=== PATIENT | male | born 1950 | race Caucasian/White ===

== ENCOUNTER → 2018-01-13 10:46 | Outpatient (CLI) | payer MEDICARE, OTHER, SELFPAY ==
[2018-01-13 11:34] LABS: Amphetamine Urine VISTA NEGATIVE (<1000 ng/mL); Barbiturate Urine VISTA NEGATIVE (< 200 ng/mL); Benzodiazepine Urine VISTA NEGATIVE (< 200 ng/mL); Cocaine Urine VISTA NEGATIVE (< 300 ng/mL); Ecstacy Urine VISTA NEGATIVE (< 500 ng/mL); Methadone Urine VISTA NEGATIVE (< 300 ng/mL); PCP Urine VISTA NEGATIVE (< 25 ng/mL); THC Urine VISTA NEGATIVE (< 50 ng/mL); Vista UDS pH Range 5
== END ==
PROVIDERS: Family Provider Family Medicine; PCP Family Medicine; Visit Provider Anesthesiology Pain Medicine
DX: F11.20 Opioid dependence, uncomplicated (principal)
CPT/HCPCS: 80307

== ENCOUNTER → 2018-02-03 09:39 | Outpatient (CLI) | payer MEDICARE, OTHER, SELFPAY ==
[2018-02-03 11:33] LABS: Anion Gap 5 (5-15); BUN 20 mg/dL (7-18); BUN/Creat Ratio 19.6 RATIO (10-20); Calcium,Total 9.2 mg/dL (8.5-10.1); Chloride 104 mmol/L (98-107); Cholesterol 168 mg/dL (200); Creatinine, Serum 1.02 mg/dL (0.70-1.30); EST Glomerular Filtration Rate 78 mL/min (>60); Est Glom Filt Rate - Afr Amer 94 mL/min (>60); Glucose 108 mg/dL (74-106); High Density Lipoprotein 40 mg/dL; PSA,Total - Annual Screen 2.53 ng/mL (0.00-4.00); Sodium Level 141 mmol/L (136-145); Triglycerides 126 mg/dL; Very Low Density Lipoprotein 25 mg/dL (5-40)
== END ==
PROVIDERS: Family Provider Family Medicine; PCP Family Medicine; Visit Provider Family Medicine
DX: Z00.00 Encounter for general adult medical examination without abnormal findings (principal); Z12.5 Encounter for screening for malignant neoplasm of prostate; I10 Essential (primary) hypertension
CPT/HCPCS: 36415; 80048; 80061; 84153; G0103

== ENCOUNTER → 2018-02-10 10:58 | Outpatient (CLI) | payer MEDICARE, OTHER, SELFPAY ==
[2018-02-10 11:32] LABS: Amphetamine Urine VISTA NEGATIVE (<1000 ng/mL); Barbiturate Urine VISTA NEGATIVE (< 200 ng/mL); Benzodiazepine Urine VISTA NEGATIVE (< 200 ng/mL); Cocaine Urine VISTA NEGATIVE (< 300 ng/mL); Ecstacy Urine VISTA NEGATIVE (< 500 ng/mL); Methadone Urine VISTA NEGATIVE (< 300 ng/mL); PCP Urine VISTA NEGATIVE (< 25 ng/mL); THC Urine VISTA NEGATIVE (< 50 ng/mL); Vista UDS pH Range 5
== END ==
PROVIDERS: Family Provider Family Medicine; PCP Family Medicine; Visit Provider Anesthesiology Pain Medicine
DX: F11.20 Opioid dependence, uncomplicated (principal)
CPT/HCPCS: 80307

== ENCOUNTER → 2018-07-30 10:36 | Outpatient (CLI) | payer MEDICARE, OTHER, SELFPAY ==
[2018-07-30 11:50] LABS: Amphetamine Urine VISTA NEGATIVE (<1000 ng/mL); Barbiturate Urine VISTA NEGATIVE (< 200 ng/mL); Benzodiazepine Urine VISTA NEGATIVE (< 200 ng/mL); Cocaine Urine VISTA NEGATIVE (< 300 ng/mL); Ecstacy Urine VISTA NEGATIVE (< 500 ng/mL); Methadone Urine VISTA NEGATIVE (< 300 ng/mL); PCP Urine VISTA NEGATIVE (< 25 ng/mL); THC Urine VISTA NEGATIVE (< 50 ng/mL); Vista UDS pH Range 6
== END ==
PROVIDERS: Family Provider Family Medicine; PCP Family Medicine; Visit Provider Anesthesiology Pain Medicine
DX: F11.20 Opioid dependence, uncomplicated (principal)
CPT/HCPCS: 80307

== ENCOUNTER → 2018-09-30 14:57 | Outpatient (CLI) | payer MEDICARE, OTHER, SELFPAY ==
[2018-09-30 16:06] LABS: Anion Gap 6 (5-15); BUN 26 mg/dL (7-18); BUN/Creat Ratio 21.1 RATIO (10-20); Calcium,Total 8.8 mg/dL (8.5-10.1); Chloride 100 mmol/L (98-107); Creatinine, Serum 1.23 mg/dL (0.70-1.30); EST Glomerular Filtration Rate 62 mL/min (>60); Est Glom Filt Rate - Afr Amer 75 mL/min (>60); Glucose 114 mg/dL (74-106); Sodium Level 138 mmol/L (136-145)
== END ==
PROVIDERS: Family Provider Family Medicine; PCP Family Medicine; Visit Provider Family Medicine
DX: I10 Essential (primary) hypertension (principal)
CPT/HCPCS: 36415; 80048

== ENCOUNTER → 2019-04-01 | Outpatient (CLI) | payer MEDICARE, OTHER, SELFPAY ==
[2019-04-01 16:12] LABS: Anion Gap 9 (5-15); BUN 19 mg/dL (7-18); BUN/Creat Ratio 18.3 RATIO (10-20); Calcium,Total 8.9 mg/dL (8.5-10.1); Chloride 101 mmol/L (98-107); Cholesterol 174 mg/dL (200); Creatinine, Serum 1.04 mg/dL (0.70-1.30); EST Glomerular Filtration Rate 76 mL/min (>60); Est Glom Filt Rate - Afr Amer 91 mL/min (>60); Glucose 95 mg/dL (74-106); High Density Lipoprotein 40 mg/dL; Potassium 3.6 mmol/L (3.5-5.1); Sodium Level 142 mmol/L (136-145); Triglycerides 139 mg/dL; Very Low Density Lipoprotein 28 mg/dL (5-40)
== END | disposition home or self-care (01) ==
LOC: MFPLAB 13:46
PROVIDERS: Family Provider Family Medicine; PCP Family Medicine; Referring Provider Family Medicine; Visit Provider Family Medicine
DX: E78.5 Hyperlipidemia, unspecified (principal); I10 Essential (primary) hypertension
CPT/HCPCS: 36415; 80048; 80061

== ENCOUNTER → 2019-08-03 12:35 | Outpatient (CLI) | payer MEDICARE, OTHER, SELFPAY ==
--- NOTE | 2019-08-03 12:46 | BD_ITS ---
STUDY: DUAL ENERGY X-RAY ABSORPTIOMETRY / DXA REASON FOR EXAM: Male, 69 years old. Loss of height. TECHNIQUE: Bone Mineral Density (BMD) measurements of lumbar spine and bilateral hips were obtained. COMPARISON: Comparison is made with prior study dated April 02, 2017. FINDINGS: Lumbar Spine (L1-L4): g/cm2 (1.514) / T-score (2.4) / Z-score (2.9) Findings are suggestive of normal bone density with a low fracture risk. Increased kyphosis. Left Femur Total: g/cm2 (0.713) / T-score (-2.7) / Z-score (-2.0) Left Femoral Neck: g/cm2 (0.613) / T-score (-3.5) / Z-score (-2.3) Right Femur Total: g/cm2 (0.756) / T-score (-2.4) / Z-score (-1.7) Right Femoral Neck: g/cm2 (0.673) / T-score (-3.1) / Z-score (-1.9) The T-Scores on the most recent prior examination were: Lumbar Spine (L1-L4): There has been improvement of bone density since the previous examination. Left Femur Total: which represents a worsening of 5.6%. Right Femur Total: which represents an improvement of 5.6%. BD/Dexa Bone Density Study IMPRESSION: The patient is considered osteoporotic as outlined below according to World Saud Organization (WHO) criteria with a high fracture risk. There has been improvement of bone density since the previous examination. Reference Information: The T-score is the number of standard deviations above or below the standard which is normal for young adults at their peak bone mineral density. The World Health Organization (WHO) interprets the T-scores as follows: Above -1 Normal bone density Between -1 and -2.5 Osteopenia Equal to / or below -2.5 Osteoporosis As a practical clinical guideline, osteopenia may be graded as follows: Mild -1 through -1.5 Moderate -1.6 through -2.0 Severe -2.1 through -2.4 The Z-score is the number of standard deviations above or below age-matched controls. A Z-score of less than -1.5 would be considered abnormal. References: 1. NIH Osteoporosis and Related Bone Diseases http://www.osteo.org 2. International Society for Clinical Densitometry http://www.iscd.org 3. National Osteoporosis Foundation http://www.nof.org Electronically Signed: Ariel Sahu, at 13:41 EDT , Service support ,
== END ==
PROVIDERS: Family Provider Family Medicine; PCP Family Medicine; Referring Provider Family Medicine; Visit Provider Family Medicine
DX: M81.0 Age-related osteoporosis without current pathological fracture (principal)
CPT/HCPCS: 77080

== ENCOUNTER → 2019-09-30 14:06 | Outpatient (CLI) | payer MEDICARE, OTHER, SELFPAY ==
[2019-09-30 15:54] LABS: Anion Gap 6 (5-15); BUN 19 mg/dL (7-18); BUN/Creat Ratio 20.3 RATIO (10-20); Calcium,Total 9.4 mg/dL (8.5-10.1); Chloride 103 mmol/L (98-107); Creatinine, Serum 0.94 mg/dL (0.70-1.30); EST Glomerular Filtration Rate 85 mL/min (>60); Est Glom Filt Rate - Afr Amer 103 mL/min (>60); Glucose 107 mg/dL (74-106); Potassium 3.7 mmol/L (3.5-5.1); Sodium Level 140 mmol/L (136-145)
== END ==
PROVIDERS: Family Provider Family Medicine; PCP Family Medicine; Referring Provider Family Medicine; Visit Provider Family Medicine
DX: I10 Essential (primary) hypertension (principal)
CPT/HCPCS: 36415; 80048

== ENCOUNTER → 2019-12-30 09:43 | Outpatient (CLI) | payer MEDICARE, OTHER, SELFPAY ==
[2019-12-30 11:02] LABS: Amphetamine Urine VISTA NEGATIVE (<1000 ng/mL); Barbiturate Urine VISTA NEGATIVE (< 200 ng/mL); Benzodiazepine Urine VISTA NEGATIVE (< 200 ng/mL); Cocaine Urine VISTA NEGATIVE (< 300 ng/mL); Ecstacy Urine VISTA NEGATIVE (< 500 ng/mL); Methadone Urine VISTA NEGATIVE (< 300 ng/mL); PCP Urine VISTA NEGATIVE (< 25 ng/mL); THC Urine VISTA NEGATIVE (< 50 ng/mL); Vista UDS pH Range 6
== END ==
PROVIDERS: PCP Family Medicine; Referring Provider Anesthesiology Pain Medicine; Visit Provider Anesthesiology Pain Medicine
DX: F11.20 Opioid dependence, uncomplicated (principal)
CPT/HCPCS: 80307

== ENCOUNTER → 2020-03-30 10:40 | Outpatient (CLI) | payer MEDICARE, OTHER, SELFPAY ==
[2020-03-30 12:12] LABS: Absolute Lymphocyte Count 1.51 X10^3/uL (0.83-4.51); Absolute Neutrophil Count 6.6 X10^3/uL (2.0-7.7); Basophil# 0.08 X10^3/uL; Basophil% 0.8 % (0-1); Eosinophil# 0.32 X10^3/uL; Eosinophils% 3.3 % (0-5); Hematocrit 39.9 % (40-54); Hemoglobin 12.3 g/dL (13.0-16.5); Lymphocyte # 1.51 X10^3/ul (4.0); Lymphocyte % 15.7 % (19-41); Mean Corp Hgb Conc 30.8 g/dL (32-36); Mean Corpuscular Hgb 30.1 pg (27.0-32.0); Mean Corpuscular Volume 97.8 fL (80-94); Mean Platelet Vol. 9.1 fl (6.2-12.0); Monocyte# 1.08 X10^3/uL; Monocyte% 11.3 % (0-10); NRBC Flagged by Analyzer 0 % (0-5); Neutrophil # 6.57 X10^3/uL (2.7-7.7); Neutrophil % 68.6 % (47-70); Platelet Count 367 K/mm3 (150-450); RBC Distribution Width CV 14.9 % (11.6-14.6); RBC Distribution Width SD 53.6 fl (35.1-43.9); Red Blood Count 4.08 M/mm3 (4.6-6.2); White Blood Count 9.6 K/mm3 (4.4-11.0)
[2020-03-30 12:24] LABS: Anion Gap 4 (5-15); BUN 19 mg/dL (7-18); BUN/Creat Ratio 20.5 RATIO (10-20); Calcium,Total 8.7 mg/dL (8.5-10.1); Chloride 100 mmol/L (98-107); Cholesterol 153 mg/dL (200); Creatinine, Serum 0.93 mg/dL (0.70-1.30); EST Glomerular Filtration Rate 86 mL/min (>60); Est Glom Filt Rate - Afr Amer 104 mL/min (>60); Glucose 135 mg/dL (74-106); High Density Lipoprotein 33 mg/dL; Potassium 3.4 mmol/L (3.5-5.1); Sodium Level 138 mmol/L (136-145); Triglycerides 144 mg/dL; Very Low Density Lipoprotein 29 mg/dL (5-40)
== END ==
PROVIDERS: PCP Family Medicine; Visit Provider Family Medicine
DX: I10 Essential (primary) hypertension (principal); R09.02 Hypoxemia
CPT/HCPCS: 36415; 80048; 80061; 85025

== ENCOUNTER → 2020-07-03 08:38 | Outpatient (CLI) | payer MEDICARE, OTHER, SELFPAY ==
[2020-07-03 13:13] LABS: Anion Gap 4 (5-15); BUN 14 mg/dL (7-18); Calcium,Total 8.6 mg/dL (8.5-10.1); Chloride 101 mmol/L (98-107); Cholesterol 141 mg/dL (200); EST Glomerular Filtration Rate 79 mL/min (>60); Est Glom Filt Rate - Afr Amer 95 mL/min (>60); Glucose 111 mg/dL (74-106); High Density Lipoprotein 36 mg/dL; Potassium 3.4 mmol/L (3.5-5.1); Sodium Level 140 mmol/L (136-145); Triglycerides 114 mg/dL; Very Low Density Lipoprotein 23 mg/dL (5-40)
== END ==
PROVIDERS: PCP Family Medicine; Visit Provider Family Medicine
DX: I10 Essential (primary) hypertension (principal)
CPT/HCPCS: 36415; 80048; 80061

== ENCOUNTER → 2020-08-08 12:12 | Outpatient (CLI) | payer MEDICARE, OTHER, SELFPAY ==
[2020-08-08 15:55] LABS: Anion Gap 6 (5-15); BUN 21 mg/dL (7-18); BUN/Creat Ratio 19.6 RATIO (10-20); Calcium,Total 9.7 mg/dL (8.5-10.1); Chloride 100 mmol/L (98-107); Creatinine, Serum 1.07 mg/dL (0.70-1.30); EST Glomerular Filtration Rate 73 mL/min (>60); Est Glom Filt Rate - Afr Amer 88 mL/min (>60); Glucose 107 mg/dL (74-106); Potassium 3.2 mmol/L (3.5-5.1); Sodium Level 142 mmol/L (136-145)
== END ==
PROVIDERS: PCP Family Medicine; Referring Provider Family Medicine; Visit Provider Family Medicine
DX: E87.6 Hypokalemia (principal)
CPT/HCPCS: 36415; 80048

== ENCOUNTER → 2020-08-10 12:07 | Outpatient (CLI) | payer MEDICARE, OTHER, SELFPAY ==
[2020-08-10 13:25] LABS: Amphetamine Urine VISTA NEGATIVE (<1000 ng/mL); Barbiturate Urine VISTA NEGATIVE (< 200 ng/mL); Benzodiazepine Urine VISTA NEGATIVE (< 200 ng/mL); Cocaine Urine VISTA NEGATIVE (< 300 ng/mL); Ecstacy Urine VISTA NEGATIVE (< 500 ng/mL); Methadone Urine VISTA NEGATIVE (< 300 ng/mL); PCP Urine VISTA NEGATIVE (< 25 ng/mL); THC Urine VISTA NEGATIVE (< 50 ng/mL); Vista UDS pH Range 6
== END ==
PROVIDERS: PCP Family Medicine; Referring Provider Anesthesiology Pain Medicine; Visit Provider Anesthesiology Pain Medicine
DX: F11.20 Opioid dependence, uncomplicated (principal)
CPT/HCPCS: 80307

== ENCOUNTER → 2020-09-05 10:34 | Outpatient (CLI) | payer MEDICARE, OTHER, SELFPAY ==
[2020-09-05 13:10] LABS: Anion Gap 5 (5-15); BUN 17 mg/dL (7-18); BUN/Creat Ratio 13.4 RATIO (10-20); Calcium,Total 9.1 mg/dL (8.5-10.1); Chloride 105 mmol/L (98-107); Creatinine, Serum 1.27 mg/dL (0.70-1.30); EST Glomerular Filtration Rate 60 mL/min (>60); Est Glom Filt Rate - Afr Amer 72 mL/min (>60); Glucose 131 mg/dL (74-106); Potassium 3.5 mmol/L (3.5-5.1); Sodium Level 141 mmol/L (136-145)
== END ==
PROVIDERS: PCP Family Medicine; Referring Provider Family Medicine; Visit Provider Family Medicine
DX: E87.6 Hypokalemia (principal)
CPT/HCPCS: 36415; 80048

== ENCOUNTER → 2020-10-30 13:56 | Outpatient (CLI) | payer MEDICARE, OTHER, SELFPAY ==
[2020-10-18 10:37] VITALS: BMI 38.9
== END ==
PROVIDERS: PCP Family Medicine; Referring Provider Internal Medicine Cardiovascular Disease; Visit Provider Internal Medicine Cardiovascular Disease
DX: I49.9 Cardiac arrhythmia, unspecified (principal)
CPT/HCPCS: 93225; 93226

== ENCOUNTER → 2020-11-01 06:44 | Outpatient (CLI) | payer MEDICARE, OTHER, SELFPAY ==
[2020-10-18 10:37] VITALS: BMI 38.9
--- NOTE | 2020-11-01 06:46 | ECHOCS_ITS ---
Reason For Study: ATRIAL FIB-FLUTTER Procedure This was a 2D Doppler, Color Flow transthoracic echocardiogram. The study was technically difficult. Exam performed in department. Left Ventricle Normal LV size. Left ventricular systolic function is normal. The estimated ejection fraction is 53 %. Stage 1 diastolic dysfunction. No regional wall motion abnormalities noted. Right Ventricle Normal RV size. Normal systolic function. Atria Normal left atrium. Normal right atrium. Mitral Valve Normal mitral valve. Tricuspid Valve The tricuspid valve is not well visualized. Mild to moderate (1-2+) tricuspid valve insufficiency. Pulmonary artery systolic pressure is 48 mmHg. Mild pulmonary hypertension. Aortic Valve The aortic valve is not well visualized. Pulmonic Valve Normal pulmonic valve. Great Vessels Normal aortic root. The pulmonary artery is normal size. Normal inferior vena cava. Pericardium/Pleural No pericardial effusion. Medication Diluted definity 3ml given slow IV push to enhance endocardial definition. MMode/2D Measurements & Calculations LVIDd: 4.1 cm IVSd: 1.0 cm Ao root diam: 3.2 cm LVIDs: 2.8 cm LVPWd: 0.97 cm RVDd: 3.4 cm FS: 30.9 % LAV(MOD-bp): 24.6 ml LVAd ap4: 24.7 cm2 SV(MOD-sp4): 45.8 ml LAV(MOD-bp) Indexed: 13.5 ml/m2 EDV(MOD-sp4): 72.9 ml LAV(MOD-sp2): 30.1 ml EDV(sp4-el): 77.0 ml LAV(MOD-sp4): 19.7 ml LVAs ap4: 13.5 cm2 ESV(MOD-sp4): 27.1 ml ESV(sp4-el): 28.4 ml EF(MOD-sp4): 62.8 % EF(sp4-el): 63.1 % SV(sp4-el): 48.5 ml LA A4 area: 11.1 cm2 LA dimension(2D): 3.7 cm RA A4 area: 10.6 cm2 Time Measurements MV dec time: 0.29 sec Doppler Measurements & Calculations MV E max keshawn: 54.8 cm/sec Lat Peak E' Keshawn: 9.5 cm/sec Med Peak E' Keshawn: 7.5 cm/sec MV A max keshawn: 74.4 cm/sec E/E' lat: 5.8 E/E' med: 7.3 MV E/A: 0.74 Ao V2 max: 134.4 cm/sec LV V1 max: 93.5 cm/sec PA V2 max: 104.5 cm/sec Ao max P.2 mmHg LV V1 max P.5 mmHg TR max keshawn: 331.8 cm/sec TR max P.0 mmHg Interpretation Summary Normal LV size. Left ventricular systolic function is normal. The estimated ejection fraction is 53 %. Pulmonary artery systolic pressure is 48 mmHg. Mild pulmonary hypertension. Stage 1 diastolic dysfunction. Contrast injection was performed. Ordering Physician: Zafar Fish Referring Physician: GUERRERO DELEON Performed By: Marianela Michelle RDCS
== END ==
PROVIDERS: PCP Family Medicine; Referring Provider Internal Medicine Cardiovascular Disease; Visit Provider Internal Medicine Cardiovascular Disease
DX: R07.9 Chest pain, unspecified (principal)
CPT/HCPCS: 93306; Q9957; A4216; C8929

== ENCOUNTER → 2020-12-08 10:30 | Outpatient (CLI) | payer MEDICARE, OTHER, SELFPAY ==
[2020-11-15 09:22] VITALS: BMI 38.7
[2020-12-08 12:55] LABS: Anion Gap 7 (5-15); BUN 29 mg/dL (7-18); BUN/Creat Ratio 17.7 RATIO (10-20); Calcium,Total 9.5 mg/dL (8.5-10.1); Chloride 105 mmol/L (98-107); Cholesterol 163 mg/dL (200); Creatinine, Serum 1.64 mg/dL (0.70-1.30); EST Glomerular Filtration Rate 44 mL/min (>60); Est Glom Filt Rate - Afr Amer 54 mL/min (>60); Glucose 110 mg/dL (74-106); High Density Lipoprotein 35 mg/dL; Potassium 3.4 mmol/L (3.5-5.1); Sodium Level 142 mmol/L (136-145); Triglycerides 167 mg/dL; Very Low Density Lipoprotein 33 mg/dL (5-40)
== END ==
PROVIDERS: PCP Family Medicine; Referring Provider Family Medicine; Visit Provider Family Medicine
DX: I10 Essential (primary) hypertension (principal)
CPT/HCPCS: 36415; 80048; 80061

== ENCOUNTER → 2021-02-20 09:59 | Outpatient (CLI) | payer MEDICARE, OTHER, SELFPAY ==
[2020-11-15 09:22] VITALS: BMI 38.7
[2021-02-20 10:56] LABS: Amphetamine Urine VISTA NEGATIVE (<1000 ng/mL); Barbiturate Urine VISTA NEGATIVE (< 200 ng/mL); Benzodiazepine Urine VISTA NEGATIVE (< 200 ng/mL); Cocaine Urine VISTA NEGATIVE (< 300 ng/mL); Ecstacy Urine VISTA NEGATIVE (< 500 ng/mL); Methadone Urine VISTA NEGATIVE (< 300 ng/mL); PCP Urine VISTA NEGATIVE (< 25 ng/mL); THC Urine VISTA NEGATIVE (< 50 ng/mL); Vista UDS pH Range 6
== END ==
PROVIDERS: PCP Family Medicine; Referring Provider Anesthesiology Pain Medicine; Visit Provider Anesthesiology Pain Medicine
DX: F11.20 Opioid dependence, uncomplicated (principal)
CPT/HCPCS: 80307

== ENCOUNTER → 2021-03-29 09:57 | Outpatient (CLI) | payer MEDICARE, OTHER, SELFPAY ==
[2020-11-15 09:22] VITALS: BMI 38.7
[2021-03-29 12:43] LABS: Anion Gap 4 (5-15); BUN 29 mg/dL (7-18); BUN/Creat Ratio 32.6 RATIO (10-20); Calcium,Total 9.1 mg/dL (8.5-10.1); Chloride 101 mmol/L (98-107); Creatinine, Serum 0.89 mg/dL (0.70-1.30); EST Glomerular Filtration Rate 90 mL/min (>60); Est Glom Filt Rate - Afr Amer 109 mL/min (>60); Glucose 108 mg/dL (74-106); Sodium Level 138 mmol/L (136-145)
[2021-03-29 12:49] LABS: Hemoglobin A1c 6.1 % (3.8-5.6)
[2021-03-29 12:57] LABS: Microalbumin,Random Urine 52.7 mg/L (NO RANGE EST.)
== END ==
PROVIDERS: PCP Family Medicine; Referring Provider Family Medicine; Visit Provider Family Medicine
DX: I10 Essential (primary) hypertension (principal); R73.01 Impaired fasting glucose
CPT/HCPCS: 36415; 80048; 82043; 83036

== ENCOUNTER → 2021-06-07 09:30 | Outpatient (CLI) | payer MEDICARE, OTHER, SELFPAY ==
[2020-11-15 09:22] VITALS: BMI 38.7
--- NOTE | 2021-06-07 09:34 | RAD_ITS ---
STUDY: X-RAY - PELVIS AND BILATERAL HIPS REASON FOR EXAM: Male, 71 years old. PELVIC PAIN TECHNIQUE: AP view of the pelvis.? 2 views of the right hip, and 2 views of the left hip were obtained. COMPARISON: None. FINDINGS: There is a non-specific bowel gas pattern. Normal visualized soft tissue structures. Normal bilateral iliac wings, sacroiliac joints and visualized sacrum. Normal bilateral superior and inferior pubic rami. Normal pubic symphysis. Normal bilateral ischial tuberosities. Normal visualized right femoral head. Normal right acetabulum. Normal right hip joint. Normal visualized left femoral head. Normal left acetabulum. Normal left hip joint. RAD/Hips B/L min 2 views w/ Pelvis IMPRESSION: Normal x-ray examination of the pelvis and bilateral hips. Electronically Signed: Adriel Logan MD at 9:27 EDT Tel , Service support ,
== END ==
PROVIDERS: PCP Family Medicine; Referring Provider Family Medicine; Visit Provider Family Medicine
DX: R10.2 Pelvic and perineal pain (principal)
CPT/HCPCS: 73521

== ENCOUNTER → 2021-09-27 09:28 | Outpatient (CLI) | payer MEDICARE, OTHER, SELFPAY ==
[2021-09-27 12:49] LABS: Anion Gap 6 (5-15); BUN 21 mg/dL (7-18); BUN/Creat Ratio 23.3 RATIO (10-20); Calcium,Total 8.8 mg/dL (8.5-10.1); Chloride 102 mmol/L (98-107); Cholesterol 150 mg/dL (200); EST Glomerular Filtration Rate 88 mL/min (>60); Est Glom Filt Rate - Afr Amer 107 mL/min (>60); Glucose 109 mg/dL (74-106); High Density Lipoprotein 50 mg/dL; Potassium 3.8 mmol/L (3.5-5.1); Sodium Level 138 mmol/L (136-145); Triglycerides 60 mg/dL; Very Low Density Lipoprotein 12 mg/dL (5-40)
== END ==
PROVIDERS: PCP Family Medicine; Referring Provider Family Medicine; Visit Provider Family Medicine
DX: I10 Essential (primary) hypertension (principal)
CPT/HCPCS: 36415; 80048; 80061

== ENCOUNTER → 2021-10-02 10:24 | Outpatient (CLI) | payer MEDICARE, OTHER, SELFPAY ==
[2021-10-02 11:23] LABS: Amphetamine Urine VISTA NEGATIVE (<1000 ng/mL); Barbiturate Urine VISTA NEGATIVE (< 200 ng/mL); Benzodiazepine Urine VISTA NEGATIVE (< 200 ng/mL); Cocaine Urine VISTA NEGATIVE (< 300 ng/mL); Ecstacy Urine VISTA NEGATIVE (< 500 ng/mL); Methadone Urine VISTA NEGATIVE (< 300 ng/mL); PCP Urine VISTA NEGATIVE (< 25 ng/mL); THC Urine VISTA NEGATIVE (< 50 ng/mL); Vista UDS pH Range 6
== END ==
PROVIDERS: PCP Family Medicine; Referring Provider Anesthesiology Pain Medicine; Visit Provider Anesthesiology Pain Medicine
DX: F11.20 Opioid dependence, uncomplicated (principal)
CPT/HCPCS: 80307

== ENCOUNTER → 2022-04-16 | Outpatient (CLI) | payer MEDICARE, OTHER, SELFPAY ==
[2022-04-16 13:12] LABS: Amphetamine Urine VISTA NEGATIVE (<1000 ng/mL); Barbiturate Urine VISTA NEGATIVE (< 200 ng/mL); Benzodiazepine Urine VISTA NEGATIVE (< 200 ng/mL); Cocaine Urine VISTA NEGATIVE (< 300 ng/mL); Ecstacy Urine VISTA NEGATIVE (< 500 ng/mL); Methadone Urine VISTA NEGATIVE (< 300 ng/mL); PCP Urine VISTA NEGATIVE (< 25 ng/mL); THC Urine VISTA NEGATIVE (< 50 ng/mL); Vista UDS pH Range 6
== END | disposition home or self-care (01) ==
LOC: LAB 11:22
PROVIDERS: PCP Family Medicine; Referring Provider Anesthesiology Pain Medicine; Visit Provider Anesthesiology Pain Medicine
DX: F11.20 Opioid dependence, uncomplicated (principal)
CPT/HCPCS: 80307

== ENCOUNTER → 2022-10-01 | Outpatient (CLI) | payer MEDICARE, OTHER, SELFPAY ==
[2022-10-01 10:33] LABS: Amphetamine Urine VISTA NEGATIVE (<1000 ng/mL); Barbiturate Urine VISTA NEGATIVE (< 200 ng/mL); Benzodiazepine Urine VISTA NEGATIVE (< 200 ng/mL); Cocaine Urine VISTA NEGATIVE (< 300 ng/mL); Ecstacy Urine VISTA NEGATIVE (< 500 ng/mL); Methadone Urine VISTA NEGATIVE (< 300 ng/mL); PCP Urine VISTA NEGATIVE (< 25 ng/mL); THC Urine VISTA NEGATIVE (< 50 ng/mL); Vista UDS pH Range 5
== END | disposition home or self-care (01) ==
LOC: LAB 09:50
PROVIDERS: PCP Family Medicine; Visit Provider Anesthesiology Pain Medicine
DX: F11.20 Opioid dependence, uncomplicated (principal)
CPT/HCPCS: 80307

== ENCOUNTER → 2022-10-02 | Outpatient (CLI) | payer MEDICARE, OTHER, SELFPAY ==
[2022-10-02 11:12] LABS: ALB/GLOB Ratio 0.8 RATIO (0.9-2.4); AST(SGOT) 18 U/L (15-37); Alanine Aminotransfer ALT/SGPT 22 U/L (16-61); Albumin, Serum 3.5 g/dL (3.2-5.0); Alkaline Phosphatase 109 U/L (45-117); Anion Gap 6 (5-15); BUN 19 mg/dL (7-18); BUN/Creat Ratio 21.9 RATIO (10-20); Calcium,Total 9.4 mg/dL (8.5-10.1); Chloride 105 mmol/L (98-107); Cholesterol 165 mg/dL (200); Creatinine, Serum 0.87 mg/dL (0.70-1.30); EST Glomerular Filtration Rate 92 mL/min (>60); Est Glom Filt Rate - Afr Amer 111 mL/min (>60); Globulin 4.3 g/dL (2.2-4.2); Glucose 124 mg/dL (74-106); High Density Lipoprotein 44 mg/dL; Potassium 3.4 mmol/L (3.5-5.1); Protein, Total 7.8 g/dL (6.4-8.2); Sodium Level 141 mmol/L (136-145); Triglycerides 108 mg/dL; Very Low Density Lipoprotein 22 mg/dL (5-40)
== END | disposition home or self-care (01) ==
LOC: MFPLAB 09:28
PROVIDERS: PCP Family Medicine; Referring Provider Family Medicine; Visit Provider Family Medicine
DX: R73.01 Impaired fasting glucose (principal); I10 Essential (primary) hypertension
CPT/HCPCS: 36415; 80053; 80061

== ENCOUNTER → 2023-04-04 | Outpatient (CLI) | payer MEDICARE, OTHER, SELFPAY ==
[2023-04-04 18:04] LABS: Anion Gap 5 (5-15); BUN 18 mg/dL (7-18); BUN/Creat Ratio 20.8 RATIO (10-20); Chloride 108 mmol/L (98-107); Creatinine, Serum 0.87 mg/dL (0.70-1.30); EST Glomerular Filtration Rate 92 mL/min (>60); Est Glom Filt Rate - Afr Amer 112 mL/min (>60); Glucose 106 mg/dL (74-106); Potassium 4.3 mmol/L (3.5-5.1); Sodium Level 141 mmol/L (136-145)
== END | disposition home or self-care (01) ==
LOC: MFPLAB 14:10
PROVIDERS: PCP Family Medicine; Visit Provider Family Medicine
DX: I10 Essential (primary) hypertension (principal)
CPT/HCPCS: 36415; 80048

== ENCOUNTER → 2023-06-10 | Outpatient (CLI) | payer MEDICARE, OTHER, SELFPAY ==
[2023-06-10 16:06] LABS: Amphetamine Urine VISTA NEGATIVE (<1000 ng/mL); Barbiturate Urine VISTA NEGATIVE (< 200 ng/mL); Benzodiazepine Urine VISTA NEGATIVE (< 200 ng/mL); Cocaine Urine VISTA NEGATIVE (< 300 ng/mL); Ecstacy Urine VISTA NEGATIVE (< 500 ng/mL); Methadone Urine VISTA NEGATIVE (< 300 ng/mL); PCP Urine VISTA NEGATIVE (< 25 ng/mL); THC Urine VISTA NEGATIVE (< 50 ng/mL); Vista UDS pH Range 6
== END | disposition home or self-care (01) ==
LOC: LAB 15:16
PROVIDERS: PCP Family Medicine; Referring Provider Anesthesiology Pain Medicine; Visit Provider Anesthesiology Pain Medicine
DX: F11.20 Opioid dependence, uncomplicated (principal)
CPT/HCPCS: 80307

== ENCOUNTER → 2023-10-23 | Outpatient (CLI) | payer MEDICARE, OTHER, SELFPAY ==
[2023-10-23 12:31] LABS: Anion Gap 5 (5-15); BUN 16 mg/dL (7-18); Calcium,Total 9.1 mg/dL (8.5-10.1); Chloride 107 mmol/L (98-107); Cholesterol 142 mg/dL (200); EST Glomerular Filtration Rate 78 mL/min (>60); Est Glom Filt Rate - Afr Amer 94 mL/min (>60); Glucose 103 mg/dL (74-106); High Density Lipoprotein 48 mg/dL; Potassium 3.8 mmol/L (3.5-5.1); Sodium Level 141 mmol/L (136-145); Triglycerides 68 mg/dL; Very Low Density Lipoprotein 14 mg/dL (5-40)
== END | disposition home or self-care (01) ==
LOC: MFPLAB 10:06
PROVIDERS: PCP Family Medicine; Visit Provider Family Medicine
DX: I10 Essential (primary) hypertension (principal); R73.01 Impaired fasting glucose
CPT/HCPCS: 36415; 80048; 80061; 82043; 82570; 83036

== ENCOUNTER → 2024-01-22 | Outpatient (CLI) | payer MEDICARE, OTHER, SELFPAY ==
--- NOTE | 2024-01-22 10:45 | RAD_ITS ---
EXAM: XR CHEST, 2 VIEWS CLINICAL INDICATION: COUGH TECHNIQUE: Frontal and lateral views of the chest. COMPARISON: 09/15/2017 FINDINGS: LUNGS AND PLEURAL SPACES: No significant abnormality. No consolidation or edema. No pneumothorax. No effusion. HEART: No significant abnormality. Cardiac silhouette not enlarged. MEDIASTINUM: Central airways and mediastinal contour are unremarkable. BONES/JOINTS: Degenerative changes in the spine and shoulders. No acute fracture. SOFT TISSUES: No significant abnormality. VASCULATURE: Atherosclerosis. RAD/Chest PA and Lateral IMPRESSION: No acute findings in the chest. Electronically Signed: Hoang Rutherford DO at 22:51 EST ,
[2024-01-22 12:27] LABS: Absolute Neutrophil Count 9.9 X10^3/uL (2.0-7.7); Basophil% 0.7 % (0-1); Eosinophil# 0.15 X10^3/uL; Eosinophils% 1.1 % (0-5); Hematocrit 48.9 % (40-54); Hemoglobin 15.3 g/dL (13.0-16.5); Lymphocyte % 15.8 % (19-41); Mean Corp Hgb Conc 31.3 g/dL (32-36); Mean Corpuscular Hgb 30.1 pg (27.0-32.0); Mean Corpuscular Volume 96.3 fL (80-94); Mean Platelet Vol. 9.2 fl (6.2-12.0); Monocyte# 1.53 X10^3/uL; NRBC Flagged by Analyzer 0 % (0-5); Neutrophil # 9.89 X10^3/uL (2.7-7.7); POSITIVE DIFFERENTIAL YES; Platelet Count 345 K/mm3 (150-450); RBC Distribution Width CV 14.1 % (11.6-14.6); RBC Distribution Width SD 50.3 fl (35.1-43.9); Red Blood Count 5.08 M/mm3 (4.6-6.2); White Blood Count 13.9 K/mm3 (4.4-11.0)
[2024-01-22 12:28] LABS: Differential Indicated SCAN CRITERIA MET
[2024-01-22 12:37] LABS: D-Dimer Quantitative (DVT/PE) 0.42 FEU/ug/m (0.27-0.49)
[2024-01-22 13:11] LABS: Differential Comment SCANNED
[2024-01-22 13:15] LABS: ALB/GLOB Ratio 0.9 RATIO (0.9-2.4); AST(SGOT) 25 U/L (15-37); Alanine Aminotransfer ALT/SGPT 23 U/L (16-61); Albumin, Serum 3.7 g/dL (3.2-5.0); Alkaline Phosphatase 115 U/L (45-117); Anion Gap 3 (5-15); BUN 15 mg/dL (7-18); BUN/Creat Ratio 15.2 RATIO (10-20); Calcium,Total 10.3 mg/dL (8.5-10.1); Chloride 107 mmol/L (98-107); Creatinine, Serum 0.99 mg/dL (0.70-1.30); EST Glomerular Filtration Rate 79 mL/min (>60); Est Glom Filt Rate - Afr Amer 95 mL/min (>60); Globulin 4.1 g/dL (2.2-4.2); Glucose 110 mg/dL (74-106); Protein, Total 7.8 g/dL (6.4-8.2); Sodium Level 140 mmol/L (136-145)
[2024-01-23 14:33] LABS: Pathologist Review Reviewed
== END | disposition home or self-care (01) ==
PROVIDERS: PCP Family Medicine; Referring Provider Family Medicine; Visit Provider Family Medicine
DX: R05.9 Cough, unspecified (principal); R63.0 Anorexia
CPT/HCPCS: 36415; 71046; 80053; 85025; 85379

== ENCOUNTER → 2024-04-22 | Outpatient (CLI) | payer MEDICARE, OTHER, SELFPAY ==
[2024-04-22 10:39] LABS: Anion Gap 5 (5-15); BUN 22 mg/dL (7-18); BUN/Creat Ratio 16.3 RATIO (10-20); Calcium,Total 8.8 mg/dL (8.5-10.1); Chloride 102 mmol/L (98-107); Cholesterol 117 mg/dL (200); Creatinine, Serum 1.35 mg/dL (0.70-1.30); EST Glomerular Filtration Rate 55 mL/min (>60); Est Glom Filt Rate - Afr Amer 67 mL/min (>60); Glucose 101 mg/dL (74-106); High Density Lipoprotein 39 mg/dL; Potassium 3.8 mmol/L (3.5-5.1); Sodium Level 137 mmol/L (136-145); Triglycerides 76 mg/dL; Very Low Density Lipoprotein 15 mg/dL (5-40)
[2024-04-22 11:10] LABS: Hemoglobin A1c 5.8 % (3.8-5.6)
== END | disposition home or self-care (01) ==
LOC: MFPLAB 09:23
PROVIDERS: PCP Family Medicine; Visit Provider Family Medicine
DX: R73.01 Impaired fasting glucose (principal); I10 Essential (primary) hypertension
CPT/HCPCS: 36415; 80048; 80061; 83036

== ENCOUNTER 2024-07-27 11:27 | Inpatient (IN) | payer MEDICARE, OTHER, SELFPAY ==
[2024-07-27] VITALS (16 sets, daily range): BP systolic 106–149; BP diastolic 62–101; PULSE 73–100; RESP 18–24; TEMP 36.2–36.9; O2SAT 55–96; BMI 38.9
--- NOTE | 2024-07-27 11:37 | EKG12_ITS ---
Test Reason : SOB Blood Pressure : / mmHG Vent. Rate : 095 BPM Atrial Rate : 095 BPM P-R Int : 160 ms QRS Dur : 082 ms QT Int : 376 ms P-R-T Axes : 035 -11 047 degrees QTc Int : 472 ms Sinus rhythm with Premature supraventricular complexes Low voltage QRS Borderline ECG Confirmed by SUE CROCKER, ZEHRA ([id number]), design editor PARMJIT JOHN ([id number]) on 07/29/2024 1:42:28 PM Referred By: Confirmed By:ZEHRA ROGERS MD
[2024-07-27 12:43] LABS: Absolute Neutrophil Count 10.9 X10^3/uL (2.0-7.7); Basophil# 0.09 X10^3/uL; Basophil% 0.6 % (0-1); Eosinophil# 0.22 X10^3/uL; Eosinophils% 1.5 % (0-5); Hemoglobin 11.8 g/dL (13.0-16.5); Lymphocyte % 10.5 % (19-41); Mean Corp Hgb Conc 28.8 g/dL (32-36); Mean Corpuscular Hgb 26.2 pg (27.0-32.0); Mean Corpuscular Volume 90.9 fL (80-94); Mean Platelet Vol. 8.9 fl (6.2-12.0); Monocyte# 1.53 X10^3/uL; Monocyte% 10.7 % (0-10); NRBC Flagged by Analyzer 0.3 % (0-5); Neutrophil # 10.86 X10^3/uL (2.7-7.7); Neutrophil % 76.3 % (47-70); POSITIVE DIFFERENTIAL YES; Platelet Count 339 K/mm3 (150-450); RBC Distribution Width CV 15.9 % (11.6-14.6); RBC Distribution Width SD 52.6 fl (35.1-43.9); Red Blood Count 4.51 M/mm3 (4.6-6.2); White Blood Count 14.3 K/mm3 (4.4-11.0)
[2024-07-27 12:51] LABS: Anion Gap 5 (5-15); BUN 18 mg/dL (7-18); BUN/Creat Ratio 18.1 RATIO (10-20); Calcium,Total 8.7 mg/dL (8.5-10.1); Chloride 102 mmol/L (98-107); Creatinine, Serum 0.99 mg/dL (0.70-1.30); EST Glomerular Filtration Rate 78 mL/min (>60); Est Glom Filt Rate - Afr Amer 95 mL/min (>60); Glucose 117 mg/dL (74-106); Potassium 3.5 mmol/L (3.5-5.1); Sodium Level 139 mmol/L (136-145)
[2024-07-27 13:01] LABS: Differential Indicated SCAN CRITERIA MET
--- NOTE | 2024-07-27 13:05 | RAD_ITS ---
STUDY: X-RAY CHEST REASON FOR EXAM: Male, 74 years old. Shortness of breath. TECHNIQUE: Single frontal view of the chest. COMPARISON: January 22, 2024 FINDINGS: Low volume inspiration with stable mild diffuse interstitial pattern most marked at the bases. There is no demonstrated pleural abnormality. Stable cardiomegaly. Normal mediastinum and christina. Normal visualized pulmonary arteries. Aortic tortuosity unchanged. No abnormality of the visualized soft tissue structures of the upper abdomen. RAD/Chest 1 View (Portable) IMPRESSION: Stable chest with no acute finding. Electronically Signed: Alvarado Tian MD at 13:21 EDT ,
[2024-07-27 13:14] LABS: Differential Comment SCANNED
[2024-07-27 13:52] LABS: Troponin-I HS 49 pg/mL (3.0-78.0)
[2024-07-27 14:05] LABS: BNP,B-Type NATRIURETIC PEPTIDE 154.5 pg/mL (0-100)
[2024-07-27] MEDS: Ipratropium/Albuterol Sulfate 3 ML AMPUL.NEB INHALATION (14:29)
[2024-07-27 14:38] LABS: D-Dimer Quantitative (DVT/PE) 0.29 FEU/ug/m (0.27-0.49)
--- NOTE | 2024-07-27 15:05 | EDS_ITS ---
HPI History of Present Illness Chief Complaint: Shortness of Breath Informant: patient Narrative Narrative: Patient is a 74-year-old male with history of hypertension, documented history of secondary pulmonary atrial hypertension) and, diabetes mellitus, rheumatoid arthritis, hyperlipidemia and prior atrial fibrillation presenting from home for worsening shortness of breath. Patient has been having chest congestion for the past few days. He has had significantly increased shortness of breath and fatigue with minimal activity. Was trying to wait to see his primary care doctor today however he was on the office today so he came to the emergency room. Has had a cough has been productive of some sputum. Denies any significant colors. Denies any fever or chills. Denies any wheezing. Denies any history of sleep apnea. Denies any home oxygen use. Is not on any blood thinners. Upon arrival to the emergency patient's O2 saturation was 55% on room air and he was immediately placed on supplemental oxygen. [facility] Medical History Secondary pulmonary arterial hypertension Chronic back pain New onset atrial fibrillation (10/11/20) Obesity Hypokalemia Type 2 diabetes mellitus Hyperlipidemia Rheumatoid arthritis Benign essential hypertension Ankylosing spondylitis Home Medications ?Medication ?Instructions ?Recorded ?Last Taken ?Type cholecalciferol (vitamin D3) 50 2,000 unit PO DAILY 09/15/17 07/27/24 History mcg (2,000 unit) chewable tablet atorvastatin 20 mg tablet 20 mg PO QHS 10/16/20 07/24/24 History metformin 500 mg tablet 500 mg PO DAILY 10/16/20 07/24/24 History calcium carbonate (Calcium 600) 600 mg PO DAILY 10/18/20 07/27/24 History diltiazem HCl 240 mg capsule,24 240 mg PO DAILY 10/18/20 07/27/24 History hr,extended release (Tiadylt ER) lisinopril 20 mg tablet 20 mg PO DAILY 10/18/20 07/24/24 History aspirin 81 mg tablet,delayed 81 mg PO QDAY #60 tabs 12/13/20 07/27/24 Rx release (Adult Low Dose Aspirin) hydrocodone-acetaminophen 5-325mg 1 tab PO 4X/DAY 05/16/22 07/27/24 History 5mg-325mg Allergy/AdvReac Type Severity Reaction Status Date / Time alendronate sodium AdvReac dizziness Verified 07/27/24 11:32 ibandronate sodium AdvReac dizziness Verified 07/27/24 11:32 Family History Mother Heart disease CHF Surgical History History of tonsillectomy Social History Smoking Status: Former smoker how long ago did patient quit smokin years ago alcohol intake: current alcohol intake frequency: holidays/special occasions only substance use type: does not use caffeine: Yes (Occasionally) ROS ROS ED Constitutional Constitutional ED: Denies chills or fever(s) Cardiovascular Cardiovascular: Denies chest pain, orthopnea or paroxysmal nocturnal dyspnea Respiratory/Chest Respiratory/Chest: Reports cough, dyspnea, dyspnea on exertion and sputum; Denies orthopnea or paroxysmal nocturnal dyspnea Gastrointestinal Gastrointestinal: Denies abdominal pain, nausea or vomiting Musculoskeletal Musculoskeletal: Denies arthralgias or myalgias Integumentary Denies rash Neurologic Neurologic: Denies headache(s) or weakness Hematologic/Lymphatic Hematologic/Lymphatic: Denies easy bleeding or easy bruising EXAM Physical Exam Const Vital Signs: 07/27/24 11:29 07/27/24 11:29 07/27/24 11:40 Temperature 97.2 F L Temperature Source Temporal Pulse Rate 100 Respiratory Rate 22 H Respiratory Effort Short of Breath Respiratory Pattern Blood Pressure 119/62 Blood Pressure Mean 81 Pulse Ox 55 94 Oxygen Delivery Method Room Air Nasal Cannula Oxygen Flow Rate (L/min) 6 07/27/24 12:27 07/27/24 12:27 07/27/24 12:27 Temperature Temperature Source Pulse Rate 88 Respiratory Rate 24 H 22 H Respiratory Effort Respiratory Pattern Blood Pressure 132/101 H Blood Pressure Mean 111 Pulse Ox 95 95 Oxygen Delivery Method Nasal Cannula Nasal Cannula Nasal Cannula Oxygen Flow Rate (L/min) 6 6 6 07/27/24 12:35 07/27/24 12:57 07/27/24 14:00 Temperature Temperature Source Pulse Rate 88 73 Respiratory Rate 18 Respiratory Effort Respiratory Pattern Blood Pressure 124/76 H 149/73 H Blood Pressure Mean 92 93 Pulse Ox 95 96 95 Oxygen Delivery Method Nasal Cannula Nasal Cannula Oxygen Flow Rate (L/min) 5 5 07/27/24 14:29 07/27/24 14:29 07/27/24 15:00 Temperature Temperature Source Pulse Rate 80 88 Respiratory Rate 18 24 H Respiratory Effort Respiratory Pattern Normal Blood Pressure 148/80 H Blood Pressure Mean 102 Pulse Ox 93 95 Oxygen Delivery Method Nasal Cannula Nasal Cannula Oxygen Flow Rate (L/min) 2 4 07/27/24 15:04 07/27/24 16:00 Temperature 98 F Temperature Source Pulse Rate 88 81 Respiratory Rate 22 H 19 H Respiratory Effort Respiratory Pattern Blood Pressure 148/80 H 139/74 H Blood Pressure Mean 102 95 Pulse Ox 95 95 Oxygen Delivery Method Nasal Cannula Oxygen Flow Rate (L/min) 4 Positive well nourished and well developed General Appearance ED: well developed HEENT Reports moist mucous membranes Neck supple and no JVD Resp Resp Narrative: Mild tachypnea. No wheezing appreciated with decreased air movement at the bases. Decreased breath sounds on the right side compared to the left. Auscultation: Negative for rales or rhonchi Cardio regular rate, regular rhythm and no murmurs GI non-tender and non-distended Extremity normal to inspection General Extremety ED: Negative for edema or tenderness General Extremity: Negative for edema Neuro oriented x3 Sensorium / Orientation: alert Motor Exam: general weakness Psych mental status grossly normal Skin no wounds and skin turgor normal MDM MDM MDM Narrative Medical decision making narrative: Patient is evaluated for worsening shortness of breath over the past few days and chest congestion. Patient is profoundly hypoxic upon arrival and placed on 6 L of oxygen. He responds nicely to this however. He is given a DuoNeb with some improvement of his breath sounds. Was started on Solu-Medrol. Differential includes but not limited to COVID-19 infection, pneumonia, pulmonary emboli, viral infection, pneumothorax, pleural effusion and symptomat ic anemia. Patient does have a leukocytosis with white blood cell count of 14.3. Chest x- ray viewed by myself as well as radiology does not show any acute infiltrate. COVID/flu/RSV is negative. Patient is very mild anemia with a hemoglobin 11.8 I do not think this is the cause of his hypoxia. High since he troponin is normal at 49 and I do not suspect a primary cardiac process. He does not clinically appear fluid overloaded. His BNP is mildly elevated at 154 however do not think he requires diuresis at this time. D-dimer is normal and he has a largely normal BMP. Patient is empirically treated for pneumonia given his short course of worsening respiratory symptoms and chest congestion as well as leukocytosis and hypoxia. Started on Rocephin and azithromycin. He does not have any risk factors for healthcare associated pneumonia. Overall he is well-appearing and hemodynamically stable. Will be admitted for further treatments of his hypoxia and suspected respiratory infection. Case discussed immunization, Dr. Roger. Patient is taken off of his oxygen after breathing treatment but quickly drops down to 87% without any movement and is placed back on his supplemental oxygen. Lab Data Attestation: I reviewed the patient's lab results. Labs: Laboratory Results - last 24 hr 07/27/24 11:40 WBC 14.3 H RBC 4.51 L Hgb 11.8 L Hct 41.0 MCV 90.9 MCH 26.2 L MCHC 28.8 L RDW Std Deviation 52.6 H RDW Coeff of Erik 15.9 H Plt Count 339 MPV 8.9 Immature Gran % (Auto) 0.400 Neut % (Auto) 76.3 H Lymph % (Auto) 10.5 L Mcdonald % (Auto) 10.7 H Eos % (Auto) 1.5 Baso % (Auto) 0.6 Absolute Neuts (auto) 10.9 H Absolute Lymphs (auto) 1.50 Nucleated RBC % 0.3 Differential Comment SCANNED Diff Path Review May foll D-Dimer Quant (PE/DVT) 0.29 Sodium 139 Potassium 3.5 Chloride 102 Carbon Dioxide 32.0 Anion Gap 5 BUN 18 Creatinine 0.99 Est GFR (MDRD) Af Amer 95 Est GFR (MDRD) Non-Af 78 BUN/Creatinine Ratio 18.1 Glucose 117 H Calcium 8.7 Troponin I High Sens 49 B-Natriuretic Peptide 154.5 H Radiography Diagnostic Testing: Clinical Impression(s) from Imaging Studies Chest X-Ray 07/27/24 13:05 IMPRESSION: Stable chest with no acute finding. Electronically Signed: Alvarado Tian MD at 13:21 EDT , Rhythm Strip Rhythm Strip: Sinus Rhythm Rate: 95 Ectopy: None EKG Initial EKG: Attestation: I personally reviewed and interpreted this EKG as follows: Interpretation: Sinus Rhythm Comments: Normal sinus rhythm at rate 95 bpm Normal axis Low voltage QRS Normal ST segments Compared to prior EKG patient has lower voltage and is no longer tachycardic Differential Diagnosis Chest pain/SOB: pulmonary embolism Reason(s) PE less likely: Positive for Well's <3, D-Dimer negative and not tachycardic, ACS ACS: Positive for no evidence of ACS based on cardiac biomarkers, EKG without ischemia and history not suggestive of ischemia pain, pneumothorax Reason(s) pneumothorax less likely: Positive for bilateral breath sounds and WIRE DRAWER withhout PTX and CHF Reason(s) CHF less likely: Positive for no significant peripheral edema, no orthopnea and no evidence of fluid overload on CXR Discharge Plan Dx/Rx/DC Orders Clinical Impression: Hypoxia, Pneumonia, Leukocytosis Disposition Disposition: Acute Care [facility]
[2024-07-27] MEDS: MethylPREDNISolone 125 MG/2 ML Vial IV (15:15)
[2024-07-27] MEDS: Ceftriaxone 1 GM/50 ML BAG IV (15:18)
[2024-07-27] MEDS: Azithromycin 500 MG in Dextrose 5%-Water (250mL Bag) 250 ML 250 MG IV (15:34)
--- NOTE | 2024-07-27 15:45 | HP.PCM.HOS_ITS ---
HPI - General General Date of Admission: 07/27/24 Date of Service: 07/27/24 Chief Complaint: shortness of breath HPI Narrative RUBÉN LEWIS, is a 74 M with a PMH a outlined who presents via the ED on 07/27/2024 with a complaint of shortness of breath. Patient said shortness of breath worsened with exertion and was relieved at rest. He had been going on for several days. He has never had such symptoms before. He denied any chest pain, palpitations, dizziness, nausea or vomiting. He did admit to some wheezing and also said he had had some chest congestion for the past few days. Symptoms always worsen with exertion and that had an occasional cough. Review of symptoms otherwise negative. On admission in the ED he was saturating at 55% on room air and subsequently required oxygen by nasal cannula. Vitals in the ED at time of review were blood pressure 106/96, pulse rate of 88, respiratory rate of 24 and oxygen saturation of 93% on 4 L of oxygen. CBC showed hemoglobin of 11.8, WBC of 14.3 and platelets of 339. D-dimer was 0.29. Chemistry showed sodium of 139, potassium of 3.5 and bicarb of 32. Creatinine was 0.99. Initial troponin was 49. BNP however was mildly elevated at 154.5. Respiratory panel was negative for influenza, RSV and COVID. Chest x-ray showed no acute cardiopulmonary process and showed low volume inspiration with stable mild diffuse interstitial pattern most marked at the base. He has been admitted to be managed for hypoxia of unclear etiology low concern for infectious pathology. [facility] Medical History (Updated 07/27/24 @ 19:25 by Kady Matos) Former smoker Hypertension Secondary pulmonary arterial hypertension Chronic back pain New onset atrial fibrillation (10/11/20) Obesity Hypokalemia Type 2 diabetes mellitus Hyperlipidemia Rheumatoid arthritis Benign essential hypertension Ankylosing spondylitis Home Medications ?Medication ?Instructions ?Recorded ?Last Taken ?Type cholecalciferol (vitamin D3) 50 2,000 unit PO DAILY 09/15/17 07/27/24 History mcg (2,000 unit) chewable tablet atorvastatin 20 mg tablet 20 mg PO QHS 10/16/20 07/24/24 History metformin 500 mg tablet 500 mg PO DAILY 10/16/20 07/24/24 History calcium carbonate (Calcium 600) 600 mg PO DAILY 10/18/20 07/27/24 History diltiazem HCl 240 mg capsule,24 240 mg PO DAILY 10/18/20 07/27/24 History hr,extended release (Tiadylt ER) lisinopril 20 mg tablet 20 mg PO DAILY 10/18/20 07/24/24 History aspirin 81 mg tablet,delayed 81 mg PO QDAY #60 tabs 12/13/20 07/27/24 Rx release (Adult Low Dose Aspirin) hydrocodone-acetaminophen 5-325mg 1 tab PO 4X/DAY 05/16/22 07/27/24 History 5mg-325mg Allergy/AdvReac Type Severity Reaction Status Date / Time alendronate sodium AdvReac dizziness Verified 07/27/24 11:32 ibandronate sodium AdvReac dizziness Verified 07/27/24 11:32 Family History Mother Heart disease CHF Surgical History History of tonsillectomy Social History Smoking Status: Former smoker how long ago did patient quit smokin years ago alcohol intake: current alcohol intake frequency: holidays/special occasions only substance use type: does not use caffeine: Yes (Occasionally) ROS Constitutional Constitutional: Denies anorexia, chills, fatigue, fever(s), malaise or weakness Eyes Eyes: Denies change in vision ENT HEENT: Denies dysphagia, headache(s), nasal congestion, nasal discharge or sore throat Cardiovascular Cardiovascular: Reports dyspnea on exertion; Denies chest pain, edema, lightheadedness, orthopnea, palpitations, paroxysmal nocturnal dyspnea, rapid heart rate or syncope Respiratory/Chest Respiratory/Chest: Reports cough, dyspnea and shortness of breath with exertion; Denies excessive phlegm production, hemoptysis, productive cough or shortness of breath at rest Gastrointestinal Gastrointestinal: Denies abdominal pain, constipation, diarrhea, dyspepsia, nausea or vomiting Genitourinary Genitourinary: Denies burning urination or dysuria Musculoskeletal Musculoskeletal: Denies arthralgias Neurologic Neurologic: Denies confusion, dizziness, focal weakness, headache(s) or syncope Psychiatric Psychiatric: Denies anxiety or depression Endocrine Endocrinology: Denies change in body appearance Vital Signs Vital Signs Vital Signs: 07/27/24 11:29 07/27/24 11:29 07/27/24 11:40 Temperature 97.2 F L Temperature Source Temporal Pulse Rate 100 Respiratory Rate 22 H Respiratory Effort Short of Breath Respiratory Pattern Blood Pressure 119/62 Blood Pressure Mean 81 Pulse Ox 55 94 Oxygen Delivery Method Room Air Nasal Cannula Oxygen Flow Rate (L/min) 6 07/27/24 12:27 07/27/24 12:27 07/27/24 12:27 Temperature Temperature Source Pulse Rate 88 Respiratory Rate 24 H 22 H Respiratory Effort Respiratory Pattern Blood Pressure 132/101 H Blood Pressure Mean 111 Pulse Ox 95 95 Oxygen Delivery Method Nasal Cannula Nasal Cannula Nasal Cannula Oxygen Flow Rate (L/min) 6 6 6 07/27/24 12:35 07/27/24 12:57 07/27/24 14:00 Temperature Temperature Source Pulse Rate 88 73 Respiratory Rate 18 Respiratory Effort Respiratory Pattern Blood Pressure 124/76 H 149/73 H Blood Pressure Mean 92 93 Pulse Ox 95 96 95 Oxygen Delivery Method Nasal Cannula Nasal Cannula Oxygen Flow Rate (L/min) 5 5 07/27/24 14:29 07/27/24 14:29 07/27/24 15:00 Temperature Temperature Source Pulse Rate 80 88 Respiratory Rate 18 24 H Respiratory Effort Respiratory Pattern Normal Blood Pressure 148/80 H Blood Pressure Mean 102 Pulse Ox 93 95 Oxygen Delivery Method Nasal Cannula Nasal Cannula Oxygen Flow Rate (L/min) 2 4 07/27/24 15:04 Temperature 98 F Temperature Source Pulse Rate 88 Respiratory Rate 22 H Respiratory Effort Respiratory Pattern Blood Pressure 148/80 H Blood Pressure Mean 102 Pulse Ox 95 Oxygen Delivery Method Oxygen Flow Rate (L/min) Physical Exam Const alert, oriented x3 and no apparent distress General Appearance: cooperative HEENT normocephalic, head/scalp atraumatic, hearing grossly normal bilaterally, moist oral mucous membranes and oropharynx normal HEENT Narrative: Patient has a very thick short neck Mouth: oral and palatal mucosa normal Eyes PERRL, EOMs intact bilaterally and conjunctivae normal Neck no lymphadenopathy and supple Resp Resp Narrative: Mildly diminished breath sounds bibasilarly. No wheezes or crackles. On 2 L of oxygen by nasal cannula. Cardio regular rate, regular rhythm, S1 normal heart sound, S2 normal heart sound and no murmurs GI normal to inspection, nondistended, normoactive bowel sounds, soft to palpation, non-tender and non-distended Extremity normal to inspection, full ROM and no clubbing, cyanosis or edema Neuro oriented x3, CN's II-XII intact bilaterally, moves all extremities and no focal motor deficits Sensorium / Orientation: awake and alert Motor Exam: strength 5/5 throughout Psych affect normal Results Lab / Micro Data 07/27/24 11:40 07/27/24 11:40 Labs: Laboratory Results - last 24 hr 07/27/24 11:40: WBC 14.3 H, RBC 4.51 L, Hgb 11.8 L, Hct 41.0, MCV 90.9, MCH 26.2 L, MCHC 28.8 L, RDW Std Deviation 52.6 H, RDW Coeff of Erik 15.9 H, Plt Count 339, MPV 8.9, Immature Gran % (Auto) 0.400, Neut % (Auto) 76.3 H, Lymph % (Auto) 10.5 L, Dickson % (Auto) 10.7 H, Eos % (Auto) 1.5, Baso % (Auto) 0.6, Absolute Neuts (auto) 10.9 H, Absolute Lymphs (auto) 1.50, Nucleated RBC % 0.3, Differential Comment SCANNED, Diff Path Review March foll, D-Dimer Quant (PE/DVT) 0.29, Sodium 139, Potassium 3.5, Chloride 102, Carbon Dioxide 32.0, Anion Gap 5, BUN 18, Creatinine 0.99, Est GFR (MDRD) Af Amer 95, Est GFR (MDRD) Non-Af 78, BUN/Creatinine Ratio 18.1, Glucose 117 H, Calcium 8.7, Troponin I High Sens 49, B-Natriuretic Peptide 154.5 H Micro: Microbiology 07/27/24 13:00 Mucosa - Nasopharyngeal SARS-CoV-2, Influenza & RSV (PCR) - Final Rhythm Strip Rhythm Strip: Sinus Rhythm Rate: 95 Ectopy: None Imaging Radiology Impression Chest X-Ray 07/27/24 13:05 IMPRESSION: Stable chest with no acute finding. Electronically Signed: Alvarado Tian MD at 13:21 EDT Reading Location ID and State: [address] [place] [address] , Service support , Assessment & Plan Assessment/Plan (1) Hypoxia: (2) Pneumonia: (3) Leukocytosis: PLAN: Plan #Hypoxia * etiology is unclear. Differentials include worsening pulmonary hypertension versus pneumonia. He does not look fluid overloaded to heart failure is lower on my list of differentials, though BNP is mildly elevated. says he has been having exertional shortness of breath with some wheezing. * Denies any chest pain. BNP is mildly elevated at 154.5. Chest x-ray showed no acute cardiopulmonary pathology. * WBC is elevated at 14 and is mainly neutrophilic predominant * RSV, covid and influenza screen negative. * cycle troponins * get 2D echo * Patient denies any history of snoring and also states she is not aware the patient snores. Due to his very short thick neck, I am concerned the patient may also have an element of sleep apnea. He will benefit from follow- up with pulmonology on outpatient basis for evaluation for sleep apnea. * Titrate oxygen to maintain saturation above 90%. * IV Solu-Medrol 40 mg every 8. IV ceftriaxone and azithromycin for now due to elevated neutrophils, though he doesnt really have any clinical features of pneumonia * Breathing treatments with bronchodilators * Patient does have secondary pulmonary hypertension listed in his problem list. He had 2D echo from 11/01/2020 which showed EF of 53% with stage I diastolic dysfunction and no regional wall motion abnormalities noted with pulmonary artery systolic pressure 48 mmHg and stage I diastolic dysfunction. * I suspect patient may have had a worsening of his pulmonary hypertension. Will diurese with IV Lasix and await repeat echo. * #Benign essential hypertension * On lisinopril and Cardizem. IV hydralazine as needed #A-fib: On Cardizem. Not on blood thinners. Unclear why. #Type 2 diabetes mellitus: On metformin. Insulin sliding scale. Accu-Cheks ACHS. # Hyperlipidemia: On statin #Secondary pulmonary hypertension: echo findings as above. 2D echo ordered to evaluate RVSP. DVT prophylaxis: on lovenox Code status: full code * Patient counseled extensively about different types of CODE STATUS including full code, DNR CCA and DNR CCA. * Patient elects to be full code. * Total [id number] time 17 minutes. Charges/Coding Visit Charges Inpatient E&M: 88829 Init Hosp L2 Procedures Hospitalists Procedures: 12640 Advncd Care Plan 30 Min
[2024-07-27] MEDS: HYDROcodone Bitartrate/Apap 5/325 Tablet PO ×2 (16:57→21:34)
--- NOTE | 2024-07-27 20:14 | ECHOCS_ITS ---
Reason For Study: DYSPNEA/SOB Procedure This was a 2D Doppler, Color Flow transthoracic echocardiogram. The study was technically difficult. Due to obesity. Contrast injection was performed. Exam performed portable in patient room. Left Ventricle Normal LV size. Left ventricular systolic function is normal. The left ventricular ejection fraction is 55 %. Stage 1 diastolic dysfunction. No regional wall motion abnormalities noted. Right Ventricle Normal RV size. Normal systolic function. Atria Normal left atrium. Normal right atrium. Mitral Valve Normal mitral valve. Tricuspid Valve Normal tricuspid valve. Mild (1+) tricuspid valve insufficiency. Pulmonary artery systolic pressure is 32 mmHg. Aortic Valve The aortic valve is not well visualized. Pulmonic Valve Normal pulmonic valve. Great Vessels Normal aortic root. The pulmonary artery is normal size. Normal inferior vena cava. Pericardium/Pleural No pericardial effusion. Medication Diluted definity 3.0ml given slow IV push to enhance endocardial definition. MMode/2D Measurements & Calculations LVIDd: 4.8 cm IVSd: 1.1 cm LAV(MOD-bp): 54.6 ml LVIDs: 2.8 cm LVPWd: 0.94 cm RVDd: 3.5 cm FS: 42.2 % LAV(MOD-bp) Indexed: 29.3 ml/m2 LAV(MOD-sp2): 67.4 ml LAV(MOD-sp4): 38.5 ml SV(MOD-sp4): 45.5 ml LVAd ap4: 28.8 cm2 LVAd ap2: 25.3 cm2 LVLd ap4: 7.9 cm LVLd ap2: 7.5 cm EDV(MOD-sp4): 86.6 ml EDV(MOD-sp2): 71.2 ml EDV(sp4-el): 89.4 ml EDV(sp2-el): 72.5 ml LVAs ap4: 17.7 cm2 LVAs ap2: 14.3 cm2 LVLs ap4: 6.5 cm LVLs ap2: 6.2 cm ESV(MOD-sp4): 41.2 ml ESV(MOD-sp2): 28.8 ml ESV(sp4-el): 41.1 ml ESV(sp2-el): 28.0 ml EF(MOD-sp4): 52.5 % EF(MOD-sp2): 59.6 % EF(sp4-el): 54.0 % SV(MOD-sp2): 42.5 ml SV(sp4-el): 48.3 ml LA A4 area: 17.6 cm2 LA dimension(2D): 4.6 cm TAPSE: 2.1 cm Time Measurements MV dec time: 0.13 sec Doppler Measurements & Calculations MV E max keshawn: 69.2 cm/sec Lat Peak E' Keshawn: 12.0 cm/sec Med Peak E' Keshawn: 8.5 cm/sec MV A max keshawn: 84.8 cm/sec E/E' lat: 5.8 E/E' med: 8.1 MV E/A: 0.82 MV V2 max: 80.3 cm/sec MV P1/2t max keshawn: 68.9 cm/sec Ao V2 max: 170.9 cm/sec MV max P.6 mmHg MV P1/2t: 55.0 msec Ao max P.7 mmHg MV V2 mean: 51.3 cm/sec MV dec slope: 366.8 cm/sec2 Ao V2 mean: 116.1 cm/sec MV mean P.2 mmHg MVA(P1/2t): 4.0 cm2 Ao mean P.1 mmHg MV V2 VTI: 14.2 cm Ao V2 VTI: 29.5 cm AV (velocity ratio): 0.64 LV V1 max: 111.0 cm/sec PA V2 max: 88.9 cm/sec TR max keshawn: 266.3 cm/sec LV V1 max P.9 mmHg PA V2 mean: 67.2 cm/sec TR max P.4 mmHg LV V1 mean P.5 mmHg LV V1 mean: 74.9 cm/sec LV V1 VTI: 19.0 cm ECHO/Echo Complete W/ Contrast Interpretation Summary Normal LV size. Left ventricular systolic function is normal. The left ventricular ejection fraction is 55 %. Stage 1 diastolic dysfunction. Contrast injection was performed. Ordering Physician: Anh Roger Referring Physician: GUERRERO DELEON Performed By: Cara Juarez RDCS, RVT
[2024-07-27] MEDS: Furosemide 40 MG/4 ML Vial IV (20:35)
[2024-07-27 21:02] LABS: Troponin-I HS 34 pg/mL (3.0-78.0)
[2024-07-27] MEDS: Atorvastatin Calcium 20 MG Tablet PO (21:34)
[2024-07-27] MEDS: Insulin Lispro 100 UNIT/ML INSULN.PEN SC (21:51)
[2024-07-27 21:59] LABS: Bedside Glucose 199 mg/dL (74-106)
[2024-07-27 23:12] LABS: Troponin-I HS 32 pg/mL (3.0-78.0)
[2024-07-28] VITALS (9 sets, daily range): BP systolic 140–171; BP diastolic 69–80; PULSE 69–108; RESP 16–20; TEMP 36.6–37.3; O2SAT 90–98; BMI 39.1
[2024-07-28] MEDS: Ipratropium/Albuterol Sulfate 3 ML AMPUL.NEB INHALATION ×4 (01:37→19:44)
[2024-07-28] MEDS: Ondansetron 4 MG/2 ML Vial IV (02:56)
[2024-07-28 03:20] LABS: Troponin-I HS 27 pg/mL (3.0-78.0)
[2024-07-28] MEDS: oxyCODONE 5 MG Tablet PO (03:24)
[2024-07-28] MEDS: Acetaminophen 325 MG Tablet 650 MG PO ×2 (03:24→10:28)
--- NOTE | 2024-07-28 03:35 | NURSING ---
pt vomitting, brown emesis, states it feels like his stomach is burning.
--- NOTE | 2024-07-28 03:44 | PCM.HOSP.N ---
Hospitalist Note Patient with a couple bouts of emesis, brown in appearance following which he reports burning sensation in his abdomen. Current VS increased to 8L NC. Will obtain repeat CXR this AM, start IV protonix until N/V abates, adding 2nd line N/V agent.
[2024-07-28] MEDS: Pantoprazole Sodium 40 MG in 0.9% Normal Saline (100mL MB+) 100 ML 330 MG IV ×3 (03:45→21:43)
[2024-07-28] MEDS: 0.9% Saline Lock 10 ML Syringe IV ×3 (05:13→16:05)
[2024-07-28] MEDS: proCHLORPERazine 10 MG/2 ML Vial IV (05:38)
--- NOTE | 2024-07-28 05:55 | RAD_ITS ---
STUDY: X-RAY CHEST REASON FOR EXAM: Male, 74 years old. Dyspnea TECHNIQUE: Frontal view of the chest COMPARISON: 07/27/2024 FINDINGS: There are mild congestive changes. There are small bilateral pleural effusions. There are no focal infiltrates. The heart is stable in size. The visualized osseous structures are within normal limits. RAD/Chest 1 View (Portable) IMPRESSION: Mild pulmonary vascular congestion with small bilateral pleural effusions. Electronically Signed: Dimitrios Tucker MD at 7:20 EDT ,
[2024-07-28 05:56] LABS: Absolute Lymphocyte Count 0.51 X10^3/uL (0.83-4.51); Absolute Neutrophil Count 10.5 X10^3/uL (2.0-7.7); Basophil# 0.01 X10^3/uL; Basophil% 0.1 % (0-1); Hematocrit 40.6 % (40-54); Hemoglobin 11.8 g/dL (13.0-16.5); Lymphocyte # 0.51 X10^3/ul (0.83-4.51); Lymphocyte % 4.5 % (19-41); Mean Corp Hgb Conc 29.1 g/dL (32-36); Mean Corpuscular Hgb 25.9 pg (27.0-32.0); Mean Platelet Vol. 8.8 fl (6.2-12.0); Monocyte# 0.16 X10^3/uL; Monocyte% 1.4 % (0-10); NRBC Flagged by Analyzer 0.4 % (0-5); Neutrophil # 10.52 X10^3/uL (2.7-7.7); Neutrophil % 93.2 % (47-70); POSITIVE DIFFERENTIAL YES; Platelet Count 324 K/mm3 (150-450); RBC Distribution Width CV 15.7 % (11.6-14.6); Red Blood Count 4.56 M/mm3 (4.6-6.2); White Blood Count 11.3 K/mm3 (4.4-11.0)
[2024-07-28] MEDS: Insulin Lispro 100 UNIT/ML INSULN.PEN SC ×3 (06:50→21:41)
[2024-07-28 07:06] LABS: Anion Gap 6 (5-15); BUN 21 mg/dL (7-18); Calcium,Total 8.7 mg/dL (8.5-10.1); Chloride 99 mmol/L (98-107); Creatinine, Serum 1.05 mg/dL (0.70-1.30); EST Glomerular Filtration Rate 74 mL/min (>60); Est Glom Filt Rate - Afr Amer 89 mL/min (>60); Estimated Creatinine Clearance 58.67 ml/min; Glucose 185 mg/dL (74-106); Potassium 3.6 mmol/L (3.5-5.1); Sodium Level 137 mmol/L (136-145)
[2024-07-28 07:11] LABS: Bedside Glucose 178 mg/dL (74-106)
--- NOTE | 2024-07-28 08:11 | CT_ITS ---
STUDY: CT CHEST WITHOUT CONTRAST REASON FOR EXAM: Male, 74 years old. Hypoxia RADIATION DOSAGE (If Supplied By Facility): CTDIvol = ( 18.92 ) mGy, DLP = ( 709.01 ) mGycm TECHNIQUE: Transaxial imaging was performed without the administration of intravenous contrast material. Multiplanar coronal and sagittal images were reformatted. Individualized dose optimization techniques were used for this CT. COMPARISON: Comparison is made with prior chest radiograph done earlier today. FINDINGS: CHEST There are small bilateral pleural effusions right greater than left with the dependent bibasilar atelectasis. Atelectasis in the peripheral lateral aspect of the lingular segment of the left upper lobe. There are calcifications of the coronary arteries. Normal mediastinum. Normal hilar regions. Normal unenhanced pulmonary arteries. There is atherosclerotic calcification of the aortic arch with tortuosity and elongation of the aortic arch and descending thoracic aorta. Patient has a history of ankylosing spondylitis. There is evidence of a marked degree of disc degeneration with loss of height of the T11 vertebrae. Questionable tiny layering gallstones along the dependent portion of the gallbladder. There is a 2.7 cm cyst in the anterior aspect of the right kidney. There is also evidence of a 5 mm calculus in the midpole calyx of the right kidney. CT/Chest without Contrast IMPRESSION: Small bilateral pleural effusions right greater than left with dependent bibasilar atelectasis. Coronary artery calcification. Findings suggest a small layering gallstones in the right renal cyst. Electronically Signed: Ariel Sahu MD at 9:29 EDT ,
--- NOTE | 2024-07-28 08:16 | PCM.PN.HOSP ---
Reason for Visit Reason for Visit: Shortness of breath Subjective Subjective Mr. Fox is a 74-year-old white male who presented to the emergency department at [facility] on 07/27/2024 with a chief complaint of shortness of breath. Patient complained of chest congestion that had been going on for the past few days prior to presentation with progressively worsening shortness of breath and fatigue during minimal activity. He was trying to wait to get to his appointment for his primary care doctor however when he saw his primary care doctor today in the office they asked him to come the emergency department for evaluation. He has had a cough with some sputum production but denied any fever or chills. He denied any wheezing. He does have a history of sleep apnea and has known diastolic dysfunction with secondary pulmonary artery hypertension. He is a previous smoker but quit 20 years ago. Vital signs on presentation showed temperature of 97.2, heart rate 100, respiratory was 22, blood pressure was 118/62 and pulse ox of 55% on room air. He was placed on 6 L nasal cannula with improvement to his oxygenation saturations to 94%. CBC showed a leukocytosis with a white count of 14.3, mild anemia with a hemoglobin of 11.8 and a left shift showing a 76.3% neutrophilia. A D-dimer was obtained and found to be normal at 0.29. His chemistry panel is also normal without any significant abnormal allergies other than an elevated BNP at 154.5. Cardiac enzymes were cycled and were unremarkable. His last echocardiogram in our system was from 2019 at which time he had an EF of 53%, pulmonary systolic pressure of 48 mmHg, stage I diastolic dysfunction and normal valvular function. COVID/flu/RSV were unremarkable. Chest x-ray was stable in comparison with previous however my review of chest x-ray done today shows some vascular congestion and pleural effusions bilaterally right seems greater than left. Patient states he definitely is feeling better today than yesterday. He is getting nauseated with the albuterol. He indicated this is not happened previously. They have been able to wean his oxygen from 9 L to 6 L since this morning. The patient denies any overt shortness of breath at this time. Denies any abdominal pain and reports he is passing flatus without any difficulty. Objective Data Objective Data Vital Signs: Vital Signs Temp Pulse Resp BP Pulse Ox O2 Del Method O2 Flow Rate 98.3 F 82 18 171/73 H 97 High Flow 8 07/28/24 03:00 07/28/24 06:55 07/28/24 06:55 07/28/24 03:00 07/28/24 06:55 07/28/24 06:55 07/28/24 06:55 Oxygen Flow Rate (L/min) 8 Oxygen Delivery Method High Flow Weight: 90.5 kg Body Mass Index (BMI) 38.9 Intake & Output: Intake and Output for Last 24 Hours 07/26/24 07/27/24 07/28/24 23:59 23:59 23:59 Intake Total 305 / 305 110 / 110 Output Total 650 / 650 Balance 305 / -95 -540 / -540 Lab / Micro Data 07/28/24 05:31 07/28/24 05:31 Labs: Laboratory Results - last 24 hr 07/27/24 11:40: WBC 14.3 H, RBC 4.51 L, Hgb 11.8 L, Hct 41.0, MCV 90.9, MCH 26.2 L, MCHC 28.8 L, RDW Std Deviation 52.6 H, RDW Coeff of Erik 15.9 H, Plt Count 339, MPV 8.9, Immature Gran % (Auto) 0.400, Neut % (Auto) 76.3 H, Lymph % (Auto) 10.5 L, [place] % (Auto) 10.7 H, Eos % (Auto) 1.5, Baso % (Auto) 0.6, Absolute Neuts (auto) 10.9 H, Absolute Lymphs (auto) 1.50, Nucleated RBC % 0.3, Differential Comment SCANNED, Diff Path Review March, D-Dimer Quant (PE/DVT) 0.29, Sodium 139, Potassium 3.5, Chloride 102, Carbon Dioxide 32.0, Anion Gap 5, BUN 18, Creatinine 0.99, Est GFR (MDRD) Af Amer 95, Est GFR (MDRD) Non-Af 78, BUN/Creatinine Ratio 18.1, Glucose 117 H, Calcium 8.7, Troponin I High Sens 49, B-Natriuretic Peptide 154.5 H 07/27/24 20:32: Troponin I High Sens 34 07/27/24 21:41: POC Glucose 199 H 07/27/24 22:40: Troponin I High Sens 32 07/28/24 02:35: Troponin I High Sens 27 07/28/24 05:31: WBC 11.3 H, RBC 4.56 L, Hgb 11.8 L, Hct 40.6, MCV 89.0, MCH 25.9 L, MCHC 29.1 L, RDW Std Deviation 51.0 H, RDW Coeff of Erik 15.7 H, Plt Count 324, MPV 8.8, Immature Gran % (Auto) 0.800, Neut % (Auto) 93.2 H, Lymph % (Auto) 4.5 L, Rowan % (Auto) 1.4, Eos % (Auto) 0.0, Baso % (Auto) 0.1, Absolute Neuts (auto) 10.5 H, Absolute Lymphs (auto) 0.51 L, Nucleated RBC % 0.4, Sodium 137, Potassium 3.6, Chloride 99, Carbon Dioxide 32.0, Anion Gap 6, BUN 21 H, Creatinine 1.05, Estim Creat Clear Calc 58.67, Est GFR (MDRD) Af Amer 89, Est GFR (MDRD) Non-Af 74, BUN/Creatinine Ratio 20.0, Glucose 185 H, Calcium 8.7 07/28/24 06:48: POC Glucose 178 H Micro: Microbiology 07/27/24 13:00 Mucosa - Nasopharyngeal SARS-CoV-2, Influenza & RSV (PCR) - Final Radiography Diagnostic Testing: Radiology Impression Chest X-Ray 07/27/24 13:05 IMPRESSION: Stable chest with no acute finding. Electronically Signed: Alvarado Tian MD at 13:21 EDT , Chest X-Ray 07/28/24 05:55 IMPRESSION: Mild pulmonary vascular congestion with small bilateral pleural effusions. Electronically Signed: Dimitrios Tucker MD at 7:20 EDT , Rhythm Strip Rhythm Strip: Sinus Rhythm Rate: 95 Ectopy: None Physical Exam Const alert, oriented x3, no apparent distress and well nourished; Negative for average body habitus or healthy appearing Constitutional Narrative: Obese, older, white male, sitting up in bed, respiratory therapy and family at bedside, patient currently appears comfortable on 6 L nasal cannula, does not appear toxic HEENT head/scalp atraumatic and moist oral mucous membranes HEENT Narrative: Dentition is poor, Mallampati is 3, no thrush Head and Scalp: normocephalic Resp normal respiratory effort, no retractions and no use of accessory muscles Resp Narrative: Diffusely diminished with rhonchi in the right lower lobe, intermittent coughing due to bronchospasm with deep breathing Auscultation: rhonchi Cardio regular rate, regular rhythm, S1 normal heart sound, S2 normal heart sound, no murmurs, no rub, no gallops and no clicks GI normal to inspection, nondistended, normoactive bowel sounds, soft to palpation and non-tender GI Narrative: Large protuberant abdomen with rectus diastasis hernia noted Extremity Extremity Narrative: Trace bilateral lower extremity edema, no cyanosis or clubbing, radial and pedal pulses are 2+ Neuro oriented x3, moves all extremities and no focal motor deficits Psych affect normal Psych Narrative: Very pleasant, eye contact is good, patient interacts appropriately Assessment & Plan Assessment/Plan (1) Leukocytosis: (2) Acute hypoxic respiratory failure: PLAN: Plan Acute hypoxic respiratory failure-suspect multifactorial -Patient is not oxygen dependent at baseline and oxygen saturations on presentation were 55% on room air -Currently on 6 L heated high flow nasal cannula -Wean oxygen as able -Will need ambulatory pulse ox prior to discharge -Continue Lasix IV but increase to 3 times daily as above BNP was elevated and given his obesity is likely more significant -Check respiratory viral panel -COVID/flu/influenza were negative -Check sputum culture if patient able to produce -Add Mucinex 1200 p.o. twice daily -Add incentive spirometer -Add Acapella 10 times every 2 hours while awake -Continue scheduled DuoNebs -Continue Solu-Medrol 40 every 8 -Check noncontrasted CT of the chest -Echocardiogram is pending -Check strep pneumo and Legionella antigens -Will continue ceftriaxone and azithromycin for now -If patient is compliant with CPAP will order home unit Leukocytosis -White count has trended down with treatment since yesterday -Continue antibiotics as ordered -Continue to monitor with repeat lab in a.m. Essential HTN/HPL -Continue home lisinopril -Continue home Cardizem -Continue home atorvastatin Secondary pulmonary hypertension -Diuresis as noted above -Outpatient follow-up with pulmonary medicine after discharge DM-2 -Hold home metformin -SSI as ordered -Cardiac/carb controlled diet Atrial fibrillation -This was documented on previous note however patient has had 24-hour Holter monitor and further workup by cardiology and has had no atrial fibrillation Obesity -BMI is 39 -Recommend weight loss -Complicates treatment, prognosis, outcomes SASHA -Will assess if patient is compliant with CPAP and order if wears at home DVT prophylaxis -Continue subcu Lovenox twice daily CODE STATUS -Full code as verified at the time of admission Charges/Coding Visit Charges Inpatient E&M: 03496 Subs Hosp L2
--- NOTE | 2024-07-28 09:50 | CASEMGMT ---
ROSA ELENA HERNANDEZ Face to Face with patient for initial transition planning/care coordination assessment. RN CM introduced self and role at [facility]. Patient lying in bed, alert and oriented. Patient willing to participate in assessment and is able to answer all questions appropriately. Care providers, pharmacy, and demographics verified. Strata: 2 PCP: Renee Specialists: Jusi, pain Preferred Pharmacy: [facility] Insurance: MCR, [employer] Prescription Benefit: yes Living Will/HPOA: yes, Radha LNOK: Living Arrangements: Patient lives with in a single story home with 2 steps and railing to enter the home. Patient states he is independent at home. Transportation: self, DME/HHC: Patient has shower chair, raised toilet, cane, grab bars, walker, and wheelchair at home. Will monitor for home oxygen, prefers [employer]. No previous HHC or SNF. Patient wishes to discharge home, denies need for home health at this time. Patient states he has no further needs or concerns at this time. CM to follow for discharge planning needs that may arise. Disposition Plan: Patient to discharge home with family support and follow-up plans in place. Will monitor for home oxygen at discharge. Danii DOSHI, RN, CM
[2024-07-28] MEDS: Lisinopril 20 MG Tablet PO (10:19)
[2024-07-28] MEDS: Aspirin E.C. 81 MG Tablet PO (10:19)
[2024-07-28] MEDS: dilTIAZem CD 240 MG Capsule PO (10:19)
[2024-07-28] MEDS: Calcium (Elemental) 500 MG Tablet PO (10:19)
[2024-07-28] MEDS: Cholecalciferol (VIT D3) 25 MCG TABLET (1,000 UNITS) 50 MCG PO (10:19)
[2024-07-28] MEDS: Enoxaparin 40 MG/0.4 ML Syringe SC ×2 (10:19→21:42)
[2024-07-28] MEDS: Furosemide 40 MG/4 ML Vial IV ×3 (10:20→21:47)
[2024-07-28] MEDS: HYDROcodone Bitartrate/Apap 5/325 Tablet PO ×4 (10:28→21:47)
[2024-07-28] MEDS: guaiFENesin 1,200 MG Tablet 1200 MG PO ×2 (10:28→22:34)
[2024-07-28] MEDS: Ceftriaxone 1 GM/50 mL Premix Q24 IV (11:22)
[2024-07-28] MEDS: Azithromycin 500 MG in Dextrose 5%-Water (250mL Bag) 250 ML 250 MG IV (12:06)
[2024-07-28 12:26] LABS: Bedside Glucose 179 mg/dL (74-106)
[2024-07-28 16:23] LABS: Bedside Glucose 138 mg/dL (74-106)
[2024-07-28] MEDS: Atorvastatin Calcium 20 MG Tablet PO (21:47)
[2024-07-28 22:22] LABS: Bedside Glucose 164 mg/dL (74-106)
[2024-07-29] VITALS (23 sets, daily range): BP systolic 114–155; BP diastolic 55–97; PULSE 60–114; RESP 16–20; TEMP 36.3–37.7; O2SAT 86–98
[2024-07-29 06:01] LABS: Absolute Lymphocyte Count 0.67 X10^3/uL (0.83-4.51); Absolute Neutrophil Count 25.1 X10^3/uL (2.0-7.7); Basophil# 0.03 X10^3/uL; Basophil% 0.1 % (0-1); Hematocrit 40.4 % (40-54); Lymphocyte # 0.67 X10^3/ul (0.83-4.51); Lymphocyte % 2.4 % (19-41); Mean Corp Hgb Conc 29.7 g/dL (32-36); Mean Corpuscular Hgb 25.9 pg (27.0-32.0); Mean Corpuscular Volume 87.1 fL (80-94); Mean Platelet Vol. 9.3 fl (6.2-12.0); Monocyte# 1.63 X10^3/uL; Monocyte% 5.9 % (0-10); NRBC Flagged by Analyzer 0.2 % (0-5); Neutrophil # 25.14 X10^3/uL (2.7-7.7); Neutrophil % 90.8 % (47-70); POSITIVE DIFFERENTIAL YES; Platelet Count 340 K/mm3 (150-450); RBC Distribution Width CV 15.9 % (11.6-14.6); RBC Distribution Width SD 49.8 fl (35.1-43.9); Red Blood Count 4.64 M/mm3 (4.6-6.2); White Blood Count 27.7 K/mm3 (4.4-11.0)
[2024-07-29 06:05] LABS: Differential Indicated SCAN CRITERIA MET
[2024-07-29] MEDS: Furosemide 40 MG/4 ML Vial IV ×3 (06:18→22:51)
[2024-07-29 06:25] LABS: ALB/GLOB Ratio 0.8 RATIO (0.9-2.4); AST(SGOT) 29 U/L (15-37); Alanine Aminotransfer ALT/SGPT 16 U/L (16-61); Albumin, Serum 3.2 g/dL (3.2-5.0); Alkaline Phosphatase 103 U/L (45-117); Anion Gap 6 (5-15); BUN 26 mg/dL (7-18); Calcium,Total 8.4 mg/dL (8.5-10.1); Chloride 96 mmol/L (98-107); Creatinine, Serum 0.93 mg/dL (0.70-1.30); EST Glomerular Filtration Rate 85 mL/min (>60); Est Glom Filt Rate - Afr Amer 103 mL/min (>60); Estimated Creatinine Clearance 66.17 ml/min; Globulin 4.1 g/dL (2.2-4.2); Glucose 148 mg/dL (74-106); Magnesium 1.8 mg/dL (1.6-2.6); Protein, Total 7.3 g/dL (6.4-8.2); Sodium Level 139 mmol/L (136-145)
[2024-07-29 06:39] LABS: Differential Comment SCANNED
[2024-07-29] MEDS: Ipratropium/Albuterol Sulfate 3 ML AMPUL.NEB INHALATION ×3 (07:05→19:26)
[2024-07-29 07:21] LABS: Bedside Glucose 140 mg/dL (74-106)
[2024-07-29 08:51] LABS: Pathologist Review Reviewed
[2024-07-29] MEDS: Aspirin E.C. 81 MG Tablet PO (09:28)
[2024-07-29] MEDS: Enoxaparin 40 MG/0.4 ML Syringe SC ×2 (09:28→21:33)
[2024-07-29] MEDS: Calcium (Elemental) 500 MG Tablet PO (09:28)
[2024-07-29] MEDS: Cholecalciferol (VIT D3) 25 MCG TABLET (1,000 UNITS) 50 MCG PO (09:29)
[2024-07-29] MEDS: Lisinopril 20 MG Tablet PO (09:29)
[2024-07-29] MEDS: dilTIAZem CD 240 MG Capsule PO (09:29)
[2024-07-29] MEDS: Potassium Chloride Oral Tablet 20 MEQ 60 MEQ PO (09:29)
[2024-07-29] MEDS: guaiFENesin 1,200 MG Tablet 1200 MG PO ×2 (09:29→21:33)
[2024-07-29] MEDS: HYDROcodone Bitartrate/Apap 5/325 Tablet PO ×4 (09:29→21:33)
[2024-07-29] MEDS: Ondansetron 4 MG/2 ML Vial IV (09:37)
[2024-07-29] MEDS: Acetaminophen 325 MG Tablet 650 MG PO (09:37)
[2024-07-29] MEDS: 0.9% Saline Lock 10 ML Syringe IV ×5 (09:39→22:59)
[2024-07-29] MEDS: Pantoprazole Sodium 40 MG in 0.9% Normal Saline (100mL MB+) 100 ML 330 MG IV ×2 (09:45→21:32)
[2024-07-29] MEDS: Sodium Chloride 0.65% 1 SPRAY SPRAY.BTL 2 SPRAY NASAL ×2 (09:51→15:14)
[2024-07-29 10:16] LABS: Pathologist Review Reviewed
[2024-07-29] MEDS: Ceftriaxone 1 GM/50 mL Premix Q24 IV (10:57)
[2024-07-29 12:44] LABS: Bedside Glucose 135 mg/dL (74-106)
--- NOTE | 2024-07-29 16:03 | PCM.PN.HOSP ---
Reason for Visit Reason for Visit: Shortness of breath Subjective Subjective Patient states overall he is feeling better. States that shortness of breath and coughing is improved. Denies any respiratory distress or issues overnight. No vomiting overnight. Objective Data Objective Data Vital Signs: Vital Signs Temp Pulse Resp BP Pulse Ox O2 Del Method O2 Flow Rate 98.6 F 92 18 130/97 H 92 Nasal Cannula 4 07/29/24 15:06 07/29/24 15:06 07/29/24 15:06 07/29/24 15:06 07/29/24 15:18 07/29/24 15:18 07/29/24 15:18 Oxygen Flow Rate (L/min) 4 Oxygen Delivery Method Nasal Cannula Weight: 90.322 kg Body Mass Index (BMI) 39.1 Intake & Output: Intake and Output for Last 24 Hours 07/27/24 07/28/24 07/29/24 23:59 23:59 23:59 Intake Total 305 / 305 1475 / 1475 580 / 580 Output Total 2800 / 3000 2700 / 2700 Balance 305 / -95 -1325 / -1525 -2120 / -2120 Lab / Micro Data 07/29/24 05:16 07/29/24 05:16 Labs: Laboratory Results - last 24 hr 07/27/24 11:40: Diff Path Review Reviewed 07/28/24 15:44: POC Glucose 138 H 07/28/24 21:40: POC Glucose 164 H 07/29/24 05:16: WBC 27.7 H, RBC 4.64, Hgb 12.0 L, Hct 40.4, MCV 87.1, MCH 25.9 L, MCHC 29.7 L, RDW Std Deviation 49.8 H, RDW Coeff of Erik 15.9 H, Plt Count 340, MPV 9.3, Immature Gran % (Auto) 0.800, Neut % (Auto) 90.8 H, Lymph % (Auto) 2.4 L, [place] % (Auto) 5.9, Eos % (Auto) 0.0, Baso % (Auto) 0.1, Absolute Neuts (auto) 25.1 H, Absolute Lymphs (auto) 0.67 L, Nucleated RBC % 0.2, Differential Comment SCANNED, Diff Path Review Reviewed, Sodium 139, Potassium 3.0 L, Chloride 96 L, Carbon Dioxide 37.0 H, Anion Gap 6, BUN 26 H, Creatinine 0.93, Estim Creat Clear Calc 66.17, Est GFR (MDRD) Af Amer 103, Est GFR (MDRD) Non-Af 85, BUN/Creatinine Ratio 28.0 H, Glucose 148 H, Calcium 8.4 L, Phosphorus 3.0, Magnesium 1.8, Total Bilirubin 0.60, AST 29, ALT 16, Alkaline Phosphatase 103, Total Protein 7.3, Albumin 3.2, Globulin 4.1, Albumin/Globulin Ratio 0.8 L 07/29/24 06:22: POC Glucose 140 H 07/29/24 11:57: POC Glucose 135 H Micro: Microbiology 07/28/24 09:49 Mucosa - Nasopharyngeal Respiratory Panel (PCR) - Final 07/28/24 11:32 Urine, Random Legionella Antigen - Final 07/28/24 11:32 Urine, Random Streptococcus pneumoniae Antigen (M - Final 07/27/24 13:00 Mucosa - Nasopharyngeal SARS-CoV-2, Influenza & RSV (PCR) - Final Rhythm Strip Rhythm Strip: Sinus Rhythm Rate: 95 Ectopy: None Physical Exam Const alert, oriented x3, no apparent distress and well nourished; Negative for average body habitus or healthy appearing Constitutional Narrative: Obese, older, white male, sitting up on the edge of the bed, watching television, patient currently appears comfortable on 6 L nasal cannula, does not appear toxic General Appearance: cooperative HEENT normocephalic, head/scalp atraumatic, hearing grossly normal bilaterally and moist oral mucous membranes HEENT Narrative: Mallampati 3-4, no thrush Resp normal respiratory effort, no retractions and no use of accessory muscles Resp Narrative: Diffusely diminished today but clear Auscultation: Negative for crackles, rhonchi or wheezes Cardio regular rate, regular rhythm, S1 normal heart sound, S2 normal heart sound, no murmurs, no rub, no gallops and no clicks GI normal to inspection, nondistended, normoactive bowel sounds, soft to palpation and non-tender GI Narrative: Large protuberant abdomen with rectus diastasis hernia noted Extremity no clubbing, cyanosis or edema Extremity Narrative: no cyanosis or clubbing, radial and pedal pulses are 2+ Neuro oriented x3, moves all extremities and no focal motor deficits Speech: speech normal Psych affect normal Psych Narrative: Very pleasant, eye contact is good, patient interacts appropriately Assessment & Plan Assessment/Plan (1) Leukocytosis: (2) Acute hypoxic respiratory failure: PLAN: Plan Acute hypoxic respiratory failure-suspect multifactorial -Patient is not oxygen dependent at baseline and oxygen saturations on presentation were 55% on room air -Weaned down to 4 L today -Wean oxygen as able -Will need ambulatory pulse ox prior to discharge -Continue Lasix IV 40 3 times daily -Patient is down 3.1 L for the stay -Repeat renal function in a.m. to ensure stability -Will likely discharge with at least 40 mg of Lasix daily as he is currently on no medication -Respiratory viral panel was negative -COVID/flu/influenza were negative -Patient produce sputum but it was not sent to the lab and and dried up so not testable -Continue Mucinex 1200 p.o. twice daily -Continue incentive spirometer -Continue Acapella 10 times every 2 hours while awake -Continue scheduled DuoNebs -Discontinue Solu-Medrol as patient has no appreciable wheezing on exam and this is markedly driving up his blood sugars -Echocardiogram shows an EF of 55% with stage I diastolic dysfunction and pulmonary systolic pressures of 32 mmHg -CT the chest showed bilateral pleural effusions -Strep pneumo and Legionella antigens are negative -Continue ceftriaxone but stop azithromycin Hypokalemia -Potassium replaced -Recheck in a.m. -Check a.m. magnesium level Leukocytosis -But patient is on steroids steroids have been discontinued so we will monitor over the next 24 hours -Likely demargination at this point -Continue antibiotics as ordered -Continue to monitor with repeat lab in a.m. Essential HTN/HPL -Continue home lisinopril -Continue home Cardizem -Continue home atorvastatin Secondary pulmonary hypertension -Diuresis as noted above -Outpatient follow-up with pulmonary medicine after discharge DM-2 -Hold home metformin -SSI as ordered -Cardiac/carb controlled diet Obesity -BMI is 38.9 -Recommend weight loss -Complicates treatment, prognosis, outcomes SASHA -Will assess if patient is compliant with CPAP and order if wears at home DVT prophylaxis -Continue subcu Lovenox twice daily CODE STATUS -Full code as verified at the time of admission Charges/Coding Visit Charges Inpatient E&M: 59422 Subs Hosp L2
[2024-07-29] MEDS: Insulin Lispro 100 UNIT/ML INSULN.PEN SC (17:14)
[2024-07-29 17:46] LABS: Bedside Glucose 188 mg/dL (74-106)
[2024-07-29] MEDS: Atorvastatin Calcium 20 MG Tablet PO (21:33)
[2024-07-29 22:09] LABS: Bedside Glucose 143 mg/dL (74-106)
[2024-07-30] VITALS (15 sets, daily range): BP systolic 111–133; BP diastolic 54–88; PULSE 60–86; RESP 12–20; TEMP 36.2–36.8; O2SAT 88–99
[2024-07-30] MEDS: Ipratropium/Albuterol Sulfate 3 ML AMPUL.NEB INHALATION ×4 (01:00→19:37)
--- NOTE | 2024-07-30 04:06 | RAD_ITS ---
INDICATION: Dyspnea EXAMINATION/TECHNIQUE: X-RAY - XR Chest 1 View AP portable. 4:23 AM COMPARISON: 07/28/2024 FINDINGS: LINES/DEVICES: None. LUNGS: Opacities at the lung bases not significantly changed. Small bilateral pleural effusions decreased compared to prior. No consolidation. No pneumothorax. MEDIASTINUM: Unremarkable. CARDIAC SILHOUETTE: Not enlarged. BONES AND SOFT TISSUES: No acute abnormalities. RAD/Chest 1 View (Portable) IMPRESSION: No change bibasilar atelectasis or infiltrates. Decreased pleural effusions. Electronically Signed: Cheryl Harper MD at 5:01 EDT ,
--- NOTE | 2024-07-30 04:06 | PCM.HOSP.N ---
Hospitalist Note Staff reporting confusion and increased oxygen requirements. Will obtain ABG and CXR.
[2024-07-30 04:28] LABS: Allen Test Positive; Base Excess 15 mmol/L (-2 to +2); Bicarbonate 39.8 mmol/L (22-26); Blood Gas Specimen Type ART; Mode Not entered; O2 Delivery Device Cannula; PO2 59 mmHG (75-100); SITE L Radial; SO2 88 % (95-99); Total Carbon Dioxide 42 mmol/L; pCO2 67.5 mmHg (35-45); pH 7.38 (7.35-7.45)
--- NOTE | 2024-07-30 04:48 | CPS ---
Critical CO2 value, Dr. Hunt aware.
[2024-07-30] MEDS: oxyCODONE 5 MG Tablet PO (05:10)
[2024-07-30 06:15] LABS: Absolute Lymphocyte Count 0.67 X10^3/uL (0.83-4.51); Absolute Neutrophil Count 24.7 X10^3/uL (2.0-7.7); Basophil# 0.05 X10^3/uL; Basophil% 0.2 % (0-1); Hematocrit 41.1 % (40-54); Hemoglobin 12.2 g/dL (13.0-16.5); Lymphocyte # 0.67 X10^3/ul (0.83-4.51); Lymphocyte % 2.4 % (19-41); Mean Corp Hgb Conc 29.7 g/dL (32-36); Mean Corpuscular Hgb 26.3 pg (27.0-32.0); Mean Corpuscular Volume 88.6 fL (80-94); Mean Platelet Vol. 9.3 fl (6.2-12.0); Monocyte% 6.2 % (0-10); NRBC Flagged by Analyzer 0.3 % (0-5); Neutrophil # 24.72 X10^3/uL (2.7-7.7); Neutrophil % 90.4 % (47-70); POSITIVE DIFFERENTIAL YES; Platelet Count 357 K/mm3 (150-450); RBC Distribution Width CV 15.8 % (11.6-14.6); RBC Distribution Width SD 51.2 fl (35.1-43.9); Red Blood Count 4.64 M/mm3 (4.6-6.2); White Blood Count 27.4 K/mm3 (4.4-11.0)
[2024-07-30 06:18] LABS: Differential Indicated SCAN CRITERIA MET
[2024-07-30 06:34] LABS: Bedside Glucose 139 mg/dL (74-106)
[2024-07-30] MEDS: Furosemide 40 MG/4 ML Vial IV ×2 (07:08→14:13)
[2024-07-30] MEDS: 0.9% Saline Lock 10 ML Syringe IV ×4 (07:08→16:06)
[2024-07-30] MEDS: Calcium (Elemental) 500 MG Tablet PO (08:54)
[2024-07-30] MEDS: guaiFENesin 1,200 MG Tablet 1200 MG PO ×2 (08:54→21:00)
[2024-07-30] MEDS: Aspirin E.C. 81 MG Tablet PO (08:54)
[2024-07-30] MEDS: Cholecalciferol (VIT D3) 25 MCG TABLET (1,000 UNITS) 50 MCG PO (08:54)
[2024-07-30] MEDS: Pantoprazole Sodium 40 MG in 0.9% Normal Saline (100mL MB+) 100 ML 330 MG IV ×2 (08:57→21:01)
[2024-07-30] MEDS: Ceftriaxone 1 GM/50 mL Premix Q24 IV (09:29)
[2024-07-30 09:36] LABS: Differential Comment SCANNED
[2024-07-30 10:21] LABS: Anion Gap 7 (5-15); BUN 47 mg/dL (7-18); BUN/Creat Ratio 25.8 RATIO (10-20); Calcium,Total 9.1 mg/dL (8.5-10.1); Chloride 96 mmol/L (98-107); Creatinine, Serum 1.82 mg/dL (0.70-1.30); EST Glomerular Filtration Rate 39 mL/min (>60); Est Glom Filt Rate - Afr Amer 47 mL/min (>60); Estimated Creatinine Clearance 33.81 ml/min; Glucose 158 mg/dL (74-106); Potassium 4.1 mmol/L (3.5-5.1); Sodium Level 137 mmol/L (136-145)
[2024-07-30] MEDS: Enoxaparin 40 MG/0.4 ML Syringe SC ×2 (10:24→21:00)
[2024-07-30] MEDS: dilTIAZem CD 240 MG Capsule PO (10:24)
[2024-07-30] MEDS: Lisinopril 20 MG Tablet PO (10:24)
[2024-07-30] MEDS: HYDROcodone Bitartrate/Apap 5/325 Tablet PO ×4 (10:24→21:00)
[2024-07-30 11:51] LABS: Bedside Glucose 127 mg/dL (74-106)
--- NOTE | 2024-07-30 12:16 | CASEMGMT ---
Discharge Planning A list of HH providers including quality and resource use data and consistent with the patient's preferred geographic region, medical needs, and insurance network was created in [facility] Guide.? This list was provided to the RN DAVID. Alpa Roberts, Discharge Planning Asst.
--- NOTE | 2024-07-30 14:45 | CON.PCM.CC_ITS ---
HPI Consult Data Date of Consult: 07/30/24 HPI Narrative HPI Narrative: RUBÉN LEWIS, is a 74yo M w/ obesity, HTN, Afib, RA, DM, h/o tobacco use, chronic pain who was admitted with dyspnea. he reports having worsening dyspnea over past few days before admit. He states he has had this at times in past too when his back pain is worse and prevents him from taking deep breaths, but then improves after spinal steroid injection. He denies fevers/chill, chest pain, vomiting. Has mild cough but nonproductive. On arrival here he was hypoxic requiring 4L NC and noted to have infiltrate on CXR and leukocytosis concerning for PNA. He was started on empiric abx, and subsequently IV lasix as well for possible volume overload. He has had fluctuating O2 requirements since admit as high as 8L NC, but now back down to 5L. He feels clinically his breathing is much improved to admit despite ongoing hypoxia. Denies chronic lung disease, home O2 use, SASHA. No prior cardiac disease, swelling. He quit smoking abt 25 yrs ago, reports smoking total 15 yrs. Denies EtOH, illicit substance use. Denies fevers, chills, nausea, vomiting, diarrhea, syncope, presyncope, dysphagia, odynophagia, chest pain, reflux symptoms, belly pain, dysuria, hematuria, melena, hematochezia, seizures, paralysis, or other neurological changes. [facility] Medical History (Updated 07/28/24 @ 08:[address] Barbara Mays, DO) Former smoker Hypertension Secondary pulmonary arterial hypertension Chronic back pain New onset atrial fibrillation (10/11/20) Obesity Hypokalemia Type 2 diabetes mellitus Hyperlipidemia Rheumatoid arthritis Benign essential hypertension Ankylosing spondylitis Home Medications ?Medication ?Instructions ?Recorded ?Last Taken ?Type cholecalciferol (vitamin D3) 50 2,000 unit PO DAILY 09/15/17 07/27/24 History mcg (2,000 unit) chewable tablet atorvastatin 20 mg tablet 20 mg PO QHS 10/16/20 07/24/24 History metformin 500 mg tablet 500 mg PO DAILY 10/16/20 07/24/24 History calcium carbonate (Calcium 600) 600 mg PO DAILY 10/18/20 07/27/24 History diltiazem HCl 240 mg capsule,24 240 mg PO DAILY 10/18/20 07/27/24 History hr,extended release (Tiadylt ER) lisinopril 20 mg tablet 20 mg PO DAILY 10/18/20 07/24/24 History aspirin 81 mg tablet,delayed 81 mg PO QDAY #60 tabs 12/13/20 07/27/24 Rx release (Adult Low Dose Aspirin) hydrocodone-acetaminophen 5-325mg 1 tab PO 4X/DAY 05/16/22 07/27/24 History 5mg-325mg Allergy/AdvReac Type Severity Reaction Status Date / Time alendronate sodium AdvReac dizziness Verified 07/27/24 11:32 ibandronate sodium AdvReac dizziness Verified 07/27/24 11:32 Family History Mother Heart disease CHF Surgical History History of tonsillectomy Social History Smoking Status: Former smoker how long ago did patient quit smokin years ago alcohol intake: current alcohol intake frequency: holidays/special occasions only substance use type: does not use caffeine: Yes (Occasionally) ROS ROS Narrative As per HPI Objective Data Objective Data Vital Signs: Vital Signs Last response 3 Temperature 36.6 C 07/30/24 14:17 Temperature Source Oral 07/30/24 14:17 Pulse Rate 62 07/30/24 14:17 Pulse Strength Normal (2+) 07/30/24 07:52 Respiratory Rate 18 07/30/24 14:17 Respiratory Effort Normal, Non-Labored 07/30/24 14:15 Respiratory Depth Normal 07/30/24 14:15 Respiratory Pattern Normal 07/30/24 14:15 Blood Pressure 133/54 H 07/30/24 14:17 Blood Pressure Mean 80 07/30/24 14:17 Blood Pressure Source Monitor 07/30/24 14:17 Blood Pressure Position Sitting 07/30/24 14:17 Blood Pressure Location Right Arm 07/30/24 14:17 Pulse Ox 94 07/30/24 14:17 Oxygen Delivery Method High Flow 07/30/24 14:17 Oxygen Flow Rate (L/min) 6 07/30/24 14:17 Fraction of Inspired Oxygen (FIO2) 40 07/30/24 04:43 I&O: I&O Last 24 Hours 3 07/29/24 07/30/24 07/30/24 23:59 11:59 23:59 Intake Total 1000 / 1310 460 / 820 360 / 820 Output Total 2200 / 4400 1700 / 2050 350 / 2050 Balance -1200 / -3090 -1240 / -1230 10 / -1230 I&O: Total Stay 3 07/27/24 11:26 thru 07/30/24 14:02 Intake Total 3710 Output Total 8150 Balance -4440 Current Meds Ordered / Administered: Current meds ordered / Administered 3 Generic Name Dose Route Start Last Admin Trade Name Freq PRN Reason Stop Dose Admin Acetaminophen 650 mg 07/27/24 19:09 07/29/24 09:37 Acetaminophen 325 Mg Tablet PO 650 mg Q6H PRN PRN Administration Pain 1-10 Or Fever >100.7 Hydrocodone Bitart/Acetaminophen 1 tablet 07/27/24 19:09 07/30/24 14:13 Hydrocodone Bitartrate/Apap 5/325 Tablet PO 1 tablet 4X/DAY RONAK Administration Albuterol/Ipratropium 3 ml 07/27/24 19:09 07/30/24 13:25 Ipratropium/Albuterol Sulfate 3 Ml Ampul.Neb INHALATION 3 ml Q6H.RT RONAK Administration Aspirin 81 mg 07/28/24 08:00 07/30/24 08:54 Aspirin E.C. 81 Mg Tablet PO 81 mg BREAKFAST RONAK Administration Atorvastatin Calcium 20 mg 07/27/24 22:00 07/29/24 21:33 Atorvastatin Calcium 20 Mg Tablet PO 20 mg QHS RONAK Administration Calcium Carbonate 500 mg 07/28/24 08:00 07/30/24 08:54 Calcium (Elemental) 500 Mg Tablet PO 500 mg BREAKFAST RONAK Administration Cholecalciferol 50 mcg 07/28/24 10:00 07/30/24 08:54 Cholecalciferol (Vit D3) 25 Mcg Tablet (1,000 Units) PO 50 mcg DAILY RONAK Administration Diltiazem HCl 240 mg 07/28/24 10:00 07/30/24 10:24 Diltiazem Cd 240 Mg Capsule PO 240 mg DAILY RONAK Administration Enoxaparin Sodium 40 mg 07/28/24 10:00 07/30/24 10:24 Enoxaparin 40 Mg/0.4 Ml Syringe SC 40 mg BID RONAK Administration Furosemide 40 mg 07/28/24 08:15 07/30/24 14:13 Furosemide 40 Mg/4 Ml Vial IV 40 mg Q8 RONAK Administration Protocol Glucagon 1 mg 07/27/24 19:09 Glucagon 1 Mg/Ml Syringe IM X1 PRN HYPOGLYCEMIA Protocol Guaifenesin 1,200 mg 07/28/24 10:00 07/30/24 08:54 Guaifenesin 1,200 Mg Tablet PO 1,200 mg BID RONAK Administration Dextrose 250 mls @ 0 mls/hr 07/27/24 19:09 Dextrose 10%-Water IV .Q0M PRN HYPOGLYCEMIA Protocol As Directed Sodium Chloride 250 mls @ 15 mls/hr 07/27/24 19:17 IV .[id number] PRN Additional IVPB Infusion Sodium Chloride 250 mls @ 15 mls/hr 07/27/24 19:17 IV .[id number] PRN Saline Flush Ceftriaxone Sodium 1 gm in 50 mls @ 100 mls/hr 07/28/24 10:00 07/30/24 09:59 Rocephin IV Infused Q24 RONAK Infusion Pantoprazole Sodium 40 mg/ 110 mls @ 330 mls/hr 07/28/24 03:45 07/30/24 09:18 Sodium Chloride IV Infused Q12 RONAK Infusion Insulin Human Lispro 0 unit 07/27/24 19:09 07/30/24 11:36 Insulin Lispro 100 Unit/Ml Insuln.Pen SC Not Given ACHS [facility] Protocol Lisinopril 20 mg 07/28/24 10:00 07/30/24 10:24 Lisinopril 20 Mg Tablet PO 20 mg DAILY [facility] Administration Protocol Nitroglycerin 0.4 mg 07/27/24 19:09 Nitroglycerin (Inpatient Use) 0.4 Mg Tab.Subl SL Q5M PRN CARDIAC/CHEST PAIN Ondansetron HCl 4 mg 07/28/24 03:40 07/29/24 09:37 Ondansetron 4 Mg/2 Ml Vial IV 4 mg Q6H PRN PRN Administration NAUSEA/VOMITING Oxycodone HCl 2.5 - 5 mg 07/27/24 19:09 07/30/24 05:10 Oxycodone 5 Mg Tablet PO 5 mg Q4H PRN PRN Administration Pain Score 4-10 Prednisone 40 mg 07/31/24 08:00 Prednisone 20 Mg Tablet PO BREAKFAST RONAK Prochlorperazine Edisylate 10 mg 07/28/24 03:42 07/28/24 05:38 Prochlorperazine 10 Mg/2 Ml Vial IV 10 mg Q4H PRN PRN Administration Nausea/emesis, 2nd line Sodium Chloride 10 - 40 ml 07/27/24 19:17 07/30/24 14:13 0.9% Saline Lock 10 Ml Syringe IV 10 ml UD PRN Administration SALINE FLUSH Sodium Chloride 2 spray 07/28/24 17:49 07/29/24 15:14 Sodium Chloride 0.65% [address] [employer] [place].B[place] NASAL 2 spray BID PRN PRN Administration NASAL DRYNESS Lab / Micro Data 07/30/24 05:41 07/30/24 05:41 Labs: Laboratory Results - last 24 hr 07/29/24 17:08: POC Glucose 188 H 07/29/24 21:39: POC Glucose 143 H 07/30/24 05:41: WBC 27.4 H, RBC 4.64, Hgb 12.2 L, Hct 41.1, MCV 88.6, MCH 26.3 L , MCHC 29.7 L, RDW Std Deviation 51.2 H, RDW Coeff of Erik 15.8 H, Plt Count 357, MPV 9.3, Immature Gran % (Auto) 0.800, Neut % (Auto) 90.4 H, Lymph % (Auto) 2.4 L, Grand % (Auto) 6.2, Eos % (Auto) 0.0, Baso % (Auto) 0.2, Absolute Neuts (auto) 24.7 H, Absolute Lymphs (auto) 0.67 L, Nucleated RBC % 0.3, Differential Comment SCANNED, Diff Path Review March, Sodium 137, Potassium 4.1, Chloride 96 L, C arbon Dioxide 34.0 H, Anion Gap 7, BUN 47 H, Creatinine 1.82 H, Estim Creat Clear Calc 33.81, Est GFR (MDRD) Af Amer 47 L, Est GFR (MDRD) Non-Af 39 L, B UN/Creatinine Ratio 25.8 H, Glucose 158 H, Calcium 9.1 07/30/24 06:14: POC Glucose 139 H 07/30/24 11:33: POC Glucose 127 H ABG Data ABG results: ABG 07/30/24 04:23 Specimen Type ART Sample Site L Radial pH 7.38 Bicarbonate Actual 39.8 H Total CO2 42 Base Excess 15 H O2 Saturation 88 L O2 % 5.0 ABG pCO2 67.5 H* ABG pO2 59 L Jose Luis Test Positive O2 Delivery Device Cannula Vent Mode Not entered Crit Call To/Read Back Yes Blood Gas Notified Time 04:25:10 Rhythm Strip Rhythm Strip: Sinus Rhythm Rate: 95 Ectopy: None Imaging Radiology Impression Chest X-Ray 07/30/24 04:06 IMPRESSION: No change bibasilar atelectasis or infiltrates. Decreased pleural effusions. Electronically Signed: Cheryl Harper MD at 5:01 EDT , Assessment and Plan . Assessment and plan: Physical Exam: Gen - NAD, obesity HEENT - MMM. Sclera anicteric Resp - Diminished in bases. Breathing nonlabored CV - RRR. No m/g/r Abd - Soft, NT, ND Ext - No c/c/e. Skin - No rashes? Neuro - Grossly nonfocal. Alert and oriented I have reviewed the pertinent vital sign, laboratory, and imaging data. ASSESSMENT: # Acute hypoxic and hypercapneic respiratory failure - possible component of SASHA/OHS as well, chronic serum bicarb elevation # PNA # Leukocytosis # JON # Obesity # HTN # Afib # RA # DM # h/o tobacco use # Chronic pain PLAN: -On 5L NC, wean to keep sats > 90%. Encourage IS, flutter valve, OOB to chair -Cont NIV with all daytime naps and sleep for now. Needs OP sleep study -May need home O2 eval if unable to wean off completely prior to discharge -Empiric rocephin, s/p azithro. Significant leukocytosis but was recently on IV steroids and otherwise feels clinically much improved. Obtain procal, Cx (unable to produce sputum currently), MRSA nares. Low threshold to broaden abx if worsening. Viral panel, urine strep/legionella negative -Hold further diuretics for today given worsening JON. Monitor Cr, UOP. May need to stop JOELLE-I also -PO prednisone, nebs -Dimer low, low suspicion for VTE but may need to re-evaluate if worsening -LVEF 55%, G1DD, normal RV size/function, estimated PASP 32 -Encourage weight loss Proph DVT/GI: SQ heparin The entirety of this encounter was done via Telemedicine
--- NOTE | 2024-07-30 15:44 | PN.HOSP_ITS ---
Reason for Visit Reason for Visit: Shortness of breath Subjective Subjective Patient states clinically he is feeling much better. Had an episode of confusion last night for which she was placed on BiPAP. He did show CO2 retention however his pH was normal. I do suspect he has chronic hypercapnia due to untreated SASHA. He denies ever being diagnosed with SASHA as an outpatient. Does have a remote smoking history. States he is coughing much less than he did on presentation. Objective Data Objective Data Vital Signs: Vital Signs Temp Pulse Resp BP Pulse Ox O2 Del Method O2 Flow Rate 97.8 F 62 18 133/54 H 94 High Flow 6 07/30/24 14:17 07/30/24 14:17 07/30/24 14:17 07/30/24 14:17 07/30/24 14:17 07/30/24 14:17 07/30/24 14:17 FiO2 40 07/30/24 04:43 Oxygen Flow Rate (L/min) 6 Oxygen Delivery Method High Flow Weight: 90.322 kg Body Mass Index (BMI) 39.1 Intake & Output: Intake and Output for Last 24 Hours 07/28/24 07/29/24 07/30/24 23:59 23:59 23:59 Intake Total 1475 / 1475 1110 / 1310 820 / 820 Output Total 2800 / 3000 3300 / 4400 2049 / 2049 Balance -1325 / -1525 -2190 / -3090 -1230 / -1230 Lab / Micro Data 07/30/24 05:41 07/30/24 05:41 Labs: Laboratory Results - last 24 hr 07/29/24 17:08: POC Glucose 188 H 07/29/24 21:39: POC Glucose 143 H 07/30/24 05:41: WBC 27.4 H, RBC 4.64, Hgb 12.2 L, Hct 41.1, MCV 88.6, MCH 26.3 L , MCHC 29.7 L, RDW Std Deviation 51.2 H, RDW Coeff of Erik 15.8 H, Plt Count 357, MPV 9.3, Immature Gran % (Auto) 0.800, Neut % (Auto) 90.4 H, Lymph % (Auto) 2.4 L, Frontier % (Auto) 6.2, Eos % (Auto) 0.0, Baso % (Auto) 0.2, Absolute Neuts (auto) 24.7 H, Absolute Lymphs (auto) 0.67 L, Nucleated RBC % 0.3, Differential Comment SCANNED, Diff Path Review March, Sodium 137, Potassium 4.1, Chloride 96 L, C arbon Dioxide 34.0 H, Anion Gap 7, BUN 47 H, Creatinine 1.82 H, Estim Creat Clear Calc 33.81, Est GFR (MDRD) Af Amer 47 L, Est GFR (MDRD) Non-Af 39 L, B UN/Creatinine Ratio 25.8 H, Glucose 158 H, Calcium 9.1 07/30/24 06:14: POC Glucose 139 H 07/30/24 11:33: POC Glucose 127 H Micro: Microbiology 07/28/24 09:49 Mucosa - Nasopharyngeal Respiratory Panel (PCR) - Final 07/28/24 11:32 Urine, Random Legionella Antigen - Final 07/28/24 11:32 Urine, Random Streptococcus pneumoniae Antigen (M - Final 07/27/24 13:00 Mucosa - Nasopharyngeal SARS-CoV-2, Influenza & RSV (PCR) - Final ABG Data ABG results: ABG 07/30/24 04:23 Specimen Type ART Sample Site L Radial pH 7.38 Bicarbonate Actual 39.8 H Total CO2 42 Base Excess 15 H O2 Saturation 88 L O2 % 5.0 ABG pCO2 67.5 H* ABG pO2 59 L Jose Luis Test Positive O2 Delivery Device Cannula Vent Mode Not entered Crit Call To/Read Back Yes Blood Gas Notified Time 04:25:10 Radiography Diagnostic Testing: Radiology Impression Chest X-Ray 07/30/24 04:06 IMPRESSION: No change bibasilar atelectasis or infiltrates. Decreased pleural effusions. Electronically Signed: Cheryl Harper MD at 5:01 EDT , Rhythm Strip Rhythm Strip: Sinus Rhythm Rate: 95 Ectopy: None Physical Exam Const alert, oriented x3, no apparent distress and well nourished; Negative for average body habitus or healthy appearing Constitutional Narrative: Obese, older, white male, sitting up in bed, watching television, at bedside patient currently appears comfortable on 6 L nasal cannula but had been weaned to 3 L yesterday, does not appear toxic General Appearance: cooperative HEENT normocephalic, head/scalp atraumatic, hearing grossly normal bilaterally and moist oral mucous membranes HEENT Narrative: Mallampati 4, no thrush Resp normal respiratory effort, no retractions and no use of accessory muscles Resp Narrative: Diffusely diminished today but clear Auscultation: Negative for crackles, rhonchi or wheezes Cardio regular rate, regular rhythm, S1 normal heart sound, S2 normal heart sound, no murmurs, no rub, no gallops and no clicks GI normal to inspection, nondistended, normoactive bowel sounds, soft to palpation, non-tender and non-distended GI Narrative: Large protuberant abdomen with rectus diastasis hernia noted Extremity no clubbing, cyanosis or edema Extremity Narrative: no cyanosis or clubbing, radial and pedal pulses are 2+ Neuro oriented x3, moves all extremities and no focal motor deficits Speech: speech normal Psych affect normal Psych Narrative: Very pleasant, eye contact is good, patient interacts appropriately Assessment & Plan Assessment/Plan (1) Leukocytosis: (2) Acute hypoxic respiratory failure: PLAN: Plan Acute hypoxic respiratory failure on chronic hypercapnic respiratory failure- suspect multifactorial -Patient is not oxygen dependent at baseline and oxygen saturations on presentation were 55% on room air -Back up to 6 L today -ABG done this morning is consistent with chronic hypercapnia -Continue BiPAP nocturnally -Stop furosemide with rising renal function -Patient is -4.4 L for this day -Respiratory viral panel was negative -COVID/flu/influenza were negative -Patient produce sputum but it was not sent to the lab and and dried up so not testable -Continue Mucinex 1200 p.o. twice daily -Continue incentive spirometer -Continue Acapella 10 times every 2 hours while awake -Continue scheduled DuoNebs -Prednisone 40 mg daily -Echocardiogram shows an EF of 55% with stage I diastolic dysfunction and pulmonary systolic pressures of 32 mmHg -CT the chest showed bilateral pleural effusions but likely not large enough to tap -Strep pneumo and Legionella antigens are negative -Continue ceftriaxone day 3 of 7 -Consult pulmonary medicine since we are having issues with weaning his oxygen despite treatment for potential pneumonia and volume removal as well as treatment for COPD Hypokalemia -Resolved bedtime JON -Related to volume removal with diuresis -Discontinue Lasix -Hold lisinopril -Will give 1 L back -Recheck lab in a.m. Leukocytosis -But patient is on steroids steroids have been discontinued so we will monitor over the next 24 hours -Likely demargination and volume depletion -Continue antibiotics as ordered -Continue to monitor with repeat lab in a.m. Essential HTN/HPL -Hold home lisinopril -Continue home Cardizem -Continue home atorvastatin Secondary pulmonary hypertension -IV diuresis on hold due to worsening renal function -Will likely need to send home on 40 mg of Lasix daily. -Outpatient follow-up with pulmonary medicine after discharge DM-2 -Hold home metformin -SSI as ordered -Cardiac/carb controlled diet Obesity -BMI is 38.9 -Recommend weight loss -Complicates treatment, prognosis, outcomes SASHA -Will assess if patient is compliant with CPAP and order if wears at home DVT prophylaxis -Continue subcu Lovenox twice daily CODE STATUS -Full code as verified at the time of admission Charges/Coding Visit Charges Inpatient E&M: 66084 Subs Hosp L2
--- NOTE | 2024-07-30 15:47 | CASEMGMT ---
Addendum entered by Danii Hein 07/30/24 16:45: ROSA ELENA HERNANDEZ received call back from [facility]. They are not able to accept at this time as they are full for Friday start of care if patient would discharge over the weekend. [facility] states they will re-eval on Friday. ROSA ELENA HERNANDEZ update hospitalist, anticipate patient will be here through the weekend. ROSA ELENA HERNANDEZ updated patient and . CM will continue to follow this patient and plan for a safe discharge. Original Note: RN CM in to discuss needs at discharge, at bedside. Therapy recommending HHC at discharge. RN DAVID discussed HHC at discharge. Patient agreeable, HHC list provided, patient and [facility] ROSA ELENA HERNANDEZ discussed possible need for home oxygen at discharge, DME agencies reviewed, patient prefers [employer]. Patient and denied further needs at discharge and had no further questions or concerns. ROSA ELENA HERNANDEZ made referral to [facility], awaiting acceptance. Green sheet placed on chart for possible home oxygen.
[2024-07-30] MEDS: 0.9% Normal Saline (1000mL) 1,000 ML 200 ML IV (16:06)
[2024-07-30] MEDS: Insulin Lispro 100 UNIT/ML INSULN.PEN SC (16:08)
[2024-07-30 16:29] LABS: Bedside Glucose 158 mg/dL (74-106)
[2024-07-30 16:49] LABS: Procalcitonin 0.32 ng/mL (0.00-0.09)
[2024-07-30] MEDS: Atorvastatin Calcium 20 MG Tablet PO (21:00)
[2024-07-30 22:08] LABS: Bedside Glucose 111 mg/dL (74-106)
[2024-07-31] VITALS (13 sets, daily range): BP systolic 119–141; BP diastolic 55–69; PULSE 74–96; RESP 16–20; TEMP 35.9–36.4; O2SAT 92–98
[2024-07-31] MEDS: Ipratropium/Albuterol Sulfate 3 ML AMPUL.NEB INHALATION ×4 (00:36→19:04)
[2024-07-31 00:47] LABS: Bacteria 0 SEEN /hpf (None Seen); Mucous, Urine 0 SEEN /hpf (<or=2+); Red Blood Cells-Urine 0 SEEN /hpf (0-5); Squamous Epithelial Cells - UA 0 SEEN /hpf (0-5); White Blood Cells 0 SEEN /hpf (0-5)
[2024-07-31 00:53] LABS: Glucose, Dipstick Normal (Normal); Ketone-Dipstick Negative (Negative); Leukocyte Esterase-Dipstick Negative /ul (Negative); Nitrite-Dipstick Negative (Negative); Occult Blood-Urine Negative /ul (Negative); Protein-Dipstick 30 mg/dl (Negative); Urine Bilirubin Dipstick Negative (Negative); Urine Urobilinogen Normal (Normal)
[2024-07-31 00:56] LABS: Color, Urine Yellow (Yellow); Urine Clarity Clear (Clear)
[2024-07-31 06:55] LABS: Bedside Glucose 112 mg/dL (74-106)
[2024-07-31 07:36] LABS: Absolute Lymphocyte Count 1.34 X10^3/uL (0.83-4.51); Absolute Neutrophil Count 19.7 X10^3/uL (2.0-7.7); Basophil# 0.03 X10^3/uL; Basophil% 0.1 % (0-1); Hematocrit 41.1 % (40-54); Hemoglobin 11.9 g/dL (13.0-16.5); Lymphocyte # 1.34 X10^3/ul (0.83-4.51); Lymphocyte % 5.7 % (19-41); Mean Corpuscular Hgb 25.8 pg (27.0-32.0); Mean Corpuscular Volume 89.2 fL (80-94); Mean Platelet Vol. 9.1 fl (6.2-12.0); Monocyte# 2.15 X10^3/uL; Monocyte% 9.2 % (0-10); NRBC Flagged by Analyzer 0.1 % (0-5); Neutrophil # 19.69 X10^3/uL (2.7-7.7); Neutrophil % 84.4 % (47-70); POSITIVE DIFFERENTIAL YES; Platelet Count 304 K/mm3 (150-450); RBC Distribution Width CV 15.9 % (11.6-14.6); RBC Distribution Width SD 51.1 fl (35.1-43.9); Red Blood Count 4.61 M/mm3 (4.6-6.2); White Blood Count 23.3 K/mm3 (4.4-11.0)
[2024-07-31 07:38] LABS: Differential Indicated SCAN CRITERIA MET
[2024-07-31] MEDS: Ceftriaxone 1 GM/50 mL Premix Q24 IV (08:05)
[2024-07-31] MEDS: Pantoprazole Sodium 40 MG in 0.9% Normal Saline (100mL MB+) 100 ML 330 MG IV ×2 (08:05→22:12)
[2024-07-31] MEDS: Enoxaparin 40 MG/0.4 ML Syringe SC ×2 (08:05→21:27)
[2024-07-31] MEDS: Aspirin E.C. 81 MG Tablet PO (08:06)
[2024-07-31] MEDS: Calcium (Elemental) 500 MG Tablet PO (08:07)
[2024-07-31] MEDS: guaiFENesin 1,200 MG Tablet 1200 MG PO ×2 (08:07→21:28)
[2024-07-31] MEDS: Cholecalciferol (VIT D3) 25 MCG TABLET (1,000 UNITS) 50 MCG PO (08:07)
[2024-07-31] MEDS: predniSONE 20 MG Tablet 40 MG PO (08:09)
[2024-07-31] MEDS: dilTIAZem CD 240 MG Capsule PO (08:09)
[2024-07-31] MEDS: Lisinopril 20 MG Tablet PO (08:09)
[2024-07-31 08:10] LABS: Anion Gap 2 (5-15); BUN 42 mg/dL (7-18); Calcium,Total 8.7 mg/dL (8.5-10.1); Chloride 101 mmol/L (98-107); Creatinine, Serum 1.05 mg/dL (0.70-1.30); EST Glomerular Filtration Rate 74 mL/min (>60); Est Glom Filt Rate - Afr Amer 89 mL/min (>60); Estimated Creatinine Clearance 58.61 ml/min; Glucose 116 mg/dL (74-106); Potassium 4.1 mmol/L (3.5-5.1); Sodium Level 140 mmol/L (136-145)
[2024-07-31] MEDS: HYDROcodone Bitartrate/Apap 5/325 Tablet PO ×4 (08:26→21:28)
[2024-07-31 08:44] LABS: Anisocytosis 2+; Differential Comment SCANNED; Microcytosis 1+; Platelet Estimate ADEQUATE (ADEQ); Polychromasia 1+; Schistocytes RARE
[2024-07-31 12:11] LABS: Bedside Glucose 122 mg/dL (74-106)
--- NOTE | 2024-07-31 14:43 | PN.CC_ITS ---
Objective Data Objective Data Vital Signs: Vital Signs Last response 3 Temperature 36.4 C L 07/31/24 14:20 Temperature Source Temporal 07/31/24 14:20 Pulse Rate 77 07/31/24 14:20 Pulse Strength Normal (2+) 07/31/24 08:11 Respiratory Rate 16 07/31/24 14:20 Respiratory Effort Normal, Non-Labored 07/31/24 13:52 Respiratory Depth Normal 07/31/24 13:52 Respiratory Pattern Normal 07/31/24 13:52 Blood Pressure 133/55 H 07/31/24 14:20 Blood Pressure Mean 81 07/31/24 14:20 Blood Pressure Source Monitor 07/31/24 14:20 Blood Pressure Position Semi-Fowlers 07/31/24 14:20 Blood Pressure Location Left Arm 07/31/24 14:20 Pulse Ox 92 07/31/24 14:20 Oxygen Delivery Method High Flow 07/31/24 14:20 Oxygen Flow Rate (L/min) 5 07/31/24 14:20 Fraction of Inspired Oxygen (FIO2) 40 07/30/24 04:43 I&O: I&O Last 24 Hours 3 07/30/24 07/31/24 07/31/24 23:59 11:59 23:59 Intake Total 1830 / 2410 500 / 500 Output Total 500 / 2500 660 / 660 Balance 1330 / -90 -160 / -160 I&O: Total Stay 3 07/27/24 11:26 thru 07/31/24 11:40 Intake Total 5680 Output Total 8960 Balance -3280 Current Meds Ordered / Administered: Current meds ordered / Administered 3 Generic Name Dose Route Start Last Admin Trade Name Nalini PRN Reason Stop Dose Admin Acetaminophen 650 mg 07/27/24 19:09 07/29/24 09:37 Acetaminophen 325 Mg Tablet PO 650 mg Q6H PRN PRN Administration Pain 1-10 Or Fever >100.7 Hydrocodone Bitart/Acetaminophen 1 tablet 07/27/24 19:09 07/31/24 13:26 Hydrocodone Bitartrate/Apap 5/325 Tablet PO 1 tablet 4X/DAY RONAK Administration Albuterol/Ipratropium 3 ml 07/27/24 19:09 07/31/24 13:11 Ipratropium/Albuterol Sulfate 3 Ml Ampul.Neb INHALATION 3 ml Q6H.RT RONAK Administration Aspirin 81 mg 07/28/24 08:00 07/31/24 08:06 Aspirin E.C. 81 Mg Tablet PO 81 mg BREAKFAST RONAK Administration Atorvastatin Calcium 20 mg 07/27/24 22:00 07/30/24 21:00 Atorvastatin Calcium 20 Mg Tablet PO 20 mg QHS RONAK Administration Calcium Carbonate 500 mg 07/28/24 08:00 07/31/24 08:07 Calcium (Elemental) 500 Mg Tablet PO 500 mg BREAKFAST RONAK Administration Cholecalciferol 50 mcg 07/28/24 10:00 07/31/24 08:07 Cholecalciferol (Vit D3) 25 Mcg Tablet (1,000 Units) PO 50 mcg DAILY RONAK Administration Diltiazem HCl 240 mg 07/28/24 10:00 07/31/24 08:09 Diltiazem Cd 240 Mg Capsule PO 240 mg DAILY RONAK Administration Enoxaparin Sodium 40 mg 07/28/24 10:00 07/31/24 08:05 Enoxaparin 40 Mg/0.4 Ml Syringe SC 40 mg BID RONAK Administration Glucagon 1 mg 07/27/24 19:09 Glucagon 1 Mg/Ml Syringe IM X1 PRN HYPOGLYCEMIA Protocol Guaifenesin 1,200 mg 07/28/24 10:00 07/31/24 08:07 Guaifenesin 1,200 Mg Tablet PO 1,200 mg BID RONAK Administration Dextrose 250 mls @ 0 mls/hr 07/27/24 19:09 Dextrose 10%-Water IV .Q0M PRN HYPOGLYCEMIA Protocol As Directed Sodium Chloride 250 mls @ 15 mls/hr 07/27/24 19:17 IV .[id number] PRN Additional IVPB Infusion Sodium Chloride 250 mls @ 15 mls/hr 07/27/24 19:17 IV .[id number] PRN Saline Flush Ceftriaxone Sodium 1 gm in 50 mls @ 100 mls/hr 07/28/24 10:00 07/31/24 08:41 Rocephin IV Infused Q24 RONAK Infusion Pantoprazole Sodium 40 mg/ 110 mls @ 330 mls/hr 07/28/24 03:45 07/31/24 08:27 Sodium Chloride IV Infused Q12 RONAK Infusion Insulin Human Lispro 0 unit 07/27/24 19:09 07/31/24 11:38 Insulin Lispro 100 Unit/Ml Insuln.Pen SC Not Given ACHS RONAK Protocol Lisinopril 20 mg 07/28/24 10:00 07/31/24 08:09 Lisinopril 20 Mg Tablet PO 20 mg DAILY [facility] Administration Protocol Nitroglycerin 0.4 mg 07/27/24 19:09 Nitroglycerin (Inpatient Use) 0.4 Mg Tab.Subl SL Q5M PRN CARDIAC/CHEST PAIN Ondansetron HCl 4 mg 07/28/24 03:40 07/29/24 09:37 Ondansetron 4 Mg/2 Ml Vial IV 4 mg Q6H PRN PRN Administration NAUSEA/VOMITING Oxycodone HCl 2.5 - 5 mg 07/27/24 19:09 07/30/24 05:10 Oxycodone 5 Mg Tablet PO 5 mg Q4H PRN PRN Administration Pain Score 4-10 Prednisone 40 mg 07/31/24 08:00 07/31/24 08:09 Prednisone 20 Mg Tablet PO 40 mg BREAKFAST RONAK Administration Prochlorperazine Edisylate 10 mg 07/28/24 03:42 07/28/24 05:38 Prochlorperazine 10 Mg/2 Ml Vial IV 10 mg Q4H PRN PRN Administration Nausea/emesis, 2nd line Sodium Chloride 10 - 40 ml 07/27/24 19:17 07/30/24 16:06 0.9% Saline Lock 10 Ml Syringe IV 10 ml UD PRN Administration SALINE FLUSH Sodium Chloride 2 spray 07/28/24 17:49 07/29/24 15:14 Sodium Chloride 0.65% 1 [place].Btl NASAL 2 spray BID PRN PRN Administration NASAL DRYNESS Lab / Micro Data 07/31/24 07:23 07/31/24 07:23 Labs: Laboratory Results - last 24 hr 07/30/24 05:41: C-React Prot Ext Range 12.90 H, Procalcitonin 0.32 H 07/30/24 16:07: POC Glucose 158 H 07/30/24 20:57: POC Glucose 111 H 07/31/24 00:19: Urine Color Yellow, Urine Clarity Clear, Urine pH 6.0, Ur Specific [place] 1.020, Urine Protein 30 H, Urine Glucose (UA) Normal, Urine Ketones Negative, Urine Occult Blood Negative, Urine Nitrite Negative, Urine Bilirubin Negative, Urine Urobilinogen Normal, Ur Leukocyte Esterase Negative, Urine RBC 0 SEEN, Urine WBC 0 SEEN, Ur Squamous Epith Cells 0 SEEN, Urine Bacteria 0 SEEN, Urine Mucus 0 SEEN 07/31/24 06:25: POC Glucose 112 H 07/31/24 07:23: WBC 23.3 H, RBC 4.61, Hgb 11.9 L, Hct 41.1, MCV 89.2, MCH 25.8 L , MCHC 29.0 L, RDW Std Deviation 51.1 H, RDW Coeff of Erik 15.9 H, Plt Count 304, MPV 9.1, Immature Gran % (Auto) 0.600, Neut % (Auto) 84.4 H, Lymph % (Auto) 5.7 L, [place] % (Auto) 9.2, Eos % (Auto) 0.0, Baso % (Auto) 0.1, Absolute Neuts (auto) 19.7 H, Absolute Lymphs (auto) 1.34, Nucleated RBC % 0.1, Differential Comment SCANNED, Diff Path Review May foll, Platelet Estimate ADEQUATE, Polychromasia 1+, Anisocytosis 2+, Microcytosis 1+, Schistocytes RARE, Sodium 140, Potassium 4.1, Chloride 101, Carbon Dioxide 37.0 H, Anion Gap 2 L, BUN 42 H, Creatinine 1.05, Estim Creat Clear Calc 58.61, Est GFR (MDRD) Af Amer 89, Est GFR (MDRD) Non-Af 74, BUN/Creatinine Ratio 40.0 H, Glucose 116 H, Calcium 8.7 07/31/24 11:30: POC Glucose 122 H Micro: Microbiology 07/30/24 16:50 Nasal Secretion MRSA (PCR) - Final Rhythm Strip Rhythm Strip: Sinus Rhythm Rate: 95 Ectopy: None Assessment and Plan . Assessment and plan: Subjective: No acute events o/n. Overall feels improving. BiPAP mistakenly not put back on overnight Physical Exam: Gen - NAD, obesity HEENT - MMM. Sclera anicteric Resp - Diminished in bases. Breathing nonlabored CV - RRR. No m/g/r Abd - Soft, NT, ND Ext - No c/c/e. Skin - No rashes? Neuro - Grossly nonfocal. Alert and oriented I have reviewed the pertinent vital sign, laboratory, and imaging data. ASSESSMENT: # Acute hypoxic and hypercapneic respiratory failure - possible component of SASHA/OHS as well, chronic serum bicarb elevation # PNA # Leukocytosis # JON # Obesity # HTN # Afib # RA # DM # h/o tobacco use # Chronic pain PLAN: -On 5L NC, wean to keep sats > 90%. Encourage IS, flutter valve, OOB to chair. Trial of mucomyst as well -Cont NIV with all daytime naps and sleep for now; encourage pt that he needs to wear this for now throughout the night as tolerated. Needs OP sleep study -May need home O2 eval if unable to wean off completely prior to discharge -Empiric rocephin, s/p azithro. Significant leukocytosis but was recently on IV steroids, WBC downtrending, and otherwise feels clinically much improved. f/u Cx (unable to produce sputum currently). Procal mildly elevated. MRSA negative. Low threshold to broaden abx if worsening. Viral panel, urine strep/legionella negative -Held further diuretics for now given worsening JON. Monitor Cr, UOP, improving. May need to stop JOELLE-I also -PO prednisone, nebs -Dimer low, low suspicion for VTE but may need to re-evaluate if worsening -LVEF 55%, G1DD, normal RV size/function, estimated PASP 32 -Encourage weight loss Proph DVT/GI: SQ heparin The entirety of this encounter was done via Telemedicine
--- NOTE | 2024-07-31 15:11 | PN.HOSP_ITS ---
Reason for Visit Reason for Visit: Shortness of breath Subjective Subjective Patient states clinically he is feeling much better overall. Cough is much improved with no sputum production recently but he is still requiring quite a bit of supplemental oxygen at 6 L on upon my arrival and I was able to wean him 5 L and maintain oxygen saturations at or greater than 89%. Objective Data Objective Data Vital Signs: Vital Signs Temp Pulse Resp BP Pulse Ox O2 Del Method O2 Flow Rate 97.5 F L 77 16 133/55 H 92 High Flow 5 07/31/24 14:20 07/31/24 14:20 07/31/24 14:20 07/31/24 14:20 07/31/24 14:20 07/31/24 14:20 07/31/24 14:20 FiO2 40 07/30/24 04:43 Oxygen Flow Rate (L/min) 5 Oxygen Delivery Method High Flow Weight: 90.322 kg Body Mass Index (BMI) 39.1 Intake & Output: Intake and Output for Last 24 Hours 07/29/24 07/30/24 07/31/24 23:59 23:59 23:59 Intake Total 1110 / 1310 2290 / 2410 500 / 500 Output Total 3300 / 4400 2200 / 2500 660 / 660 Balance -2190 / -3090 90 / -90 -160 / -160 Lab / Micro Data 07/31/24 07:23 07/31/24 07:23 Labs: Laboratory Results - last 24 hr 07/30/24 05:41: C-React Prot Ext Range 12.90 H, Procalcitonin 0.32 H 07/30/24 16:07: POC Glucose 158 H 07/30/24 20:57: POC Glucose 111 H 07/31/24 00:19: Urine Color Yellow, Urine Clarity Clear, Urine pH 6.0, Ur Specific [place] 1.020, Urine Protein 30 H, Urine Glucose (UA) Normal, Urine Ketones Negative, Urine Occult Blood Negative, Urine Nitrite Negative, Urine Bilirubin Negative, Urine Urobilinogen Normal, Ur Leukocyte Esterase Negative, Urine RBC 0 SEEN, Urine WBC 0 SEEN, Ur Squamous Epith Cells 0 SEEN, Urine Bacteria 0 SEEN, Urine Mucus 0 SEEN 07/31/24 06:25: POC Glucose 112 H 07/31/24 07:23: WBC 23.3 H, RBC 4.61, Hgb 11.9 L, Hct 41.1, MCV 89.2, MCH 25.8 L , MCHC 29.0 L, RDW Std Deviation 51.1 H, RDW Coeff of Erik 15.9 H, Plt Count 304, MPV 9.1, Immature Gran % (Auto) 0.600, Neut % (Auto) 84.4 H, Lymph % (Auto) 5.7 L, [place] % (Auto) 9.2, Eos % (Auto) 0.0, Baso % (Auto) 0.1, Absolute Neuts (auto) 19.7 H, Absolute Lymphs (auto) 1.34, Nucleated RBC % 0.1, Differential Comment SCANNED, Diff Path Review May foll, Platelet Estimate ADEQUATE, Polychromasia 1+, Anisocytosis 2+, Microcytosis 1+, Schistocytes RARE, Sodium 140, Potassium 4.1, Chloride 101, Carbon Dioxide 37.0 H, Anion Gap 2 L, BUN 42 H, Creatinine 1.05, Estim Creat Clear Calc 58.61, Est GFR (MDRD) Af Amer 89, Est GFR (MDRD) Non-Af 74, BUN/Creatinine Ratio 40.0 H, Glucose 116 H, Calcium 8.7 07/31/24 11:30: POC Glucose 122 H Micro: Microbiology 07/30/24 16:50 Nasal Secretion MRSA (PCR) - Final 07/28/24 09:49 Mucosa - Nasopharyngeal Respiratory Panel (PCR) - Final 07/28/24 11:32 Urine, Random Legionella Antigen - Final 07/28/24 11:32 Urine, Random Streptococcus pneumoniae Antigen (M - Final 07/27/24 13:00 Mucosa - Nasopharyngeal SARS-CoV-2, Influenza & RSV (PCR) - Final Rhythm Strip Rhythm Strip: Sinus Rhythm Rate: 95 Ectopy: None Physical Exam Const alert, oriented x3, no apparent distress and well nourished; Negative for average body habitus or healthy appearing Constitutional Narrative: Obese, older, white male, sitting up in bed, watching television, at bedside patient currently appears comfortable on 6 L nasal cannula, not toxic, I was able to wean her to 5 L and noted stability General Appearance: cooperative HEENT normocephalic, head/scalp atraumatic, hearing grossly normal bilaterally and moist oral mucous membranes HEENT Narrative: Mallampati is 3-4, no thrush, patient is edentulous Resp normal respiratory effort, no retractions, no use of accessory muscles and clear to auscultation bilaterally Auscultation: Negative for crackles, rhonchi or wheezes Cardio regular rate, regular rhythm, S1 normal heart sound, S2 normal heart sound, no murmurs, no rub, no gallops and no clicks GI normal to inspection, nondistended, normoactive bowel sounds, soft to palpation, non-tender and non-distended GI Narrative: Large protuberant abdomen with rectus diastasis hernia noted Extremity no clubbing, cyanosis or edema Neuro oriented x3, moves all extremities and no focal motor deficits Speech: speech normal Motor Exam: strength 5/5 throughout Psych affect normal Psych Narrative: Very pleasant, eye contact is good, patient interacts appropriately Assessment & Plan Assessment/Plan (1) Leukocytosis: (2) Acute hypoxic respiratory failure: PLAN: Plan Acute hypoxic respiratory failure on chronic hypercapnic respiratory failure- suspect multifactorial -Patient is not oxygen dependent at baseline and oxygen saturations on presentation were 55% on room air -On 6 L today and I was able to reduce him to 5 L -ABG done this morning is consistent with chronic hypercapnia -Continue BiPAP nocturnally -Only wore for a brief time last night but I did encourage him strongly to wear this at night and with naps -Stop furosemide with rising renal function -3280 mL negative for the hospital stay -Respiratory viral panel was negative -COVID/flu/influenza were negative -Sputum was not able to be sent -Continue Mucinex 1200 p.o. twice daily -Continue incentive spirometer -Continue Acapella 10 times every 2 hours while awake -Continue scheduled DuoNebs -Continue prednisone 40 mg daily -Echocardiogram shows an EF of 55% with stage I diastolic dysfunction and pulmonary systolic pressures of 32 mmHg -CT the chest showed bilateral pleural effusions but likely not large enough to tap -Strep pneumo and Legionella antigens are negative -Continue ceftriaxone day 4 of 7 -Pulmonary medicine is following with no additional changes recommended at this time JON -Resolved -Serum creatinine back down to 1.05 -If stays stable tomorrow will restart Lasix but only 40 mg daily p.o. Leukocytosis -But patient is on steroids steroids have been discontinued so we will monitor over the next 24 hours -Likely demargination and volume depletion -Continue antibiotics as ordered -Continue to monitor with repeat lab in a.m. Essential HTN/HPL -Will continue to hold lisinopril for now and restart tomorrow if renal function is stable -Continue home Cardizem -Continue home atorvastatin Secondary pulmonary hypertension -IV diuresis on hold due to worsening renal function -Will likely need to send home on 40 mg of Lasix daily. -Outpatient follow-up with pulmonary medicine after discharge DM-2 -Hold home metformin -SSI as ordered -Cardiac/carb controlled diet Obesity -BMI is 38.9 -Recommend weight loss -Complicates treatment, prognosis, outcomes SASHA -Continue nocturnal noninvasive ventilation and would recommend outpatient polysomnography after discharge -Will need referral to pulmonary medicine DVT prophylaxis -Continue subcu Lovenox twice daily CODE STATUS -Full code as verified at the time of admission Charges/Coding Visit Charges Inpatient E&M: 14428 Subs Hosp L2
[2024-07-31] MEDS: Insulin Lispro 100 UNIT/ML INSULN.PEN SC ×2 (16:16→21:29)
[2024-07-31] MEDS: Sodium Chloride 0.65% 1 SPRAY SPRAY.BTL 2 SPRAY NASAL (16:18)
[2024-07-31 16:37] LABS: Bedside Glucose 179 mg/dL (74-106)
[2024-07-31] MEDS: Acetylcysteine 800 MG/4 ML VIAL.NEB. 600 MG INHALATION (19:04)
[2024-07-31] MEDS: Atorvastatin Calcium 20 MG Tablet PO (21:28)
[2024-07-31] MEDS: 0.9% Saline Lock 10 ML Syringe IV (21:29)
[2024-07-31 22:14] LABS: Bedside Glucose 238 mg/dL (74-106)
[2024-08-01] VITALS (13 sets, daily range): BP systolic 138–158; BP diastolic 61–72; PULSE 74–87; RESP 12–20; TEMP 36.1–36.7; O2SAT 92–97
[2024-08-01] MEDS: oxyCODONE 5 MG Tablet PO (00:14)
[2024-08-01] MEDS: Ipratropium/Albuterol Sulfate 3 ML AMPUL.NEB INHALATION ×4 (01:15→19:15)
--- NOTE | 2024-08-01 06:00 | RAD_ITS ---
HISTORY: resp failure, pneumonia. TECHNIQUE: XR Chest 1 View. COMPARISON: 07/30/2024. FINDINGS: LINES/TUBES: None. CARDIOMEDIASTINAL BORDERS: Stable. LUNGS: Slightly decreased bibasilar atelectasis. PLEURA: Mild pleural effusions again seen. RAD/Chest 1 View (Portable) IMPRESSION: Mild pleural effusions with bibasilar atelectasis. Electronically Signed: Maribel Mcdowell MD at 13:07 EDT ,
[2024-08-01] MEDS: Acetylcysteine 800 MG/4 ML VIAL.NEB. 600 MG INHALATION ×3 (06:50→19:15)
[2024-08-01 06:54] LABS: Anion Gap 2 (5-15); BUN 35 mg/dL (7-18); BUN/Creat Ratio 42.8 RATIO (10-20); Calcium,Total 8.9 mg/dL (8.5-10.1); Chloride 101 mmol/L (98-107); Creatinine, Serum 0.82 mg/dL (0.70-1.30); EST Glomerular Filtration Rate 98 mL/min (>60); Est Glom Filt Rate - Afr Amer 119 mL/min (>60); Estimated Creatinine Clearance 75.04 ml/min; Glucose 105 mg/dL (74-106); Potassium 3.7 mmol/L (3.5-5.1); Sodium Level 140 mmol/L (136-145)
[2024-08-01 06:55] LABS: Bedside Glucose 106 mg/dL (74-106)
[2024-08-01] MEDS: Lisinopril 20 MG Tablet PO (08:12)
[2024-08-01] MEDS: Aspirin E.C. 81 MG Tablet PO (08:13)
[2024-08-01] MEDS: Calcium (Elemental) 500 MG Tablet PO (08:13)
[2024-08-01] MEDS: Cholecalciferol (VIT D3) 25 MCG TABLET (1,000 UNITS) 50 MCG PO (08:13)
[2024-08-01] MEDS: predniSONE 20 MG Tablet 40 MG PO (08:14)
[2024-08-01] MEDS: guaiFENesin 1,200 MG Tablet 1200 MG PO ×2 (08:15→21:41)
[2024-08-01] MEDS: Enoxaparin 40 MG/0.4 ML Syringe SC ×2 (08:15→21:34)
[2024-08-01] MEDS: HYDROcodone Bitartrate/Apap 5/325 Tablet PO ×4 (08:17→21:34)
[2024-08-01] MEDS: dilTIAZem CD 240 MG Capsule PO (08:17)
[2024-08-01] MEDS: Furosemide 40 MG Tablet PO (09:05)
[2024-08-01] MEDS: Pantoprazole Sodium 40 MG in 0.9% Normal Saline (100mL MB+) 100 ML 330 MG IV ×2 (09:05→21:33)
[2024-08-01] MEDS: Ceftriaxone 1 GM/50 mL Premix Q24 IV (09:50)
--- NOTE | 2024-08-01 10:50 | PN.CC_ITS ---
Objective Data Objective Data Vital Signs: Vital Signs Last response 3 Temperature 36.2 C L 08/01/24 08:15 Temperature Source Temporal 08/01/24 08:15 Pulse Rate 77 08/01/24 08:15 Pulse Strength Normal (2+) 07/31/24 08:11 Respiratory Rate 20 H 08/01/24 08:15 Respiratory Effort Normal, Non-Labored 08/01/24 03:34 Respiratory Depth Shallow 08/01/24 08:15 Respiratory Pattern Normal 08/01/24 06:50 Blood Pressure 157/69 H 08/01/24 08:15 Blood Pressure Mean 98 08/01/24 08:15 Blood Pressure Source Monitor 08/01/24 08:09 Blood Pressure Position Sitting 08/01/24 08:09 Blood Pressure Location Left Arm 08/01/24 08:09 Pulse Ox 94 08/01/24 08:15 Oxygen Delivery Method High Flow 08/01/24 08:15 Oxygen Flow Rate (L/min) 5 08/01/24 08:15 Fraction of Inspired Oxygen (FIO2) 35 08/01/24 01:10 I&O: I&O Last 24 Hours 3 07/31/24 07/31/24 08/01/24 11:59 23:59 11:59 Intake Total 500 / 730 230 / 730 160 / 160 Output Total 660 / 1210 550 / 1210 200 / 200 Balance -160 / -480 -320 / -480 -40 / -40 I&O: Total Stay 3 07/27/24 11:26 thru 08/01/24 10:26 Intake Total 6070 Output Total 9710 Balance -3640 Current Meds Ordered / Administered: Current meds ordered / Administered 3 Generic Name Dose Route Start Last Admin Trade Name Nalini PRN Reason Stop Dose Admin Acetaminophen 650 mg 07/27/24 19:09 07/29/24 09:37 Acetaminophen 325 Mg Tablet PO 650 mg Q6H PRN PRN Administration Pain 1-10 Or Fever >100.7 Hydrocodone Bitart/Acetaminophen 1 tablet 07/27/24 19:09 08/01/24 08:17 Hydrocodone Bitartrate/Apap 5/325 Tablet PO 1 tablet 4X/DAY RONAK Administration Acetylcysteine 600 mg 07/31/24 15:15 08/01/24 06:50 Acetylcysteine 800 Mg/4 Ml Vial.Neb. INHALATION 600 mg Q6H.RT RONAK Administration Albuterol/Ipratropium 3 ml 07/27/24 19:09 08/01/24 06:50 Ipratropium/Albuterol Sulfate 3 Ml Ampul.Neb INHALATION 3 ml Q6H.RT RONAK Administration Aspirin 81 mg 07/28/24 08:00 08/01/24 08:13 Aspirin E.C. 81 Mg Tablet PO 81 mg BREAKFAST RONAK Administration Atorvastatin Calcium 20 mg 07/27/24 22:00 07/31/24 21:28 Atorvastatin Calcium 20 Mg Tablet PO 20 mg QHS RONAK Administration Calcium Carbonate 500 mg 07/28/24 08:00 08/01/24 08:13 Calcium (Elemental) 500 Mg Tablet PO 500 mg BREAKFAST RONAK Administration Cholecalciferol 50 mcg 07/28/24 10:00 08/01/24 08:13 Cholecalciferol (Vit D3) 25 Mcg Tablet (1,000 Units) PO 50 mcg DAILY RONAK Administration Diltiazem HCl 240 mg 07/28/24 10:00 08/01/24 08:17 Diltiazem Cd 240 Mg Capsule PO 240 mg DAILY RONAK Administration Enoxaparin Sodium 40 mg 07/28/24 10:00 08/01/24 08:15 Enoxaparin 40 Mg/0.4 Ml Syringe SC 40 mg BID RONAK Administration Furosemide 40 mg 08/01/24 10:00 08/01/24 09:05 Furosemide 40 Mg Tablet PO 40 mg DAILY RONAK Administration Protocol Glucagon 1 mg 07/27/24 19:09 Glucagon 1 Mg/Ml Syringe IM X1 PRN HYPOGLYCEMIA Protocol Guaifenesin 1,200 mg 07/28/24 10:00 08/01/24 08:15 Guaifenesin 1,200 Mg Tablet PO 1,200 mg BID RONAK Administration Dextrose 250 mls @ 0 mls/hr 07/27/24 19:09 Dextrose 10%-Water IV .Q0M PRN HYPOGLYCEMIA Protocol As Directed Sodium Chloride 250 mls @ 15 mls/hr 07/27/24 19:17 IV .[id number] PRN Additional IVPB Infusion Sodium Chloride 250 mls @ 15 mls/hr 07/27/24 19:17 IV .[id number] PRN Saline Flush Ceftriaxone Sodium 1 gm in 50 mls @ 100 mls/hr 07/28/24 10:00 08/01/24 10:26 Rocephin IV Infused Q24 [facility] Infusion Pantoprazole Sodium 40 mg/ 110 mls @ 330 mls/hr 07/28/24 03:45 08/01/24 09:51 Sodium Chloride IV Infused Q12 [facility] Infusion Insulin Human Lispro 0 unit 07/27/24 19:09 08/01/24 06:06 Insulin Lispro 100 Unit/Ml Insuln.Pen SC Not Given ACHS [facility] Protocol Lisinopril 20 mg 07/28/24 10:00 08/01/24 08:12 Lisinopril 20 Mg Tablet PO 20 mg DAILY RONAK Administration Protocol Nitroglycerin 0.4 mg 07/27/24 19:09 Nitroglycerin (Inpatient Use) 0.4 Mg Tab.Subl SL Q5M PRN CARDIAC/CHEST PAIN Ondansetron HCl 4 mg 07/28/24 03:40 07/29/24 09:37 Ondansetron 4 Mg/2 Ml Vial IV 4 mg Q6H PRN PRN Administration NAUSEA/VOMITING Oxycodone HCl 2.5 - 5 mg 07/27/24 19:09 08/01/24 00:14 Oxycodone 5 Mg Tablet PO 5 mg Q4H PRN PRN Administration Pain Score 4-10 Prednisone 40 mg 07/31/24 08:00 08/01/24 08:14 Prednisone 20 Mg Tablet PO 40 mg BREAKFAST [facility] Administration Prochlorperazine Edisylate 10 mg 07/28/24 03:42 07/28/24 05:38 Prochlorperazine 10 Mg/2 Ml Vial IV 10 mg Q4H PRN PRN Administration Nausea/emesis, 2nd line Sodium Chloride 10 - 40 ml 07/27/24 19:17 07/31/24 21:29 0.9% Saline Lock 10 Ml Syringe IV 10 ml UD PRN Administration SALINE FLUSH Sodium Chloride 2 spray 07/28/24 17:49 07/31/24 16:18 Sodium Chloride 0.65% 1 [place].Btl NASAL 2 spray BID PRN PRN Administration NASAL DRYNESS Lab / Micro Data 07/31/24 07:23 08/01/24 05:10 Labs: Laboratory Results - last 24 hr 07/31/24 11:30: POC Glucose 122 H 07/31/24 16:14: POC Glucose 179 H 07/31/24 21:26: POC Glucose 238 H 08/01/24 05:10: Sodium 140, Potassium 3.7, Chloride 101, Carbon Dioxide 37.0 H, Anion Gap 2 L, BUN 35 H, Creatinine 0.82, Estim Creat Clear Calc 75.04, Est GFR (MDRD) Af Amer 119, Est GFR (MDRD) Non-Af 98, BUN/Creatinine Ratio 42.8 H, Glucose 105, Calcium 8.9 08/01/24 06:04: POC Glucose 106 Rhythm Strip Rhythm Strip: Sinus Rhythm Rate: 95 Ectopy: None Assessment and Plan . Assessment and plan: Subjective: No acute events o/n. Overall feels breathing much improved, however still remains on 5L NC today Physical Exam: Gen - NAD, obesity HEENT - MMM. Sclera anicteric Resp - Diminished in bases. Breathing nonlabored CV - RRR. No m/g/r Abd - Soft, NT, ND Ext - No c/c/e. Skin - No rashes? Neuro - Grossly nonfocal. Alert and oriented I have reviewed the pertinent vital sign, laboratory, and imaging data. ASSESSMENT: # Acute hypoxic and hypercapneic respiratory failure - possible component of SASHA/OHS as well, chronic serum bicarb elevation # PNA # Leukocytosis # JON # Obesity # HTN # Afib # RA # DM # h/o tobacco use # Chronic pain PLAN: -On 5L NC, wean to keep sats > 90%. Encourage IS, flutter valve, OOB to chair. Trial of mucomyst as well, though pt denies any mucus expectoration or chest congestion now -Cont NIV with all daytime naps and sleep for now. Needs OP sleep study -May need home O2 eval if unable to wean off completely prior to discharge -Empiric rocephin, s/p azithro. Significant leukocytosis but was recently on IV steroids, WBC downtrending, and otherwise feels clinically much improved. f/u Cx (unable to produce sputum currently). Procal mildly elevated along with CRP, will trend. MRSA negative. Low threshold to broaden abx if worsening. Viral panel, urine strep/legionella negative -Held further diuretics for now given worsening JON. Monitor Cr, UOP, improving. -Initial D-dimer low on admit, however given persistent hypoxia will obtain CTA chest today -PO prednisone, nebs -LVEF 55%, G1DD, normal RV size/function, estimated PASP 32 -Encourage weight loss Proph DVT/GI: SQ heparin The entirety of this encounter was done via Telemedicine
--- NOTE | 2024-08-01 10:57 | CT_ITS ---
HISTORY: persistent respiratory failure, rule out PE, pneumonia. TECHNIQUE: CT angiogram of the chest was performed after the intravenous administration of 100 mL Isovue-370. Post-processing of the angiographic images was performed with multiplanar reformation and 3D reconstruction. Individualized dose optimization techniques were used for this CT. 1297 images. COMPARISON: XR same day, CT 07/28/2024. FINDINGS: CENTRAL AIRWAYS: Patent. LUNGS: Mild biapical scarring with mild emphysema. Very mild middle lobe atelectasis. Bilateral lower lobe dependent opacities again seen. PLEURA: Bilateral pleural effusions, similar to prior. HEART/PERICARDIUM: Heart within normal limits in size. No pericardial effusion. PULMONARY ARTERIES: No filling defect. AORTA/VESSELS: No thoracic aortic aneurysm or dissection flap. Atherosclerosis present. MEDIASTINUM/ALYSSA: No pathologically enlarged lymph nodes. 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 UPPER ABDOMEN: Unremarkable. CT/CTA Chest W/WO Contrast IMPRESSION: No evidence of pulmonary embolism. No significant interval change in mild bilateral pleural effusions with mild dependent atelectasis. Presence of pulmonary emphysema on CT is an independent risk factor for lung cancer. Consider LDCT lung cancer screening in the future. Electronically Signed: Maribel Mcdowell MD at 12:09 EDT ,
[2024-08-01 11:19] LABS: Hematocrit 40.9 % (40-54); Hemoglobin 11.8 g/dL (13.0-16.5); Mean Corp Hgb Conc 28.9 g/dL (32-36); Mean Corpuscular Hgb 25.6 pg (27.0-32.0); Mean Corpuscular Volume 88.7 fL (80-94); Platelet Count 321 K/mm3 (150-450); RBC Distribution Width CV 15.7 % (11.6-14.6); RBC Distribution Width SD 50.4 fl (35.1-43.9); Red Blood Count 4.61 M/mm3 (4.6-6.2); White Blood Count 22.4 K/mm3 (4.4-11.0)
[2024-08-01 11:20] LABS: CRP 4.05 mg/L (0.0-3.0)
[2024-08-01 11:34] LABS: Procalcitonin 0.22 ng/mL (0.00-0.09)
[2024-08-01 11:37] LABS: Bedside Glucose 134 mg/dL (74-106)
[2024-08-01] MEDS: Sodium Chloride 0.65% 1 SPRAY SPRAY.BTL 2 SPRAY NASAL (14:15)
--- NOTE | 2024-08-01 14:33 | PN.HOSP_ITS ---
Reason for Visit Reason for Visit: Shortness of breath Subjective Subjective Patient states she clinically is feeling much better. Decreased shortness of breath subjectively, decreased cough with no sputum production any longer however he remains hypoxic requiring 5 L nasal cannula. I discussed with he and his family that etiology for ongoing hypoxemia is unclear at this time and further workup is pending. Objective Data Objective Data Vital Signs: Vital Signs Temp Pulse Resp BP Pulse Ox O2 Del Method O2 Flow Rate 97.3 F L 81 18 144/72 H 97 High Flow 5 08/01/24 14:13 08/01/24 14:13 08/01/24 14:13 08/01/24 14:13 08/01/24 14:13 08/01/24 14:13 08/01/24 14:13 FiO2 35 08/01/24 01:10 Oxygen Flow Rate (L/min) 5 Oxygen Delivery Method High Flow Weight: 90.322 kg Body Mass Index (BMI) 39.1 Intake & Output: Intake and Output for Last 24 Hours 07/30/24 07/31/24 08/01/24 23:59 23:59 23:59 Intake Total 2290 / 2410 730 / 730 400 / 400 Output Total 2200 / 2500 1210 / 1210 800 / 800 Balance 90 / -90 -480 / -480 -400 / -400 Lab / Micro Data 08/01/24 05:10 08/01/24 05:10 Labs: Laboratory Results - last 24 hr 07/31/24 16:14: POC Glucose 179 H 07/31/24 21:26: POC Glucose 238 H 08/01/24 05:10: WBC 22.4 H, RBC 4.61, Hgb 11.8 L, Hct 40.9, MCV 88.7, MCH 25.6 L , MCHC 28.9 L, RDW Std Deviation 50.4 H, RDW Coeff of Erik 15.7 H, Plt Count 321, MPV 10.0, Sodium 140, Potassium 3.7, Chloride 101, Carbon Dioxide 37.0 H, Anion Gap 2 L, BUN 35 H, Creatinine 0.82, Estim Creat Clear Calc 75.04, Est GFR (MDRD) Af Amer 119, Est GFR (MDRD) Non-Af 98, BUN/Creatinine Ratio 42.8 H, Glucose 105, Calcium 8.9, C-React Prot Ext Range 4.05 H, Procalcitonin 0.22 H 08/01/24 06:04: POC Glucose 106 08/01/24 10:47: POC Glucose 134 H Micro: Microbiology 07/30/24 16:50 Nasal Secretion MRSA (PCR) - Final 07/28/24 09:49 Mucosa - Nasopharyngeal Respiratory Panel (PCR) - Final 07/28/24 11:32 Urine, Random Legionella Antigen - Final 07/28/24 11:32 Urine, Random Streptococcus pneumoniae Antigen (M - Final 07/27/24 13:00 Mucosa - Nasopharyngeal SARS-CoV-2, Influenza & RSV (PCR) - Final Radiography Diagnostic Testing: Radiology Impression Chest X-Ray 08/01/24 06:00 IMPRESSION: Mild pleural effusions with bibasilar atelectasis. Electronically Signed: Maribel Mcdowell MD at 13:07 EDT , Chest CTA 08/01/24 10:57 IMPRESSION: No evidence of pulmonary embolism. No significant interval change in mild bilateral pleural effusions with mild dependent atelectasis. Presence of pulmonary emphysema on CT is an independent risk factor for lung cancer. Consider LDCT lung cancer screening in the future. Electronically Signed: Maribel Mcdowell MD at 12:09 EDT , Rhythm Strip Rhythm Strip: Sinus Rhythm Rate: 95 Ectopy: None Physical Exam Const alert, oriented x3, no apparent distress and well nourished; Negative for average body habitus or healthy appearing Constitutional Narrative: Obese, older, white male, sitting up in bed, watching television, at bedside patient currently appears comfortable on 5 L nasal cannula, nontoxic- appearing General Appearance: cooperative HEENT normocephalic, head/scalp atraumatic and moist oral mucous membranes HEENT Narrative: Mallampati 3-4, patient is edentulous, no thrush Resp normal respiratory effort, no retractions, no use of accessory muscles and clear to auscultation bilaterally Auscultation: Negative for crackles, rhonchi or wheezes Cardio regular rate, regular rhythm, S1 normal heart sound, S2 normal heart sound, no murmurs, no rub, no gallops and no clicks GI normal to inspection, nondistended, normoactive bowel sounds, soft to palpation, non-tender and non-distended GI Narrative: Large protuberant abdomen with rectus diastasis hernia noted Extremity normal to inspection, full ROM and no clubbing, cyanosis or edema Extremity Narrative: no cyanosis or clubbing, radial and pedal pulses are 2+ Neuro oriented x3, moves all extremities and no focal motor deficits Speech: speech normal Psych affect normal Psych Narrative: Very pleasant, eye contact is good, patient interacts appropriately Assessment & Plan Assessment/Plan (1) Leukocytosis: (2) Acute hypoxic respiratory failure: PLAN: Plan Acute hypoxic respiratory failure on chronic hypercapnic respiratory failure- suspect multifactorial -Patient is not oxygen dependent at baseline and oxygen saturations on presentation were 55% on room air -Remains on 5 L nasal cannula with sats in the mid 90s -Continue to wean as able -ABG showed hypoxia with chronic hypercapnia -Pulmonary medicine ordered CTA today despite negative D-dimer on presentation to rule out PE and this did not show any pulmonary emboli and only emphysematous changes in the lung apices -Continue BiPAP nocturnally and as needed during the day for naps -Patient was compliant last night -Restart Lasix 40 mg p.o. daily -Respiratory viral panel was negative -COVID/flu/influenza were negative -Sputum was not able to be sent -Continue Mucinex 1200 p.o. twice daily -Continue incentive spirometer -Continue Acapella 10 times every 2 hours while awake -Continue scheduled DuoNebs -Continue prednisone 40 mg daily--> will need to discuss further with pulmonary medicine however could consider weaning soon -Echocardiogram shows an EF of 55% with stage I diastolic dysfunction and pulmonary systolic pressures of 32 mmHg -Strep pneumo and Legionella antigens are negative -Patient has been on ceftriaxone and I do not have a sputum culture--> since there is not been clinical improvement and he is requiring high doses of oxygen we will transition him to oral Levaquin since his renal function is improved and see if an alteration in his antibiotics help wean oxygen however no significant pneumonia noted on CTA of the chest -Pulmonary medicine is following with no additional changes recommended at this time -? R cardiac catheterization Leukocytosis -Patient on oral prednisone and I would anticipate ongoing elevation till this is discontinued -Continue antibiotics and changed to Levaquin as noted -Continue to monitor with repeat lab in a.m. Essential HTN/HPL -Restart home lisinopril -Continue home Cardizem -Continue home atorvastatin Secondary pulmonary hypertension -IV diuresis on hold due to worsening renal function -Restart Lasix 40 mg p.o. daily -Outpatient follow-up with pulmonary medicine after discharge DM-2 -Hold home metformin -SSI as ordered -Cardiac/carb controlled diet Obesity -BMI is 38.9 -Recommend weight loss -Complicates treatment, prognosis, outcomes SASHA -Continue nocturnal noninvasive ventilation and would recommend outpatient polysomnography after discharge -Will need referral to pulmonary medicine DVT prophylaxis -Continue subcu Lovenox twice daily CODE STATUS -Full code as verified at the time of admission Charges/Coding Visit Charges Inpatient E&M: 19883 Subs Hosp L2
[2024-08-01] MEDS: Insulin Lispro 100 UNIT/ML INSULN.PEN SC (16:17)
[2024-08-01 16:38] LABS: Bedside Glucose 198 mg/dL (74-106)
[2024-08-01] MEDS: Atorvastatin Calcium 20 MG Tablet PO (21:34)
[2024-08-01 21:48] LABS: Bedside Glucose 145 mg/dL (74-106)
[2024-08-02] VITALS (12 sets, daily range): BP systolic 134–157; BP diastolic 71–79; PULSE 62–102; RESP 16–20; TEMP 36.6–36.9; O2SAT 90–97
[2024-08-02] MEDS: Ipratropium/Albuterol Sulfate 3 ML AMPUL.NEB INHALATION ×4 (02:05→18:58)
[2024-08-02] MEDS: levoFLOXacin 750 MG Tablet PO (05:43)
[2024-08-02 06:52] LABS: Bedside Glucose 102 mg/dL (74-106)
[2024-08-02 07:04] LABS: Absolute Lymphocyte Count 1.94 X10^3/uL (0.83-4.51); Absolute Neutrophil Count 17.7 X10^3/uL (2.0-7.7); Basophil# 0.03 X10^3/uL; Basophil% 0.1 % (0-1); Eosinophil# 0.02 X10^3/uL; Eosinophils% 0.1 % (0-5); Hematocrit 40.3 % (40-54); Hemoglobin 11.8 g/dL (13.0-16.5); Lymphocyte # 1.94 X10^3/ul (0.83-4.51); Lymphocyte % 8.8 % (19-41); Mean Corp Hgb Conc 29.3 g/dL (32-36); Mean Corpuscular Hgb 25.8 pg (27.0-32.0); Mean Corpuscular Volume 88.2 fL (80-94); Mean Platelet Vol. 9.4 fl (6.2-12.0); Monocyte# 2.12 X10^3/uL; Monocyte% 9.7 % (0-10); NRBC Flagged by Analyzer 0 % (0-5); Neutrophil # 17.67 X10^3/uL (2.7-7.7); Neutrophil % 80.6 % (47-70); POSITIVE DIFFERENTIAL YES; Platelet Count 343 K/mm3 (150-450); RBC Distribution Width CV 15.7 % (11.6-14.6); RBC Distribution Width SD 49.5 fl (35.1-43.9); Red Blood Count 4.57 M/mm3 (4.6-6.2); White Blood Count 21.9 K/mm3 (4.4-11.0)
[2024-08-02 07:18] LABS: Differential Indicated SCAN CRITERIA MET
[2024-08-02] MEDS: Acetylcysteine 800 MG/4 ML VIAL.NEB. 600 MG INHALATION ×3 (07:28→18:58)
[2024-08-02 07:36] LABS: ALB/GLOB Ratio 0.8 RATIO (0.9-2.4); AST(SGOT) 19 U/L (15-37); Alanine Aminotransfer ALT/SGPT 22 U/L (16-61); Albumin, Serum 2.8 g/dL (3.2-5.0); Alkaline Phosphatase 74 U/L (45-117); Anion Gap 3 (5-15); BUN 26 mg/dL (7-18); BUN/Creat Ratio 30.3 RATIO (10-20); Calcium,Total 9.2 mg/dL (8.5-10.1); Chloride 103 mmol/L (98-107); Creatinine, Serum 0.86 mg/dL (0.70-1.30); EST Glomerular Filtration Rate 93 mL/min (>60); Est Glom Filt Rate - Afr Amer 112 mL/min (>60); Estimated Creatinine Clearance 71.55 ml/min; Globulin 3.4 g/dL (2.2-4.2); Glucose 105 mg/dL (74-106); Magnesium 2.1 mg/dL (1.6-2.6); Phosphorus 1.9 mg/dL (2.5-4.9); Potassium 3.9 mmol/L (3.5-5.1); Protein, Total 6.2 g/dL (6.4-8.2); Sodium Level 143 mmol/L (136-145); Thyroid Stim Hormone (TSH) 0.728 uIU/mL (0.358-3.740)
[2024-08-02] MEDS: predniSONE 20 MG Tablet 40 MG PO (09:21)
[2024-08-02] MEDS: guaiFENesin 1,200 MG Tablet 1200 MG PO ×2 (09:21→22:06)
[2024-08-02] MEDS: Aspirin E.C. 81 MG Tablet PO (09:21)
[2024-08-02] MEDS: Lisinopril 20 MG Tablet PO (09:21)
[2024-08-02] MEDS: Cholecalciferol (VIT D3) 25 MCG TABLET (1,000 UNITS) 50 MCG PO (09:21)
[2024-08-02] MEDS: dilTIAZem CD 240 MG Capsule PO (09:22)
[2024-08-02] MEDS: Furosemide 40 MG Tablet PO (09:22)
[2024-08-02] MEDS: Calcium (Elemental) 500 MG Tablet PO (09:22)
[2024-08-02] MEDS: Enoxaparin 40 MG/0.4 ML Syringe SC ×2 (09:23→22:09)
[2024-08-02] MEDS: Sodium Chloride 0.65% 1 SPRAY SPRAY.BTL 2 SPRAY NASAL (09:23)
[2024-08-02] MEDS: HYDROcodone Bitartrate/Apap 5/325 Tablet PO ×4 (09:40→22:07)
--- NOTE | 2024-08-02 10:04 | PN.CC_ITS ---
Assessment & Plan Assessment/Plan (1) Acute hypoxic respiratory failure: PLAN: Plan RECOMMENDATIONS: 1. Supplemental oxygen to maintain saturations at or above 90%. 2. Continue bronchodilator therapy. 3. Continue prednisone 40 mg daily, with plans for a 5-day burst at discharge. 4. Diuretics as tolerated by hemodynamics and renal function. 5. Continue Levaquin to complete a total of 7 days of therapy. 6. Empiric PAP therapy with sleep. 7. Encourage incentive spirometer use and mobilize patient as tolerated. 8. Outpatient pulmonary follow-up after discharge is warranted. IMPRESSIONS: 1. Acute hypoxemic respiratory failure I do suspect that the patient's presentation is likely multifactorial in etiology with underlying pneumonia and heart failure with preserved ejection fraction contributing. The patient does have a remote smoking history, but has never been formally diagnosed with any form of COPD or asthma in the past. He is still requiring nasal cannula supplemental oxygen, which is new for him. However, the patient is slowly improving from a respiratory perspective. At this time, I would recommend that we continue supplemental oxygen to maintain saturations at or above 90%. I do anticipate that he will have a home-going supplemental oxygen requirement. For now, it is reasonable to continue scheduled bronchodilators and prednisone. At discharge, I would recommend 40 mg daily x 5 days. In addition, it is reasonable to continue Levaquin to complete a total of 7 days of therapy. Ideally, the patient did follow-up in the pulmonary medicine clinic after discharge. The patient is at high risk for underlying sleep apnea, but seems resistant to undergoing a sleep study. 2. History of tobacco dependency, in remission As noted above, recommend outpatient pulmonary follow-up so that baseline PFTs can be obtained. 3. Obesity/suspected sleep apnea/diabetes mellitus/hypertension/hyperlipidemia Complicates care, management, recovery and prognosis. Continue home medications as indicated. Recommend outpatient polysomnogram, if the patient is agreeable. This note was generated with [employer] dictation software. It may contain incorrect words, spelling, and punctuation that were not noted in checking the note before signing. Subjective Subjective The patient was seen and examined at the bedside this morning. Events from the last 24 hours have been reviewed. The patient is currently afebrile, hemodynamically stable and maintaining appropriate oxygen saturations on 4 L/min via nasal cannula. The patient remains on scheduled bronchodilators along with prednisone and p.o. Lasix. White count is elevated at 22,000. Bicarbonate is elevated at 37 with a normal creatinine. CTA chest completed yesterday demonstrated no evidence for pulmonary embolism. Bilateral emphysematous changes along with lower lobe airspace opacities and pleural effusions were noted. The patient did report a remote smoking history, having quit completely 20 years ago. He has never been diagnosed with any pulmonary related conditions. He does not utilize supplemental oxygen at his baseline. The patient denies ever having been diagnosed with obstructive sleep apnea. Objective Data Objective Data The patient's most recent lab work, culture data and imaging studies have all been personally reviewed. Infectious workup has been unrevealing to date. Surface echocardiogram demonstrated stage I diastolic dysfunction with an ejection fraction of 55% and pulmonary artery systolic pressure of 32 mmHg. Vital Signs: Vital Signs Temp Pulse Resp BP Pulse Ox O2 Del Method O2 Flow Rate 98.4 F 87 18 152/71 H 97 Nasal Cannula 4 08/02/24 07:48 08/02/24 07:48 08/02/24 07:48 08/02/24 07:48 08/02/24 08:22 08/02/24 08:09 08/02/24 08:09 FiO2 35 08/01/24 23:03 Oxygen Flow Rate (L/min) 4 Oxygen Delivery Method Nasal Cannula Weight: 199 lb 2 oz Body Mass Index (BMI) 39.1 Intake & Output: Intake and Output for Last 24 Hours 07/31/24 08/01/24 08/02/24 23:59 23:59 23:59 Intake Total 730 / 730 750 / 1050 500 / 500 Output Total 1210 / 1210 1050 / 1050 Balance -480 / -480 -300 / 0 500 / 500 Lab / Micro Data Attestation: I reviewed the patient's lab results. 08/02/24 06:34 08/02/24 06:34 Labs: Laboratory Results - last 24 hr 08/01/24 05:10: WBC 22.4 H, RBC 4.61, Hgb 11.8 L, Hct 40.9, MCV 88.7, MCH 25.6 L , MCHC 28.9 L, RDW Std Deviation 50.4 H, RDW Coeff of Erik 15.7 H, Plt Count 321, MPV 10.0, C-React Prot Ext Range 4.05 H, Procalcitonin 0.22 H 08/01/24 10:47: POC Glucose 134 H 08/01/24 16:16: POC Glucose 198 H 08/01/24 21:30: POC Glucose 145 H 08/02/24 06:23: POC Glucose 102 08/02/24 06:34: WBC 21.9 H, RBC 4.57 L, Hgb 11.8 L, Hct 40.3, MCV 88.2, MCH 25.8 L, MCHC 29.3 L, RDW Std Deviation 49.5 H, RDW Coeff of Erik 15.7 H, Plt Count 343, MPV 9.4, Immature Gran % (Auto) 0.700, Neut % (Auto) 80.6 H, Lymph % (Auto) 8.8 L, Collin % (Auto) 9.7, Eos % (Auto) 0.1, Baso % (Auto) 0.1, Absolute Neuts (auto) 17.7 H, Absolute Lymphs (auto) 1.94, Nucleated RBC % 0, Diff Path Review March, Sodium 143, Potassium 3.9, Chloride 103, Carbon Dioxide 37.0 H, Anion Gap 3 L, BUN 26 H, Creatinine 0.86, Estim Creat Clear Calc 71.55, Est GFR (MDRD) Af Amer 112, Est GFR (MDRD) Non-Af 93, BUN/Creatinine Ratio 30.3 H, Glucose 105, Calcium 9.2, Phosphorus 1.9 L, Magnesium 2.1, Total Bilirubin 0.50, AST 19, ALT 22, Alkaline Phosphatase 74, Total Protein 6.2 L, Albumin 2.8 L, Globulin 3.4, A lbumin/Globulin Ratio 0.8 L, TSH 0.728 Micro: Microbiology 07/30/24 17:08 Blood Culture (Wb) - Anticubital Right Blood Culture - Preliminary No growth in 48 hours. 07/30/24 16:50 Nasal Secretion MRSA (PCR) - Final 07/28/24 09:49 Mucosa - Nasopharyngeal Respiratory Panel (PCR) - Final 07/28/24 11:32 Urine, Random Legionella Antigen - Final 07/28/24 11:32 Urine, Random Streptococcus pneumoniae Antigen (M - Final 07/27/24 13:00 Mucosa - Nasopharyngeal SARS-CoV-2, Influenza & RSV (PCR) - Final Radiography Diagnostic Testing: Radiology Impression Chest X-Ray 08/01/24 06:00 IMPRESSION: Mild pleural effusions with bibasilar atelectasis. Electronically Signed: Maribel Mcdowell MD at 13:07 EDT , Chest CTA 08/01/24 10:57 IMPRESSION: No evidence of pulmonary embolism. No significant interval change in mild bilateral pleural effusions with mild dependent atelectasis. Presence of pulmonary emphysema on CT is an independent risk factor for lung cancer. Consider LDCT lung cancer screening in the future. Electronically Signed: Maribel Mcdowell MD at 12:09 EDT , Rhythm Strip Rhythm Strip: Sinus Rhythm Rate: 95 Ectopy: None Physical Exam Const alert and no apparent distress Constitutional Narrative: Obese. Sitting in bedside recliner. General Appearance: cooperative HEENT normocephalic and head/scalp atraumatic Eyes PERRL, EOMs intact bilaterally and conjunctivae normal Neck supple General: trachea midline Chest inspection of chest normal Resp normal respiratory effort and no use of accessory muscles Effort and Inspection: able to speak in complete sentences Auscultation: diminished lung sounds; Negative for rales, rhonchi or wheezes Cardio regular rate and regular rhythm GI normal to inspection, nondistended, normoactive bowel sounds Extremity no clubbing, cyanosis or edema Skin no rashes or lesions noted Neuro CN's II-XII intact bilaterally, moves all extremities and no focal motor deficits Psych cooperative and affect normal Charges/Coding Visit Charges Inpatient E&M: 24818 Subs Hosp L2
[2024-08-02] MEDS: Pantoprazole Sodium 40 MG Tablet PO ×2 (10:14→22:06)
[2024-08-02 12:59] LABS: Pathologist Review Reviewed
[2024-08-02 13:01] LABS: Pathologist Review Reviewed
[2024-08-02 14:39] LABS: Bedside Glucose 149 mg/dL (74-106)
--- NOTE | 2024-08-02 15:46 | PN.HOSP_ITS ---
Reason for Visit Reason for Visit: Diagnoses Elevated white blood cell count, unspecified (07/27/24) Pneumonia, unspecified organism (07/27/24) Acute respiratory failure with hypoxia (07/27/24) Hypoxemia (07/27/24) Subjective Subjective Patient's breathing progressively improving, slight cough but no production, presently getting breathing treatment which have been helpful, no chest pain or other new or acute complaints Objective Data Objective Data Vital Signs: Vital Signs Temp Pulse Resp BP Pulse Ox O2 Del Method O2 Flow Rate 98 F 67 17 134/73 H 97 Nasal Cannula 4 08/02/24 15:19 08/02/24 15:19 08/02/24 15:19 08/02/24 15:19 08/02/24 15:19 08/02/24 15:30 08/02/24 15:30 FiO2 35 08/01/24 23:03 Oxygen Flow Rate (L/min) 4 Oxygen Delivery Method Nasal Cannula Weight: 90.322 kg Body Mass Index (BMI) 39.1 Intake & Output: Intake and Output for Last 24 Hours 07/31/24 08/01/24 08/02/24 23:59 23:59 23:59 Intake Total 730 / 730 750 / 1050 1175 / 1175 Output Total 1210 / 1210 1050 / 1050 350 / 350 Balance -480 / -480 -300 / 0 825 / 825 Lab / Micro Data 08/02/24 06:34 08/02/24 06:34 Labs: Laboratory Results - last 24 hr 07/30/24 05:41: Diff Path Review Reviewed 07/31/24 07:23: Diff Path Review Reviewed 08/01/24 16:16: POC Glucose 198 H 08/01/24 21:30: POC Glucose 145 H 08/02/24 06:23: POC Glucose 102 08/02/24 06:34: WBC 21.9 H, RBC 4.57 L, Hgb 11.8 L, Hct 40.3, MCV 88.2, MCH 25.8 L, MCHC 29.3 L, RDW Std Deviation 49.5 H, RDW Coeff of Erik 15.7 H, Plt Count 343, MPV 9.4, Immature Gran % (Auto) 0.700, Neut % (Auto) 80.6 H, Lymph % (Auto) 8.8 L, [place] % (Auto) 9.7, Eos % (Auto) 0.1, Baso % (Auto) 0.1, Absolute Neuts (auto) 17.7 H, Absolute Lymphs (auto) 1.94, Nucleated RBC % 0, Diff Path Review May foll, Sodium 143, Potassium 3.9, Chloride 103, Carbon Dioxide 37.0 H, Anion Gap 3 L, BUN 26 H, Creatinine 0.86, Estim Creat Clear Calc 71.55, Est GFR (MDRD) Af Amer 112, Est GFR (MDRD) Non-Af 93, BUN/Creatinine Ratio 30.3 H, Glucose 105, Calcium 9.2, Phosphorus 1.9 L, Magnesium 2.1, Total Bilirubin 0.50, AST 19, ALT 22, Alkaline Phosphatase 74, Total Protein 6.2 L, Albumin 2.8 L, Globulin 3.4, A lbumin/Globulin Ratio 0.8 L, TSH 0.728 08/02/24 12:14: POC Glucose 149 H Micro: Microbiology 07/30/24 17:08 Blood Culture (Wb) - Anticubital Right Blood Culture - Preliminary No growth in 48 hours. 07/30/24 16:50 Nasal Secretion MRSA (PCR) - Final 07/28/24 09:49 Mucosa - Nasopharyngeal Respiratory Panel (PCR) - Final 07/28/24 11:32 Urine, Random Legionella Antigen - Final 07/28/24 11:32 Urine, Random Streptococcus pneumoniae Antigen (M - Final 07/27/24 13:00 Mucosa - Nasopharyngeal SARS-CoV-2, Influenza & RSV (PCR) - Final Rhythm Strip Rhythm Strip: Sinus Rhythm Rate: 95 Ectopy: None Physical Exam Narrative General: Alert, oriented, no apparent distress HEENT: Atraumatic, normocephalic Eyes: Anicteric, normal conjunctiva, extraocular movements grossly intact Neck: Supple Respiratory: Somewhat increased work of breathing, diminished bilaterally Cardiovascular: Regular rate GI: Soft, nontender, nondistended Extremities: No edema Musculoskeletal: Moving all extremities Neuro: No overt focal neurological deficits Skin: No rashes appreciated Psych: Cooperative Assessment & Plan Assessment/Plan (1) Acute hypoxic respiratory failure: PLAN: Plan # Acute hypoxic respiratory failure on chronic hypercapnic respiratory failure suspected to be multifactorial -Likely due to combination of pneumonia, COPD, acute on chronic heart failure preserved ejection fraction, pulmonary artery hypertension, undiagnosed sleep apnea -He presentation patient was 55% on room air and required high flow -ABG showed hypoxia with hypercapnia -Respiratory and COVID panel is negative, urine Legionella and strep pneumo negative, blood cultures no growth to date -CTA obtained during admission with no PE and only emphysematous changes at lung apices -Echocardiogram shows an EF of 55% with stage I diastolic dysfunction and PASP of 32 -BiPAP nightly and as needed -Patient on nebs, prednisone, Levaquin, Lasix -Down to 4 L of O2 08/02/2024 -Pulm evaluated and agreed with current plan with Levaquin for 7 days total and 5-day prednisone burst on discharge -Will need outpatient pulm follow-up on discharge -May be able to attempt walk test in next 1 to 2 days to assess patient's level of shortness of breath and hypoxia and if patient has improved enough that he could go home with home O2 which would likely be temporary -Continue Mucinex and incentive spirometry #Hypertension -Continue home lisinopril and Cardizem #Type 2 diabetes mellitus -Glucose checks and sliding scale insulin #DVT ppx: Lovenox subcu Dominique Hensley MD Time spent in the patient's overall evaluation,decision-making process, review of diagnostic data, adjustment of management, discussion with other providers, nursing nursing and ancillary staff involved in patient's care documentation, 38 minutes Charges/Coding Visit Charges Inpatient E&M: 09657 Subs Hosp L2
[2024-08-02] MEDS: Senna/Docusate Sodium 1 Tablet 2 TABLET PO ×2 (16:43→22:06)
[2024-08-02 17:29] LABS: Bedside Glucose 139 mg/dL (74-106)
[2024-08-02] MEDS: Atorvastatin Calcium 20 MG Tablet PO (22:06)
[2024-08-02] MEDS: Insulin Lispro 100 UNIT/ML INSULN.PEN SC (22:08)
[2024-08-02 22:40] LABS: Bedside Glucose 153 mg/dL (74-106)
[2024-08-03] VITALS (11 sets, daily range): BP systolic 114–173; BP diastolic 75–90; PULSE 86–110; RESP 12–20; TEMP 36.6; O2SAT 84–97
[2024-08-03] MEDS: Acetylcysteine 800 MG/4 ML VIAL.NEB. 600 MG INHALATION ×3 (01:15→12:29)
[2024-08-03] MEDS: Ipratropium/Albuterol Sulfate 3 ML AMPUL.NEB INHALATION ×3 (01:15→12:29)
[2024-08-03] MEDS: oxyCODONE 5 MG Tablet PO (04:28)
[2024-08-03 06:12] LABS: Absolute Lymphocyte Count 1.48 X10^3/uL (0.83-4.51); Absolute Neutrophil Count 18.5 X10^3/uL (2.0-7.7); Basophil# 0.03 X10^3/uL; Basophil% 0.1 % (0-1); Hematocrit 40.1 % (40-54); Hemoglobin 12.1 g/dL (13.0-16.5); Lymphocyte # 1.48 X10^3/ul (0.83-4.51); Lymphocyte % 6.7 % (19-41); Mean Corp Hgb Conc 30.2 g/dL (32-36); Mean Corpuscular Hgb 25.9 pg (27.0-32.0); Mean Corpuscular Volume 85.9 fL (80-94); Mean Platelet Vol. 9.8 fl (6.2-12.0); Monocyte# 1.99 X10^3/uL; NRBC Flagged by Analyzer 0 % (0-5); Neutrophil # 18.52 X10^3/uL (2.7-7.7); Neutrophil % 83.5 % (47-70); POSITIVE DIFFERENTIAL YES; Platelet Count 386 K/mm3 (150-450); RBC Distribution Width CV 15.8 % (11.6-14.6); RBC Distribution Width SD 49.2 fl (35.1-43.9); Red Blood Count 4.67 M/mm3 (4.6-6.2); White Blood Count 22.2 K/mm3 (4.4-11.0)
[2024-08-03 06:18] LABS: Differential Indicated SCAN CRITERIA MET
[2024-08-03] MEDS: levoFLOXacin 750 MG Tablet PO (06:31)
[2024-08-03 06:32] LABS: Anion Gap 4 (5-15); BUN 27 mg/dL (7-18); BUN/Creat Ratio 33.1 RATIO (10-20); Chloride 100 mmol/L (98-107); Creatinine, Serum 0.82 mg/dL (0.70-1.30); EST Glomerular Filtration Rate 98 mL/min (>60); Est Glom Filt Rate - Afr Amer 119 mL/min (>60); Estimated Creatinine Clearance 75.04 ml/min; Glucose 108 mg/dL (74-106); Potassium 3.5 mmol/L (3.5-5.1); Sodium Level 138 mmol/L (136-145)
[2024-08-03 06:57] LABS: Bedside Glucose 113 mg/dL (74-106)
[2024-08-03 07:15] LABS: Differential Comment SCANNED
[2024-08-03] MEDS: Pantoprazole Sodium 40 MG Tablet PO (08:33)
[2024-08-03] MEDS: Cholecalciferol (VIT D3) 25 MCG TABLET (1,000 UNITS) 50 MCG PO (08:33)
[2024-08-03] MEDS: Senna/Docusate Sodium 1 Tablet 2 TABLET PO (08:33)
[2024-08-03] MEDS: Calcium (Elemental) 500 MG Tablet PO (08:33)
[2024-08-03] MEDS: Lisinopril 20 MG Tablet PO (08:33)
[2024-08-03] MEDS: predniSONE 20 MG Tablet 40 MG PO (08:34)
[2024-08-03] MEDS: guaiFENesin 1,200 MG Tablet 1200 MG PO (08:34)
[2024-08-03] MEDS: Aspirin E.C. 81 MG Tablet PO (08:34)
[2024-08-03] MEDS: Furosemide 40 MG Tablet PO (08:34)
[2024-08-03] MEDS: dilTIAZem CD 240 MG Capsule PO (08:35)
[2024-08-03] MEDS: Enoxaparin 40 MG/0.4 ML Syringe SC (08:36)
[2024-08-03] MEDS: HYDROcodone Bitartrate/Apap 5/325 Tablet PO ×3 (09:24→18:25)
--- NOTE | 2024-08-03 10:28 | PN.CC_ITS ---
Assessment & Plan Assessment/Plan (1) Acute hypoxic respiratory failure: PLAN: Plan RECOMMENDATIONS: 1. Supplemental oxygen to maintain saturations at or above 90%. 2. Continue bronchodilator therapy. 3. Continue prednisone 40 mg daily, with plans for a 5-day burst at discharge. 4. Diuretics as tolerated by hemodynamics and renal function. 5. Continue Levaquin to complete a total of 7 days of therapy. 6. Empiric PAP therapy with sleep. 7. Encourage incentive spirometer use and mobilize patient as tolerated. 8. Outpatient pulmonary follow-up after discharge is warranted. IMPRESSIONS: 1. Acute hypoxemic respiratory failure I do suspect that the patient's presentation is likely multifactorial in etiology with underlying pneumonia and heart failure with preserved ejection fraction contributing. The patient does have a remote smoking history, but has never been formally diagnosed with any form of COPD or asthma in the past. He is still requiring nasal cannula supplemental oxygen, which is new for him. However, the patient is slowly improving from a respiratory perspective. At this time, I would recommend that we continue supplemental oxygen to maintain saturations at or above 90%. I do anticipate that he will have a home-going supplemental oxygen requirement. For now, it is reasonable to continue scheduled bronchodilators and prednisone. At discharge, I would recommend 40 mg daily x 5 days. In addition, it is reasonable to continue Levaquin to complete a total of 7 days of therapy. Ideally, the patient did follow-up in the pulmonary medicine clinic after discharge. The patient is at high risk for underlying sleep apnea, but seems resistant to undergoing a sleep study. 2. History of tobacco dependency, in remission As noted above, recommend outpatient pulmonary follow-up so that baseline PFTs can be obtained. 3. Obesity/suspected sleep apnea/diabetes mellitus/hypertension/hyperlipidemia Complicates care, management, recovery and prognosis. Continue home medications as indicated. Recommend outpatient polysomnogram, if the patient is agreeable. This note was generated with [employer] dictation software. It may contain incorrect words, spelling, and punctuation that were not noted in checking the note before signing. Subjective Subjective The patient was seen and examined at the bedside this morning. Events from the last 24 hours have been reviewed. The patient is currently afebrile, hemodynamically stable and maintaining appropriate oxygen saturations on 4 L/min via nasal cannula. White count remains elevated at 22,000. Creatinine remains within normal limits. Objective Data Objective Data The patient's most recent lab work, culture data and imaging studies have all been personally reviewed. Infectious workup has been unrevealing to date. Surface echocardiogram demonstrated stage I diastolic dysfunction with an ejection fraction of 55% and pulmonary artery systolic pressure of 32 mmHg. Vital Signs: Vital Signs Temp Pulse Resp BP Pulse Ox O2 Del Method O2 Flow Rate 97.9 F 110 H 18 114/77 96 Nasal Cannula 4 08/03/24 08:30 08/03/24 08:30 08/03/24 08:30 08/03/24 08:30 08/03/24 08:30 08/03/24 08:40 08/03/24 08:40 FiO2 35 08/03/24 01:25 Oxygen Flow Rate (L/min) 4 Oxygen Delivery Method Nasal Cannula Weight: 199 lb 2 oz Body Mass Index (BMI) 39.1 Intake & Output: Intake and Output for Last 24 Hours 08/01/24 08/02/24 08/03/24 23:59 23:59 23:59 Intake Total 750 / 1050 1710 / 1710 60 / 60 Output Total 1050 / 1050 1200 / 1200 200 / 200 Balance -300 / 0 510 / 510 -140 / -140 Lab / Micro Data Attestation: I reviewed the patient's lab results. 08/03/24 05:25 08/03/24 05:25 Labs: Laboratory Results - last 24 hr 07/30/24 05:41: Diff Path Review Reviewed 07/31/24 07:23: Diff Path Review Reviewed 08/02/24 12:14: POC Glucose 149 H 08/02/24 16:45: POC Glucose 139 H 08/02/24 22:00: POC Glucose 153 H 08/03/24 05:25: WBC 22.2 H, RBC 4.67, Hgb 12.1 L, Hct 40.1, MCV 85.9, MCH 25.9 L , MCHC 30.2 L, RDW Std Deviation 49.2 H, RDW Coeff of Erik 15.8 H, Plt Count 386, MPV 9.8, Immature Gran % (Auto) 0.700, Neut % (Auto) 83.5 H, Lymph % (Auto) 6.7 L, Russell % (Auto) 9.0, Eos % (Auto) 0.0, Baso % (Auto) 0.1, Absolute Neuts (auto) 18.5 H, Absolute Lymphs (auto) 1.48, Nucleated RBC % 0, Differential Comment SCANNED, Diff Path Review May foll, Sodium 138, Potassium 3.5, Chloride 100, C arbon Dioxide 34.0 H, Anion Gap 4 L, BUN 27 H, Creatinine 0.82, Estim Creat Clear Calc 75.04, Est GFR (MDRD) Af Amer 119, Est GFR (MDRD) Non-Af 98, B UN/Creatinine Ratio 33.1 H, Glucose 108 H, Calcium 9.0 08/03/24 06:30: POC Glucose 113 H Micro: Microbiology 07/30/24 17:08 Blood Culture (Wb) - Anticubital Right Blood Culture - Preliminary No growth in 48 hours. 07/30/24 16:50 Nasal Secretion MRSA (PCR) - Final 07/28/24 09:49 Mucosa - Nasopharyngeal Respiratory Panel (PCR) - Final 07/28/24 11:32 Urine, Random Legionella Antigen - Final 07/28/24 11:32 Urine, Random Streptococcus pneumoniae Antigen (M - Final 07/27/24 13:00 Mucosa - Nasopharyngeal SARS-CoV-2, Influenza & RSV (PCR) - Final Radiography Diagnostic Testing: Radiology Impression Chest X-Ray 08/01/24 06:00 IMPRESSION: Mild pleural effusions with bibasilar atelectasis. Electronically Signed: Maribel Mcdowell MD at 13:07 EDT , Chest CTA 08/01/24 10:57 IMPRESSION: No evidence of pulmonary embolism. No significant interval change in mild bilateral pleural effusions with mild dependent atelectasis. Presence of pulmonary emphysema on CT is an independent risk factor for lung cancer. Consider LDCT lung cancer screening in the future. Electronically Signed: Maribel Mcdowell MD at 12:09 EDT , Rhythm Strip Rhythm Strip: Sinus Rhythm Rate: 95 Ectopy: None Physical Exam Const alert and no apparent distress Constitutional Narrative: Obese. Sitting in bedside recliner. General Appearance: cooperative HEENT normocephalic and head/scalp atraumatic Eyes PERRL, EOMs intact bilaterally and conjunctivae normal Neck supple General: trachea midline Chest inspection of chest normal Resp normal respiratory effort and no use of accessory muscles Effort and Inspection: able to speak in complete sentences Auscultation: diminished lung sounds; Negative for rales, rhonchi or wheezes Cardio regular rate and regular rhythm GI normal to inspection, nondistended, normoactive bowel sounds Extremity no clubbing, cyanosis or edema Skin no rashes or lesions noted Neuro CN's II-XII intact bilaterally, moves all extremities and no focal motor deficits Psych cooperative and affect normal Charges/Coding Visit Charges Inpatient E&M: 10150 Subs Hosp L2
[2024-08-03 11:34] LABS: Pathologist Review Reviewed
[2024-08-03 12:12] LABS: Bedside Glucose 123 mg/dL (74-106)
--- NOTE | 2024-08-03 12:44 | PCM.DC ---
Discharge Instructions Diet Discharge Diet: - (-DASH diet, 3000 mg sodium restriction, 2 L fluid restriction) Activity Discharge Activity: - (Increase activity as tolerated) Follow Up Care Test Results: Test results from this visit will be discussed in further detail at your follow-up appointment, if applicable. Discharge Plan Admission Admit Date/Time: 07/27/24 15:39 Primary Reason for Your Visit: Shortness of breath Attending Provider: Dominique Hensley Primary Care Provider: Gregg Duran Consulting Providers: Anh Roger; Bola Anaya; Tres Hines; Frankie De; Shant Flowers; Bj Coleman; Elias Sykes; Anitra Wood; Lamine Newell; Giancarlo Mclaughlin; Radha Nobles; Adal Roblero; Guero Campbell; Shadi Snyder; Enrico Sanchez; Jessica Coronel; Billy Busby; Bridger Rivero; Barbara Mays Instructions Patient Instructions: Using Oxygen Safely, Using Oxygen at Home, Using an Oxygen Tank at Home Additional Instructions / Restrictions: DISCHARGE INSTRUCTIONS PLEASE READ *Please take this with you to your next doctors appointment* - You will be discharged on 5 more days of an antibiotic, Levaquin which you will take daily -You will also be discharged on 5 days of prednisone -Please follow-up with the office of Dr. De upon discharge. Please call their office to schedule hospital follow-up appointment upon discharge. -You will be discharged on home oxygen which you will need to use 16/06, this may not be necessary long-term but this can be reevaluated at hospital follow-up appointments -Prescription for inhaler will be sent to pharmacy -You will be discharged with a water pill, Lasix -Weigh yourself every day. A sudden weight gain can mean you are retaining fluid. Weigh yourself at the same time of day and in the same kind of clothes. Ideally, weigh yourself first thing in the morning after you empty your bladder, but before you eat breakfast. -Please call your physician if your weight goes up by more than 2 pounds in 1 day or 5 pounds in 1 week. This can be a sign that you are retaining more fluid than you should be. Clues to weight gain include checking your ankles for swelling, or noticing you are short of breath when you lie down -Please limit your sodium intake to less than 3 g/day. Here are tips: Limit canned, dried, packaged, and fast foods. Don't add salt to your food at the table. Season foods with herbs instead of salt when you cook. When you eat out, ask that the electrical tech/project manager not add any salt to your dish. Don't eat fried or greasy foods. Be careful of bottled beverages. They can contain a lot of salt -Call 911 right away if you have: -Severe shortness of breath, such that you can't catch your breath even while resting -Severe chest pain that does not resolve with rest or nitroglycerin -Gananda, foamy mucus with cough and shortness of breath -An ongoing rapid or irregular heartbeat -Passing out or fainting -Stroke symptoms such as sudden numbness or weakness on one side of your face, arm, or leg or sudden confusion, trouble speaking or vision changes -Please call your primary care provider's office upon discharge to schedule a hospital follow up within 1 week. -For any concerning signs or symptoms please call 911 or proceed to the nearest emergency department Discharge Orders/Prescriptions Prescriptions: New furosemide 40 mg Tablet 40 mg PO DAILY 30 Days Qty: 30 0RF prednisone 20 mg Tablet 40 mg PO BREAKFAST 5 Days Qty: 10 0RF levofloxacin 750 mg Tablet 750 mg PO DAILY 5 Days Qty: 5 0RF albuterol sulfate 90 mcg/actuation HFA aerosol inhaler See Rx Instructions .ROUTE .COMPLEX PRN (Reason: shortness of breath or wheezing) Qty: 8.5 0RF Rx Instructions: 1-2 puffs every 4-6 hours as needed for shortness of breath or wheezing Combivent Respimat 20-100 mcg/actuation mist 1 puff inhalation Q6H 14 Days Qty: 4 0RF Continued metformin 500 mg tablet 500 mg PO DAILY atorvastatin 20 mg tablet 20 mg PO QHS diltiazem HCl [Tiadylt ER] 240 mg capsule,extended release 24 hr 240 mg PO DAILY lisinopril 20 mg tablet 20 mg PO DAILY calcium carbonate [Calcium 600] 600 mg calcium (1,500 mg) tablet 600 mg PO DAILY hydrocodone-acetaminophen 5-325 mg tablet 1 tab PO 4X/DAY cholecalciferol (vitamin D3) 2,000 UNIT tablet,chewable 2,000 unit PO DAILY aspirin [Adult Low Dose Aspirin] 81 mg tablet,delayed release (DR/EC) 81 mg PO QDAY Qty: 60 11RF Referrals / Follow Up: Frankie De DO [Med Staff - Active Staff] - Gregg Duran MD [Primary Care Provider] - Within 1 Week Disposition Disposition (needs filled in before D/C Order can be placed): Home Health Service
--- NOTE | 2024-08-03 15:35 | CASEMGMT ---
ROSA ELENA HERNANDEZ updated that patient will be discharging today. Patient qualifies for home oxygen, script received and [place] [facility] [place] [facility]'s preferred [place]. ROSA ELENA HERNANDEZ called and updated [facility], start of care planned for tomorrow. ROSA ELENA HERNANDEZ in to discuss needs at discharge. Patient updated regarding home oxygen and HHC setup. Patient and voiced understanding and had no further questions or concerns. ROSA ELENA HERNANDEZ updated discharge plan
--- NOTE | 2024-08-03 16:27 | DS.PCM_ITS ---
Providers Date of Admission: 07/27/24 Date of Discharge: 08/03/24 Primary Care Physician: Dr. Gregg Duran MD Consultations 07/30/24 08:33 Consult: Lead Operator / Pulmonary Medicine Routine Consulting Provider: Intensivists/Pulmonary Med Reason for Consult: hypoxia EMERGENT Consult: No MD Notified: Yes Date Notified: 07/30/24 Time Notified: 08:43 Method of Notification: Text Reason For Visit: HYPOXIA Diagnosis Discharge Diagnosis (1) Acute hypoxic respiratory failure: Status: Acute Code(s): J96.01 - Acute respiratory failure with hypoxia Plan # Acute hypoxic respiratory failure on chronic hypercapnic respiratory failure suspected to be multifactorial -Likely due to combination of pneumonia, COPD, acute on chronic heart failure preserved ejection fraction, pulmonary artery hypertension, undiagnosed sleep apnea #Hypertension #Type 2 diabetes mellitus Medications at Discharge Home Medications cholecalciferol (vitamin D3) 50 mcg (2,000 unit) chewable tablet 2,000 unit PO DAILY 09/15/17 atorvastatin 20 mg tablet 20 mg PO QHS 10/16/20 metformin 500 mg tablet 500 mg PO DAILY 10/16/20 calcium carbonate (Calcium 600) 600 mg PO DAILY 10/18/20 diltiazem HCl 240 mg capsule,24 hr,extended release (Tiadylt ER) 240 mg PO DAILY 10/18/20 lisinopril 20 mg tablet 20 mg PO DAILY 10/18/20 aspirin 81 mg tablet,delayed release (Adult Low Dose Aspirin) 81 mg PO QDAY #60 tabs 12/13/20 hydrocodone-acetaminophen 5-325mg 5mg-325mg 1 tab PO 4X/DAY 05/16/22 albuterol sulfate 90 mcg/actuation aerosol inhaler See Rx Instructions .Route .COMPLEX PRN shortness of breath or wheezing #8.5 grams 08/03/24 budesonide-formoterol HFA 160 mcg-4.5 mcg/actuation aerosol inhaler 2 puff inhalation BID 2 weeks #10.2 grams 08/03/24 furosemide 40 mg tablet 40 mg PO DAILY 30 days #30 tabs 08/03/24 levofloxacin 750 mg tablet 750 mg PO DAILY 5 days #5 tabs 08/03/24 prednisone 20 mg tablet 40 mg (2 x 20 mg) PO BREAKFAST 5 days #10 tabs 08/03/24 Hospital Course Procedures - (TTE) Summary of Care Provided Minutes Spent on Discharge: 32 Hospital Course: 74-year-old male history of hypertension, diabetes, ankylosing spondylitis who presented to [facility] 07/27/2024 with increasing shortness of breath with exertion that improved at rest. He was saturating 55% on room air and improved to 93% on 4 L of O2, D-dimer 0.29, initial troponin 49 with BNP of 154. Patient had escalating oxygen requirements up to 8 L high flow and was treated with antibiotics for possible pneumonia, steroids for possible COPD, and Lasix due to concern for component of volume overload. During patient's hospitalization he had echo that showed stage I diastolic dysfunction. Due to his significant oxygen requirement that was new there was a CTA obtained despite negative D-dimer which was negative for PE. Patient very slowly improved with nebs, steroids, Lasix, antibiotics. Was ultimately evaluated by pulmonology given his respiratory status with no known pulmonary diagnoses and it was felt that his acute hypoxemic respiratory failure was likely multifactorial due to heart failure with preserved ejection fraction as well as possible component of COPD or asthma and possibly underlying undiagnosed sleep apnea and potential component of infectious etiology switch to Levaquin. It was recommended that patient be discharged on Levaquin to complete 7 days of total therapy and 5 days of prednisone burst and assess for need for home O2 even short-term and have patient follow-up with pulmonology. Patient slowly improved with above interventions and had walk test and required 3 L of O2, patient improved to the point he was stable for discharge home and he was comfortable this plan. Still some shortness of breath and slight cough overall indeed improved. Patient with no new or acute complaints on day of discharge. I have reviewed the oxygen testing, and this patient qualifies for the home equipment and portability. The patient is mobile in the home and the community. Discharge instructions as follows: - You will be discharged on 5 more days of an antibiotic, Levaquin which you will take daily -You will also be discharged on 5 days of prednisone -Please follow-up with the office of Dr. De upon discharge. Please call their office to schedule hospital follow-up appointment upon discharge. -You will be discharged on home oxygen which you will need to use 24/, this may not be necessary long-term but this can be reevaluated at hospital follow-up appointments -Prescription for inhaler will be sent to pharmacy -You will be discharged with a water pill, Lasix -Weigh yourself every day. A sudden weight gain can mean you are retaining fluid. Weigh yourself at the same time of day and in the same kind of clothes. Ideally, weigh yourself first thing in the morning after you empty your bladder, but before you eat breakfast. -Please call your physician if your weight goes up by more than 2 pounds in 1 day or 5 pounds in 1 week. This can be a sign that you are retaining more fluid than you should be. Clues to weight gain include checking your ankles for swelling, or noticing you are short of breath when you lie down -Please limit your sodium intake to less than 3 g/day. Here are tips: Limit canned, dried, packaged, and fast foods. Don't add salt to your food at the table. Season foods with herbs instead of salt when you cook. When you eat out, ask that the executive pastry chef not add any salt to your dish. Don't eat fried or greasy foods. Be careful of bottled beverages. They can contain a lot of salt -Call 911 right away if you have: -Severe shortness of breath, such that you can't catch your breath even while resting -Severe chest pain that does not resolve with rest or nitroglycerin -[place], foamy mucus with cough and shortness of breath -An ongoing rapid or irregular heartbeat -Passing out or fainting -Stroke symptoms such as sudden numbness or weakness on one side of your face, arm, or leg or sudden confusion, trouble speaking or vision changes -Please call your primary care provider's office upon discharge to schedule a hospital follow up within 1 week. -For any concerning signs or symptoms please call 911 or proceed to the nearest emergency department Physical Exam Narrative General: Alert, oriented, no apparent distress HEENT: Atraumatic, normocephalic Eyes: Anicteric, normal conjunctiva, extraocular movements grossly intact Neck: Supple Respiratory: Improving work of breathing Cardiovascular: Regular rate GI: Soft, nontender, nondistended Extremities: No edema Musculoskeletal: Moving all extremities Neuro: No overt focal neurological deficits Skin: No rashes appreciated Psych: Cooperative Weight / BMI Weight Weight: 90.322 kg Body Mass Index (BMI) 39.1 ABG / Lab / Microbiology Data 08/03/24 05:25 08/03/24 05:25 Laboratory: Laboratory Results - last 24 hr 08/02/24 06:34: Diff Path Review Reviewed 08/02/24 16:45: POC Glucose 139 H 08/02/24 22:00: POC Glucose 153 H 08/03/24 05:25: WBC 22.2 H, RBC 4.67, Hgb 12.1 L, Hct 40.1, MCV 85.9, MCH 25.9 L , MCHC 30.2 L, RDW Std Deviation 49.2 H, RDW Coeff of Erik 15.8 H, Plt Count 386, MPV 9.8, Immature Gran % (Auto) 0.700, Neut % (Auto) 83.5 H, Lymph % (Auto) 6.7 L, [place] % (Auto) 9.0, Eos % (Auto) 0.0, Baso % (Auto) 0.1, Absolute Neuts (auto) 18.5 H, Absolute Lymphs (auto) 1.48, Nucleated RBC % 0, Differential Comment SCANNED, Diff Path Review May , Sodium 138, Potassium 3.5, Chloride 100, C arbon Dioxide 34.0 H, Anion Gap 4 L, BUN 27 H, Creatinine 0.82, Estim Creat Clear Calc 75.04, Est GFR (MDRD) Af Amer 119, Est GFR (MDRD) Non-Af 98, B UN/Creatinine Ratio 33.1 H, Glucose 108 H, Calcium 9.0 08/03/24 06:30: POC Glucose 113 H 08/03/24 11:50: POC Glucose 123 H Microbiology: Microbiology 07/30/24 17:08 Blood Culture (Wb) - Anticubital Right Blood Culture - Preliminary No growth in 48 hours. 07/30/24 16:50 Nasal Secretion MRSA (PCR) - Final 07/28/24 09:49 Mucosa - Nasopharyngeal Respiratory Panel (PCR) - Final 07/28/24 11:32 Urine, Random Legionella Antigen - Final 07/28/24 11:32 Urine, Random Streptococcus pneumoniae Antigen (M - Final 07/27/24 13:00 Mucosa - Nasopharyngeal SARS-CoV-2, Influenza & RSV (PCR) - Final D/C Instructions Discharge Diet: - (-DASH diet, 3000 mg sodium restriction, 2 L fluid restriction) Meaningful Use Info Meaningful Use Meaningful Use Diagnoses (Choose all that apply): CHF CHF JOELLE/ARB ordered at discharge?: Yes Documented LVEF (%): 55 Ischemic Stroke Statin Dosing Therapy Reference: STATIN DOSE THERAPY REFERENCE: * Patients > 75 years receive moderate or high dose statin therapy. * Patients 75 years or YOUNGER should receive HIGH intensity statin dose unless contraindicated. You will be required to document reason for non-treatment if statin daily dose does not meet guidelines. HIGH DOSE STATIN THERAPY DAILY Atorvastatin > than or = to 40 mg Rosuvastatin > than or = to 20 mg Amlodipine + Atorvastatin > than or = to 2.5/40 mg Ezetimibe + Simvastatin 10/80 mg Simvastatin 80mg Discharge Plan Admission Admit Date/Time: 07/27/24 15:39 Primary Reason for Your Visit: Shortness of breath Attending Provider: Dominique Hensley Primary Care Provider: Gregg Duran Consulting Providers: Anh Roger; Bola Anaya; Tres Hines; Frankie De; Shant Flowers; Bj Coleman; Elias Sykes; Anitra Wood; Lamine Newell; Giancarlo Mclaughlin; Radha Nobles; Adal Roblero; Guero Campbell; Shadi Snyder; Enrico Sanchez; Jessica Coronel; Billy Busby; Bridger Rivero; Barbara Mays Instructions Patient Instructions: Using Oxygen Safely, Using Oxygen at Home, Using an Oxygen Tank at Home Additional Instructions / Restrictions: DISCHARGE INSTRUCTIONS PLEASE READ *Please take this with you to your next doctors appointment* - You will be discharged on 5 more days of an antibiotic, Levaquin which you will take daily -You will also be discharged on 5 days of prednisone -Please follow-up with the office of Dr. De upon discharge. Please call their office to schedule hospital follow-up appointment upon discharge. -You will be discharged on home oxygen which you will need to use 16/06, this may not be necessary long-term but this can be reevaluated at hospital follow-up appointments -Prescription for inhaler will be sent to pharmacy -You will be discharged with a water pill, Lasix -Weigh yourself every day. A sudden weight gain can mean you are retaining fluid. Weigh yourself at the same time of day and in the same kind of clothes. Ideally, weigh yourself first thing in the morning after you empty your bladder, but before you eat breakfast. -Please call your physician if your weight goes up by more than 2 pounds in 1 day or 5 pounds in 1 week. This can be a sign that you are retaining more fluid than you should be. Clues to weight gain include checking your ankles for swelling, or noticing you are short of breath when you lie down -Please limit your sodium intake to less than 3 g/day. Here are tips: Limit canned, dried, packaged, and fast foods. Don't add salt to your food at the table. Season foods with herbs instead of salt when you cook. When you eat out, ask that the executive pastry chef not add any salt to your dish. Don't eat fried or greasy foods. Be careful of bottled beverages. They can contain a lot of salt -Call 911 right away if you have: -Severe shortness of breath, such that you can't catch your breath even while resting -Severe chest pain that does not resolve with rest or nitroglycerin -[place], foamy mucus with cough and shortness of breath -An ongoing rapid or irregular heartbeat -Passing out or fainting -Stroke symptoms such as sudden numbness or weakness on one side of your face, arm, or leg or sudden confusion, trouble speaking or vision changes -Please call your primary care provider's office upon discharge to schedule a hospital follow up within 1 week. -For any concerning signs or symptoms please call 911 or proceed to the nearest emergency department Discharge Orders/Prescriptions Prescriptions: New furosemide 40 mg Tablet 40 mg PO DAILY 30 Days Qty: 30 0RF prednisone 20 mg Tablet 40 mg PO BREAKFAST 5 Days Qty: 10 0RF levofloxacin 750 mg Tablet 750 mg PO DAILY 5 Days Qty: 5 0RF albuterol sulfate 90 mcg/actuation HFA aerosol inhaler See Rx Instructions .ROUTE .COMPLEX PRN (Reason: shortness of breath or wheezing) Qty: 8.5 0RF Rx Instructions: 1-2 puffs every 4-6 hours as needed for shortness of breath or wheezing budesonide-formoterol 160-4.5 mcg/actuation HFA aerosol inhaler 2 puff inhalation BID 14 Days Qty: 10.2 0RF Continued metformin 500 mg tablet 500 mg PO DAILY atorvastatin 20 mg tablet 20 mg PO QHS diltiazem HCl [Tiadylt ER] 240 mg capsule,extended release 24 hr 240 mg PO DAILY lisinopril 20 mg tablet 20 mg PO DAILY calcium carbonate [Calcium 600] 600 mg calcium (1,500 mg) tablet 600 mg PO DAILY hydrocodone-acetaminophen 5-325 mg tablet 1 tab PO 4X/DAY cholecalciferol (vitamin D3) 2,000 UNIT tablet,chewable 2,000 unit PO DAILY aspirin [Adult Low Dose Aspirin] 81 mg tablet,delayed release (DR/EC) 81 mg PO QDAY Qty: 60 11RF Referrals / Follow Up: Frankie De DO [Med Staff - Active Staff] - Gregg Duran MD [Primary Care Provider] - Within 1 Week Disposition Disposition (needs filled in before D/C Order can be placed): Home Health Service Charges/Coding Visit Charges Inpatient E&M: 38998 Disch Hosp >30min
[2024-08-04 10:26] LABS: Pathologist Review Reviewed
== END 2024-08-03 18:41 | disposition home health service (06) | DRG 193 ==
LOC: ED 15:15 → PCU 17:57
PROVIDERS: Internal Medicine; Internal Medicine Pulmonary Disease; Admitting Provider Student in an Organized Health Care Education/Training Program; Emergency Provider Emergency Medicine; PCP Family Medicine; Visit Provider Internal Medicine
DX: J18.9 Pneumonia, unspecified organism (principal); J96.02 Acute respiratory failure with hypercapnia; J96.01 Acute respiratory failure with hypoxia; I50.33 Acute on chronic diastolic (congestive) heart failure; N17.9 Acute kidney failure, unspecified; J44.0 Chronic obstructive pulmonary disease with (acute) lower respiratory infection; I27.21 Secondary pulmonary arterial hypertension; E11.9 Type 2 diabetes mellitus without complications; D72.829 Elevated white blood cell count, unspecified; I11.0 Hypertensive heart disease with heart failure; Z68.39 Body mass index [BMI] 39.0-39.9, adult; I48.91 Unspecified atrial fibrillation; E78.5 Hyperlipidemia, unspecified; G47.33 Obstructive sleep apnea (adult) (pediatric); E87.6 Hypokalemia; R11.2 Nausea with vomiting, unspecified; Z79.84 Long term (current) use of oral hypoglycemic drugs; Z87.891 Personal history of nicotine dependence; E66.9 Obesity, unspecified; Z79.899 Other long term (current) drug therapy; Z79.82 Long term (current) use of aspirin
CPT/HCPCS: 36415; 36600; 71045; 71250; 71275; 80048; 80053; 81001; 82803; 82962; 83735; 83880; 84100; 84145; 84443; 84484; 85025; 85027; 85379; 86140; 87040; 87449; 87631; 87633; 87641; 93005; 93306; 94002; 94003; 94640; 94668; 94760; 94762; 97110; 97116; 97162; 97166; 97530; 97535; 99252; 99284; J7030; Q9957; Q9967; A4216; C8929; G0463; J1940; J2405

== ENCOUNTER → 2024-10-11 | Outpatient (CLI) | payer MEDICARE, OTHER, SELFPAY ==
[2024-10-11 10:44] LABS: ALB/GLOB Ratio 0.9 RATIO (0.9-2.4); AST(SGOT) 10 U/L (15-37); Alanine Aminotransfer ALT/SGPT 17 U/L (16-61); Albumin, Serum 3.4 g/dL (3.2-5.0); Alkaline Phosphatase 88 U/L (45-117); Anion Gap 5 (5-15); BUN 25 mg/dL (7-18); BUN/Creat Ratio 31.7 RATIO (10-20); Calcium,Total 9.1 mg/dL (8.5-10.1); Chloride 105 mmol/L (98-107); Cholesterol 144 mg/dL (200); Creatinine, Serum 0.79 mg/dL (0.70-1.30); EST Glomerular Filtration Rate 102 mL/min (>60); Est Glom Filt Rate - Afr Amer 124 mL/min (>60); Globulin 3.7 g/dL (2.2-4.2); Glucose 124 mg/dL (74-106); High Density Lipoprotein 62 mg/dL; Potassium 3.2 mmol/L (3.5-5.1); Protein, Total 7.1 g/dL (6.4-8.2); Sodium Level 140 mmol/L (136-145); Triglycerides 65 mg/dL; Very Low Density Lipoprotein 13 mg/dL (5-40)
== END | disposition home or self-care (01) ==
LOC: MFPLAB 09:00
PROVIDERS: PCP Family Medicine; Visit Provider Family Medicine
DX: I10 Essential (primary) hypertension (principal)
CPT/HCPCS: 36415; 80053; 80061

== ENCOUNTER → 2024-10-12 | Outpatient (CLI) | payer MEDICARE, OTHER, SELFPAY | END | disposition home or self-care (01) | LOC: SL 19:40 | PROVIDERS: PCP Family Medicine; Referring Provider Nurse Practitioner Acute Care; Visit Provider Nurse Practitioner Acute Care | DX: G47.10 Hypersomnia, unspecified (principal) | CPT/HCPCS: 95810 ==

== ENCOUNTER → 2024-10-19 | Outpatient (CLI) | payer MEDICARE, OTHER, SELFPAY | END | disposition home or self-care (01) | LOC: MRI 15:19 | PROVIDERS: PCP Family Medicine; Referring Provider Anesthesiology Pain Medicine; Visit Provider Anesthesiology Pain Medicine | DX: M54.16 Radiculopathy, lumbar region (principal) ==

== ENCOUNTER → 2024-10-25 | Outpatient (CLI) | payer MEDICARE, OTHER, SELFPAY ==
--- NOTE | 2024-10-25 09:27 | CPS ---
PATIENT ARRIVED FOR PFT TESTING VIA W/C WITH HIS O2 ON AT 3LPM DEMAND FLOW. SPO2 CHECKED, 94%. ONCE IN EXAM ROOM, WE REMOVED HIS O2 WHILE AT REST, WITH HIS ROOM AIR SPO2 RAPIDLY FALLING TO 81% WITHOUT ANY MOVEMENT OTHER THAN ANSWERING QUESTIONS. REAPPLIED 3LPM, WITH QUICK RESOLUTION OF SPO2 TO >90%. I CALLED [facility] TO SEE IF WE SHOULD PROCEED WITH TESTING. DECISION WAS MADE TO CANCEL THIS TEST AT THIS TIME DUE TO PATIENT STATUS. PATIENT AND ARE AGREEABLE. THIS NOTE ENTERED REQUESTED THI.
== END | disposition home or self-care (01) ==
LOC: PSN 08:55
PROVIDERS: PCP Family Medicine; Referring Provider Nurse Practitioner Acute Care; Visit Provider Nurse Practitioner Acute Care
DX: R06.02 Shortness of breath (principal)

== ENCOUNTER → 2024-10-28 | Outpatient (CLI) | payer MEDICARE, OTHER, SELFPAY ==
[2024-10-28 12:45] VITALS: PULSE 100; PULSE 117; PULSE 131; PULSE 83; O2SAT 83; O2SAT 86; O2SAT 88; O2SAT 92; O2SAT 97
--- NOTE | 2024-10-28 12:47 | CPS ---
Patient arrived for testing in wheelchair with 3 lpm O2 pulse dose, SpO2 94%. Patient took oxygen off, SpO2 88% after 7 minutes while sitting. Placed patient back on his home O2 at 3 lpm pulse dose concentrator. SpO2 recovered to 94% before testing. Patient brought his cane but wanted to push the wheelchair. Patient walked 110 ft, SpO2 86%. Increased O2 to 4 lpm pulse dose, SpO2 recovered to 94%. Patient walked an additional 2 minutes which was about another 250 ft. He stated that he was not short of breath but his SpO2 was 87% and heart rate 131. I had the patient sit down in the wheelchair still on 4lpm O2 and SpO2 continued to drop to 83%. Patient started to recover shortly after sitting. Patient stated that was much more walking then he usually does at one time so we terminated testing at that time. Patient did not need to take any breaks while walking other than this GLASS CLEANER stopping him due to low SpO2 and high heart rate.
--- NOTE | 2024-11-01 13:07 | WT_ITS ---
PSN 6 Minute Walk Test 6 Minute Walk Test 6 Minute Walk Test: 6 Minute Walk Test PSN:6-Minute Walk Test Start: 10/28/24 12:44 Freq: Status: Active Protocol: [id number] Document 10/28/24 12:45 RODRIGOSAGAR (Rec: 10/28/24 12:56 KINSEYMEGAN [id number]) 6 Minute Walk Test Date Performed 10/28/24 Time Performed 12:30 Height 5 ft Weight: 195 lb Weight in Pounds 195.[address]: Jaclyn Adams NETWORK ENGINEER ADMINISTRATOR Pre-test Oxygen Delivery Method Room Air Pulse Ox (%) 88 Pulse Rate (60-100 beats/min) 83 Dyspnea Jagdish Scale (0-10) 0 Exertion Jagdish Scale (6-20) 6 1st minute Oxygen Flow Rate (L/min) (L/min) 3 Oxygen Delivery Method Nasal Cannula Pulse Ox (%) 86 Pulse Rate (60-100 beats/min) 117 H 2nd minute Oxygen Flow Rate (L/min) (L/min) 4 Oxygen Delivery Method Nasal Cannula Pulse Ox (%) 92 Pulse Rate (60-100 beats/min) 117 H 3rd minute Oxygen Flow Rate (L/min) (L/min) 4 Oxygen Delivery Method Nasal Cannula Pulse Ox (%) 83 Pulse Rate (60-100 beats/min) 131 H Dyspnea Jagdish Scale (0-10) 1 Post-test Oxygen Flow Rate (L/min) (L/min) 4 Oxygen Delivery Method Nasal Cannula Pulse Ox (%) 97 Pulse Rate (60-100 beats/min) 100 Full Laps Walked 6 Partial Lap, Number of Tiles Walked 12 Total Distance Walked (ft) 366 10/28/24 12:47 Cardiopulmonary Services by Suad Lewis Patient arrived for testing in wheelchair with 3 lpm O2 pulse dose, SpO2 94%. Patient took oxygen off, SpO2 88% after 7 minutes while sitting. Placed patient back on his home O2 at 3 lpm pulse dose concentrator. SpO2 recovered to 94% before testing. Patient brought his cane but wanted to push the wheelchair. Patient walked 110 ft, SpO2 86%. Increased O2 to 4 lpm pulse dose, SpO2 recovered to 94%. Patient walked an additional 2 minutes which was about another 250 ft. He stated that he was not short of breath but his SpO2 was 87% and heart rate 131. I had the patient sit down in the wheelchair still on 4lpm O2 and SpO2 continued to drop to 83%. Patient started to recover shortly after sitting. Patient stated that was much more walking then he usually does at one time so we terminated testing at that time. Patient did not need to take any breaks while walking other than this RUG BACKING STENCILER stopping him due to low SpO2 and high heart rate. Initialized on 10/28/24 12:47 - END OF NOTE Interpretation Interpretation: The patient ambulated 366 feet over the course of 6 minutes beginning on pulse dose supplemental oxygen. The patient was noted to be 88% when placed on room air. Therefore, he was placed back on his home 3 L/min pulsed dose to begin testing. With ambulation, the patient desaturated to 86%, requiring an escalation and flow rate to 4 L/min. The patient subsequently rested for a minute for 5 and 6 of testing. Recommendations Recommendations: A minimum of 4 L/min pulsed dose supplemental oxygen should be utilized at rest and with exertion. Ideally, a repeat 6-minute walk test should be completed with continuous flow supplemental oxygen.
== END | disposition home or self-care (01) ==
LOC: PSN 12:17
PROVIDERS: PCP Family Medicine; Referring Provider Nurse Practitioner Acute Care; Visit Provider Nurse Practitioner Acute Care
DX: R06.02 Shortness of breath (principal)
CPT/HCPCS: 94618

== ENCOUNTER → 2025-04-04 | Outpatient (CLI) | payer MEDICARE, OTHER, SELFPAY ==
--- NOTE | 2025-04-04 09:39 | CPS ---
Pt arrived to PFT wearing 2 lpm of oxygen. Pt was placed on room air upon arrival. In less than 1 minute, approximately 40 seconds, pt had dropped to 84%. Jaclyn Adams NP called and was informed of the above. It was also explained to PLAY THERAPIST that the PFT was not going to be able to be performed since the pt dropped so fast on room air. Jaclyn understood and was ok with the test being cancelled.
== END | disposition home or self-care (01) ==
LOC: PSN 09:18
PROVIDERS: PCP Family Medicine; Referring Provider Nurse Practitioner Acute Care; Visit Provider Nurse Practitioner Acute Care
DX: R06.00 Dyspnea, unspecified (principal)

== ENCOUNTER → 2025-04-11 | Outpatient (CLI) | payer MEDICARE, OTHER, SELFPAY ==
[2025-04-11 10:40] LABS: Hemoglobin A1c 5.9 % (<=5.6)
[2025-04-11 11:14] LABS: BUN 14 mg/dL (4-19); Creatinine, Serum 0.85 mg/dL (0.70-1.20); Glucose 114 mg/dL (70-99)
[2025-04-11 11:15] LABS: ALB/GLOB Ratio 1.4 RATIO (0.9-2.4); AST(SGOT) 23 U/L (<=37); Alanine Aminotransfer ALT/SGPT 12 U/L (<=46); Albumin, Serum 4.3 g/dL (3.4-4.8); Alkaline Phosphatase 111 U/L (40-129); Anion Gap 16 (5-15); BUN/Creat Ratio 16.6 RATIO (10-20); Calcium,Total 9.4 mg/dL (7.6-11.0); Carbon Dioxide 23.9 mmol/L (21.0-32.0); Chloride 103 mmol/L (98-108); EST Glomerular Filtration Rate 92 (>60); Potassium 3.6 mmol/L (3.3-5.1); Protein, Total 7.2 g/dL (5.9-8.4); Sodium Level 143 mmol/L (133-145)
[2025-04-11 11:33] LABS: Cholesterol 144 mg/dL (<=200); High Density Lipoprotein 46 mg/dL; Low Density Lipoprotein Calc. 84 mg/dL; Triglycerides 69 mg/dL; Very Low Density Lipoprotein 14 mg/dL (5-40); cholesterol:hdl ratio screen 3.12
== END | disposition home or self-care (01) ==
LOC: MFPLAB 09:21
PROVIDERS: PCP Family Medicine; Referring Provider Family Medicine; Visit Provider Family Medicine
DX: R73.01 Impaired fasting glucose (principal); I10 Essential (primary) hypertension
CPT/HCPCS: 36415; 80053; 80061; 83036

== ENCOUNTER → 2025-06-14 | Outpatient (CLI) | payer MEDICARE, OTHER, SELFPAY ==
[2025-06-14 11:34] LABS: Barbiturate Urine NEGATIVE (< 200 ng/mL); Benzodiazepine Urine NEGATIVE (< 200 ng/mL); PCP Urine NEGATIVE (< 25 ng/mL); THC Urine NEGATIVE (< 50 ng/mL)
--- OUTSIDE RECORDS SUMMARY | 2025-06-14 19:34 | XMS RPT_ITS | CCD ---
Author Organization [facility] CliniSypr Care Team Providers Care Bakery Chef Name Role Phone Dr. Gregg Duran Primary Care Provider [phone] Dr. Gregg Duran Referring Provider [phone] Zafar Fish Attending Provider [phone] Gregg Duran MD Primary Care Provider [phone] Dr. Gregg Duran MD Referring Provider Angie OUTSIDE SALES ENGINEER-C, Jaclyn Attending Provider Angie OUTSIDE SALES ENGINEER-C, Jaclyn Referring Provider Renee CROCKER, Dr. Escobedo Attending Provider [phone] Barbara Mays Referring Unavailable Koram, Anh Diane Admitting Unavailable Koram, Anh Diane Consulting Unavailable Frankie De Attending Unavailable Gregg Duran Primary Care Unavailable Bola Anaya Consulting Unavailable Tres Hines Consulting Unavailable Frankie De Consulting Unavailable Shant Flowers Consulting Unavailable Bj Coleman Consulting Unavailable Dong Sykesutam Consulting Unavailable Anitra Wood Consulting Unavailab Lamine Pradhan Consulting Unavailable Giancarlo Mclaughlin Consulting Unavailable Radha Nobles Consulting Unavailable Aljundi, Lamia Consulting Unavailable Adrian, Guero Consulting Unavailable Irukulla, Shadi Consulting Unavailable Laura, Enrico Consulting Unavailable Jessica Coronel Consulting Unavailable Billy Busby Consulting Unavailable Bridger Rivero Consulting Unavailable Barbara Mays Consulting Unavailable Dominique Hensley Consulting Unavailable Dominique Hensley Attending Unavailable Koram, Anh Diane Attending Unavailable Melissa Hunt Attending Unavailable Angie OUTSIDE SALES ENGINEER, Jaclyn Referring Unavailable Angie OUTSIDE SALES ENGINEER, Jaclyn Attending Unavailable Gregg Duran Primary Care Unavailable Angie OUTSIDE SALES ENGINEER, Jaclyn Attending Unavailable Angie OUTSIDE SALES ENGINEER, Jaclyn Referring Unavailable Gregg Duran Primary Care Unavailable Koram, Anh Diane Admitting Unavailable Dominique Hensley Attending Unavailable Acacia, Anh Diane Consulting Unavailable Duran, Gregg Primary Care Unavailable Bola Anaya Consulting Unavailable Tres Hines Consulting Unavailable Frankie De Consulting Unavailable Shant Flowers Consulting Unavailable Bj Coleman Consulting Unavailable Elias Sykes Consulting Unavailable Anitra Wood Consulting UnavailLamine Fernandez Consulting Unavailable Giancarlo Mclaughlin Consulting Unavailable Radha Nobles Consulting Unavailable AlAdal booker Consulting Unavailable Adrian, Guero Consulting Unavailable Claudio Shadi Consulting Unavailable Laura, Enrico Consulting Unavailable Jessica Coronel Consulting Unavailable Kehinde, Billy Consulting Unavailable Bridger Rivero Consulting Unavailable Barbara Mays Consulting Unavailable Renee, Gregg Primary Care Unavailable Gregg Duran Attending Unavailable Beba Edwards Attending Unavailable Duran, Gregg Primary Care Unavailable Beba Edwards Referring Unavailable Daams OUTSIDE SALES ENGINEER, Jaclyn Referring Unavailable Adams OUTSIDE SALES ENGINEER, Jaclyn Attending Unavailable Duran, Gregg Primary Care Unavailable Barbara Mays Attending Unavailable Zafar Fish Attending Unavailable Duran, Gregg Primary Care Unavailable Frankie De Attending Unavailable Angie OUTSIDE SALES ENGINEER, Jaclyn Consulting Unavailable Adams OUTSIDE SALES ENGINEER, Jaclyn Referring Unavailable Duran, Gregg Primary Care Unavailable Adams OUTSIDE SALES ENGINEER, Jaclyn Attending Unavailable Duran, Gregg Primary Care Unavailable Duran, Gregg Referring Unavailable Adams OUTSIDE SALES ENGINEER, Jaclyn Attending Unavailable Duran, Gregg Primary Care Unavailable Duran, Gregg Referring Unavailable Duran, Gregg Primary Care Unavailable Adams OUTSIDE SALES ENGINEER, Jaclyn Attending Unavailable Duran, Gregg Referring Unavailable Adams OUTSIDE SALES ENGINEER, Jaclyn Attending Unavailable Duran, Gregg Primary Care Unavailable Duran, Gregg Referring Unavailable Adams OUTSIDE SALES ENGINEER, Jaclyn Referring Unavailable Adams OUTSIDE SALES ENGINEER, Jaclyn Attending Unavailable Duran, Gregg Primary Care Unavailable Duran, Gregg Primary Care Unavailable Duran, Gregg Referring Unavailable Duran, Gregg Attending Unavailable Allergies Allergy Classification Reported Allergen(s) Allergy Type Date of Onset Reaction(s) Facility (9 sources) Alendronate Drug Allergy 06-15-2021 [facility] (9 sources) Ibandronate Drug Allergy 06-15-2021 [facility] (1 source) Alendronate Drug Allergy 04-28-2025 [facility] (1 source) Ibadronate Drug Allergy 04-28-2025 [facility] Medications Current Medications Medication Drug Class(es) Dates Sig (Normalized) Sig (Original) acetaminophen 325 mg / HYDROcodone bitartrate 5 mg oral tablet (17 sources) Opioid Agonist Start: 05-16-2022 Hydrocodone-Acetam inophen 5-325 mg tablet Active 1 {tbl} PO 4 TIMES DAILY May 16, 2022 12:00am Start: 05-16-2022 take 1 tablet by lowell th four times daily Hydrocodone-Acetaminophen Active 1 TABLE T PO 4 TIMES DAILY May 15, 2022 11:00pm Start: 10-22-2013 End: 05-16-2022 Hydrocodone-Acetaminophen 1 EACH tablet Discontinued 1 NMA PO DAILY October 22, 2013 1:00am May 16, 2022 11:48am Start: 10-22-2013 End: 05-16-2022 Hydrocodone-Acetaminophen Di scontinued 1 EACH PO DAILY October 22, 2013 12:00am May 16, 2022 10:48am [id number] 200 actuat albuterol 0.09 mg/actuat metered dose inhaler (3 sources) beta2-Adrenergic Agonist Start: 08-03-2024 take 1-2 puff(s) by inhalation every four to six hours as needed for wheezing Albuterol Sulfate 90 mcg/actuation HFA aerosol inhaler Active 0 .ROUTE .COMPLEX as needed for shortness of breath or wheezing 8.5 August 03, 2024 12:00am 1-2 puffs every 4-6 hours as needed for shortness of breath or wheezing aspirin 81 mg delayed release oral tablet (20 sources) Platelet Aggregation Inhibitor, Nonsteroidal Anti-inflammatory Drug Start: 10-18-2020 End: 12-13-2020 Aspirin (Adult Low Dose Aspirin) 81 mg tablet,delayed release (DR/EC) Active 81 mg PO daily 60 December 13, 2020 9:36am Start: 10-22-2013 End: 10-18-2020 take 1 tablet by mouth once daily Aspirin 81 MG tablet,chewable Discontinued 81 mg PO DAILY@0800 October 22, 2013 1:00am October 18, 2020 11:36am atorvastatin 20 mg oral tablet (9 sources) HMG-CoA Reductase Inhibitor Start: 10-16-2020 take 1 tablet by mouth at bedtime Atorvastatin 20 mg tablet Active 20 mg PO AT BEDTIME October 16, 2020 1:00am calcium carbonate 1500 mg oral tablet (9 sources) Start: 10-18-2020 take 1 tablet by mouth once daily Calcium Carbonate (Calcium 600) 600 mg calcium (1,500 mg) tablet Active 600 mg PO DAILY October 18, 2020 1:00am cholecalciferol 0.05 mg chewable tablet (9 sources) Vitamin D Start: 09-15-2017 take 1 tablet by mouth once daily Cholecalciferol (Vitamin D3) 2,000 UNIT tablet,chewable Active 2000 U PO DAILY September 15, 2017 12:00am 24 hr dilTIAZem hydrochloride 240 mg extended release oral capsule (18 sources) Calcium Channel Cornelius Start: 10-16-2020 End: 10-18-2020 take 1 capsule by mouth once daily, then take 1 capsule by mouth every twenty-four hours Diltiazem Hcl (Tiadylt Er) 240 mg capsule,extended release 24 hr Active 240 mg PO DAILY October 18, 2020 1:00am hydroCHLOROthiazide 25 mg oral tablet (12 sources) Thiazide Diuretic Start: 03-11-2025 take 1 tablet by mouth once daily Hydrochlorothiazide 25 mg tablet Active 25 mg PO daily March 11, 2025 12:00am Start: 10-16-2020 End: 07-27-2024 take 1 tablet by mouth once daily Hydrochlorothiazide 25 mg tablet Discontinued 25 mg PO DAILY October 16, 2020 1:00am July 27, 2024 2:35pm lisinopril 20 mg oral tablet (18 sources) Angiotensin Converting Enzyme Inhibitor Start: 10-18-2020 take 1 tablet by mouth once daily Lisinopril 20 mg tablet Active 20 mg PO DAILY October 18, 2020 1:00am Start: 10-22-2013 End: 10-18-2020 take 1 tablet by mouth once daily Lisinopril 10 MG tablet Discontinued 10 mg PO DAILY October 22, 2013 1:00am October 18, 2020 11:35am metFORMIN hydrochloride 500 mg oral tablet (9 sources) Biguanide Start: 10-16-2020 take 1 tablet by mouth once daily Metformin 500 mg tablet Active 500 mg PO DAILY October 16, 2020 1:00am tiZANidine 4 mg oral tablet (3 sources) Central alpha-2 Adrenergic Agonist Start: 03-11-2025 take 1 tablet by mouth once daily as needed Tizanidine 4 mg tablet Active 4 mg PO daily as needed March 11, 2025 12:00am Completed/Discontinued Medications Medication Drug Class(es) Dates Sig (Normalized) Sig (Original) 120 actuat albuterol 0.1 mg/actuat / ipratropium bromide 0.02 mg/actuat inhalation spray (3 sources) Anticholinergic, beta2-Adrenergic Agonist Start: 08-03-2024 End: 11-10-2024 take 20-100 ug by inhalation every six hours Ipratropium-Albuter ol (Combivent Respimat) 20-100 mcg/actuation mist Discontinued 1 NMA INHALATION EVERY 6 HOURS August 03, 2024 12:00am November 10, 2024 2:53pm apixaban 5 mg oral tablet (9 sources) Factor Xa Inhibitor Start: 10-16-2020 End: 10-18-2020 take 1 tablet by mouth twice daily Apixaban (Eliquis) 5 mg tablet Discontinued 5 mg PO TWICE A DAY October 16, 2020 1:00am October 18, 2020 12:03pm 1 ml denosumab 60 mg/ml prefilled syringe (9 sources) RANK Ligand Inhibitor Start: 10-16-2020 End: 07-27-2024 Denosumab (Prolia) 60 mg/mL syringe Discontinued 60 mg SC every 6 months October 16, 2020 1:00am July 27, 2024 2:33pm doxycycline hyclate 100 mg oral capsule (9 sources) Tetracycline-class Drug Start: 09-15-2017 End: 10-16-2020 take 1 capsule by mouth twice daily Doxycycline Hyclate 100 MG capsule Discontinued 100 mg PO TWICE A DAY 14 September 15, 2017 12:00am October 16, 2020 7:31pm furosemide 40 mg oral tablet (3 sources) Loop Diuretic Start: 08-03-2024 End: 10-01-2024 take 1 tablet by mouth once daily Furosemide 40 mg Tablet Discontinued 40 mg PO DAILY 30 August 03, 2024 12:00am October 01, 2024 9:25am levoFLOXacin 750 mg oral tablet (3 sources) Quinolone Antimicrobial Start: 08-03-2024 End: 10-01-2024 take 1 tablet by mouth once daily Levofloxacin 750 mg Tablet Discontinued 750 mg PO DAILY 5 August 03, 2024 12:00am October 01, 2024 9:26am 12 hr orphenadrine citrate 100 mg extended release oral tablet (9 sources) Muscle Relaxant Start: 10-22-2013 End: 10-16-2020 take 1 tablet by mouth twice daily Orphenadrine Citrate 100 MG tablet Discontinued 100 mg PO TWICE A DAY October 22, 2013 1:00am October 16, 2020 7:30pm potassium chloride 10 meq extended release oral tablet (9 sources) Start: 10-16-2020 End: 10-18-2020 take 1 tablet by mouth once daily Potassium Chloride 10 mEq tablet extended release Discontinued 10 meq PO DAILY October 16, 2020 1:00am October 18, 2020 11:36am predniSONE 20 mg oral tablet (3 sources) Start: 08-03-2024 End: 10-01-2024 take 2 tablets by mouth at breakfast Prednisone 20 mg Tablet Discontinued 40 mg PO WITH BREAKFAST 08 28August 03, 2024 12:00am October 01, 2024 9:28am spironolactone 25 mg oral tablet (9 sources) Aldosterone Antagonist Start: 10-16-2020 End: 11-15-2020 take 1 tablet by mouth once daily Spironolactone (Aldactone) 25 mg tablet Discontinued 25 mg PO DAILY October 16, 2020 1:00am November 15, 2020 10:23am 24 hr verapamil hydrochloride 240 mg extended release oral capsule (9 sources) Calcium Channel Cornelius Start: 10-22-2013 End: 10-16-2020 take 1 capsule by mouth once daily Verapamil 240 MG capsule,ext rel. pellets 24 hr Discontinued 240 mg PO DAILY October 22, 2013 1:00am October 16, 2020 7:29pm Problems Active Problems Problem Classification Problem Date Documented Date Episodic/Chronic Cardiac dysrhythmias (9 sources) Cardiac arrhythmia; Translations: [Cardiac arrhythmia, unspecified] 10-18-2020 Chronic Comment on above: With regard to the i ssue of a cardiac dysrhythmia, his EKG here demonstrates sinus rhythm and I reviewed the EKG from the office which I suspect was secondary to a poor baseline. I am not convinced at this time that he has atrial fibrillation I would like us to discontinue the Eliquis at this time and put him on a baby aspirin only. I would obtain a 24-hour Holter monitor to ascertain any paroxysms of the same. Depending on the results of these tests further recommendations will be made. Diabetes mellitus without complication (1 source) Impaired fasting glucose; Translations: [Impaired fasting glucose] Onset: 04-13-2025 Episodic Diseases of white blood cells (4 sources) Leukocytosis; Translations: [Elevated white blood cell count, unspecified] Onset: 08-12-2024 07-27-2024 Chronic Disorders of lipid metabolism (9 sources) Hyperlipidemia; Translations: [Hyperlipidemia, unspecified] 11-15-2020 Chronic Essential hypertension (11 sources) Benign essential hypertension; Translations: [Essential (primary) hypertension] Onset: 11-10-2024 10-16-2020 Chronic Fluid and electrolyte disorders (9 sources) Hypokalemia; Translations: [Hypokalemia] 10-16-2020 Episodic Malaise and fatigue (9 sources) Fatigue; Translations: [Other fatigue] 10-18-2020 Episodic Nonspecific chest pain (9 sources) Chest pain; Translations: [Chest pain, unspecified] 11-15-2020 Episodic Other lower respiratory disease (7 sources) Dyspnea; Translations: [Dyspnea, unspecified] 03-11-2025 Episodic Other lower respiratory disease (7 sources) Hypoxia; Translations: [Hypoxemia] 11-10-2024 Episodic Comment on above: 4 L/min on exertion Other lower respiratory disease (1 source) Dyspnea, unspecified; Translations: [Dyspnea, unspecified] Onset: 04-07-2025 Episodic Other nutritional; endocrine; and metabolic disorders (7 sources) Obesity; Translations: [Obesity, unspecified] 11-10-2024 Chronic Pulmonary heart disease (13 sources) Pulmonary arterial hypertension; Translations: [Secondary pulmonary arterial hypertension] 11-06-2020 Chronic Residual codes; unclassified (1 source) Hypersomnia, unspecified; Translations: [Hypersomnia, unspecified] Onset: 03-11-2025 Chronic Rheumatoid arthritis and related disease (7 sources) Ankylosing spondylitis; Translations: [Ankylosing spondylitis of unspecified sites in spine] 11-10-2024 Chronic Past or Other Problems Problem Classification Problem Date Documented Da te Episodic/Chronic Other lower respiratory disease (2 sources) Shortness of breath; Translations: [Shortness of breath] Onset: 12-01-2024 Episodic Other lower respiratory disease (1 source) Hypoxemia; Translations: [Hypoxemia] Onset: 08-12-2024 Episodic Pneumonia (except that caused by tuberculosis or sexually transmitted disease) (5 sources) Pneumonia; Translations: [Pneumonia, unspecified organism] Onset: 08-12-2024 07-27-2024 Episodic Respiratory failure; insufficiency; arrest (adult) (1 source) Acute respiratory failure with hypoxia; Translations: [Acute respiratory failure with hypoxia] Onset: 08-12-2024 Episodic Spondylosis; intervertebral disc disorders; other back problems (1 source) Radiculopathy, lumbar region; Translations: [Radiculopathy, lumbar region] Onset: 11-19-2024 Episodic Results Test Name Value Interpretation Reference Range Facility Pulmonary Visit Reporton Pulmonary Visit Report Normal [facility] Anion gap in Serum or Plasma Ordered By: Gregg Duran on 04-11-2025 Anion gap [Moles/Vol] 16 mmol/L High 5-15 [facility] BUN/creatinine ratioOrdered By: Gregg Duran on 04-11-2025 Urea nitrogen/Creatinine [Mass ratio] 16.6 mg/mg 10-20 [facility] Bilirubin, totalOrdered By: Gregg Duran on 04-11-2025 Bilirubin [Mass/Vol] 0.40 mg/dL 0.00-1.30 [facility] Calculated very low density lipoprotein (VLDL) cholesterol measurementOrdered By: Gregg Duran on 04-11-2025 Calculated very low density lipoprotein (VLDL) cholesterol measurement 14 mg/dL 5-40 [facility] Carbon dioxide, total [Moles /volume] in Central venous bloodOrdered By: Gregg Duran on 04-11-2025 CO2 [Moles/Vol] 23.9 mmol/L 21.0-32.0 [facility] Chloride assayOrdered By: Santiago Duran on 04-11-2025 Chloride [Moles/Vol] 103 mmol/L 98-108 [facility] Comprehensive Metabolic Prof ilon 04-11-2025 Albumin [Mass/Vol] 4.3 g/dL Normal 3.4-4.8 [facility] Comment on above: Performed By: #### L 500.4100, L501.9985, L500.8990 ####[facility] [address] [place], [place], [id number] Albumin/Globulin [Mass ratio] 1.4 {ratio} Normal 0.9-2.4 [facility] Comment on above: Performed By: #### L 500.4100, L501.9985, L500.4050 ####[facility] [address] [place], [address] ALK PHOS 111 U/L Normal 40-129 [facility] Comment on above: Performed By: #### L 500.4100, L501.9985, L500.4050 ####[facility] [address] [place], [address] ALT [Catalytic activity/Vol] 12 U/L Normal <=46 [facility] Comment on above: Performed By: #### L 500.4100, L501.9985, L500.4050 ####[facility] [address] [place], [address] AST [Catalytic activity/Vol] 23 U/L Normal <=37 [facility] Comment on above: Performed By: #### L 500.4100, L501.9985, L500.4050 ####[facility] [address] [place], [address] Bilirubin [Mass/Vol] 0.40 mg/dL Normal 0.00-1.30 [facility] Comment on above: Performed By: #### L 500.4100, L501.9985, L500.4050 ####[facility] [address] [place], [address] BUN/CRE 16.6 RATIO Normal 10-20 [facility] Comment on above: Performed By: #### L 500.4100, L501.9985, L500.4050 ####[facility] [address] [place], [address] Calcium [Mass/Vol] 9.4 mg/dL Normal 7.6-11.0 [facility] Comment on above: Performed By: #### L 500.4100, L501.9985, L500.4050 ####[facility] [address] [place], [address] Chloride [Moles/Vol] 103 mmol/L Normal 98-108 [facility] Comment on above: Performed By: #### L 500.4100, L501.9985, L500.4050 ####[facility] [address] [place], [address] CO2 [Moles/Vol] 23.9 mmol/L Normal 21.0-32.0 [facility] Comment on above: Performed By: #### L 500.4100, L501.9985, L500.4050 ####[facility] [address] [place], [address] GAP 16 High 5-15 [facility] Comment on above: Performed By: #### L 500.4100, L501.9985, L500.4050 ####[facility] [address] [place], [address] GFR/1.73 sq M.predicted among non-blacks MDRD (S/P/Bld) [Vol rate/Area] 92 mL/min/{1.73_m2} Normal >60 [facility] Comment on above: Result Comment: mL/m in/1.73m2 CKD-EPI Creatinine Equation (2020) Performed By: #### L 500.4100, L501.9985, L500.4050 ####[facility] [address] [place], [address] Globulin (S) [Mass/Vol] 3.0 g/dL Normal 2.2-4.2 [facility] Comment on above: Performed By: #### L 500.4100, L501.9985, L500.4050 ####[facility] [address] [place], [address] Potassium [Moles/Vol] 3.6 mmol/L Normal 3.3-5.1 [facility] Comment on above: Performed By: #### L 500.4100, L501.9985, L500.4050 ####[facility] [address] [place], [address] Sodium [Moles/Vol] 143 mmol/L Normal 133-145 [facility] Comment on above: Performed By: #### L 500.4100, L501.9985, L500.4050 ####[facility] [address] [place], [address] T PROT 7.2 g/dL Normal 5.9-8.4 [facility] Comment on above: Performed By: #### L 500.4100, L501.9985, L500.4050 ####[facility] [address] [place], [address] Creatinine [Mass/Vol] 0.85 mg/dL Normal 0.70-1.20 [facility] Comment on above: Performed By: #### L 500.4100, L501.9985, L500.4050 ####[facility] [address] [place], [address] Glucose [Mass/Vol] 114 mg/dL High 70-99 [facility] Comment on above: Performed By: #### L 500.4100, L501.9985, L500.4050 ####[facility] [address] [place], [address] Urea nitrogen [Mass/Vol] 14 mg/dL Normal 4-19 [facility] Comment on above: Performed By: #### L 500.4100, L501.9985, L500.4050 ####[facility] [address] [place], [address] Glomerular filtration rate ( GFR) estimation/1.73 sq m using serum, plasma, or whole bOrdered By: Gregg Duran on 04-11-2025 GFR/1.73 sq M.predicted among non-blacks MDRD (S/P/Bld) [Vol rate/Area] 92 mL/min/{1.73_m2} >60 [facility] Comment on above: mL/min/1.73m2 CKD-EP I Creatinine Equation (2020) Hemoglobin A1con 04-11-2025 HbA1c (Bld) [Mass fraction] 5.9 % High <=5.6 [facility] Comment on above: Result Comment: Norm al < 5.7 % Prediabetic 5.7 - 6.4 % Diabetic >or= 6.5 % Please note range changes. Performed By: #### L 500.4100, L501.9985, L500.4050 ####[facility] [address] [place], [address] Hemoglobin A1c percentageOrd ered By: Gregg Duran on 04-11-2025 HbA1c (Bld) [Mass fraction] 5.9 % High <5.7 [facility] Comment on above: Normal < 5.7 % Predi abetic 5.7 - 6.4 % Diabetic >or= 6.5 % Please note range changes. LDL calc ser/plasOrdered By: Gregg Duran on 04-11-2025 Cholesterol in LDL [Mass/Vol] 84 mg/dL [facility] Comment on above: Npqgrcxnbx=169-591 m g/dL & Higher Uevt=702 mg/dL or greater Laboratory - Chemistry and C hemistry - challengeOrdered By: Gregg Duran on 04-11-2025 AST [Catalytic activity/Vol] 23 U/L <38 [facility] Lipid Profileon 04-11-2025 CHOL:HDL 3.12 Normal [facility] Comment on above: Performed By: #### L 500.4100, L501.9985, L500.4050 ####[facility] [address] [place], [address] Cholesterol [Mass/Vol] 144 mg/dL Normal <=200 [facility] Comment on above: Result Comment: Chol esterol level, Desirable <200 mg/dLBorderline high cholesterol 200-239 mg/dLHigh cholesterol >=240 mg/dLRecommendations of the NCEP Adult Treatment Panel for thefollowing risk-cutoff thresholds for the [place] Americanpopulation. Performed By: #### L 500.4100, L501.9985, L500.4050 ####[facility] [address] [place], [address] Cholesterol in HDL [Mass/Vol] 46 mg/dL Normal [facility] Comment on above: Result Comment: Romy onal Cholesterol Education Program (NCEP) guidelines:<40 mg/dL: Low HDL-cholesterol (major risk factor for CHD)>= 60 mg/dL: High HDL-cholesterol (negative risk factor forCHD)HDL-cholesterol is affected by a number of factors, e.g.smoking, exercise, hormones, sex and age. Performed By: #### L 500.4100, L501.9985, L500.4050 ####[facility] [address] [place], [address] Cholesterol in LDL [Mass/Vol] 84 mg/dL Normal [facility] Comment on above: Result Comment: Bord fgonum=343-583 mg/dL Higher Cqdt=251 mg/dL or greater Performed By: #### L 500.4100, L501.9985, L500.4050 ####[facility] [address] [place], [address] Cholesterol in VLDL [Mass/Vol] 14 mg/dL Normal 5-40 [facility] Comment on above: Performed By: #### L 500.4100, L501.9985, L500.4050 ####[facility] [address] [place], [address] Triglyceride [Mass/Vol] 69 mg/dL Normal [facility] Comment on above: Result Comment: The drugs N-Acetylcysteine and Metamizole may falselydepress this assay.Normal range: <150 mg/dLBorderline High: 150-199 mg/dLHigh: 200-499 mg/dLVery High: >500 mg/dL Performed By: #### L 500.4100, L501.9985, L500.4050 ####[facility] [address] [place], [address] Potassium measurement (mass/ volume)Ordered By: Gregg Duran on 04-11-2025 Potassium (Unsp spec) [Mass/Vol] 3.6 mmol/L 3.3-5.1 [facility] Screening total cholesterol/ high density lipoprotein (HDL) cholesterol ratioOrdered By: Gregg Duran on 04-11-2025 Cholesterol.total/Cho lesterol in HDL [Mass ratio] 3.12 {ratio} [facility] Serum creatinine measurement (mass/volume)Ordered By: Gregg Druan on 04-11-2025 Creatinine [Mass/Vol] 0.85 mg/dL 0.70-1.20 [facility] Serum globulin measurementOr dered By: Gregg Duran on 04-11-2025 Globulin (S) [Mass/Vol] 3.0 g/dL 2.2-4.2 [facility] Serum glucose measurement (m ass/volume)Ordered By: Gregg Duran on 04-11-2025 Glucose [Mass/Vol] 114 mg/dL High 70-99 [facility] Serum or plasma alanine kearney otransferase (ALT) measurementOrdered By: Grgeg Duran on 04-11-2025 ALT [Catalytic activity/Vol] 12 U/L <47 [facility] Serum or plasma albumin debi urement (mass/volume)Ordered By: Gregg Duran on 04-11-2025 Albumin [Mass/Vol] 4.3 g/dL 3.4-4.8 [facility] Serum or plasma albumin/glob ulin mass ratioOrdered By: Gregg Duran on 04-11-2025 Albumin/Globulin [Mass ratio] 1.4 {ratio} 0.9-2.4 [facility] Serum or plasma alkaline chelsi sphatase measurementOrdered By: Gregg Duran on 04-11-2025 ALP [Catalytic activity/Vol] 111 U/L 40-129 [facility] Serum or plasma calcium debi urement (mass/volume)Ordered By: Gregg Duran on 04-11-2025 Calcium [Mass/Vol] 9.4 mg/dL 7.6-11.0 [facility] Serum or plasma cholesterol in HDL measurement (mass/volume)Ordered By: Gregg Duran on 04-11-2025 Cholesterol in HDL [Mass/Vol] 46 mg/dL >40 [facility] Comment on above: National Cholesterol Education Program (NCEP) guidelines:<40 mg/dL: Low HDL-cholesterol (major risk factor for CHD)>= 60 mg/dL: High HDL-cholesterol (negative risk factor for CHD)HDL-cholesterol is affected by a number of factors, e.g. smoking, exercise, hormones, sex and age. Serum or plasma cholesterol measurement (mass/volume)Ordered By: Gregg Duran on 04-11-2025 Cholesterol [Mass/Vol] 144 mg/dL <201 [facility] Comment on above: Cholesterol level, D esirable <200 mg/dLBorderline high cholesterol 200-239 mg/dLHigh cholesterol >=240 mg/dLRecommendations of the NCEP Adult Treatment Panel for the following risk-cutoff thresholds for the [place] population. Serum or plasma urea nitroge n measurement (mass/volume)Ordered By: Gregg Duran on 04-11-2025 Urea nitrogen [Mass/Vol] 14 mg/dL - [facility] Sodium levelOrdered By: Gregg Duran on 04-11-2025 Sodium [Moles/Vol] 143 mmol/L 133-145 [facility] Total proteinOrdered By: Ainsley Duran on 04-11-2025 Protein [Mass/Vol] 7.2 g/dL 5.9-8.4 [facility] Triglycerides measurementOrd ered By: Gregg Duran on 04-11-2025 Triglyceride [Mass/Vol] 69 mg/dL <199 [facility] Comment on above: The drugs N-Acetylcy steine and Metamizole may falsely depress this assay. Normal range: <150 mg/dLBorderline High: 150-199 mg/dLHigh: 200-499 mg/dLVery High: >500 mg/dL Pulmonary Visit Reporton Pulmonary Visit Report Normal [facility] Pulmonary Visit Reporton Pulmonary Visit Report Normal [facility] 6 Minute Walk Teston 024 6 Minute Walk Test Normal [facility] Comprehensive Metabolic Prof ilon 10-11-2024 Albumin [Mass/Vol] 3.4 g/dL Normal 3.2-5.0 [facility] Comment on above: Performed By: #### L 500.4050, L500.4100 ####[facility] [address] [place], [address] Albumin/Globulin [Mass ratio] 0.9 {ratio} Normal 0.9-2.4 [facility] Comment on above: Performed By: #### L 500.4050, L500.4100 ####[facility] [address] [place], [address] ALK P 88 U/L Normal 45-117 [facility] Comment on above: Performed By: #### L 500.4050, L500.4100 ####[facility] [address] [place], [address] ALT [Catalytic activity/Vol] 17 U/L Normal 16-61 [facility] Comment on above: Performed By: #### L 500.4050, L500.4100 ####[facility] [address] [place], [address] AST [Catalytic activity/Vol] 10 U/L Low 15-37 [facility] Comment on above: Performed By: #### L 500.4050, L500.4100 ####[facility] [address] [place], [address] Bilirubin [Mass/Vol] 0.30 mg/dL Normal 0.20-1.00 [facility] Comment on above: Result Comment: For patients on eltrombopag therapy, use of Dimension [place] TBIL is not recommended. Performed By: #### L 500.4050, L500.4100 ####[facility] [address] [place], [address] BUN/CRE 31.7 RATIO High 10-20 [facility] Comment on above: Performed By: #### L 500.4050, L500.4100 ####[facility] [address] [place], [address] CA,Total 9.1 mg/dL Normal 8.5-10.1 [facility] Comment on above: Performed By: #### L 500.4050, L500.4100 ####[facility] [address] [place], [address] Chloride [Moles/Vol] 105 mmol/L Normal 98-107 [facility] Comment on above: Performed By: #### L 500.4050, L500.4100 ####[facility] [address] [place], [address] CO2 [Moles/Vol] 31.0 mmol/L Normal 21.0-32.0 [facility] Comment on above: Performed By: #### L 500.4050, L500.4100 ####[facility] [address] [place], [address] Creatinine [Mass/Vol] 0.79 mg/dL Normal 0.70-1.30 [facility] Comment on above: Result Comment: The validity of the calculated GFR GFRAA in patients over70 years has not been determined. Clinical correlation isessential. Performed By: #### L 500.4050, L500.4100 ####[facility] [address] [place], [address] EST GFR - AA 124 mL/min Normal >60 [facility] Comment on above: Result Comment: Afri can [place] GFR Calc Performed By: #### L 500.4050, L500.4100 ####[facility] [address] [place], [address] GAP 5 Normal 5-15 [facility] Comment on above: Performed By: #### L 500.4050, L500.4100 ####[facility] [address] [place], [address] GFR/1.73 sq M.predicted among non-blacks MDRD (S/P/Bld) [Vol rate/Area] 102 mL/min/{1.73_m2} Normal >60 [facility] Comment on above: Result Comment: Non- GFR Calc Performed By: #### L 500.4050, L500.4100 ####[facility] [address] [place], [address] Globulin (S) [Mass/Vol] 3.7 g/dL Normal 2.2-4.2 [facility] Comment on above: Performed By: #### L 500.4050, L500.4100 ####[facility] [address] [place], [address] Glucose [Mass/Vol] 124 mg/dL High 74-106 [facility] Comment on above: Result Comment: Fast ing Glucose result from 100 to 125 mg/dLsuggests IMPAIRED HOMEOSTASIS per A.D.A. criteria. Performed By: #### L 500.4050, L500.4100 ####[facility] [address] [place], [address] Potassium [Moles/Vol] 3.2 mmol/L Low 3.5-5.1 [facility] Comment on above: Performed By: #### L 500.4050, L500.4100 ####[facility] [address] [place], [address] Sodium [Moles/Vol] 140 mmol/L Normal 136-145 [facility] Comment on above: Performed By: #### L 500.4050, L500.4100 ####[facility] [address] [place], [address] T PROT 7.1 g/dL Normal 6.4-8.2 [facility] Comment on above: Performed By: #### L 500.4050, L500.4100 ####[facility] [address] [place], [address] Urea nitrogen [Mass/Vol] 25 mg/dL High -18 [facility] Comment on above: Performed By: #### L 500.4050, L500.4100 ####[facility] [address] [place], [address] Lipid Profileon 10-11-2024 Cholesterol [Mass/Vol] 144 mg/dL Normal 200 [facility] Comment on above: Result Comment: <200 mg/dL Desirable 200-240 mg/dL Borderline >240 mg/dL High Risk Performed By: #### L 500.4050, L500.4100 ####[facility] [address] [place], [address] Cholesterol in HDL [Mass/Vol] 62 mg/dL Normal [facility] Comment on above: Result Comment: The drugs N-Acetylcysteine and Metamizole may falselydepress this assay. Reference Range HDL <40 mg/dL Low HDL Cholesterol HDL >or= 60 mg/dL High HDL Cholesterol Performed By: #### L 500.4050, L500.4100 ####[facility] [address] [place], [address] Cholesterol in LDL [Mass/Vol] 69 mg/dL Normal 0-130 [facility] Comment on above: Performed By: #### L 500.4050, L500.4100 ####[facility] [address] [place], [address] Cholesterol in VLDL [Mass/Vol] 13 mg/dL Normal 5-40 [facility] Comment on above: Performed By: #### L 500.4050, L500.4100 ####[facility] [address] [place], [address] Triglyceride [Mass/Vol] 65 mg/dL Normal [facility] Comment on above: Result Comment: The drugs N-Acetylcysteine and Metamizole may falselydepress this assay.Serum Triglycerides Reference Interval Normal <150 mg/dL Borderline high 150 - 199 mg/dL High 200 - 499 mg/dL Very High > or = 500 mg/dL Performed By: #### L 500.4050, L500.4100 ####[facility] [address] [place], [address] Pulmonary Visit Reporton Pulmonary Visit Report Normal [facility] Basic Metabolic Profile (BMP )on 08-09-2024 BUN Normal 7-18 [facility] Comment on above: Result Comment: Canc elled via OM: Order cancelled - Patient discharged Performed By: #### L 500.2500, L100.0100 ####[facility] [address] [place], [address] BUN/CRE Normal 10-20 [facility] Comment on above: Result Comment: Canc elled via OM: Order cancelled - Patient discharged Performed By: #### L 500.2500, L100.0100 ####[facility] [address] [place], [address] CA,Total Normal 8.5-10.1 [facility] Comment on above: Result Comment: Canc elled via OM: Order cancelled - Patient discharged Performed By: #### L 500.2500, L100.0100 ####[facility] [address] [place], [address] CL Normal 98-107 [facility] Comment on above: Result Comment: Canc elled via OM: Order cancelled - Patient discharged Performed By: #### L 500.2500, L100.0100 ####[facility] [address] [place], [address] CO2 Normal 21.0-32.0 [facility] Comment on above: Result Comment: Canc elled via OM: Order cancelled - Patient discharged Performed By: #### L 500.2500, L100.0100 ####[facility] [address] [place], [address] CREAT,SERUM Normal 0.70-1.30 [facility] Comment on above: Result Comment: Canc elled via OM: Order cancelled - Patient discharged Performed By: #### L 500.2500, L100.0100 ####[facility] [address] [place], [address] EST GFR Normal >60 [facility] Comment on above: Result Comment: Canc elled via OM: Order cancelled - Patient discharged Performed By: #### L 500.2500, L100.0100 ####[facility] [address] [place], [address] EST GFR - AA Normal >60 [facility] Comment on above: Result Comment: Canc elled via OM: Order cancelled - Patient discharged Performed By: #### L 500.2500, L100.0100 ####[facility] [address] [place], [address] GAP Normal 5-15 [facility] Comment on above: Result Comment: Canc elled via OM: Order cancelled - Patient discharged Performed By: #### L 500.2500, L100.0100 ####[facility] [address] [place], [address] GLU Normal 74-106 [facility] Comment on above: Result Comment: Canc elled via OM: Order cancelled - Patient discharged Performed By: #### L 500.2500, L100.0100 ####[facility] [address] [place], [address] Potassium Normal 3.5-5.1 [facility] Comment on above: Result Comment: Canc elled via OM: Order cancelled - Patient discharged Performed By: #### L 500.2500, L100.0100 ####[facility] [address] [place], [address] Basic Metabolic Profile (BMP) Normal 136-145 [facility] Comment on above: Result Comment: Canc elled via OM: Order cancelled - Patient discharged Performed By: #### L 500.2500, L100.0100 ####[facility] [address] [place], [address] CBC W/Diff, Automatedon 07-25 Absolute Neut Normal 2.0-7.7 [facility] Comment on above: Result Comment: Canc elled via OM: Order cancelled - Patient discharged Performed By: #### L 500.2500, L100.0100 ####[facility] [address] [place], [address] HCT Normal 40-54 [facility] Comment on above: Result Comment: Canc elled via OM: Order cancelled - Patient discharged Performed By: #### L 500.2500, L100.0100 ####[facility] [address] [place], [address] HGB Normal 13.0-16.5 [facility] Comment on above: Result Comment: Canc elled via OM: Order cancelled - Patient discharged Performed By: #### L 500.2500, L100.0100 ####[facility] [address] [place], [address] MCH Normal 27.0-32.0 [facility] Comment on above: Result Comment: Canc elled via OM: Order cancelled - Patient discharged Performed By: #### L 500.2500, L100.0100 ####[facility] [address] [place], [address] MCHC Normal 32-36 [facility] Comment on above: Result Comment: Canc elled via OM: Order cancelled - Patient discharged Performed By: #### L 500.2500, L100.0100 ####[facility] [address] [place], [address] MCV Normal 80-94 [facility] Comment on above: Result Comment: Canc elled via OM: Order cancelled - Patient discharged Performed By: #### L 500.2500, L100.0100 ####[facility] [address] [place], [address] NEUT% Normal 47-70 [facility] Comment on above: Result Comment: Canc elled via OM: Order cancelled - Patient discharged Performed By: #### L 500.2500, L100.0100 ####[facility] [address] [place], [address] PLT Normal 150-450 [facility] Comment on above: Result Comment: Canc elled via OM: Order cancelled - Patient discharged Performed By: #### L 500.2500, L100.0100 ####[facility] [address] [place], [address] RBC Normal 4.6-6.2 [facility] Comment on above: Result Comment: Canc elled via OM: Order cancelled - Patient discharged Performed By: #### L 500.2500, L100.0100 ####[facility] [address] [place], [address] RDW CV Normal 11.6-14.6 [facility] Comment on above: Result Comment: Canc elled via OM: Order cancelled - Patient discharged Performed By: #### L 500.2500, L100.0100 ####[facility] [address] [place], [address] RDW SD Normal 35.1-43.9 [facility] Comment on above: Result Comment: Canc elled via OM: Order cancelled - Patient discharged Performed By: #### L 500.2500, L100.0100 ####[facility] [address] [place], [address] WBC Normal 4.4-11.0 [facility] Comment on above: Result Comment: Canc elled via OM: Order cancelled - Patient discharged Performed By: #### L 500.2500, L100.0100 ####[facility] [address] [place], [address] Basic Metabolic Profile (BMP )on 08-08-2024 BUN Normal 7-18 [facility] Comment on above: Result Comment: Canc elled via OM: Order cancelled - Patient discharged Performed By: #### L 500.2500, L100.0100 ####[facility] [address] [place], [address] BUN/CRE Normal 10-20 [facility] Comment on above: Result Comment: Canc elled via OM: Order cancelled - Patient discharged Performed By: #### L 500.2500, L100.0100 ####[facility] [address] [place], [address] CA,Total Normal 8.5-10.1 [facility] Comment on above: Result Comment: Canc elled via OM: Order cancelled - Patient discharged Performed By: #### L 500.2500, L100.0100 ####[facility] [address] [place], [address] CL Normal 98-107 [facility] Comment on above: Result Comment: Canc elled via OM: Order cancelled - Patient discharged Performed By: #### L 500.2500, L100.0100 ####[facility] [address] [place], [address] CO2 Normal 21.0-32.0 [facility] Comment on above: Result Comment: Canc elled via OM: Order cancelled - Patient discharged Performed By: #### L 500.2500, L100.0100 ####[facility] [address] [place], [address] CREAT,SERUM Normal 0.70-1.30 [facility] Comment on above: Result Comment: Canc elled via OM: Order cancelled - Patient discharged Performed By: #### L 500.2500, L100.0100 ####[facility] [address] [place], [address] EST GFR Normal >60 [facility] Comment on above: Result Comment: Canc elled via OM: Order cancelled - Patient discharged Performed By: #### L 500.2500, L100.0100 ####[facility] [address], [address] EST GFR - AA Normal >60 [facility] Comment on above: Result Comment: Canc elled via OM: Order cancelled - Patient discharged Performed By: #### L 500.2500, L100.0100 ####[facility] [address] [place], [address] GAP Normal 5-15 [facility] Comment on above: Result Comment: Canc elled via OM: Order cancelled - Patient discharged Performed By: #### L 500.2500, L100.0100 ####[facility] [address] [place], [address] GLU Normal 74-106 [facility] Comment on above: Result Comment: Canc elled via OM: Order cancelled - Patient discharged Performed By: #### L 500.2500, L100.0100 ####[facility] [address] [place], [address] Potassium Normal 3.5-5.1 [facility] Comment on above: Result Comment: Canc elled via OM: Order cancelled - Patient discharged Performed By: #### L 500.2500, L100.0100 ####[facility] [address] [place], [address] Basic Metabolic Profile (BMP) Normal 136-145 [facility] Comment on above: Result Comment: Canc elled via OM: Order cancelled - Patient discharged Performed By: #### L 500.2500, L100.0100 ####[facility] [address] [place], [address] CBC W/Diff, Automatedon 09-1 Absolute Neut Normal 2.0-7.7 [facility] Comment on above: Result Comment: Canc elled via OM: Order cancelled - Patient discharged Performed By: #### L 500.2500, L100.0100 ####[facility] [address] [place], [address] HCT Normal 40-54 [facility] Comment on above: Result Comment: Canc elled via OM: Order cancelled - Patient discharged Performed By: #### L 500.2500, L100.0100 ####[facility] [address] [place], [address] HGB Normal 13.0-16.5 [facility] Comment on above: Result Comment: Canc elled via OM: Order cancelled - Patient discharged Performed By: #### L 500.2500, L100.0100 ####[facility] [address] [place], [address] MCH Normal 27.0-32.0 [facility] Comment on above: Result Comment: Canc elled via OM: Order cancelled - Patient discharged Performed By: #### L 500.2500, L100.0100 ####[facility] [address] [place], [address] MCHC Normal 32-36 [facility] Comment on above: Result Comment: Canc elled via OM: Order cancelled - Patient discharged Performed By: #### L 500.2500, L100.0100 ####[facility] [address] [place], [address] MCV Normal 80-94 [facility] Comment on above: Result Comment: Canc elled via OM: Order cancelled - Patient discharged Performed By: #### L 500.2500, L100.0100 ####[facility] [address] [place], [address] NEUT% Normal 47-70 [facility] Comment on above: Result Comment: Canc elled via OM: Order cancelled - Patient discharged Performed By: #### L 500.2500, L100.0100 ####[facility] [address] [place], [address] PLT Normal 150-450 [facility] Comment on above: Result Comment: Canc elled via OM: Order cancelled - Patient discharged Performed By: #### L 500.2500, L100.0100 ####[facility] [address] [place], [address] RBC Normal 4.6-6.2 [facility] Comment on above: Result Comment: Canc elled via OM: Order cancelled - Patient discharged Performed By: #### L 500.2500, L100.0100 ####[facility] [address] [place], [address] RDW CV Normal 11.6-14.6 [facility] Comment on above: Result Comment: Canc elled via OM: Order cancelled - Patient discharged Performed By: #### L 500.2500, L100.0100 ####[facility] [address] [place], [address] RDW SD Normal 35.1-43.9 [facility] Comment on above: Result Comment: Canc elled via OM: Order cancelled - Patient discharged Performed By: #### L 500.2500, L100.0100 ####[facility] [address] [place], [address] WBC Normal 4.4-11.0 [facility] Comment on above: Result Comment: Canc elled via OM: Order cancelled - Patient discharged Performed By: #### L 500.2500, L100.0100 ####[facility] [address] [place], [address] Basic Metabolic Profile (BMP )on 08-07-2024 BUN Normal 7-18 [facility] Comment on above: Result Comment: Canc elled via OM: Order cancelled - Patient discharged Performed By: #### L 500.2500, L100.0100 ####[facility] [address] [place], [address] BUN/CRE Normal 10-20 [facility] Comment on above: Result Comment: Canc elled via OM: Order cancelled - Patient discharged Performed By: #### L 500.2500, L100.0100 ####[facility] [address] [place], [address] CA,Total Normal 8.5-10.1 [facility] Comment on above: Result Comment: Canc elled via OM: Order cancelled - Patient discharged Performed By: #### L 500.2500, L100.0100 ####[facility] [address] [place], [address] CL Normal 98-107 [facility] Comment on above: Result Comment: Canc elled via OM: Order cancelled - Patient discharged Performed By: #### L 500.2500, L100.0100 ####[facility] [address] [place], [address] CO2 Normal 21.0-32.0 [facility] Comment on above: Result Comment: Canc elled via OM: Order cancelled - Patient discharged Performed By: #### L 500.2500, L100.0100 ####[facility] [address] [place], [address] CREAT,SERUM Normal 0.70-1.30 [facility] Comment on above: Result Comment: Canc elled via OM: Order cancelled - Patient discharged Performed By: #### L 500.2500, L100.0100 ####[facility] [address] [place], [address] EST GFR Normal >60 [facility] Comment on above: Result Comment: Canc elled via OM: Order cancelled - Patient discharged Performed By: #### L 500.2500, L100.0100 ####[facility] [address] [place], [address] EST GFR - AA Normal >60 [facility] Comment on above: Result Comment: Canc elled via OM: Order cancelled - Patient discharged Performed By: #### L 500.2500, L100.0100 ####[facility] [address] [place], [address] GAP Normal 5-15 [facility] Comment on above: Result Comment: Canc elled via OM: Order cancelled - Patient discharged Performed By: #### L 500.2500, L100.0100 ####[facility] [address] [place], [address] GLU Normal 74-106 [facility] Comment on above: Result Comment: Canc elled via OM: Order cancelled - Patient discharged Performed By: #### L 500.2500, L100.0100 ####[facility] [address] [place], [address] Potassium Normal 3.5-5.1 [facility] Comment on above: Result Comment: Canc elled via OM: Order cancelled - Patient discharged Performed By: #### L 500.2500, L100.0100 ####[facility] [address] [place], [address] Basic Metabolic Profile (BMP) Normal 136-145 [facility] Comment on above: Result Comment: Canc elled via OM: Order cancelled - Patient discharged Performed By: #### L 500.2500, L100.0100 ####[facility] [address] [place], [address] CBC W/Diff, Automatedon 07-25 Absolute Neut Normal 2.0-7.7 [facility] Comment on above: Result Comment: Canc elled via OM: Order cancelled - Patient discharged Performed By: #### L 500.2500, L100.0100 ####[facility] [address] [place] [facility] [place], [address] HCT Normal 40-54 [facility] Comment on above: Result Comment: Canc elled via OM: Order cancelled - Patient discharged Performed By: #### L 500.2500, L100.0100 ####[facility] [address] [place], [address] HGB Normal 13.0-16.5 [facility] Comment on above: Result Comment: Canc elled via OM: Order cancelled - Patient discharged Performed By: #### L 500.2500, L100.0100 ####[facility] [address] [place], [address] MCH Normal 27.0-32.0 [facility] Comment on above: Result Comment: Canc elled via OM: Order cancelled - Patient discharged Performed By: #### L 500.2500, L100.0100 ####[facility] [address] [place], [address] MCHC Normal 32-36 [facility] Comment on above: Result Comment: Canc elled via OM: Order cancelled - Patient discharged Performed By: #### L 500.2500, L100.0100 ####[facility] [address] [place], [address] MCV Normal 80-94 [facility] Comment on above: Result Comment: Canc elled via OM: Order cancelled - Patient discharged Performed By: #### L 500.2500, L100.0100 ####[facility] [address] [place], [address] NEUT% Normal 47-70 [facility] Comment on above: Result Comment: Canc elled via OM: Order cancelled - Patient discharged Performed By: #### L 500.2500, L100.0100 ####[facility] [address] [place], [address] PLT Normal 150-450 [facility] Comment on above: Result Comment: Canc elled via OM: Order cancelled - Patient discharged Performed By: #### L 500.2500, L100.0100 ####[facility] [address] [place], [address] RBC Normal 4.6-6.2 [facility] Comment on above: Result Comment: Canc elled via OM: Order cancelled - Patient discharged Performed By: #### L 500.2500, L100.0100 ####[facility] [address], [address] RDW CV Normal 11.6-14.6 [facility] Comment on above: Result Comment: Canc elled via OM: Order cancelled - Patient discharged Performed By: #### L 500.2500, L100.0100 ####[facility] [address] [place], [address] RDW SD Normal 35.1-43.9 [facility] Comment on above: Result Comment: Canc elled via OM: Order cancelled - Patient discharged Performed By: #### L 500.2500, L100.0100 ####[facility] [address] [place], [address] WBC Normal 4.4-11.0 [facility] Comment on above: Result Comment: Canc elled via OM: Order cancelled - Patient discharged Performed By: #### L 500.2500, L100.0100 ####[facility] [address] [place], [address] Basic Metabolic Profile (BMP )on 08-06-2024 BUN Normal 7-18 [facility] Comment on above: Result Comment: Canc elled via OM: Order cancelled - Patient discharged Performed By: #### L 100.0100, L500.2500 ####[facility] [address] [place], [address] BUN/CRE Normal 10-20 [facility] Comment on above: Result Comment: Canc elled via OM: Order cancelled - Patient discharged Performed By: #### L 100.0100, L500.2500 ####[facility] [address] [place], [address] CA,Total Normal 8.5-10.1 [facility] Comment on above: Result Comment: Canc elled via OM: Order cancelled - Patient discharged Performed By: #### L 100.0100, L500.2500 ####[facility] [address] [place], [address] CL Normal 98-107 [facility] Comment on above: Result Comment: Canc elled via OM: Order cancelled - Patient discharged Performed By: #### L 100.0100, L500.2500 ####[facility] [address] [place], [address] CO2 Normal 21.0-32.0 [facility] Comment on above: Result Comment: Canc elled via OM: Order cancelled - Patient discharged Performed By: #### L 100.0100, L500.2500 ####[facility] [address] [place], [address] CREAT,SERUM Normal 0.70-1.30 [facility] Comment on above: Result Comment: Canc elled via OM: Order cancelled - Patient discharged Performed By: #### L 100.0100, L500.2500 ####[facility] [address] [place], [address] EST GFR Normal >60 [facility] Comment on above: Result Comment: Canc elled via OM: Order cancelled - Patient discharged Performed By: #### L 100.0100, L500.2500 ####[facility] [address] [place], [address] EST GFR - AA Normal >60 [facility] Comment on above: Result Comment: Canc elled via OM: Order cancelled - Patient discharged Performed By: #### L 100.0100, L500.2500 ####[facility] [address] [place], [address] GAP Normal 5-15 [facility] Comment on above: Result Comment: Canc elled via OM: Order cancelled - Patient discharged Performed By: #### L 100.0100, L500.2500 ####[facility] [address] [place], [address] GLU Normal 74-106 [facility] Comment on above: Result Comment: Canc elled via OM: Order cancelled - Patient discharged Performed By: #### L 100.0100, L500.2500 ####[facility] [address] [place], [address] Potassium Normal 3.5-5.1 [facility] Comment on above: Result Comment: Canc elled via OM: Order cancelled - Patient discharged Performed By: #### L 100.0100, L500.2500 ####[facility] [address] [place], [address] Basic Metabolic Profile (BMP) Normal 136-145 [facility] Comment on above: Result Comment: Canc elled via OM: Order cancelled - Patient discharged Performed By: #### L 100.0100, L500.2500 ####[facility] [address] [place], [address] CBC W/Diff, Automatedon 09- Absolute Neut Normal 2.0-7.7 [facility] Comment on above: Result Comment: Canc elled via OM: Order cancelled - Patient discharged Performed By: #### L 100.0100, L500.2500 ####[facility] [address] [place], [address] HCT Normal 40-54 [facility] Comment on above: Result Comment: Canc elled via OM: Order cancelled - Patient discharged Performed By: #### L 100.0100, L500.2500 ####[facility] [address] [place], [address] HGB Normal 13.0-16.5 [facility] Comment on above: Result Comment: Canc elled via OM: Order cancelled - Patient discharged Performed By: #### L 100.0100, L500.2500 ####[facility] [address] [place], [address] MCH Normal 27.0-32.0 [facility] Comment on above: Result Comment: Canc elled via OM: Order cancelled - Patient discharged Performed By: #### L 100.0100, L500.2500 ####[facility] [address] [place], [address] MCHC Normal 32-36 [facility] Comment on above: Result Comment: Canc elled via OM: Order cancelled - Patient discharged Performed By: #### L 100.0100, L500.2500 ####[facility] [address] [place], [address] MCV Normal 80-94 [facility] Comment on above: Result Comment: Canc elled via OM: Order cancelled - Patient discharged Performed By: #### L 100.0100, L500.2500 ####[facility] [address] [place], [address] NEUT% Normal 47-70 [facility] Comment on above: Result Comment: Canc elled via OM: Order cancelled - Patient discharged Performed By: #### L 100.0100, L500.2500 ####[facility] [address] [place], [address] PLT Normal 150-450 [facility] Comment on above: Result Comment: Canc elled via OM: Order cancelled - Patient discharged Performed By: #### L 100.0100, L500.2500 ####[facility] [address] [place], [address] RBC Normal 4.6-6.2 [facility] Comment on above: Result Comment: Canc elled via OM: Order cancelled - Patient discharged Performed By: #### L 100.0100, L500.2500 ####[facility] [address], [address] RDW CV Normal 11.6-14.6 [facility] Comment on above: Result Comment: Canc elled via OM: Order cancelled - Patient discharged Performed By: #### L 100.0100, L500.2500 ####[facility] [address] [place], [address] RDW SD Normal 35.1-43.9 [facility] Comment on above: Result Comment: Canc elled via OM: Order cancelled - Patient discharged Performed By: #### L 100.0100, L500.2500 ####[facility] [address] [place], [address] WBC Normal 4.4-11.0 [facility] Comment on above: Result Comment: Canc elled via OM: Order cancelled - Patient discharged Performed By: #### L 100.0100, L500.2500 ####[facility] [address] [place], [address] Basic Metabolic Profile (BMP )on 08-05-2024 BUN Normal 7-18 [facility] Comment on above: Result Comment: Canc elled via OM: Order cancelled - Patient discharged Performed By: #### L 100.0100, L500.2500 ####[facility] [address] [place], [address] BUN/CRE Normal 10-20 [facility] Comment on above: Result Comment: Canc elled via OM: Order cancelled - Patient discharged Performed By: #### L 100.0100, L500.2500 ####[facility] [address], [address] CA,Total Normal 8.5-10.1 [facility] Comment on above: Result Comment: Canc elled via OM: Order cancelled - Patient discharged Performed By: #### L 100.0100, L500.2500 ####[facility] [address] [place], [address] CL Normal 98-107 [facility] Comment on above: Result Comment: Canc elled via OM: Order cancelled - Patient discharged Performed By: #### L 100.0100, L500.2500 ####[facility] [address], [address] CO2 Normal 21.0-32.0 [facility] Comment on above: Result Comment: Canc elled via OM: Order cancelled - Patient discharged Performed By: #### L 100.0100, L500.2500 ####[facility] [address] [place], [address] CREAT,SERUM Normal 0.70-1.30 [facility] Comment on above: Result Comment: Canc elled via OM: Order cancelled - Patient discharged Performed By: #### L 100.0100, L500.2500 ####[facility] [address] [place], [address] EST GFR Normal >60 [facility] Comment on above: Result Comment: Canc elled via OM: Order cancelled - Patient discharged Performed By: #### L 100.0100, L500.2500 ####[facility] [address], [address] EST GFR - AA Normal >60 [facility] Comment on above: Result Comment: Canc elled via OM: Order cancelled - Patient discharged Performed By: #### L 100.0100, L500.2500 ####[facility] [address], [address] GAP Normal 5-15 [facility] Comment on above: Result Comment: Canc elled via OM: Order cancelled - Patient discharged Performed By: #### L 100.0100, L500.2500 ####[facility] [address] [place], [address] GLU Normal 74-106 [facility] Comment on above: Result Comment: Canc elled via OM: Order cancelled - Patient discharged Performed By: #### L 100.0100, L500.2500 ####[facility] [address] [place], [address] Potassium Normal 3.5-5.1 [facility] Comment on above: Result Comment: Canc elled via OM: Order cancelled - Patient discharged Performed By: #### L 100.0100, L500.2500 ####[facility] [address] [place], [address] Basic Metabolic Profile (BMP) Normal 136-145 [facility] Comment on above: Result Comment: Canc elled via OM: Order cancelled - Patient discharged Performed By: #### L 100.0100, L500.2500 ####[facility] [address] [place], [address] CBC W/Diff, Automatedon - Absolute Neut Normal 2.0-7.7 [facility] Comment on above: Result Comment: Canc elled via OM: Order cancelled - Patient discharged Performed By: #### L 100.0100, L500.2500 ####[facility] [address] [place], [address] HCT Normal 40-54 [facility] Comment on above: Result Comment: Canc elled via OM: Order cancelled - Patient discharged Performed By: #### L 100.0100, L500.2500 ####[facility] [address] [place], [address] HGB Normal 13.0-16.5 [facility] Comment on above: Result Comment: Canc elled via OM: Order cancelled - Patient discharged Performed By: #### L 100.0100, L500.2500 ####[facility] [address] [place], [address] MCH Normal 27.0-32.0 [facility] Comment on above: Result Comment: Canc elled via OM: Order cancelled - Patient discharged Performed By: #### L 100.0100, L500.2500 ####[facility] [address] [place], [address] MCHC Normal 32-36 [facility] Comment on above: Result Comment: Canc elled via OM: Order cancelled - Patient discharged Performed By: #### L 100.0100, L500.2500 ####[facility] [address] [place], [address] MCV Normal 80-94 [facility] Comment on above: Result Comment: Canc elled via OM: Order cancelled - Patient discharged Performed By: #### L 100.0100, L500.2500 ####[facility] [address] [place], [address] NEUT% Normal 47-70 [facility] Comment on above: Result Comment: Canc elled via OM: Order cancelled - Patient discharged Performed By: #### L 100.0100, L500.2500 ####[facility] [address] [place], [address] PLT Normal 150-450 [facility] Comment on above: Result Comment: Canc elled via OM: Order cancelled - Patient discharged Performed By: #### L 100.0100, L500.2500 ####[facility] [address] [place], [address] RBC Normal 4.6-6.2 [facility] Comment on above: Result Comment: Canc elled via OM: Order cancelled - Patient discharged Performed By: #### L 100.0100, L500.2500 ####[facility] [address] [place], [address] RDW CV Normal 11.6-14.6 [facility] Comment on above: Result Comment: Canc elled via OM: Order cancelled - Patient discharged Performed By: #### L 100.0100, L500.2500 ####[facility] [address] [place], [address] RDW SD Normal 35.1-43.9 [facility] Comment on above: Result Comment: Canc elled via OM: Order cancelled - Patient discharged Performed By: #### L 100.0100, L500.2500 ####[facility] [address] [place], [address] WBC Normal 4.4-11.0 [facility] Comment on above: Result Comment: Canc elled via OM: Order cancelled - Patient discharged Performed By: #### L 100.0100, L500.2500 ####[facility] [address] [place], [address] Culture, Blood (WB)on 2023 CUB No growth in 5 days. Normal [facility] Comment on above: Performed By: #### L 509.7000, M200.1000, L501.6710 ####[facility] [address] [place], [address] Basic Metabolic Profile (BMP )on 08-04-2024 BUN Normal 7-18 [facility] Comment on above: Result Comment: Canc elled via OM: Order cancelled - Patient discharged Performed By: #### L 500.2500, L100.0100 ####[facility] [address] [place], [address] BUN/CRE Normal 10-20 [facility] Comment on above: Result Comment: Canc elled via OM: Order cancelled - Patient discharged Performed By: #### L 500.2500, L100.0100 ####[facility] [address] [place], [address] CA,Total Normal 8.5-10.1 [facility] Comment on above: Result Comment: Canc elled via OM: Order cancelled - Patient discharged Performed By: #### L 500.2500, L100.0100 ####[facility] [address] [place], [address] CL Normal 98-107 [facility] Comment on above: Result Comment: Canc elled via OM: Order cancelled - Patient discharged Performed By: #### L 500.2500, L100.0100 ####[facility] [address] [place], [address] CO2 Normal 21.0-32.0 [facility] Comment on above: Result Comment: Canc elled via OM: Order cancelled - Patient discharged Performed By: #### L 500.2500, L100.0100 ####[facility] [address] [place], [address] CREAT,SERUM Normal 0.70-1.30 [facility] Comment on above: Result Comment: Canc elled via OM: Order cancelled - Patient discharged Performed By: #### L 500.2500, L100.0100 ####[facility] [address] [place], [address] EST GFR Normal >60 [facility] Comment on above: Result Comment: Canc elled via OM: Order cancelled - Patient discharged Performed By: #### L 500.2500, L100.0100 ####[facility] [address] [place], [address] EST GFR - AA Normal >60 [facility] Comment on above: Result Comment: Canc elled via OM: Order cancelled - Patient discharged Performed By: #### L 500.2500, L100.0100 ####[facility] [address] [place], [address] GAP Normal 5-15 [facility] Comment on above: Result Comment: Canc elled via OM: Order cancelled - Patient discharged Performed By: #### L 500.2500, L100.0100 ####[facility] [address] [place], [address] GLU Normal 74-106 [facility] Comment on above: Result Comment: Canc elled via OM: Order cancelled - Patient discharged Performed By: #### L 500.2500, L100.0100 ####[facility] [address] [place], [address] Potassium Normal 3.5-5.1 [facility] Comment on above: Result Comment: Canc elled via OM: Order cancelled - Patient discharged Performed By: #### L 500.2500, L100.0100 ####[facility] [address] [place], [address] Basic Metabolic Profile (BMP) Normal 136-145 [facility] Comment on above: Result Comment: Canc elled via OM: Order cancelled - Patient discharged Performed By: #### L 500.2500, L100.0100 ####[facility] [address] [place], [address] CBC W/Diff, Automatedon - PATH REV Reviewed Normal [facility] Comment on above: Result Comment: Neut rophilic leukocytosis.Normocytic anemia.Clinical correlation necessary.Antolin Barnard M.D. 08/04/24 AMENDED REPORT 08/04/24 1025 PATH REV previously reported as: March foll Performed By: #### L 100.0100, L500.2500 ####[facility] [address] [place], [address] Absolute Neut Normal 2.0-7.7 [facility] Comment on above: Result Comment: Canc elled via OM: Order cancelled - Patient discharged Performed By: #### L 500.2500, L100.0100 ####[facility] [address] [place], [address] HCT Normal 40-54 [facility] Comment on above: Result Comment: Canc elled via OM: Order cancelled - Patient discharged Performed By: #### L 500.2500, L100.0100 ####[facility] [address] [place], [address] HGB Normal 13.0-16.5 [facility] Comment on above: Result Comment: Canc elled via OM: Order cancelled - Patient discharged Performed By: #### L 500.2500, L100.0100 ####[facility] [address] [place], [address] MCH Normal 27.0-32.0 [facility] Comment on above: Result Comment: Canc elled via OM: Order cancelled - Patient discharged Performed By: #### L 500.2500, L100.0100 ####[facility] [address] [place], [address] MCHC Normal 32-36 [facility] Comment on above: Result Comment: Canc elled via OM: Order cancelled - Patient discharged Performed By: #### L 500.2500, L100.0100 ####[facility] [address] [place], [address] MCV Normal 80-94 [facility] Comment on above: Result Comment: Canc elled via OM: Order cancelled - Patient discharged Performed By: #### L 500.2500, L100.0100 ####[facility] [address] [place], [address] NEUT% Normal 47-70 [facility] Comment on above: Result Comment: Canc elled via OM: Order cancelled - Patient discharged Performed By: #### L 500.2500, L100.0100 ####[facility] [address] [place], [address] PLT Normal 150-450 [facility] Comment on above: Result Comment: Canc elled via OM: Order cancelled - Patient discharged Performed By: #### L 500.2500, L100.0100 ####[facility] [address] [place], [address] RBC Normal 4.6-6.2 [facility] Comment on above: Result Comment: Canc elled via OM: Order cancelled - Patient discharged Performed By: #### L 500.2500, L100.0100 ####[facility] [address] [place], [address] RDW CV Normal 11.6-14.6 [facility] Comment on above: Result Comment: Canc elled via OM: Order cancelled - Patient discharged Performed By: #### L 500.2500, L100.0100 ####[facility] [address] [place], [address] RDW SD Normal 35.1-43.9 [facility] Comment on above: Result Comment: Canc elled via OM: Order cancelled - Patient discharged Performed By: #### L 500.2500, L100.0100 ####[facility] [address] [place], [address] WBC Normal 4.4-11.0 [facility] Comment on above: Result Comment: Canc elled via OM: Order cancelled - Patient discharged Performed By: #### L 500.2500, L100.0100 ####[facility] [address] [place], [address] Basic Metabolic Profile (BMP )on 08-03-2024 BUN/CRE 33.1 RATIO High 10-20 [facility] Comment on above: Performed By: #### L 100.0100, L500.2500 ####[facility] [address] [place], [address] CA,Total 9.0 mg/dL Normal 8.5-10.1 [facility] Comment on above: Performed By: #### L 100.0100, L500.2500 ####[facility] [address] [place], [address] Chloride [Moles/Vol] 100 mmol/L Normal 98-107 [facility] Comment on above: Performed By: #### L 100.0100, L500.2500 ####[facility] [address] [place], [address] CO2 [Moles/Vol] 34.0 mmol/L High 21.0-32.0 [facility] Comment on above: Performed By: #### L 100.0100, L500.2500 ####[facility] [address] [place], [address] Creatinine [Mass/Vol] 0.82 mg/dL Normal 0.70-1.30 [facility] Comment on above: Result Comment: The validity of the calculated GFR GFRAA in patients over70 years has not been determined. Clinical correlation isessential. Performed By: #### L 100.0100, L500.2500 ####[facility] [address] [place], [address] ECRCL 75.04 ml/min Normal [facility] Comment on above: Performed By: #### L 100.0100, L500.2500 ####[facility] [address] [place], [address] EST GFR - AA 119 mL/min Normal >60 [facility] Comment on above: Result Comment: Afri can Libyan GFR Calc Performed By: #### L 100.0100, L500.2500 ####[facility] [address] [place], [address] GAP 4 Low 5-15 [facility] Comment on above: Performed By: #### L 100.0100, L500.2500 ####[facility] [address] [place], [address] GFR/1.73 sq M.predicted among non-blacks MDRD (S/P/Bld) [Vol rate/Area] 98 mL/min/{1.73_m2} Normal >60 [facility] Comment on above: Result Comment: Non- GFR Calc Performed By: #### L 100.0100, L500.2500 ####[facility] [address] [place], [address] Glucose [Mass/Vol] 108 mg/dL High 74-106 [facility] Comment on above: Result Comment: Fast ing Glucose result from 100 to 125 mg/dLsuggests IMPAIRED HOMEOSTASIS per A.D.A. criteria. Performed By: #### L 100.0100, L500.2500 ####[facility] [address] [place], [address] Potassium [Moles/Vol] 3.5 mmol/L Normal 3.5-5.1 [facility] Comment on above: Performed By: #### L 100.0100, L500.2500 ####[facility] [address] [place], [address] Sodium [Moles/Vol] 138 mmol/L Normal 136-145 [facility] Comment on above: Performed By: #### L 100.0100, L500.2500 ####[facility] [address] [place], [address] Urea nitrogen [Mass/Vol] 27 mg/dL High 7-18 [facility] Comment on above: Performed By: #### L 100.0100, L500.2500 ####[facility] [address] [place], [address] Bedside Glucoseon 08-03-2024 FINGERSTICK GLU 123 mg/dL High 74-106 [facility] Comment on above: Result Comment: ISSA JORDAN OF PATIENT CARE PER NURSING PROTOCOL Performed By: #### L 501.080 ####[facility] [address] [place], [address] FINGERSTICK GLU 113 mg/dL High 74-106 [facility] Comment on above: Result Comment: ISSA GEMENT OF PATIENT CARE PER NURSING PROTOCOL Performed By: #### L 501.080 ####[facility] [address] [place], [address] CBC W/Diff, Automatedon 07-25 PATH REV Reviewed Normal [facility] Comment on above: Result Comment: Mild leukopenia.Normocytic anemia.Clinical correlation necessary.Antolin Barnard M.D. 08/03/24 AMENDED REPORT 08/03/241133 PATH REV previously reported as: March angelina Performed By: #### L 100.0100, L500.4050, L501.2300, L501.9520, L501.5200 ####[facility] [address] [place], [address] Discharge Instructionon 07-25 Discharge Instruction Normal [facility] Bedside Glucoseon 08-02-2024 FINGERSTICK GLU 153 mg/dL High 74-106 [facility] Comment on above: Result Comment: ISSA GEMENT OF PATIENT CARE PER NURSING PROTOCOL Performed By: #### L 501.080 ####[facility] [address] [place], [address] FINGERSTICK GLU 139 mg/dL High 74-106 [facility] Comment on above: Result Comment: ISSA GEMENT OF PATIENT CARE PER NURSING PROTOCOL Performed By: #### L 501.080 ####[facility] [address] [place], [address] FINGERSTICK GLU 149 mg/dL High 74-106 [facility] Comment on above: Result Comment: ISSA GEMENT OF PATIENT CARE PER NURSING PROTOCOL Performed By: #### L 501.080 ####[facility] [address] [place], [address] FINGERSTICK GLU 102 mg/dL Normal 74-106 [facility] Comment on above: Result Comment: ISSA JORDAN OF PATIENT CARE PER NURSING PROTOCOL Performed By: #### L 501.080 ####[facility] [address] [place], [address] CBC W/Diff, Automatedon PATH REV Reviewed Normal [facility] Comment on above: Result Comment: Neut rophilic leukocytosis.Normocytic anemia.Clinical correlation necessary.Antolin Barnard M.D. 08/02/24 AMENDED REPORT 08/02/24 1301 PATH REV previously reported as: Sarah alfaro Performed By: #### L 100.0100, L500.2500 ####[facility] [address] [place], [address] PATH REV Reviewed Normal [facility] Comment on above: Result Comment: Neut rophilic leukocytosis.Clinical correlation necessary.Antolin Barnard M.D. 08/02/24 AMENDED REPORT 08/02/24 1258 PATH REV previously reported as: March angelina Performed By: #### L 500.2500, L100.0100 ####[facility] [address] [place], [address] Comprehensive Metabolic Prof ilon 08-02-2024 Albumin [Mass/Vol] 2.8 g/dL Low 3.2-5.0 [facility] Comment on above: Performed By: #### L 100.0100, L500.4050, L501.2300, L501.9520, L501.5200 ####[facility] [address] [place], [address] Albumin/Globulin [Mass ratio] 0.8 {ratio} Low 0.9-2.4 [facility] Comment on above: Performed By: #### L 100.0100, L500.4050, L501.2300, L501.9520, L501.5200 ####[facility] [address] [place], [address] ALK P 74 U/L Normal 45-117 [facility] Comment on above: Performed By: #### L 100.0100, L500.4050, L501.2300, L501.9520, L501.5200 ####[facility] [address] [place], [address] ALT [Catalytic activity/Vol] 22 U/L Normal 16-61 [facility] Comment on above: Performed By: #### L 100.0100, L500.4050, L501.2300, L501.9520, L501.5200 ####[facility] [address] [place], [address] AST [Catalytic activity/Vol] 19 U/L Normal 15-37 [facility] Comment on above: Performed By: #### L 100.0100, L500.4050, L501.2300, L501.9520, L501.5200 ####[facility] [address] [place], [address] Bilirubin [Mass/Vol] 0.50 mg/dL Normal 0.20-1.00 [facility] Comment on above: Result Comment: For patients on eltrombopag therapy, use of Dimension [place] TBIL is not recommended. Performed By: #### L 100.0100, L500.4050, L501.2300, L501.9520, L501.5200 ####[facility] [address] [place], [address] BUN/CRE 30.3 RATIO High 10-20 [facility] Comment on above: Performed By: #### L 100.0100, L500.4050, L501.2300, L501.9520, L501.5200 ####[facility] [address] [place], [address] CA,Total 9.2 mg/dL Normal 8.5-10.1 [facility] Comment on above: Performed By: #### L 100.0100, L500.4050, L501.2300, L501.9520, L501.5200 ####[facility] [address] [place], [address] Chloride [Moles/Vol] 103 mmol/L Normal 98-107 [facility] Comment on above: Performed By: #### L 100.0100, L500.4050, L501.2300, L501.9520, L501.5200 ####[facility] [address] [place], [address] CO2 [Moles/Vol] 37.0 mmol/L High 21.0-32.0 [facility] Comment on above: Performed By: #### L 100.0100, L500.4050, L501.2300, L501.9520, L501.5200 ####[facility] [address] [place], [address] Creatinine [Mass/Vol] 0.86 mg/dL Normal 0.70-1.30 [facility] Comment on above: Result Comment: The validity of the calculated GFR GFRAA in patients over70 years has not been determined. Clinical correlation isessential. Performed By: #### L 100.0100, L500.4050, L501.2300, L501.9520, L501.5200 ####[facility] [address] [place], [address] ECRCL 71.55 ml/min Normal [facility] Comment on above: Performed By: #### L 100.0100, L500.4050, L501.2300, L501.9520, L501.5200 ####[facility] [address] [place], [address] EST GFR - AA 112 mL/min Normal >60 [facility] Comment on above: Result Comment: Afri can Libyan GFR Calc Performed By: #### L 100.0100, L500.4050, L501.2300, L501.9520, L501.5200 ####[facility] [address] [place], [address] GAP 3 Low 5-15 [facility] Comment on above: Performed By: #### L 100.0100, L500.4050, L501.2300, L501.9520, L501.5200 ####[facility] [address] [place], [address] GFR/1.73 sq M.predicted among non-blacks MDRD (S/P/Bld) [Vol rate/Area] 93 mL/min/{1.73_m2} Normal >60 [facility] Comment on above: Result Comment: Non- GFR Calc Performed By: #### L 100.0100, L500.4050, L501.2300, L501.9520, L501.5200 ####[facility] [address] [place], [address] Globulin (S) [Mass/Vol] 3.4 g/dL Normal 2.2-4.2 [facility] Comment on above: Performed By: #### L 100.0100, L500.4050, L501.2300, L501.9520, L501.5200 ####[facility] [address] [place], [address] Glucose [Mass/Vol] 105 mg/dL Normal 74-106 [facility] Comment on above: Result Comment: Fast ing Glucose result from 100 to 125 mg/dLsuggests IMPAIRED HOMEOSTASIS per A.D.A. criteria. Performed By: #### L 100.0100, L500.4050, L501.2300, L501.9520, L501.5200 ####[facility] [address] [place], [address] Potassium [Moles/Vol] 3.9 mmol/L Normal 3.5-5.1 [facility] Comment on above: Performed By: #### L 100.0100, L500.4050, L501.2300, L501.9520, L501.5200 ####[facility] [address] [place], [address] Sodium [Moles/Vol] 143 mmol/L Normal 136-145 [facility] Comment on above: Performed By: #### L 100.0100, L500.4050, L501.2300, L501.9520, L501.5200 ####[facility] [address] [place], [address] T PROT 6.2 g/dL Low 6.4-8.2 [facility] Comment on above: Performed By: #### L 100.0100, L500.4050, L501.2300, L501.9520, L501.5200 ####[facility] [address] [place], [address] Urea nitrogen [Mass/Vol] 26 mg/dL High 7-18 [facility] Comment on above: Performed By: #### L 100.0100, L500.4050, L501.2300, L501.9520, L501.5200 ####[facility] [address] [place], [address] Magnesiumon 08-02-2024 Magnesium [Mass/Vol] 2.1 mg/dL Normal 1.6-2.6 [facility] Comment on above: Performed By: #### L 100.0100, L500.4050, L501.2300, L501.9520, L501.5200 ####[facility] [address] [place], [address] Phosphoruson 08-02-2024 Phosphate [Mass/Vol] 1.9 mg/dL Low 2.5-4.9 [facility] Comment on above: Performed By: #### L 100.0100, L500.4050, L501.2300, L501.9520, L501.5200 ####[facility] [address] [place], [address] Thyroid Stim Hormone (TSH)on 08-02-2024 TSH 0.728 uIU/mL Normal 0.358-3.740 [facility] Comment on above: Performed By: #### L 100.0100, L500.4050, L501.2300, L501.9520, L501.5200 ####[facility] [address] [place], [address] Basic Metabolic Profile (BMP )on 08-01-2024 BUN/CRE 42.8 RATIO High 10-20 [facility] Comment on above: Performed By: #### L 500.2500 ####[facility] [address] [place], [address] CA,Total 8.9 mg/dL Normal 8.5-10.1 [facility] Comment on above: Performed By: #### L 500.2500 ####[facility] [address] [place], [address] Chloride [Moles/Vol] 101 mmol/L Normal 98-107 [facility] Comment on above: Performed By: #### L 500.2500 ####[facility] [address] [place], [address] CO2 [Moles/Vol] 37.0 mmol/L High 21.0-32.0 [facility] Comment on above: Performed By: #### L 500.2500 ####[facility] [address] [place], [address] Creatinine [Mass/Vol] 0.82 mg/dL Normal 0.70-1.30 [facility] Comment on above: Result Comment: The validity of the calculated GFR GFRAA in patients over70 years has not been determined. Clinical correlation isessential. Performed By: #### L 500.2500 ####[facility] [address] [place], [address] ECRCL 75.04 ml/min Normal [facility] Comment on above: Performed By: #### L 500.2500 ####[facility] [address] [place], [address] EST GFR - AA 119 mL/min Normal >60 [facility] Comment on above: Result Comment: Afri can Libyan GFR Calc Performed By: #### L 500.2500 ####[facility] [address] [place], [address] GAP 2 Low 5-15 [facility] Comment on above: Performed By: #### L 500.2500 ####[facility] [address] [place] [address] GFR/1.73 sq M.predicted among non-blacks MDRD (S/P/Bld) [Vol rate/Area] 98 mL/min/{1.73_m2} Normal >60 [facility] Comment on above: Result Comment: Non- GFR Calc Performed By: #### L 500.2500 ####[facility] [address] [place] [address] Glucose [Mass/Vol] 105 mg/dL Normal 74-106 [facility] Comment on above: Result Comment: Fast ing Glucose result from 100 to 125 mg/dLsuggests IMPAIRED HOMEOSTASIS per A.D.A. criteria. Performed By: #### L 500.2500 ####[facility] [address] [place], [address] Potassium [Moles/Vol] 3.7 mmol/L Normal 3.5-5.1 [facility] Comment on above: Performed By: #### L 500.2500 ####[facility] [address] [place], [address] Sodium [Moles/Vol] 140 mmol/L Normal 136-145 [facility] Comment on above: Performed By: #### L 500.2500 ####[facility] [address] [place], [address] Urea nitrogen [Mass/Vol] 35 mg/dL High 7-18 [facility] Comment on above: Performed By: #### L 500.2500 ####[facility] [address] [place], [address] Bedside Glucoseon 08-01-2024 FINGERSTICK GLU 145 mg/dL High 74-106 [facility] Comment on above: Result Comment: ISSA GEMENT OF PATIENT CARE PER NURSING PROTOCOL Performed By: #### L 501.080 ####[facility] [address] [place], [address] FINGERSTICK GLU 198 mg/dL High 74-106 [facility] Comment on above: Result Comment: ISSA GEMENT OF PATIENT CARE PER NURSING PROTOCOL Performed By: #### L 501.080 ####[facility] [address] [place], [address] FINGERSTICK GLU 134 mg/dL High 74-106 [facility] Comment on above: Result Comment: ISSA GEMENT OF PATIENT CARE PER NURSING PROTOCOL Performed By: #### L 501.080 ####[facility] [address] [place], [address] FINGERSTICK GLU 106 mg/dL Normal 74-106 [facility] Comment on above: Result Comment: ISSA GEMENT OF PATIENT CARE PER NURSING PROTOCOL Performed By: #### L 501.080 ####[facility] [address] [place], [address] CBC-Complete Blood Cnt No Di ffon 08-01-2024 Erythrocyte distribution width (RBC) [Ratio] 15.7 % High 11.6-14.6 [facility] Comment on above: Performed By: #### L 509.7000, L100.0500, L501.6710 ####[facility] [address] [place], [address] Hematocrit (Bld) [Volume fraction] 40.9 % Normal 40-54 [facility] Comment on above: Performed By: #### L 509.7000, L100.0500, L501.6710 ####[facility] [address] [place], [address] Hemoglobin (Bld) [Mass/Vol] 11.8 g/dL Low 13.0-16.5 [facility] Comment on above: Performed By: #### L 509.7000, L100.0500, L501.6710 ####[facility] [address], [address] MCH (RBC) [Entitic mass] 25.6 pg Low 27.0-32.0 [facility] Comment on above: Performed By: #### L 509.7000, L100.0500, L501.6710 ####[facility] [address] [place], [address] MCHC (RBC) [Mass/Vol] 28.9 g/dL Low 32-36 [facility] Comment on above: Performed By: #### L 509.7000, L100.0500, L501.6710 ####[facility] [address] [place], [address] MCV (RBC) [Entitic vol] 88.7 fL Normal 80-94 [facility] Comment on above: Performed By: #### L 509.7000, L100.0500, L501.6710 ####[facility] [address] [place], [address] Platelet mean volume (Bld) [Entitic vol] 10.0 fL Normal 6.2-12.0 [facility] Comment on above: Performed By: #### L 509.7000, L100.0500, L501.6710 ####[facility] [address] [place], [address] Platelets (Bld) [#/Vol] 321 10*3/uL Normal 150-450 [facility] Comment on above: Performed By: #### L 509.7000, L100.0500, L501.6710 ####[facility] [address] [place], [address] RBC (Bld) [#/Vol] 4.61 10*6/uL Normal 4.6-6.2 [facility] Comment on above: Performed By: #### L 509.7000, L100.0500, L501.6710 ####[facility] [address] [place], [address] RDW SD 50.4 fl High 35.1-43.9 [facility] Comment on above: Performed By: #### L 509.7000, L100.0500, L501.6710 ####[facility] [address] [place], [address] WBC (Bld) [#/Vol] 22.4 10*3/uL High 4.4-11.0 [facility] Comment on above: Performed By: #### L 509.7000, L100.0500, L501.6710 ####[facility] [address] [place], [address] CRPon 08-01-2024 C-REACTIVE PROT 4.05 mg/L High 0.0-3.0 [facility] Comment on above: Result Comment: C-Re active Protein (CRP) provides useful information for thediagnosis, therapy and monitoring of inflammatory processesand associated diseases. For the evaluation of Relative Riskfor Cardiovascular Disease, a High Sensitivity CRP (HSCRP)should be ordered. Performed By: #### L 509.7000, L100.0500, L501.6710 ####[facility] [address] [place], [place], [id number] CTA Chest W/WO Contraston CTA Chest W/WO Contrast Normal [facility] Chest 1 View (Portable)on Chest 1 View (Portable) Normal [facility] Procalcitoninon 08-01-2024 Procalcitonin 0.22 ng/mL High 0.00-0.09 [facility] Comment on above: Result Comment: A pr ocalcitonin (PCT) level above 2.0 ng/mL on the first day of ICU admission is associated with a high risk for progression to severe sepsis and/or septic shock. A PCT level below 0.5 ng/mL on the first day of ICU admission is associated with a low risk for progression to severe and/or septic shock. Note: Concentrations <0.5 ng/mL do not exclude an infection on account of localized infections (without systemic signs) which can be associated with such low concentrations, or a systemic infection in its initial stages (<6 hours). Furthermore, increased procalcitonin can occur without infection. PCT concentrations between 0.5 and 2.0 ng/mL should be interpreted taking into account the patient's history. It is recommended to retest PCT within 6-24 hours if any concentrations <2 ng/mL are obtained. Performed By: #### L 509.7000, L100.0500, L501.6710 ####[facility] [address] [place], [address] Basic Metabolic Profile (BMP )on 07-31-2024 BUN/CRE 40.0 RATIO High 10-20 [facility] Comment on above: Performed By: #### L 100.0100, L500.2500 ####[facility] [address] [place], [address] CA,Total 8.7 mg/dL Normal 8.5-10.1 [facility] Comment on above: Performed By: #### L 100.0100, L500.2500 ####[facility] [address] [place], [address] Chloride [Moles/Vol] 101 mmol/L Normal 98-107 [facility] Comment on above: Performed By: #### L 100.0100, L500.2500 ####[facility] [address] [place], [address] CO2 [Moles/Vol] 37.0 mmol/L High 21.0-32.0 [facility] Comment on above: Performed By: #### L 100.0100, L500.2500 ####[facility] [address] [place], [address] Creatinine [Mass/Vol] 1.05 mg/dL Normal 0.70-1.30 [facility] Comment on above: Result Comment: The validity of the calculated GFR GFRAA in patients over70 years has not been determined. Clinical correlation isessential. Performed By: #### L 100.0100, L500.2500 ####[facility] [address] [place], [address] ECRCL 58.61 ml/min Normal [facility] Comment on above: Performed By: #### L 100.0100, L500.2500 ####[facility] [address] [place], [address] EST GFR - AA 89 mL/min Normal >60 [facility] Comment on above: Result Comment: Afri can Libyan GFR Calc Performed By: #### L 100.0100, L500.2500 ####[facility] [address] [place], [address] GAP 2 Low 5-15 [facility] Comment on above: Performed By: #### L 100.0100, L500.2500 ####[facility] [address] [place], [address] GFR/1.73 sq M.predicted among non-blacks MDRD (S/P/Bld) [Vol rate/Area] 74 mL/min/{1.73_m2} Normal >60 [facility] Comment on above: Result Comment: Non- GFR Calc Performed By: #### L 100.0100, L500.2500 ####[facility] [address] [place], [address] Glucose [Mass/Vol] 116 mg/dL High 74-106 [facility] Comment on above: Result Comment: Fast ing Glucose result from 100 to 125 mg/dLsuggests IMPAIRED HOMEOSTASIS per A.D.A. criteria. Performed By: #### L 100.0100, L500.2500 ####[facility] [address] [place], [address] Potassium [Moles/Vol] 4.1 mmol/L Normal 3.5-5.1 [facility] Comment on above: Performed By: #### L 100.0100, L500.2500 ####[facility] [address] [place], [address] Sodium [Moles/Vol] 140 mmol/L Normal 136-145 [facility] Comment on above: Performed By: #### L 100.0100, L500.2500 ####[facility] [address] [place], [address] Urea nitrogen [Mass/Vol] 42 mg/dL High 7-18 [facility] Comment on above: Performed By: #### L 100.0100, L500.2500 ####[facility] [address] [place], [address] Bedside Glucoseon 07-31-2024 FINGERSTICK GLU 238 mg/dL High 74-106 [facility] Comment on above: Result Comment: ISSA JORDAN OF PATIENT CARE PER NURSING PROTOCOL Performed By: #### L 501.080 ####[facility] [address] [place], [address] FINGERSTICK GLU 179 mg/dL High 74-106 [facility] Comment on above: Result Comment: Dr Marquez schwartz FollowedInsulin GivenMANAGEMENT OF PATIENT CARE PER NURSING PROTOCOL Performed By: #### L 501.080 ####[facility] [address] [place], [address] FINGERSTICK GLU 122 mg/dL High 74-106 [facility] Comment on above: Result Comment: Dr Marquez schwartz FollowedMANAGEMENT OF PATIENT CARE PER NURSING PROTOCOL Performed By: #### L 501.080 ####[facility] [address] [place], [address] FINGERSTICK GLU 112 mg/dL High 74-106 [facility] Comment on above: Result Comment: ISSA GEMENT OF PATIENT CARE PER NURSING PROTOCOL Performed By: #### L 501.080 ####[facility] [address] [place], [address] Urinalysis, Completeon 07-31 BACTERIA 0 SEEN Normal None Seen [facility] Comment on above: Order Comment: LEWIS CTOR TO SPECIFY Performed By: #### L 400.0001 ####[facility] [address] [place], [address] EPI,SQUAMOUS 0 SEEN Normal 0-5 [facility] Comment on above: Order Comment: COLLE CTOR TO SPECIFY Performed By: #### L 400.0001 ####[facility] [address] [place], [address] Mucus Ql (Urine sed) 0 SEEN Normal [facility] Comment on above: Order Comment: COLLE CTOR TO SPECIFY Performed By: #### L 400.0001 ####[facility] [address] [place], [address] RBC 0 SEEN Normal 0-5 [facility] Comment on above: Order Comment: COLLE CTOR TO SPECIFY Performed By: #### L 400.0001 ####[facility] [address] [place], [address] WBC 0 SEEN Normal 0-5 [facility] Comment on above: Order Comment: COLLE CTOR TO SPECIFY Performed By: #### L 400.0001 ####[facility] [address] [place], [address] Basic Metabolic Profile (BMP )on 07-30-2024 BUN/CRE 25.8 RATIO High 10-20 [facility] Comment on above: Performed By: #### L 500.2500, L100.0100 ####[facility] [address] [place], [address] CA,Total 9.1 mg/dL Normal 8.5-10.1 [facility] Comment on above: Performed By: #### L 500.2500, L100.0100 ####[facility] [address] [place], [address] Chloride [Moles/Vol] 96 mmol/L Low 98-107 [facility] Comment on above: Performed By: #### L 500.2500, L100.0100 ####[facility] [address] [place], [address] CO2 [Moles/Vol] 34.0 mmol/L High 21.0-32.0 [facility] Comment on above: Performed By: #### L 500.2500, L100.0100 ####[facility] [address] [place], [address] Creatinine [Mass/Vol] 1.82 mg/dL High 0.70-1.30 [facility] Comment on above: Result Comment: The validity of the calculated GFR GFRAA in patients over70 years has not been determined. Clinical correlation isessential. Performed By: #### L 500.2500, L100.0100 ####[facility] [address] [place], [address] ECRCL 33.81 ml/min Normal [facility] Comment on above: Performed By: #### L 500.2500, L100.0100 ####[facility] [address] [place], [address] EST GFR - AA 47 mL/min Low >60 [facility] Comment on above: Result Comment: Afri can Libyan GFR Calc Performed By: #### L 500.2500, L100.0100 ####[facility] [address] [place], [address] GAP 7 Normal 5-15 [facility] Comment on above: Performed By: #### L 500.2500, L100.0100 ####[facility] [address] [place], [address] GFR/1.73 sq M.predicted among non-blacks MDRD (S/P/Bld) [Vol rate/Area] 39 mL/min/{1.73_m2} Low >60 [facility] Comment on above: Result Comment: Non- GFR Calc Performed By: #### L 500.2500, L100.0100 ####[facility] [address] [place], [address] Glucose [Mass/Vol] 158 mg/dL High 74-106 [facility] Comment on above: Result Comment: Fast ing Glucose result greater than or equal to 126 mg/dLsuggests DIABETES MELLITUS per A.D.A. criteria. Performed By: #### L 500.2500, L100.0100 ####[facility] [address] [place], [address] Potassium [Moles/Vol] 4.1 mmol/L Normal 3.5-5.1 [facility] Comment on above: Performed By: #### L 500.2500, L100.0100 ####[facility] [address] [place], [address] Sodium [Moles/Vol] 137 mmol/L Normal 136-145 [facility] Comment on above: Performed By: #### L 500.2500, L100.0100 ####[facility] [address] [place], [address] Urea nitrogen [Mass/Vol] 47 mg/dL High 7-18 [facility] Comment on above: Performed By: #### L 500.2500, L100.0100 ####[facility] [address] [place], [address] Bedside Glucoseon 07-30-2024 FINGERSTICK GLU 111 mg/dL High 74-106 [facility] Comment on above: Result Comment: ISSA GEMENT OF PATIENT CARE PER NURSING PROTOCOL Performed By: #### L 501.080 ####[facility] [address] [place], [address] FINGERSTICK GLU 158 mg/dL High 74-106 [facility] Comment on above: Result Comment: ISSA GEMENT OF PATIENT CARE PER NURSING PROTOCOL Performed By: #### L 501.080 ####[facility] [address] [place], [address] FINGERSTICK GLU 127 mg/dL High 74-106 [facility] Comment on above: Result Comment: ISSA GEMENT OF PATIENT CARE PER NURSING PROTOCOL Performed By: #### L 501.080 ####[facility] [address] [place], [address] FINGERSTICK GLU 139 mg/dL High 74-106 [facility] Comment on above: Result Comment: ISSA GEMENT OF PATIENT CARE PER NURSING PROTOCOL Performed By: #### L 501.080 ####[facility] [address] [place], [address] Blood Gases by [facility] 024 MIGUEL TEST Positive Normal [facility] Comment on above: Performed By: #### L 9000.0800 ####[facility] [address] [place], [address] Base excess Calc (Bld) [Moles/Vol] 15 mmol/L High -2 to +2 [facility] Comment on above: Performed By: #### L 9000.0800 ####[facility] [address] [place], [address] Blood Gas Type ART Normal [facility] Comment on above: Performed By: #### L 9000.0800 ####[facility] [address] [place], [address] CO2 [Moles/Vol] 42 mmol/L Normal [facility] Comment on above: Performed By: #### L 9000.0800 ####[facility] [address] [place], [address] FI02 5.0 Normal [facility] Comment on above: Performed By: #### L 9000.0800 ####[facility] [address] [place], [address] HCO3 (Bld) [Moles/Vol] 39.8 mmol/L High 22-26 [facility] Comment on above: Performed By: #### L 9000.0800 ####[facility] [address] [place], [address] Mode Not entered Normal [facility] Comment on above: Performed By: #### L 9000.0800 ####[facility] [address] [place], [address] O2 Delivery Dev Cannula Normal [facility] Comment on above: Performed By: #### L 9000.0800 ####[facility] [address] [place], [address] pCO2 67.5 mmHg Invalid Interpretation Code 35-45 [facility] Comment on above: Performed By: #### L 9000.0800 ####[facility] [address] [place], [address] pH (Bld) 7.38 [pH] Normal 7.35-7.45 [facility] Comment on above: Performed By: #### L 9000.0800 ####[facility] [address] [place], [address] PO2 59 mmHG Low 75-100 [facility] Comment on above: Performed By: #### L 9000.0800 ####[facility] [address] [place], [address] Read Back By Yes Normal [facility] Comment on above: Performed By: #### L 9000.0800 ####[facility] [address] [place], [address] SITE L Radial Normal [facility] Comment on above: Performed By: #### L 9000.0800 ####[facility] [address] [place], [address] SO2 88 Low 95-99 [facility] Comment on above: Performed By: #### L 9000.0800 ####[facility] [address] [place], [address] Time Given 04:25:10 [facility] Comment on above: Performed By: #### L 9000.0800 ####[facility] [address] [place], [address] CRPon 07-30-2024 C-REACTIVE PROT 12.90 mg/L High 0.0-3.0 [facility] Comment on above: Result Comment: C-Re active Protein (CRP) provides useful information for thediagnosis, therapy and monitoring of inflammatory processesand associated diseases. For the evaluation of Relative Riskfor Cardiovascular Disease, a High Sensitivity CRP (HSCRP)should be ordered. Performed By: #### L 509.7000, M200.1000, L501.6710 ####[facility] [address] [place], [address] Chest 1 View (Portable)on Chest 1 View (Portable) Normal [facility] Consultation - Intensiviston 07-30-2024 Consultation - [employer] Aide Normal [facility] M8200.1000on 07-30-2024 M8200.1000 Negative Normal [facility] Comment on above: Performed By: #### M 8200.1000 ####[facility] [address] [place], [address] Procalcitoninon 07-30-2024 Procalcitonin 0.32 ng/mL High 0.00-0.09 [facility] Comment on above: Result Comment: A pr ocalcitonin (PCT) level above 2.0 ng/mL on the first day of ICU admission is associated with a high risk for progression to severe sepsis and/or septic shock. A PCT level below 0.5 ng/mL on the first day of ICU admission is associated with a low risk for progression to severe and/or septic shock. Note: Concentrations <0.5 ng/mL do not exclude an infection on account of localized infections (without systemic signs) which can be associated with such low concentrations, or a systemic infection in its initial stages (<6 hours). Furthermore, increased procalcitonin can occur without infection. PCT concentrations between 0.5 and 2.0 ng/mL should be interpreted taking into account the patient's history. It is recommended to retest PCT within 6-24 hours if any concentrations <2 ng/mL are obtained. Performed By: #### L 509.7000, M200.1000, L501.6710 ####[facility] [address] [place], [address] Bedside Glucoseon 07-29-2024 FINGERSTICK GLU 143 mg/dL High 74-106 [facility] Comment on above: Result Comment: ISSA GEMENT OF PATIENT CARE PER NURSING PROTOCOL Performed By: #### L 501.080 ####[facility] [address] [place], [address] FINGERSTICK GLU 188 mg/dL High 74-106 [facility] Comment on above: Result Comment: ISSA GEMENT OF PATIENT CARE PER NURSING PROTOCOL Performed By: #### L 501.080 ####[facility] [address] [place], [address] FINGERSTICK GLU 135 mg/dL High 74-106 [facility] Comment on above: Result Comment: ISSA GEMENT OF PATIENT CARE PER NURSING PROTOCOL Performed By: #### L 501.080 ####[facility] [address] [place], [address] FINGERSTICK GLU 140 mg/dL High 74-106 [facility] Comment on above: Result Comment: ISSA GEMENT OF PATIENT CARE PER NURSING PROTOCOL Performed By: #### L 501.080 ####[facility] [address] [place], [address] CBC W/Diff, Automatedon PATH REV Reviewed Normal [facility] Comment on above: Result Comment: Neut rophilic leukocytosis.Clinical correlation necessary.Antolin Barnard M.D. 07/29/24 AMENDED REPORT 07/29/24 1016 PATH REV previously reported as: March foll Performed By: #### L 100.0100, L501.2300, L500.4050, L501.5200 ####[facility] [address] [place], [address] PATH REV Reviewed Normal [facility] Comment on above: Result Comment: Neut rophilic leukocytosis.Normocytic anemia.Clinical correlation necessary.Antolin Barnard M.D. 07/29/24 AMENDED REPORT 07/29/24 0851 PATH REV previously reported as: March foll Performed By: #### L 100.0100, L500.2500 ####[facility] [address] [place], [address] Comprehensive Metabolic Prof ilon 07-29-2024 Albumin [Mass/Vol] 3.2 g/dL Normal 3.2-5.0 [facility] Comment on above: Performed By: #### L 100.0100, L501.2300, L500.4050, L501.5200 ####[facility] [address] [place], [address] Albumin/Globulin [Mass ratio] 0.8 {ratio} Low 0.9-2.4 [facility] Comment on above: Performed By: #### L 100.0100, L501.2300, L500.4050, L501.5200 ####[facility] [address] [place], [address] ALK P 103 U/L Normal 45-117 [facility] Comment on above: Performed By: #### L 100.0100, L501.2300, L500.4050, L501.5200 ####[facility] [address] [place], [address] ALT [Catalytic activity/Vol] 16 U/L Normal 16-61 [facility] Comment on above: Performed By: #### L 100.0100, L501.2300, L500.4050, L501.5200 ####[facility] [address] [place], [address] AST [Catalytic activity/Vol] 29 U/L Normal 15-37 [facility] Comment on above: Performed By: #### L 100.0100, L501.2300, L500.4050, L501.5200 ####[facility] [address] [place], [address] Bilirubin [Mass/Vol] 0.60 mg/dL Normal 0.20-1.00 [facility] Comment on above: Result Comment: For patients on eltrombopag therapy, use of Dimension [place] TBIL is not recommended. Performed By: #### L 100.0100, L501.2300, L500.4050, L501.5200 ####[facility] [address] [place], [address] BUN/CRE 28.0 RATIO High 10-20 [facility] Comment on above: Performed By: #### L 100.0100, L501.2300, L500.4050, L501.5200 ####[facility] [address] [place], [address] CA,Total 8.4 mg/dL Low 8.5-10.1 [facility] Comment on above: Performed By: #### L 100.0100, L501.2300, L500.4050, L501.5200 ####[facility] [address] [place], [address] Chloride [Moles/Vol] 96 mmol/L Low 98-107 [facility] Comment on above: Performed By: #### L 100.0100, L501.2300, L500.4050, L501.5200 ####[facility] [address] [place], [address] CO2 [Moles/Vol] 37.0 mmol/L High 21.0-32.0 [facility] Comment on above: Performed By: #### L 100.0100, L501.2300, L500.4050, L501.5200 ####[facility] [address] [place], [address] Creatinine [Mass/Vol] 0.93 mg/dL Normal 0.70-1.30 [facility] Comment on above: Result Comment: The validity of the calculated GFR GFRAA in patients over70 years has not been determined. Clinical correlation isessential. Performed By: #### L 100.0100, L501.2300, L500.4050, L501.5200 ####[facility] [address] [place], [address] ECRCL 66.17 ml/min Normal [facility] Comment on above: Performed By: #### L 100.0100, L501.2300, L500.4050, L501.5200 ####[facility] [address] [place], [address] EST GFR - AA 103 mL/min Normal >60 [facility] Comment on above: Result Comment: Afri can Libyan GFR Calc Performed By: #### L 100.0100, L501.2300, L500.4050, L501.5200 ####[facility] [address] [place], [address] GAP 6 Normal 5-15 [facility] Comment on above: Performed By: #### L 100.0100, L501.2300, L500.4050, L501.5200 ####[facility] [address] [place], [address] GFR/1.73 sq M.predicted among non-blacks MDRD (S/P/Bld) [Vol rate/Area] 85 mL/min/{1.73_m2} Normal >60 [facility] Comment on above: Result Comment: Non- GFR Calc Performed By: #### L 100.0100, L501.2300, L500.4050, L501.5200 ####[facility] [address] [place], [address] Globulin (S) [Mass/Vol] 4.1 g/dL Normal 2.2-4.2 [facility] Comment on above: Performed By: #### L 100.0100, L501.2300, L500.4050, L501.5200 ####[facility] [address] [place], [address] Glucose [Mass/Vol] 148 mg/dL High 74-106 [facility] Comment on above: Result Comment: Fast ing Glucose result greater than or equal to 126 mg/dLsuggests DIABETES MELLITUS per A.D.A. criteria. Performed By: #### L 100.0100, L501.2300, L500.4050, L501.5200 ####[facility] [address] [place], [address] Potassium [Moles/Vol] 3.0 mmol/L Low 3.5-5.1 [facility] Comment on above: Performed By: #### L 100.0100, L501.2300, L500.4050, L501.5200 ####[facility] [address] [place], [address] Sodium [Moles/Vol] 139 mmol/L Normal 136-145 [facility] Comment on above: Performed By: #### L 100.0100, L501.2300, L500.4050, L501.5200 ####[facility] [address] [place], [address] T PROT 7.3 g/dL Normal 6.4-8.2 [facility] Comment on above: Performed By: #### L 100.0100, L501.2300, L500.4050, L501.5200 ####[facility] [address] [place], [address] Urea nitrogen [Mass/Vol] 26 mg/dL High 7-18 [facility] Comment on above: Performed By: #### L 100.0100, L501.2300, L500.4050, L501.5200 ####[facility] [address] [place], [address] Magnesiumon 07-29-2024 Magnesium [Mass/Vol] 1.8 mg/dL Normal 1.6-2.6 [facility] Comment on above: Performed By: #### L 100.0100, L501.2300, L500.4050, L501.5200 ####[facility] [address] [place], [address] Phosphoruson 07-29-2024 Phosphate [Mass/Vol] 3.0 mg/dL Normal 2.5-4.9 [facility] Comment on above: Performed By: #### L 100.0100, L501.2300, L500.4050, L501.5200 ####[facility] [address] [place], [address] Basic Metabolic Profile (BMP )on 07-28-2024 BUN/CRE 20.0 RATIO Normal 10-20 [facility] Comment on above: Performed By: #### L 100.0100, L500.2500 ####[facility] [address] [place], [address] CA,Total 8.7 mg/dL Normal 8.5-10.1 [facility] Comment on above: Performed By: #### L 100.0100, L500.2500 ####[facility] [address] [place], [address] Chloride [Moles/Vol] 99 mmol/L Normal 98-107 [facility] Comment on above: Performed By: #### L 100.0100, L500.2500 ####[facility] [address] [place], [address] CO2 [Moles/Vol] 32.0 mmol/L Normal 21.0-32.0 [facility] Comment on above: Performed By: #### L 100.0100, L500.2500 ####[facility] [address] [place], [address] Creatinine [Mass/Vol] 1.05 mg/dL Normal 0.70-1.30 [facility] Comment on above: Result Comment: The validity of the calculated GFR GFRAA in patients over70 years has not been determined. Clinical correlation isessential. Performed By: #### L 100.0100, L500.2500 ####[facility] [address] [place], [address] ECRCL 58.67 ml/min Normal [facility] Comment on above: Performed By: #### L 100.0100, L500.2500 ####[facility] [address] [place], [address] EST GFR - AA 89 mL/min Normal >60 [facility] Comment on above: Result Comment: Afri can Libyan GFR Calc Performed By: #### L 100.0100, L500.2500 ####[facility] [address] [place], [address] GAP 6 Normal 5-15 [facility] Comment on above: Performed By: #### L 100.0100, L500.2500 ####[facility] [address] [place], [address] GFR/1.73 sq M.predicted among non-blacks MDRD (S/P/Bld) [Vol rate/Area] 74 mL/min/{1.73_m2} Normal >60 [facility] Comment on above: Result Comment: Non- GFR Calc Performed By: #### L 100.0100, L500.2500 ####[facility] [address] [place], [address] Glucose [Mass/Vol] 185 mg/dL High 74-106 [facility] Comment on above: Result Comment: Fast ing Glucose result greater than or equal to 126 mg/dLsuggests DIABETES MELLITUS per A.D.A. criteria. Performed By: #### L 100.0100, L500.2500 ####[facility] [address] [place], [address] Potassium [Moles/Vol] 3.6 mmol/L Normal 3.5-5.1 [facility] Comment on above: Performed By: #### L 100.0100, L500.2500 ####[facility] [address] [place], [address] Sodium [Moles/Vol] 137 mmol/L Normal 136-145 [facility] Comment on above: Performed By: #### L 100.0100, L500.2500 ####[facility] [address] [place], [address] Urea nitrogen [Mass/Vol] 21 mg/dL High 7-18 [facility] Comment on above: Performed By: #### L 100.0100, L500.2500 ####[facility] [address] [place], [address] Bedside Glucoseon 07-28-2024 FINGERSTICK GLU 164 mg/dL High 74-106 [facility] Comment on above: Result Comment: ISSA GEMENT OF PATIENT CARE PER NURSING PROTOCOL Performed By: #### L 501.080 ####[facility] [address] [place], [address] FINGERSTICK GLU 138 mg/dL High 74-106 [facility] Comment on above: Result Comment: ISSA GEMENT OF PATIENT CARE PER NURSING PROTOCOL Performed By: #### L 501.080 ####[facility] [address] [place], [address] FINGERSTICK GLU 179 mg/dL High 74-106 [facility] Comment on above: Result Comment: ISSA GEMENT OF PATIENT CARE PER NURSING PROTOCOL Performed By: #### L 501.080 ####[facility] [address] [place], [address] FINGERSTICK GLU 178 mg/dL High 74-106 [facility] Comment on above: Result Comment: ISSA GEMENT OF PATIENT CARE PER NURSING PROTOCOL Performed By: #### L 501.080 ####[facility] [address] [place], [address] CBC W/Diff, Automatedon 09-0 Absolute Lymph 0.51 X10 3/uL Low 0.83-4.51 [facility] Comment on above: Performed By: #### L 100.0100, L500.2500 ####[facility] [address] [place], [address] Absolute Neut 10.5 X10 3/uL High 2.0-7.7 [facility] Comment on above: Performed By: #### L 100.0100, L500.2500 ####[facility] [address] [place], [address] Basophils/100 WBC (Bld) 0.1 % Normal 0-1 [facility] Comment on above: Performed By: #### L 100.0100, L500.2500 ####[facility] [address] [place], [address] Eosinophils/100 WBC (Bld) 0.0 % Normal 0-5 [facility] Comment on above: Performed By: #### L 100.0100, L500.2500 ####[facility] [address] [place], [address] Erythrocyte distribution width (RBC) [Ratio] 15.7 % High 11.6-14.6 [facility] Comment on above: Performed By: #### L 100.0100, L500.2500 ####[facility] [address] [place], [address] Hematocrit (Bld) [Volume fraction] 40.6 % Normal 40-54 [facility] Comment on above: Performed By: #### L 100.0100, L500.2500 ####[facility] [address] [place], [address] Hemoglobin (Bld) [Mass/Vol] 11.8 g/dL Low 13.0-16.5 [facility] Comment on above: Performed By: #### L 100.0100, L500.2500 ####[facility] [address] [place], [address] IG% 0.800 Normal 0.0-0.9 [facility] Comment on above: Result Comment: IG% - Immature Granulocytes (promyelocytes, myelocytes andmetamyelocytes) > 1% indicates that a LEFT SHIFT is Present. Performed By: #### L 100.0100, L500.2500 ####[facility] [address] [place], [address] Lymphocytes/100 WBC (Bld) 4.5 % Low 19-41 [facility] Comment on above: Performed By: #### L 100.0100, L500.2500 ####[facility] [address] [place], [address] MCH (RBC) [Entitic mass] 25.9 pg Low 27.0-32.0 [facility] Comment on above: Performed By: #### L 100.0100, L500.2500 ####[facility] [address] [place], [address] MCHC (RBC) [Mass/Vol] 29.1 g/dL Low 32-36 [facility] Comment on above: Performed By: #### L 100.0100, L500.2500 ####[facility] [address] [place], [address] MCV (RBC) [Entitic vol] 89.0 fL Normal 80-94 [facility] Comment on above: Performed By: #### L 100.0100, L500.2500 ####[facility] [address] [place], [address] Monocytes/100 WBC (Bld) 1.4 % Normal 0-10 [facility] Comment on above: Performed By: #### L 100.0100, L500.2500 ####[facility] [address] [place], [address] Neutrophils/100 WBC (Bld) 93.2 % High 47-70 [facility] Comment on above: Performed By: #### L 100.0100, L500.2500 ####[facility] [address] [place], [address] Nucleated RBC (Bld) [#/Vol] 0.4 10*3/uL Normal 0-5 [facility] Comment on above: Performed By: #### L 100.0100, L500.2500 ####[facility] [address] [place], [address] Platelet mean volume (Bld) [Entitic vol] 8.8 fL Normal 6.2-12.0 [facility] Comment on above: Performed By: #### L 100.0100, L500.2500 ####[facility] [address] [place], [address] Platelets (Bld) [#/Vol] 324 10*3/uL Normal 150-450 [facility] Comment on above: Performed By: #### L 100.0100, L500.2500 ####[facility] [address] [place], [address] RBC (Bld) [#/Vol] 4.56 10*6/uL Low 4.6-6.2 [facility] Comment on above: Performed By: #### L 100.0100, L500.2500 ####[facility] [address] [place], [address] RDW SD 51.0 fl High 35.1-43.9 [facility] Comment on above: Performed By: #### L 100.0100, L500.2500 ####[facility] [address] [place], [address] WBC (Bld) [#/Vol] 11.3 10*3/uL High 4.4-11.0 [facility] Comment on above: Performed By: #### L 100.0100, L500.2500 ####[facility] [address] [place], [address] Chest 1 View (Portable)on Chest 1 View (Portable) Normal [facility] Chest without Contraston Chest without Contrast Normal [facility] L501.4020on 07-28-2024 TROPONIN-I HS 27 pg/mL Normal 3.0-78.0 [facility] Comment on above: Order Comment: Comme nts: SPECIMEN #3'TROP' Serial specimen #1, #2 or #3: 3 Result Comment: Ganesh grewal Note: New Test Units and Gender Specific Reference Ranges. For more information see Policy Stat Procedure [place] High Sensitivity Troponin (TNIH) and attachments. Performed By: #### L 501.4020 ####[facility] [address] [place], [address] Legionella Antigen Urineon 0 07-28-2024 LEGU Normal [facility] Comment on above: Performed By: #### M 300.4500, M300.4600 ####[facility] [address] [place], [address] RESPIRATORY PANEL MOLECULARo n 07-28-2024 RP PANEL Normal [facility] Comment on above: Performed By: #### M 100.638 ####[facility] [address] [place], [address] Strep pneumoniae Antig(UR,CS F)on 07-28-2024 STPAG Normal [facility] Comment on above: Performed By: #### M 300.4500, M300.4600 ####[facility] [address] [place], [address] 12 Lead EKGon 07-27-2024 12 Lead EKG Normal [facility] BNP,B-Type NATRIURETIC PEPTI Julia 07-27-2024 Natriuretic peptide B (Bld) [Mass/Vol] 154.5 pg/mL High 0-100 [facility] Comment on above: Performed By: #### L 503.6620, L501.4020 ####[facility] [address] [place], [address] Basic Metabolic Profile (BMP )on 07-27-2024 BUN/CRE 18.1 RATIO Normal 10-20 [facility] Comment on above: Performed By: #### L 100.0100, L500.2500 ####[facility] [address] [place], [address] CA,Total 8.7 mg/dL Normal 8.5-10.1 [facility] Comment on above: Performed By: #### L 100.0100, L500.2500 ####[facility] [address] [place], [address] Chloride [Moles/Vol] 102 mmol/L Normal 98-107 [facility] Comment on above: Performed By: #### L 100.0100, L500.2500 ####[facility] [address] [place], [address] CO2 [Moles/Vol] 32.0 mmol/L Normal 21.0-32.0 [facility] Comment on above: Performed By: #### L 100.0100, L500.2500 ####[facility] [address] [place], [address] Creatinine [Mass/Vol] 0.99 mg/dL Normal 0.70-1.30 [facility] Comment on above: Result Comment: The validity of the calculated GFR GFRAA in patients over70 years has not been determined. Clinical correlation isessential. Performed By: #### L 100.0100, L500.2500 ####[facility] [address] [place], [address] EST GFR - AA 95 mL/min Normal >60 [facility] Comment on above: Result Comment: Afri can Libyan GFR Calc Performed By: #### L 100.0100, L500.2500 ####[facility] [address] [place], [address] GAP 5 Normal 5-15 [facility] Comment on above: Performed By: #### L 100.0100, L500.2500 ####[facility] [address] [place], [address] GFR/1.73 sq M.predicted among non-blacks MDRD (S/P/Bld) [Vol rate/Area] 78 mL/min/{1.73_m2} Normal >60 [facility] Comment on above: Result Comment: Non- GFR Calc Performed By: #### L 100.0100, L500.2500 ####[facility] [address] [place], [address] Glucose [Mass/Vol] 117 mg/dL High 74-106 [facility] Comment on above: Result Comment: Fast ing Glucose result from 100 to 125 mg/dLsuggests IMPAIRED HOMEOSTASIS per A.D.A. criteria. Performed By: #### L 100.0100, L500.2500 ####[facility] [address] [place], [address] Potassium [Moles/Vol] 3.5 mmol/L Normal 3.5-5.1 [facility] Comment on above: Performed By: #### L 100.0100, L500.2500 ####[facility] [address] [place], [address] Sodium [Moles/Vol] 139 mmol/L Normal 136-145 [facility] Comment on above: Performed By: #### L 100.0100, L500.2500 ####[facility] [address] [place], [address] Urea nitrogen [Mass/Vol] 18 mg/dL Normal 7-18 [facility] Comment on above: Performed By: #### L 100.0100, L500.2500 ####[facility] [address] [place], [address] Bedside Glucoseon 07-27-2024 FINGERSTICK GLU 199 mg/dL High 74-106 [facility] Comment on above: Result Comment: ISSA JORDAN OF PATIENT CARE PER NURSING PROTOCOL Performed By: #### L 501.080 ####[facility] [address] [place], [place], [id number] Chest 1 View (Portable)on Chest 1 View (Portable) Normal [facility] D-Dimer Quantitative (DVT/PE )on 07-27-2024 D-DIMER QUANT 0.29 FEU/ug/m Normal 0.27-0.49 [facility] Comment on above: Result Comment: NORM AL D-Dimer level (<0.50) indicates no DVT or PE. Performed By: #### L 300.8000 ####[facility] [address] [place], [place], [id number] Echo Complete W/ Contraston 07-27-2024 Echo Complete W/ Contrast Normal [facility] Emergency Department Summary on 07-27-2024 Emergency Department Summary Normal [facility] H AND P Exam - Hospitaliston 07-27-2024 H&P Exam - Hospitalist Normal [facility] L501.4020on 07-27-2024 TROPONIN-I HS 32 pg/mL Normal 3.0-78.0 [facility] Comment on above: Order Comment: Comme nts: SPECIMEN #2'TROP' Serial specimen #1, #2 or #3: 2 Result Comment: Plea se Note: New Test Units and Gender Specific Reference Ranges. For more information see Policy Stat Procedure [place] High Sensitivity Troponin (TNIH) and attachments. Performed By: #### L 501.4020 ####[facility] [address] [place], [place], [id number] TROPONIN-I HS 34 pg/mL Normal 3.0-78.0 [facility] Comment on above: Order Comment: 'TROP ' Serial specimen #1, #2 or #3: 1 Result Comment: Plea se Note: New Test Units and Gender Specific Reference Ranges. For more information see Policy Stat Procedure [place] High Sensitivity Troponin (TNIH) and attachments. Performed By: #### L 501.4020 ####[facility] [address] [place], [place], [id number] TROPONIN-I HS 49 pg/mL Normal 3.0-78.0 [facility] Comment on above: Order Comment: 'TROP ' Serial specimen #1, #2 or #3: 1 Result Comment: Ganesh grewal Note: New Test Units and Gender Specific Reference Ranges. For more information see Policy Stat Procedure [place] High Sensitivity Troponin (TNIH) and attachments. Performed By: #### L 503.6620, L501.4020 ####[facility] [address] [place], [address] M100.678on 07-27-2024 M100.678 Pending SARS-CoV-2 (COVID 19) Negative INFLUENZA A Negative INFLUENZA B Negative RSV PCR Negative Normal [facility] Comment on above: Performed By: #### M 100.678 ####[facility] [address] [place], [address] Absolute lymphocyte countOrd ered By: Gregg Duran on 01-22-2024 Lymphocytes Auto (Unsp spec) [#/Vol] 2.20 10*3/uL 0.83-4.51 [facility] Automated lymphocyte count a s percentage of total leukocytesOrdered By: Gregg Duran on 01-22-2024 Lymphocytes/100 WBC Auto (Unsp spec) 15.8 % 19-41 [facility] Basophil percentageOrdered B y: Gregg Duran on 01-22-2024 Basophils/100 WBC (Bld) 0.7 % 0-1 [facility] Bilirubin [Mass/Vol] 0.80 mg/dL 0.20-1.00 [facility] Comment on above: For patients on eltr ombopag therapy, use of Dimension [place] TBIL is not recommended. Chloride [Moles/Vol] 107 mmol/L 98-107 [facility] Eosinophils/100 WBC (Bld) 1.1 % 0-5 [facility] Glucose [Mass/Vol] 110 mg/dL 74-106 [facility] Comment on above: Fasting Glucose resu lt from 100 to 125 mg/dL suggests IMPAIRED HOMEOSTASIS per A.D.A. criteria. Hemoglobin (Bld) [Mass/Vol] 15.3 g/dL 13.0-16.5 [facility] Monocytes/100 WBC (Bld) 11.0 % 0-10 [facility] Neutrophils (Bld) [#/Vol] 9.9 10*3/uL 2.0-7.7 [facility] Neutrophils/100 WBC (Bld) 71.0 % 47-70 [facility] Potassium [Moles/Vol] 4.0 mmol/L 3.5-5.1 [facility] Protein [Mass/Vol] 7.8 g/dL 6.4-8.2 [facility] Sodium [Moles/Vol] 140 mmol/L 136-145 [facility] WBC (Bld) [#/Vol] 13.9 10*3/uL 4.4-11.0 [facility] Blood manual differential co mment interpretation (narrative result)Ordered By: Gregg Duran on 01-22-2024 Manual differential comment Delonte (Bld) [Interp] SCANNED [facility] Determination of erythrocyte mean corpuscular volume (MCV)Ordered By: Gregg Duran on 01-22-2024 MCV (RBC) [Entitic vol] 96.3 fL 80-94 [facility] Erythrocyte distribution wid th ratioOrdered By: Gregg Duran on 01-22-2024 Erythrocyte distribution width (RBC) [Ratio] 14.1 % 11.6-14.6 [facility] Erythrocyte distribution wid th standard deviationOrdered By: Gregg Duran on 01-22-2024 Erythrocyte distribution width (RBC) [Entitic vol] 50.3 fL 35.1-43.9 [facility] Hematocrit Auto (Bld) [Volum e fraction]Ordered By: Gregg Duran on 01-22-2024 Hematocrit (Bld) [Volume fraction] 48.9 % 40-54 [facility] Immature granulocytes/100 WB C Auto (Bld)Ordered By: Gregg Duran on 01-22-2024 Immature granulocytes/100 WBC (Bld) 0.400 % 0.0-0.9 [facility] Comment on above: IG% - Immature Granu locytes (promyelocytes, myelocytes and metamyelocytes) > 1% indicates that a LEFT SHIFT is Present. Laboratory - Chemistry and C hemistry - challengeOrdered By: Gregg Duran on 01-22-2024 Albumin/Globulin [Mass ratio] 0.9 {ratio} 0.9-2.4 [facility] ALP [Catalytic activity/Vol] 115 U/L 45-117 [facility] ALT [Catalytic activity/Vol] 23 U/L 16-61 [facility] CO2 [Moles/Vol] 30.0 mmol/L 21.0-32.0 [facility] Globulin (S) [Mass/Vol] 4.1 g/dL 2.2-4.2 [facility] Urea nitrogen/Creatinine [Mass ratio] 15.2 mg/mg 10-20 [facility] Laboratory - Hematology and Cell countsOrdered By: Gregg Duran on 01-22-2024 MCH (RBC) [Entitic mass] 30.1 pg 27.0-32.0 [facility] MCHC (RBC) [Mass/Vol] 31.3 g/dL 32-36 [facility] Nucleated RBC/100 WBC (Bld) [Ratio] 0 % 0-5 [facility] Platelet mean volume (Bld) [Entitic vol] 9.2 fL 6.2-12.0 [facility] Platelets (Bld) [#/Vol] 345 10*3/uL 150-450 [facility] No Panel InformationOrdered By: Gregg Duran on 01-22-2024 D-Dimer Quantitative (PE/DVT) 0.42 FEU/ug/m 0.27-0.49 [facility] Comment on above: NORMAL D-Dimer level (<0.50) indicates no DVT or PE. Estimated GFR (MDRD) Amer 95 mL/min >60 [facility] Comment on above: GFR Calc Estimated GFR (MDRD) Non-Af Amer 79 mL/min >60 [facility] Comment on above: Non- GFR Calc RBC Auto (Bld) [#/Vol]Ordere d By: Gregg Duran on 01-22-2024 RBC (Bld) [#/Vol] 5.08 10*6/uL 4.6-6.2 [facility] Review by pathologistOrdered By: Gregg Duran on 01-22-2024 Pathologist review Delonte (Unsp spec) [Interp] Reviewed [facility] Comment on above: Previous reported re sult: Sarah alfaro Edited by: RGOROSANA on 01/23/24:1433Neutrophilic leukocytosis.Macrocytosis.Clinical correlation necessary.Antolin Barnard M.D. 01/23/24 AMENDED REPORT 01/23/24 1433 PATH REV previously reported as: Sarah alfaro Serum or plasma calcium debi urement (mass/volume)Ordered By: Gregg Duran on 01-22-2024 Calcium [Mass/Vol] 10.3 mg/dL 8.5-10.1 [facility] Serum or plasma creatinine m easurement (mass/volume)Ordered By: Gregg Duran on 01-22-2024 Creatinine [Mass/Vol] 0.99 mg/dL 0.70-1.30 [facility] Comment on above: The validity of the calculated GFR & GFRAA in patients over 70 years has not been determined. Clinical correlation is essential. Serum or plasma urea nitroge n measurement (mass/volume)Ordered By: Gregg Duran on 01-22-2024 Urea nitrogen [Mass/Vol] 15 mg/dL 7-18 [facility] Thin prep Papanicolaou smear with manual screeningOrdered By: Gregg Duran on 01-22-2024 Thin prep Papanicolaou smear with manual screening 3.7 g/dL 3.2-5.0 [facility] Thin prep Papanicolaou smear with manual screening 25 U/L 15-37 [facility] Thin prep Papanicolaou smear with manual screening 3 5-15 [facility] Basophil percentageOrdered B y: Gregg Duran on 10-23-2023 Chloride [Moles/Vol] 107 mmol/L 98-107 [facility] Cholesterol [Mass/Vol] 142 mg/dL <200 [facility] Comment on above: <200 mg/dL Desirable 200-240 mg/dL Borderline >240 mg/dL High Risk Glucose [Mass/Vol] 103 mg/dL 74-106 [facility] Comment on above: Fasting Glucose resu lt from 100 to 125 mg/dL suggests IMPAIRED HOMEOSTASIS per A.D.A. criteria. Potassium [Moles/Vol] 3.8 mmol/L 3.5-5.1 [facility] Sodium [Moles/Vol] 141 mmol/L 136-145 [facility] Triglyceride [Mass/Vol] 68 mg/dL <199 [facility] Comment on above: The drugs N-Acetylcy steine and Metamizole may falsely depress this assay.Serum Triglycerides Reference Interval Normal <150 mg/dL Borderline high 150 - 199 mg/dL High 200 - 499 mg/dL Very High > or = 500 mg/dL Laboratory - Chemistry and C hemistry - challengeOrdered By: Gregg Duran on 10-23-2023 CO2 [Moles/Vol] 29.0 mmol/L 21.0-32.0 [facility] Urea nitrogen/Creatinine [Mass ratio] 16.0 mg/mg 10-20 [facility] No Panel InformationOrdered By: Gregg Duran on 10-23-2023 Estimated GFR (MDRD) Amer 94 mL/min >60 [facility] Comment on above: GFR Calc Estimated GFR (MDRD) Non-Af Amer 78 mL/min >60 [facility] Comment on above: Non- GFR Calc Urine Microalbumin/Creatini ne Ratio 173.0 mg/g CRE <30 [facility] Serum or plasma calcium debi urement (mass/volume)Ordered By: Gregg Duran on 10-23-2023 Calcium [Mass/Vol] 9.1 mg/dL 8.5-10.1 [facility] Serum or plasma cholesterol in HDL measurement (mass/volume)Ordered By: Gregg Duran on 10-23-2023 Cholesterol in HDL [Mass/Vol] 48 mg/dL >40 [facility] Comment on above: The drugs N-Acetylcy steine and Metamizole may falsely depress this assay. Reference Range HDL <40 mg/dL Low HDL Cholesterol HDL >or= 60 mg/dL High HDL Cholesterol Serum or plasma cholesterol in VLDL measurement (mass/volume)Ordered By: Gregg Duran on 10-23-2023 Cholesterol in VLDL [Mass/Vol] 14 mg/dL 5-40 [facility] Serum or plasma creatinine m easurement (mass/volume)Ordered By: Gregg Duran on 10-23-2023 Creatinine [Mass/Vol] 1.00 mg/dL 0.70-1.30 [facility] Comment on above: The validity of the calculated GFR & GFRAA in patients over 70 years has not been determined. Clinical correlation is essential. Serum or plasma low density lipoprotein (LDL) cholesterol measurement (mass/volume)Ordered By: Gregg Duran on 10-23-2023 Cholesterol in LDL [Mass/Vol] 80 mg/dL 0-130 [facility] Serum or plasma urea nitroge n measurement (mass/volume)Ordered By: Gregg Duran on 10-23-2023 Urea nitrogen [Mass/Vol] 16 mg/dL 7-18 [facility] Thin prep Papanicolaou smear with manual screeningOrdered By: Gregg Duran on 10-23-2023 Thin prep Papanicolaou smear with manual screening 5 5-15 [facility] Thin prep Papanicolaou smear with manual screening 327.0 mg/L NO RANGE EST. [facility] Urine creatinine measurement (mass/volume)Ordered By: Gregg Duran on 10-23-2023 Creatinine (U) [Mass/Vol] 189.00 mg/dL NO RANGE EST. [facility] Whole blood hemoglobin A1c/t otal hemoglobin ratio (mass fraction)Ordered By: Gregg Duran on 10-23-2023 HbA1c (Bld) [Mass fraction] 6.0 % 3.8-5.6 [facility] Comment on above: Normal < 5.7 % Predi abetic 5.7 - 6.4 % Diabetic >or= 6.5 % Please note range changes. Laboratory - Drug toxicology Ordered By: Beba Edwards on 06-10-2023 Amphetamines Ql (U) Negative <1000 ng/mL [facility] Benzodiazepines Ql (U) Negative < 200 ng/mL [facility] Cannabinoids Screen Ql (U) Negative < 50 ng/mL [facility] Cocaine Ql (U) Negative < 300 ng/mL [facility] Opiates Ql (U) Positive < 300 ng/mL [facility] No Panel InformationOrdered By: Beba Edwards on 06-10-2023 MDMA (Ecstasy) Screen Negative < 500 ng/mL [facility] Urine Barbiturates Screen Negative < 200 ng/mL [facility] Urine Drug Screen Comment [facility] Comment on above: CONFIRMATORY TESTING FOR ALL POSITIVE URINE DRUG SCREENRESULTS WILL ONLY BE SENT OUT UPON PHYSICIAN ORDER. [facility]ISTA Urine Drug Screen methods provide only preliminaryanalytical test results. A more specific alternate chemicalmethod must be used in order to obtain a confirmedanalytical result. Gas chromatography/mass spectrometery(GC/MS) is the preferred confirmatory method. Clinicalconsideration and professional judgement should be appliedto any drug of abuse test result, particularly whenpreliminary positive results are used. URINE TCA TESTING MUST BE ORDERED SEPARATELY. USE TESTMNEMONIC: [facility] Urine Methadone Screen Negative < 300 ng/mL [facility] Urine phencyclidine (PCP) de tectionOrdered By: Beba Edwards on 06-10-2023 Phencyclidine Ql (U) Negative < 25 ng/mL [facility] Basophil percentageOrdered B y: Gregg Duran on 04-04-2023 Chloride [Moles/Vol] 108 mmol/L 98-107 [facility] Glucose [Mass/Vol] 106 mg/dL 74-106 [facility] Comment on above: Fasting Glucose resu lt from 100 to 125 mg/dL suggests IMPAIRED HOMEOSTASIS per A.D.A. criteria. Potassium [Moles/Vol] 4.3 mmol/L 3.5-5.1 [facility] Sodium [Moles/Vol] 141 mmol/L 136-145 [facility] Laboratory - Chemistry and C hemistry - challengeOrdered By: Gregg Duran on 04-04-2023 CO2 [Moles/Vol] 28.0 mmol/L 21.0-32.0 [facility] Urea nitrogen/Creatinine [Mass ratio] 20.8 mg/mg 10-20 [facility] No Panel InformationOrdered By: Gregg Duran on 04-04-2023 Estimated GFR (MDRD) Amer 112 mL/min >60 [facility] Comment on above: GFR Calc Estimated GFR (MDRD) Non-Af Amer 92 mL/min >60 [facility] Comment on above: Non- GFR Calc Serum or plasma calcium debi urement (mass/volume)Ordered By: Gregg Duran on 04-04-2023 Calcium [Mass/Vol] 9.0 mg/dL 8.5-10.1 [facility] Serum or plasma creatinine m easurement (mass/volume)Ordered By: Gregg Duran on 04-04-2023 Creatinine [Mass/Vol] 0.87 mg/dL 0.70-1.30 [facility] Comment on above: The validity of the calculated GFR & GFRAA in patients over 70 years has not been determined. Clinical correlation is essential. Serum or plasma urea nitroge n measurement (mass/volume)Ordered By: Gregg Duran on 04-04-2023 Urea nitrogen [Mass/Vol] 18 mg/dL 7-18 [facility] Thin prep Papanicolaou smear with manual screeningOrdered By: Gregg Duran on 04-04-2023 Thin prep Papanicolaou smear with manual screening 5 5-15 [facility] Basophil percentageon 2021 Bilirubin [Mass/Vol] 0.60 mg/dL 0.20-1.00 [facility] Work Phone: Comment on above: For patients on eltr ombopag therapy, use of Dimension [place] TBIL is not recommended. Chloride [Moles/Vol] 105 mmol/L 98-107 [facility] Work Phone: Cholesterol [Mass/Vol] 165 mg/dL <200 [facility] Work Phone: Comment on above: <200 mg/dL Desirable 200-240 mg/dL Borderline >240 mg/dL High Risk Glucose [Mass/Vol] 124 mg/dL 74-106 [facility] Work Phone: Comment on above: Fasting Glucose resu lt from 100 to 125 mg/dL suggests IMPAIRED HOMEOSTASIS per A.D.A. criteria. Potassium [Moles/Vol] 3.4 mmol/L 3.5-5.1 [facility] Work Phone: Protein [Mass/Vol] 7.8 g/dL 6.4-8.2 [facility] Work Phone: Sodium [Moles/Vol] 141 mmol/L 136-145 [facility] Work Phone: Triglyceride [Mass/Vol] 108 mg/dL <199 [facility] Work Phone: Comment on above: The drugs N-Acetylcy steine and Metamizole may falsely depress this assay.Serum Triglycerides Reference Interval Normal <150 mg/dL Borderline high 150 - 199 mg/dL High 200 - 499 mg/dL Very High > or = 500 mg/dL Laboratory - Chemistry and C hemistry - challengeon 10-02-2022 ALP [Catalytic activity/Vol] 109 U/L 45-117 [facility] Work Phone: ALT [Catalytic activity/Vol] 22 U/L 16-61 [facility] Work Phone: CO2 [Moles/Vol] 30.0 mmol/L 21.0-32.0 [facility] Work Phone: Globulin (S) [Mass/Vol] 4.3 g/dL 2.2-4.2 [facility] Work Phone: Urea nitrogen/Creatinine [Mass ratio] 21.9 mg/mg 10-20 [facility] Work Phone: No Panel Informationon 10-02 Estimated GFR (MDRD) Amer 111 mL/min >60 [facility] Work Phone: Comment on above: GFR Calc Estimated GFR (MDRD) Non-Af Amer 92 mL/min >60 [facility] Work Phone: Comment on above: Non- GFR Calc Serum or plasma albumin debi urement (mass/volume)on 10-02-2022 Albumin [Mass/Vol] 3.5 g/dL 3.2-5.0 [facility] Work Phone: Serum or plasma albumin/glob ulin mass ratioon 10-02-2022 Albumin/Globulin [Mass ratio] 0.8 {ratio} 0.9-2.4 [facility] Work Phone: Serum or plasma calcium debi urement (mass/volume)on 10-02-2022 Calcium [Mass/Vol] 9.4 mg/dL 8.5-10.1 [facility] Work Phone: Serum or plasma cholesterol in HDL measurement (mass/volume)on 10-02-2022 Cholesterol in HDL [Mass/Vol] 44 mg/dL >40 [facility] Work Phone: Comment on above: The drugs N-Acetylcy steine and Metamizole may falsely depress this assay. Reference Range HDL <40 mg/dL Low HDL Cholesterol HDL >or= 60 mg/dL High HDL Cholesterol Serum or plasma cholesterol in VLDL measurement (mass/volume)on 10-02-2022 Cholesterol in VLDL [Mass/Vol] 22 mg/dL 5-40 [facility] Work Phone: Serum or plasma creatinine m easurement (mass/volume)on 10-02-2022 Creatinine [Mass/Vol] 0.87 mg/dL 0.70-1.30 [facility] Work Phone: Comment on above: The validity of the calculated GFR & GFRAA in patients over 70 years has not been determined. Clinical correlation is essential. Serum or plasma low density lipoprotein (LDL) cholesterol measurement (mass/volume)on 10-02-2022 Cholesterol in LDL [Mass/Vol] 99 mg/dL 0-130 [facility] Work Phone: Serum or plasma urea nitroge n measurement (mass/volume)on 10-02-2022 Urea nitrogen [Mass/Vol] 19 mg/dL 7-18 [facility] Work Phone: Thin prep Papanicolaou smear with manual screeningon 10-02-2022 Thin prep Papanicolaou smear with manual screening 18 U/L 15-37 [facility] Work Phone: Thin prep Papanicolaou smear with manual screening 6 5-15 [facility] Work Phone: Laboratory - Drug toxicology on 10-01-2022 Amphetamines Ql (U) Negative <1000 ng/mL [facility] Work Phone: Benzodiazepines Ql (U) Negative < 200 ng/mL [facility] Work Phone: Cannabinoids Screen Ql (U) Negative < 50 ng/mL [facility] Work Phone: Cocaine Ql (U) Negative < 300 ng/mL [facility] Work Phone: Opiates Ql (U) Positive < 300 ng/mL [facility] Work Phone: No Panel Informationon 10-01 MDMA (Ecstasy) Screen Negative < 500 ng/mL [facility] Work Phone: Miscellaneous Test See comment [facility] Work Phone: Comment on above: [id number]+OXYCODONE-B UND (ng/mL) DRUG RESULT SCREEN CUTOFF____ Amphetamines,Urine Negative ng/mL 1000 Amphetamine test includes Amphetamine and Methamphetamine.Barbiturates Negative ng/mL 200Benzodiazepines Negative ng/mL 200Cannabinoid Negative ng/mL 20Cocaine (Metab) Negative ng/mL 300Opiates Positive ng/mL 300 Opiates test includes Codeine, Morphine, Hydromorphone, Hydrocodone. Please Note: Confirmation performed by Mass Spectrometry Codeine Negative Morphine Negative Hydromorphone Negative Hydrocodone Positive Hydrocodone Conf, MS, UR 892 ng/mL 300 Oxycodone/Oxymorphone,Urine Negative ng/mL 300 Test includes Oxydodone and Oxymorphone. TESTING PERFORMED AT [facility]. ORIGINAL REPORT ON FILE IN LAB CONTAINS ADDITIONAL TEST SITE INFORMATION. Urine Barbiturates Screen Negative < 200 ng/mL [facility] Work Phone: Urine Drug Screen Comment [facility] Work Phone: Comment on above: CONFIRMATORY TESTING FOR ALL POSITIVE URINE DRUG SCREENRESULTS WILL ONLY BE SENT OUT UPON PHYSICIAN ORDER. [facility]ISTA Urine Drug Screen methods provide only preliminaryanalytical test results. A more specific alternate chemicalmethod must be used in order to obtain a confirmedanalytical result. Gas chromatography/mass spectrometery(GC/MS) is the preferred confirmatory method. Clinicalconsideration and professional judgement should be appliedto any drug of abuse test result, particularly whenpreliminary positive results are used. URINE TCA TESTING MUST BE ORDERED SEPARATELY. USE TESTMNEMONIC: [facility] Urine Methadone Screen Negative < 300 ng/mL [facility] Work Phone: Urine phencyclidine (PCP) de tectionon 10-01-2022 Phencyclidine Ql (U) Negative < 25 ng/mL [facility] Work Phone: Laboratory - Drug toxicology on 04-16-2022 Amphetamines Ql (U) Negative [facility] Work Phone: Benzodiazepines Ql (U) Negative [facility] Work Phone: Cannabinoids Screen Ql (U) Negative [facility] Work Phone: Cocaine Ql (U) Negative [facility] Work Phone: Opiates Ql (U) Positive [facility] Work Phone: No Panel Informationon 04-16 MDMA (Ecstasy) Screen Negative [facility] Work Phone: Urine Barbiturates Screen Negative [facility] Work Phone: Urine Drug Screen Comment [facility] Work Phone: Comment on above: CONFIRMATORY TESTING FOR ALL POSITIVE URINE DRUG SCREENRESULTS WILL ONLY BE SENT OUT UPON PHYSICIAN ORDER. VISTA Urine Drug Screen methods provide only preliminaryanalytical test results. A more specific alternate chemicalmethod must be used in order to obtain a confirmedanalytical result. Gas chromatography/mass spectrometery(GC/MS) is the preferred confirmatory method. Clinicalconsideration and professional judgement should be appliedto any drug of abuse test result, particularly whenpreliminary positive results are used. URINE TCA TESTING MUST BE ORDERED SEPARATELY. USE TESTMNEMONIC: [facility] Urine Methadone Screen Negative [facility] Work Phone: Urine phencyclidine (PCP) de tectionon 04-16-2022 Phencyclidine Ql (U) Negative [facility] Work Phone: OBSOLETEon 06-06-2017 OBSOLETE Refill (INTMWS) CARL FOX ([id number]) 1950 MDate Time Provider Department06/06/17 ZAHEER DUVALL During your visit today, we recorded the following information about you:Erika Garvin, Maggie 06/06/2017 10:52 AM SignedPharmacist Refill Authorization ReviewName: Carl FoxMRN: [id number]: 06/06/2017Time: 10:52 AMRefill authorization request(s) received via pharmacy request and reviewedunder effective consult agreement. Upon review, did confirm that an activepatient-provider relationship exists and that the prescriber is a participatingphysician under the consult agreement.The medication(s) fall under the following categories:Category 1: 1 corresponding medication(s) qualifies for renewal due to up todate labs and provider visits.Additional actions taken: Prescription(s) issued.Erika Garvin PharmDPharmacy Managed Authorization LodgePhone Current Outpatient Prescriptions:Cholecalcif alice, Vitamin D3, 2,000 unit cap Take 1 tablet by mouth once daily.DAILY, OVER THE COUNTER.verapamil SR (CALAN SR, ISOPTIN SR) 240 mg CR tablet Take 1 tablet by mouthonce daily.lisinopril (ZESTRIL, PRINIVIL) 10 mg tablet Take 1 tablet by mouth once daily.atorvastatin (LIPITOR) 20 mg tablet Take 1 tablet by mouth daily at bedtime.For cholesterol.ipratropium-a lbuterol (COMBIVENT RESPIMAT) 20-100 mcg/Puff aero inhaler Inhale1 Puff as instructed four times daily as needed for Wheezing/Shortness ofBreath.acetaminophen-HY DROcodone (VICODIN) 5-500 mg tablet 1 tablet twice daily. .fentanyl 25 mcg/hr Apply 1 Patch as directed every 72 hours.aspirin, enteric coated (ECOTRIN LOW STRENGTH) 81 mg EC tablet Take 1 tablet bymouth once daily.No current facility-administered medications for this visit.Allergies As of Date: 06/06/2017 Noted Allergy ReactionALENDRONATE 05/30/2016 7 - SwellingIBANDRONATE 05/30/2016 7 - SwellingDate Reviewed: 01/07/2017Reviewed by: Margret Judd Critical Care Unit Manager - Fully AssessedReason for Visit: Refill Request [94]Order(s):atorvastatin (LIPITOR) 20 mg tabletTAKE 1 TABLET BY MOUTH AT BEDTIME FOR CHLOSTEROLDisp: 90 tabletRfl: 4Prescriptions as of 06/06/2017 Sig: ATORVASTATIN 20 MG TABLET TAKE 1 TABLET BY MOUTH AT BED* CHOLECALCIFEROL (VITAMIN D3) * Take 1 tablet by mouth once d* VERAPAMIL ER (SR) 240 MG TABL* Take 1 tablet by mouth once d* LISINOPRIL 10 MG TABLET Take 1 tablet by mouth once d* IPRATROPIUM-ALBUTEROL 20 MCG-* Inhale 1 Puff as instructed f* HYDROCODONE 5 MG-ACETAMINOPHE* [address] Lucio* FENTANYL 25 MCG/HR TRANSDERMA* Apply 1 Patch as directed jerilyn* ASPIRIN 81 MG TABLET,DELAYED * Take 1 tablet by mouth once d*Problem List As Of Date 06/06/2017 Noted Resolved ANKYLOSING SPONDYLITIS [M45.9] INVALID FOR* More... PAROX ATRIAL TACHYCARDIA [I47.1] INVALID FOR* PURE HYPERCHOLESTEROLEM [E78.00] INVALID FOR* Rheumatoid arthritis [M06.9] INVALID FOR* More... Retinal hemorrhage [H35.60] INVALID FOR*06/29/2012 More... HTN (Hypertension) [I10] INVALID FOR* Impaired fasting glucose [R73.01] INVALID FOR*03/24/2014 COPD (chronic obstructive pulmonary disease) [J*INVALID FOR* Adenomatous colon polyp [D12.6] INVALID FOR* Dermatitis, eczematoid [L30.9] INVALID FOR* Osteoporosis [M81.0] INVALID FOR* Vitamin D deficiency [E55.9] INVALID FOR* Special screening for malignant neoplasms, colo*INVALID FOR*10/13/2014 Personal history of colonic polyps [Z86.010] INVALID FOR*10/13/2014 Right nephrolithiasis [N20.0] INVALID FOR* More...Prescriptions ordered this encounter Disp Refills Start End ATORVASTATIN 20 MG TABLET 90 t* 4 06/06/2017 Sig: TAKE 1 TABLET BY MOUTH AT BEDTIME FOR CHLOSTEROLMedications Discontinued During This Encounter atorvastatin (LIPITOR) 20 mg tablet 90 t* 3 03/26/2016 06/06/2017 Cmt: Dose increase. Route: ORAL Sig: Take 1 tablet by mouth daily at bedtime. For cholesterol. Disc: Reason for discontinue is not on file. Status:Closed by PARISH (PHARMACIST)ERIKA on 06/06/17 [facility] OBSOLETE Refill (INTMWS) CARL FOX ([id number]) 1950 [facility] Department06/06/17 SCOTTIE STALEY (OUTSIDE SALES ENGINEER)(HIST) INTMWS During your visit today, we recorded the following information about you:Magali Root PharmD 06/06/2017 10:55 AM SignedPharmacist Refill Authorization ReviewName: Carl FoxMRN: [id number]: 06/06/2017Time: 10:55 AMRefill authorization request(s) received via pharmacy request and reviewedunder effective consult agreement. Upon review, did confirm that an activepatient-provider relationship exists and that the prescriber is a participatingphysician under the consult agreement.The medication(s) fall under the following categories:Category 1: 2 corresponding medication(s) qualifies for renewal due to up todate labs and provider visits.Additional actions taken: Prescription(s) issued.Tari Lovingharyoung Managed Authorization CenterPhone Current Outpatient Prescriptions:atorvastati n (LIPITOR) 20 mg tablet TAKE 1 TABLET BY MOUTH AT BEDTIME FORCHLOSTEROLCholecalcife rol, Vitamin D3, 2,000 unit cap Take 1 tablet by mouth once daily.DAILY, OVER THE COUNTER.verapamil SR (CALAN SR, ISOPTIN SR) 240 mg CR tablet Take 1 tablet by mouthonce daily.lisinopril (ZESTRIL, PRINIVIL) 10 mg tablet Take 1 tablet by mouth once daily.ipratropium-albuter ol (COMBIVENT RESPIMAT) 20-100 mcg/Puff aero inhaler Inhale1 Puff as instructed four times daily as needed for Wheezing/Shortness ofBreath.acetaminophen-HY DROcodone (VICODIN) 5-500 mg tablet 1 tablet twice daily. .fentanyl 25 mcg/hr Apply 1 Patch as directed every 72 hours.aspirin, enteric coated (ECOTRIN LOW STRENGTH) 81 mg EC tablet Take 1 tablet bymouth once daily.No current facility-administered medications for this visit.Allergies As of Date: 06/06/2017 Noted Allergy ReactionALENDRONATE 05/30/2016 7 - SwellingIBANDRONATE 05/30/2016 7 - SwellingDate Reviewed: 01/07/2017Reviewed by: Margret Judd [facility] - Fully AssessedReason for Visit: Refill Request [94]Order(s):lisinopril (ZESTRIL, PRINIVIL) 10 mg tabletTAKE 1 TABLET BY MOUTH EVERY DAYDisp: 90 tabletRfl: 3 verapamil SR (CALAN SR, ISOPTIN SR) 240 mg CR tabletTAKE 1 TABLET BY MOUTH EVERY DAYDisp: 90 tabletRfl: 3Prescriptions as of 06/06/2017 Sig: LISINOPRIL 10 MG TABLET TAKE 1 TABLET BY MOUTH EVERY * VERAPAMIL ER (SR) 240 MG TABL* TAKE 1 TABLET BY MOUTH EVERY * ATORVASTATIN 20 MG TABLET TAKE 1 TABLET BY MOUTH AT BED* CHOLECALCIFEROL (VITAMIN D3) * Take 1 tablet by mouth once d* IPRATROPIUM-ALBUTEROL 20 MCG-* Inhale 1 Puff as instructed f* HYDROCODONE 5 MG-ACETAMINOPHE* [address] Lucio* FENTANYL 25 MCG/HR TRANSDERMA* Apply 1 Patch as directed jerilyn* ASPIRIN 81 MG TABLET,DELAYED * Take 1 tablet by mouth once d*Problem List As Of Date 06/06/2017 Noted Resolved ANKYLOSING SPONDYLITIS [M45.9] INVALID FOR* More... PAROX ATRIAL TACHYCARDIA [I47.1] INVALID FOR* PURE HYPERCHOLESTEROLEM [E78.00] INVALID FOR* Rheumatoid arthritis [M06.9] INVALID FOR* More... Retinal hemorrhage [H35.60] INVALID FOR*06/29/2012 More... HTN (Hypertension) [I10] INVALID FOR* Impaired fasting glucose [R73.01] INVALID FOR*03/24/2014 COPD (chronic obstructive pulmonary disease) [J*INVALID FOR* Adenomatous colon polyp [D12.6] INVALID FOR* Dermatitis, eczematoid [L30.9] INVALID FOR* Osteoporosis [M81.0] INVALID FOR* Vitamin D deficiency [E55.9] INVALID FOR* Special screening for malignant neoplasms, colo*INVALID FOR*10/13/2014 Personal history of colonic polyps [Z86.010] INVALID FOR*10/13/2014 Right nephrolithiasis [N20.0] INVALID FOR* More...Prescriptions ordered this encounter Disp Refills Start End LISINOPRIL 10 MG TABLET 90 t* 3 06/06/2017 Sig: TAKE 1 TABLET BY MOUTH EVERY DAY VERAPAMIL ER (SR) 240 MG TABLET,EXTE* 90 t* 3 06/06/2017 Sig: TAKE 1 TABLET BY MOUTH EVERY DAYMedications Discontinued During This Encounter lisinopril (ZESTRIL, PRINIVIL) 10 mg* 90 t* 3 06/11/2016 06/06/2017 Route: ORAL Sig: Take 1 tablet by mouth once daily. Disc: Reason for discontinue is not on file. verapamil SR (CALAN SR, ISOPTIN SR) * 90 t* 3 06/11/2016 06/06/2017 Route: ORAL Sig: Take 1 tablet by mouth once daily. Disc: Reason for discontinue is not on file. Status:Closed by RUTH (PHARMACIST)MAGALI on 06/06/17 Normal [facility] Vital Signs Date Time Vital Sign Value Performing Clinician Faci litroseanne 04-28-2025 08:20-0400 Body mass index (BMI) [Ratio] 39 kg/m2 Dr. Gregg Duran MD Work Phone: [facility] 04-28-2025 08:20-0400 Body temperature 97.4 [degF] Dr. Gregg Duran MD Work Phone: [facility] 04-28-2025 08:20-0400 Body weight 90.[address] Gregg Duran MD Work Phone: [facility] 04-28-2025 08:20-0400 Diastolic blood pressure 71 mm[Hg] Dr. Gregg Duran MD Work Phone: [facility] 04-28-2025 08:20-0400 Heart rate 81 /min Dr. Gregg Duran MD Work Phone: [facility] 04-28-2025 08:20-0400 Inhaled oxygen flow rate 3 L/min Dr. Gregg Duran MD Work Phone: [facility] 04-28-2025 08:20-0400 Respiratory rate 18 /min Dr. Gregg Duran MD Work Phone: [facility] 04-28-2025 08:20-0400 SaO2% (BldA) [Mass fraction] 81 % Dr. Gregg Duran MD Work Phone: [facility] 04-28-2025 08:20-0400 Systolic blood pressure 163 mm[Hg] Dr. Gregg Duran MD Work Phone: [phone] [place] [address] 03-11-2025 07:56-0400 Body height 152.[address] Gregg Duran MD Work Phone: [facility] 03-11-2025 07:56-0400 Body mass index (BMI) [Ratio] 38.8 kg/m2 Dr. Gregg Duran MD Work Phone: [facility] 03-11-2025 07:56-0400 Body temperature 97.4 [degF] Dr. Gregg Duran MD Work Phone: 0([phone] [place] [address] 03-11-2025 07:56-0400 Body weight 90.[address] Gregg Duran MD Work Phone: [facility] 03-11-2025 07:56-0400 Diastolic blood pressure 73 mm[Hg] Dr. Gregg Duran MD Work Phone: [facility] 03-11-2025 07:56-0400 Heart rate 73 /min Dr. Gregg Duran MD Work Phone: [facility] 03-11-2025 07:56-0400 Inhaled oxygen flow rate 2 L/min Dr. Gregg Duran MD Work Phone: [facility] 03-11-2025 07:56-0400 Respiratory rate 20 /min Dr. Gregg Duran MD Work Phone: [facility] 03-11-2025 07:56-0400 SaO2% (BldA) [Mass fraction] 92 % Dr. Gregg Duran MD Work Phone: [facility] 03-11-2025 07:56-0400 Systolic blood pressure 149 mm[Hg] Dr. Gregg Duran MD Work Phone: [facility] 05-01-2023 13:32-0400 Body weight 88.[address] Gregg Duran Work Phone: [facility] 05-01-2023 13:32-0400 Diastolic blood pressure 64 mm[Hg] Dr. Gregg Duran Work Phone: [facility] 05-01-2023 13:32-0400 Heart rate 76 /min Dr. Gregg Duran Work Phone: [facility] 05-01-2023 13:32-0400 Respiratory rate 18 /min Dr. Gregg Duran Work Phone: [facility] 05-01-2023 13:32-0400 Systolic blood pressure 125 mm[Hg] Dr. Gregg Duran Work Phone: [facility] 05-01-2023 08:40-0400 Body height 152.[address] Gregg Duran Work Phone: [facility] Encounters Encounter Date Encounter Type Care Provider Facility Start: 04-28-2025 End: 04-28-2025 Patient encounter procedure Jaclyn Adams OUTSIDE SALES ENGINEER-C -[facility] Work Phone: Start: 04-28-2025 End: 04-28-2025 ambulatory Jaclyn Adams NP Facility:[facility] Start: 04-11-2025 End: 04-11-[address] Gregg Duran MD Work Phone: [facility] Work Phone: Start: 04-11-2025 End: 04-11-[address] [facility] Start: 04-11-2025 End: 04-11-2025 ambulatory Gregg Duran Facility:[facility] Start: 04-04-2025 End: 04-04-[address] Gregg Duran MD Work Phone: [facility] Work Phone: Start: 04-04-2025 End: 04-04-2025 Patient encounter procedure Jaclyn Adams OUTSIDE SALES ENGINEER-C -Pulmonary Services/Neurology Work Phone: Start: 04-04-2025 End: 04-04-2025 ambulatory Jaclyn Adams OUTSIDE SALES ENGINEER Facility:[facility] Start: 03-11-2025 End: 03-11-2025 Patient encounter procedure Jaclyn Adams OUTSIDE SALES ENGINEER-C -[facility] Work Phone: Start: 03-11-2025 End: 03-11-2025 ambulatory Jaclyn Adams OUTSIDE SALES ENGINEER Facility:[facility] Start: 11-10-2024 End: 11-10-2024 ambulatory Jaclyn Adams OUTSIDE SALES ENGINEER Facility:[facility] Start: 11-01-2024 ambulatory Frankie De Facility:[facility] Start: 10-28-2024 End: 10-28-2024 ambulatory Jaclyn Adams OUTSIDE SALES ENGINEER Facility:[facility] Start: 10-25-2024 End: 10-25-2024 ambulatory Jaclyn Angie OUTSIDE SALES ENGINEER Facility:[facility] Start: 10-19-2024 End: 10-19-2024 ambulatory Beba Luui Facility:[facility] Start: 10-12-2024 End: 10-12-2024 ambulatory Jaclyn Angie OUTSIDE SALES ENGINEER Facility:[facility] Start: 10-11-2024 End: 10-11-2024 ambulatory Gregg Duran Facility:[facility] Start: 10-01-2024 End: 10-01-2024 ambulatory Gregg Duran Facility:[facility] Start: 07-28-2024 ambulatory Zafar Fish Facility:[facility] Start: 07-27-2024 ambulatory Barbara Mays Facility:[facility] Start: 07-27-2024 End: 08-03-2024 Evaluation and management of inpatient Anh Roger Facility:[facility] Start: 01-22-2024 End: 01-22-2024 ambulatory [facility] Work Phone: Start: 01-22-2024 End: 01-22-2024 Patient encounter procedure [facility] Work Phone: Start: 10-23-2023 End: 10-23-2023 ambulatory [facility] Work Phone: Start: 10-23-2023 End: 10-23-2023 Patient encounter procedure [facility] Start: 06-10-2023 End: 06-10-[address] Gregg Duran Work Phone: [facility] Work Phone: Start: 06-10-2023 End: 06-10-[address] Gregg Duran Work Phone: [facility] Work Phone: Start: 05-01-2023 End: 05-01-[address] Gregg Duran Work Phone: [facility] Work Phone: Start: 04-04-2023 End: 04-04-[address] Gregg Duran Work Phone: [facility] Start: 10-02-2022 End: 10-02-2022 ambulatory [facility] Work Phone: Start: 10-02-2022 End: 10-02-2022 Patient encounter procedure [facility] Start: 10-01-2022 End: 10-01-2022 ambulatory [facility] Work Phone: Start: 10-01-2022 End: 10-01-2022 Patient encounter procedure [facility] Start: 04-16-2022 End: 04-16-2022 Patient encounter procedure [facility] Procedures Date Procedure Procedure Detail Performing Clinician Start: 01-22-2024 Plain chest X-ray Plan of Treatment Date Care Activity Detail Author Start: 06-10-2023 Procedure [facility] Measurement of respi ratory function [facility] Payers Date Payer Category Payer Self-pay [id number] 2020 Private Health Insurance [id number] 2002 Medicare [id number] Unknown [id number] 2.16.8 [id number] Unknown [id number] 2.16.8 40.1.157838.3.579.2.462 Unknown [id number] 2.16.8 40.1.848096.3.579.2.462 Unknown [id number] 2.16.8 40.1.693522.3.579.2.462 Unknown [id number] 2.16.8 40.1.784459.3.579.2.462 Unknown [id number] 2.16.8 40.1.845924.3.579.2.462 Unknown [id number] 2.16.8 40.1.908007.3.579.2.462 Unknown [id number] 2.16.8 40.1.724851.3.579.2.462 Unknown [id number] 2.16.8 40.1.114320.3.579.2.462 Unknown [id number] 2.16.8 40.1.999908.3.579.2.462 Unknown [id number] 2.16.8 40.1.402034.3.579.2.462 Unknown [id number] 2.16.8 40.1.296351.3.579.2.462 Unknown [id number] 2.16.8 40.1.955570.3.579.2.462 Unknown [id number] 2.16.8 40.1.472109.3.579.2.462 Unknown [id number] 2.16.8 40.1.807608.3.579.2.462 Unknown [id number] 2.16.8 40.1.219998.3.579.2.462 Unknown [id number] 2.16.8 40.1.283451.3.579.2.462 Unknown [id number] 2.16.8 40.1.318445.3.579.2.462 Unknown [id number] 2.16.8 40.1.766671.3.579.2.462 Unknown [id number] 2.16.8 40.1.466179.3.579.2.462 Unknown [id number] 2.16.8 40.1.455616.3.579.2.462 Unknown [id number] 2.16.8 40.1.128064.3.579.2.462 Unknown [id number] 2.16.8 40.1.446333.3.579.2.462 Unknown [id number] 2.16.8 40.1.814117.3.579.2.462 Social History Date Type Detail Facility Start: 06-15-2021 End: 05-01-2023 Tobacco smoking status NHIS Unknown if ever smoked [facility] Start: 03-29-2021 None [facility] Start: 03-29-2021 Non-smoker [facility] Start: 1950 Sex Assigned At Male [facility] Start: 07-27-2024 [facility] Evaluation note 03-11-2025 Note Date & Type Note Facility 03-11-2025 Evaluation note Diagnosis Onset Date Resolution Dyspnea acute March 11 7:57am Ankylosing spondylitis chronic Ap ril 2024 7:57am Hypoxia chronic March 11 7:57am Obesity chronic March 11 7:57am Secondary pulmonary arterial hypertension chronic February 7:57am [facility] Work Phone: Evaluation note 03-11-2025 Note Date & Type Note Facility 03-11-2025 Evaluation note Diagnosis Onset Date Resolution Dyspnea acute March 11 7:57am Ankylosing spondylitis chronic Ap ril 2024 7:57am Hypoxia chronic March 11 7:57am Obesity chronic March 11 7:57am Secondary pulmonary arterial hypertension chronic February 7:57am Dyspnea acute April 28, 2025 9:30am Ankylosing spondylitis chronic Ju 2024 9:30am Hypoxia chronic April 28, 2025 9:30am Obesity chronic April 28, 2025 9:30am Secondary pulmonary arterial hypertension chronic April 28, 2025 9:30am [facility] Work Phone: Discharge summary note 08-03-2024 Note Date & Type Note Facility 08-03-2024 Note [facility] Evaluation note Note Date & Type Note Facility Evaluation note No assessment information availa [facility] Work Phone: Evaluation note Note Date & Type Note Facility Evaluation note Diagnosis Onset Date Benign essential hypertension [facility] Work Phone: Reason for referral (narrative) Note Date & Type Note Facility Reason for referral (narrative) No reason for referral information available [facility] Work Phone: Summary Purpose Family History Relationship Condition Age at Onset Recorded Date/T pancho mother Cardiac disease Unknown Advance Directives Advance Directive Response Recorded Date/ Time Living Will No September 15 7:11pm Power of Malt Specifications Control Assistant No September 15, 2017 7:11pm Advance Directive Response Recorded Date/ Time Living Will No September 15 6:11pm Power of Malt Specifications Control Assistant No September 15, 2017 6:11pm Chief Complaint and Reason for Visit Chief Complaint 1 y fu Reason for Visit Benign essential hyp ertension Chief Complaint Admit Date 4 M FU March 11, 2025 7:5 7am R06.00 - Dyspnea, unspecified April 04, 2025 9:15am Reason for Visit Admit Date Dyspnea March 11, 2025 7:5 7am Ankylosing spondylitis March 11, 2025 7:57am Hypoxia March 11, 2025 7:5 7am Obesity March 11, 2025 7:5 7am Secondary pulmonary arterial hypertensio n March 11, 2025 7:57am Chief Complaint Admit Date 4 M FU March 11, 2025 7:5 7am R06.00 - Dyspnea, unspecified April 04, 2025 9:15am 6-8 wk fu April 28, 2025 9:30a m Reason for Visit Admit Date Dyspnea March 11, 2025 7:5 7am Ankylosing spondylitis March 11, 2025 7:57am Hypoxia March 11, 2025 7:5 7am Obesity March 11, 2025 7:5 7am Secondary pulmonary arterial hypertensio n March 11, 2025 7:57am Dyspnea April 28, 2025 9:30a m Ankylosing spondylitis April 28, 2025 9: 30am Hypoxia April 28, 2025 9:30a m Obesity April 28, 2025 9:30a m Secondary pulmonary arterial hypertensio n April 28, 2025 9:30am Additional Source Comments (unrecognized sect ion and content) No Status Records FoundNo Status Records Found INFORMATION SOURCE (unrecogn ized section and content) DATE CREATED AUTHOR 05/20/2018 [facility] DATE CREATED AUTHOR AUTHOR'S ANGELITA HOLLOWAY 04/29/2025 [facility] Goals (unrecognized section and content) Goals may be documented in a n alternate sectionGoals may be documented in an alternate sectionGoals may be documented in an alternate sectionGoals may be documented in an alternate sectionGoals may be documented in an alternate sectionGoals may be documented in an alternate sectionGoals may be documented in an alternate sectionGoals may be documented in an alternate sectionGoals may be documented in an alternate section Care Teams (unrecognized sec tion and content) Team Status: Active Member Role Status Dates Dr. Gregg Duran MD Family Provider Active Dr. Gregg Duran MD Primary Care Provider Active Team Status: Inactive Member Role Status Dates Dr. Gregg Duran MD Primary Care Provider, Referring Provider Active Dr. Zafar Fish MD Attending Provider Active Team Status: Inactive Member Role Status Dates Dr. Gregg Duran MD Primary Care Provider, Attending Provider Active Team Status: Inactive Member Role Status Dates Dr. Gregg Duran MD Primary Care Provider Active Dr. Beba Edwards MD Attending Provider, Referring Pr ovider Active Team Status: Inactive Member Role Status Dates Dr. Gregg Duran MD Primary Care Provi arden, Attending Provider, Referring Provider Active Team Status: Active Member Role Status Dates Dr. Gregg Duran MD Primary Care Provider Active Team Status: Inactive Member Role Status Dates Dr. Gregg Duran MD Primary Care Provider Active Start: March 11, 2025 End: March 11, 2025 Dr. Gregg Duran MD Referring Provider Active Start: March 11, 2025 End: March 11, 2025 Jaclyn Adams NP OUTSIDE SALES ENGINEER-C Attending Provider Active Start: March 11, 2025 End: March 11, 2025 Team Status: Inactive Member Role Status Dates Dr. Gregg Duran MD Primary Care Provider Active Start: April 04, 2025 End: April 04, 2025 Jaclyn Adams NP, OUTSIDE SALES ENGINEER-C Attending Provider Active Start: April 04, 2025 End: April 04, 2025 Jaclyn Adams NP OUTSIDE SALES ENGINEER-C Referring Provider Active Start: April 04, 2025 End: April 04, 2025 Team Status: Inactive Member Role Status Dates Dr. Gregg Duran MD Primary Care Provider Active Start: April 11, 2025 End: April 11, 2025 Dr. Gregg Duran MD Attending Provider Active Start: April 11, 2025 End: April 11, 2025 Dr. Gregg Duran MD Referring Provider Active Start: April 11, 2025 End: April 11, 2025 Team Status: Inactive Member Role Status Dates Dr. Gregg Duran MD Primary Care Provider Active Start: April 28, 2025 End: April 28, 2025 Dr. Gregg Duran MD Referring Provider Active Start: April 28, 2025 End: April 28, 2025 Jaclyn Adams NP OUTSIDE SALES ENGINEER-C Attending Provider Active Start: April 28, 2025 End: April 28, 2025 FOR RECORDS PERTAINING TO PATIENTS WHO ARE OR HAVE BEEN ENROLLED IN A CHEMICAL DEPENDENCY/SUBSTANCEABUSE PROGRAM, SOME INFORMATION MAY BE OMITTED. This clinical summary was aggregated from multiple sources. Caution should be exercised in using it in the provision of clinical care. This summary normalizes information from multiple sources, and as a consequence, information in this document may materially change the coding, format and clinical context of patient data. In addition, data may be omitted in some cases. CLINICAL DECISIONS SHOULD BE BASED ON THE PRIMARY CLINICAL RECORDS. [facility] provides no warranty or guarantee of the accuracy or completeness of information in this document.
== END | disposition home or self-care (01) ==
PROVIDERS: PCP Family Medicine; Referring Provider Anesthesiology Pain Medicine; Visit Provider Anesthesiology Pain Medicine
DX: F11.20 Opioid dependence, uncomplicated (principal)
CPT/HCPCS: 80307

== ENCOUNTER → 2025-09-07 | Outpatient (CLI) | payer MEDICARE, OTHER, SELFPAY ==
[2025-09-07 13:00] LABS: PSA,Total - Annual Screen 8.38 ng/mL (0.02-4.00)
== END | disposition home or self-care (01) ==
LOC: MFPLAB 09:24
PROVIDERS: PCP Family Medicine
DX: Z12.5 Encounter for screening for malignant neoplasm of prostate (principal)
CPT/HCPCS: 36415; 84153; G0103